=== PATIENT | female | born 1945 | race Caucasian/White ===

== ENCOUNTER → 2016-06-05 | Outpatient (CLI) | payer MEDICARE, OTHER ==
[~2016-06-05] MED LIST: ADVA115A PO; ADVA500A INH; ALAV10TA PO; ALBU6.7H INH; AMBI6.25 PO; BENZ100C4 PO; BUTATAB6 PO; CALCTAB94 PO; CALTTAB5 PO; CARA1TAB6 PO; CARV6.25 PO; CLAR10CA3 PO; CORE12.5 PO; D31000TA PO; FURO20TA PO; FURO40TA PO; GLUCTAB6 PO; HYDR-3516 PO; HYDR-3533 PO; LANS15CA PO; LANSO15 PO; LISI-360 PO; LISI10TA3 PO; MACR100C2 PO; MEDR4PAK PO; NITR-29 PO; OMEP10CA PO; PANT40P IV PUSH; PROB1CAP12 PO; PROB1CHW2; PROM25TA5 PO; REST0.05 EACH EYE; ROBIDM5S PO; SPIRCAP INH; SUCR1SUS5 PO; SYMB160A INH; TIOT12.9 INH; TOPI0.255 TOP; VALT500T PO; Z.0.WALKERFOLD; ZOVI5CRE3 TOPICAL; [UNRECOGNIZED DRUG - CODE] MT
[2016-06-05 11:59] LABS: BICARBONATE 30.6 MEQ/L (21.0-32.0); POTASSIUM 4.2 MEQ/L (3.5-5.1)
== END ==
LOC: CLAB 11:21
PROVIDERS: ATTEND Internal Medicine Interventional Cardiology
DX: I50.9 Heart failure, unspecified (principal)
CPT/HCPCS: 36415; 80048

== ENCOUNTER 2016-06-21 11:22 | Inpatient (IN) | payer MEDICARE, OTHER ==
[2016-06-21] VITALS (7 sets, daily range): BP systolic 119–167; BP diastolic 56–79; PULSE 71–101; RESP 18–24; TEMP 97.2–105; O2SAT 94–99
[~2016-06-21] VITALS: Ht 167.6 cm; Wt 87.0 kg
[~2016-06-21 11:22] MED LIST changes: -ADVA500A INH; -BUTATAB6 PO; -CALCTAB94 PO; -CARA1TAB6 PO; -CARV6.25 PO; -CLAR10CA3 PO; -FURO40TA PO; -HYDR-3516 PO; -LANS15CA PO; -LISI10TA3 PO; -MACR100C2 PO; -MEDR4PAK PO; -OMEP10CA PO; -PANT40P IV PUSH; -PROB1CHW2; -ROBIDM5S PO; -SPIRCAP INH; -SYMB160A INH; -ZOVI5CRE3 TOPICAL
[2016-06-21] MEDS ORDERED: AZTREONAM INJ 2,000 MG in SODIUM CHLORIDE 0.9% INJ 100 ML IV STA (11:37)
[2016-06-21] MEDS ORDERED: VANCOMYCIN INJ 1,000 MG in SODIUM CHLOR 0.9% 250 ML INJ 250 ML IV STA (11:37)
[2016-06-21] MEDS ORDERED: metroNIDAZOLE 500 MG INJ 100 ML IV STA (11:37)
[2016-06-21] MEDS ORDERED: SODIUM CHLOR 0.9% 1000 ML INJ 1,000 ML IV ONE ×4 (11:37→11:45)
[2016-06-21] MEDS ORDERED: ACETAMINOPHEN 650 MG SUPP RECTAL ONE (11:45)
[2016-06-21] MEDS ORDERED: ONDANSETRON HCL 4 MG/2 ML VIAL IV ONE (11:45)
--- NOTE | 2016-06-21 11:52 | PD ---
HPI Chief Complaint: Fever/AMS Time Seen by Provider: 11:45 Travel History International Travel<30 days: No Contact w/Intl Traveler<30days: No History of Present Illness HPI Patient comes in by EMS after found altered while talking on phone to her daughter, who then called EMS. EMS reports last patient was noted to be normal was Sunday and has been septic in the past. EMS reports patient was found to be covered in urine and has not been answering many questions. Axillary temperature by EMS was 104. Patient is able to answer simple yes or no questions. Does not know where she is. Reports she does not know her history. Due to patient's altered mental status patient's H&P is limited. PFSH Past Medical History Arthritis: Yes Asthma: Yes Heart Rhythm Problems: Yes (IRREGULAR W/ PACER) Cancer: No Cardiac Catheterization: Yes (2001) Cardiomyopathy: Yes Cardiovascular Problems: Yes (CHF, CARDIOMYOPATHY ) High Cholesterol: No Congestive Heart Failure: Yes COPD: Yes Cerebrovascular Accident: Yes (TIA) Coronary Artery Disease: Yes Diabetes: No Diminished Hearing: No Gastrointestinal Disorders: Yes GERD: Yes Genitourinary: Yes (chronic uti) Hypertension: Yes Immune Disorder: No Implanted Vascular Access Dvce: Yes Musculoskeletal: Yes (sciatica) Neurologic: Yes (VERTIGO) Psychiatric: No Reproductive: No Respiratory: Yes (bronchitis) Pneumonia: Yes Menopausal: Yes : 8 Para: 8 Miscarriage: 1 Tubal Ligation: Yes Past Surgical History Appendectomy: Yes Cardiac Surgery: Yes (PACEMAKER MEDTRONIC MODEL 4543 S/N [id number] ) Coronary Artery Bypass Graft: No Pacemaker: Yes (defibrillator [employer] med[employer]onic) Tonsillectomy: Yes Other Surgery: Yes Social History Alcohol Use: No Tobacco Use: No (quit 2002) Substance Use: No Allergies-Medications (Allergen,Severity, Reaction): Coded Allergies: Amoxicillin (Verified Allergy, Severe, Diarrhea, 06/21/16) Augmentin (Verified Allergy, Severe, Diarrhea, 06/21/16) Cefuroxime sodium (Verified Allergy, Severe, rash, 06/21/16) Cipro (Verified Allergy, Severe, Nausea/Vomiting, 06/21/16) Codeine (Verified Allergy, Severe, Nausea/Vomiting, 06/21/16) Feldene (Verified Allergy, Severe, Hives, 06/21/16) Tequin (Verified Allergy, Severe, Confusion, 06/21/16) Aspirin (Unverified Allergy, Intermediate, Hives, 06/21/16) Atorvastatin (Verified Allergy, Intermediate, FLANK PAIN, 06/21/16) Morphine (Verified Allergy, Intermediate, sweats, 06/21/16) Contrast Media (Verified Allergy, Unknown, Anaphylaxis, 06/21/16) Gentamicin (Verified Adverse Reaction, Intermediate, DIARRHEA, 06/21/16) Reported Meds & Prescriptions Reported Meds & Active Scripts Active Active Prescriptions or Reported Medications Unobtainable Review of Systems ROS Limitations: Clinical Condition, Altered Mental Status Except as stated in HPI: all other systems reviewed are Neg Physical Exam Exam Limitations: Clinical Condition, Altered Mental Status Narrative GENERAL: Well-developed, overly nourished, in no acute distress, and non-ill appearing. SKIN: Warm and dry. HEAD: Atraumatic. Normocephalic. EYES: Pupils equal and round. No scleral icterus. No injection or drainage. ENT: No nasal bleeding or discharge. Mucous membranes pink and moist. NECK: Trachea midline. Supple. No nuclear rigidity. CARDIOVASCULAR: Regular rate and rhythm. No murmur appreciated. RESPIRATORY: No accessory muscle use. No respiratory distress. Decreased breath sounds throughout. Breath sounds equal bilaterally. GASTROINTESTINAL: Abdomen soft, non-tender, nondistended. Hepatic and splenic margins not palpable. Normal bowel sounds 4. No pulsatile mass. MUSCULOSKELETAL: No obvious deformities. No clubbing. No cyanosis. No edema. NEUROLOGICAL: Awake. No obvious cranial nerve deficits. PSYCHIATRIC: Altered. Data Data Last Documented VS Vital Signs Date Time Temp Pulse Resp B/P Pulse Ox O2 Delivery O2 Flow Rate FiO2 06/21/16 13:23 100 20 167/75 98 Nasal Cannula 2 06/21/16 11:30 105.0 Orders Electrocardiogram (06/21/16 11:37) Complete Blood Count With Diff (06/21/16 11:37) Comprehensive Metabolic Panel (06/21/16 11:37) Prothrombin Time / Inr (Pt) (06/21/16 11:37) Act Partial Throm Time (Ptt) (06/21/16 11:37) Lactic Acid Sepsis Protocol (06/21/16 11:37) Magnesium (Mg) (06/21/16 11:37) Lipase (06/21/16 11:37) Urinalysis - C+S If Indicated (06/21/16 11:37) Influenzae A/B Antigen (06/21/16 11:37) Blood Culture (06/21/16 11:37) Chest, Single Ap (06/21/16 11:37) Blood Glucose (06/21/16 11:37) Ecg Monitoring (06/21/16 11:37) Iv Access Insert/Monitor (06/21/16 11:37) Oximetry (06/21/16 11:37) Oxygen Administration (06/21/16 11:37) Acetaminophen Supp (Tylenol Supp) (06/21/16 11:45) Ondansetron Inj (Zofran Inj) (06/21/16 11:45) Sodium Chlor 0.9% 1000 Ml Inj (Ns 1000 M (06/21/16 11:37) Sodium Chlor 0.9% 1000 Ml Inj (Ns 1000 M (06/21/16 11:37) Sodium Chlor 0.9% 1000 Ml Inj (Ns 1000 M (06/21/16 11:37) Vancomycin Inj (Vancomycin Inj) (06/21/16 11:37) Metronidazole 500 Mg Inj (Flagyl 500 Mg (06/21/16 11:37) Aztreonam Inj (Azactam Inj) (06/21/16 11:37) Sodium Chlor 0.9% 1000 Ml Inj (Ns 1000 M (06/21/16 11:45) Continue Cronin/Suprapubic Cath (06/21/16 11:42) Ct Brain W/O Iv Contrast(Rout) (06/21/16 ) Ckmb (Isoenzyme) Profile (06/21/16 11:42) Troponin I (06/21/16 11:42) Ibuprofen (Motrin) (06/21/16 13:00) Csf Cell Count + Differential (06/21/16 13:26) Csf Culture And Gram Stain (06/21/16 13:26) Csf Hsv I/Ii Dna,Pcr (06/21/16 13:26) Total Protein, Csf (06/21/16 13:26) Glucose, Csf (06/21/16 13:26) Csf Arbovirus Abs (06/21/16 13:26) Midazolam Inj (Versed Inj) (06/21/16 13:30) Lidocaine 2% Inj (Xylocaine 2% Inj) (06/21/16 13:45) Admit To Inpatient (06/21/16 ) Vital Signs (Adult) Q4H (06/21/16 13:49) Activity Bed Rest With Brp (06/21/16 13:49) 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 .CONTINUOUS (06/21/16 13:49) Intake + Output PADMINI.QSHIFT (06/21/16 13:49) Diet Npo (06/21/16 Lunch) Sodium Chlor 0.9% 1000 Ml Inj (Ns 1000 M (06/21/16 13:49) Sodium Chloride 0.9% Flush (Ns Flush) (06/21/16 14:00) Sodium Chloride 0.9% Flush (Ns Flush) (06/21/16 21:00) Acetaminophen (Tylenol) (06/21/16 14:00) Ondansetron Inj (Zofran Inj) (06/21/16 14:00) Magnesium Hydroxide Liq (Milk Of Magnesi (06/21/16 14:00) Basic Metabolic Panel (Bmp) (06/22/16 06:00) Complete Blood Count With Diff (06/22/16 06:00) Pt Request For Service (06/21/16 13:49) Enoxaparin Inj (Lovenox Inj) (06/21/16 14:00) Scd Bilateral/Knee High PADMINI.BID (06/21/16 13:49) Acetaminophen (Tylenol) (06/21/16 14:00) Inpatient Certification (06/21/16 ) Labs Laboratory Tests Test 06/21/16 06/21/16 06/21/16 11:45 11:47 12:05 White Blood Count 3.3 TH/MM3 Red Blood Count 4.44 MIL/MM3 Hemoglobin 13.4 GM/DL Hematocrit 39.5 % Mean Corpuscular Volume 89.1 FL Mean Corpuscular Hemoglobin 30.2 PG Mean Corpuscular Hemoglobin 33.9 % Concent Red Cell Distribution Width 14.4 % Platelet Count 161 TH/MM3 Mean Platelet Volume 9.4 FL Neutrophils (%) (Auto) % Lymphocytes (%) (Auto) % Monocytes (%) (Auto) % Eosinophils (%) (Auto) % Basophils (%) (Auto) % Neutrophils # (Auto) TH/MM3 Lymphocytes # (Auto) TH/MM3 Monocytes # (Auto) TH/MM3 Eosinophils # (Auto) TH/MM3 Basophils # (Auto) TH/MM3 CBC Comment AUTO DIFF Differential Total Cells 100 Counted Neutrophils % (Manual) 36 % Band Neutrophils % 9 % Lymphocytes % 36 % Monocytes % 19 % Neutrophils # (Manual) 1.5 TH/MM3 Differential Comment FINAL DIFF MANUAL Platelet Estimate NORMAL Platelet Morphology Comment NORMAL Red Cell Morphology Comment NORMAL Prothrombin Time 12.7 SEC Prothromb Time International 1.1 RATIO Ratio Activated Partial 29.1 SEC Thromboplast Time Sodium Level 135 MEQ/L Potassium Level 3.8 MEQ/L Chloride Level 102 MEQ/L Carbon Dioxide Level 22.5 MEQ/L Anion Gap 11 MEQ/L Blood Urea Nitrogen 17 MG/DL Creatinine 1.29 MG/DL Estimat Glomerular Filtration 41 ML/MIN Rate Random Glucose 83 MG/DL Calcium Level 8.7 MG/DL Magnesium Level 1.9 MG/DL Total Bilirubin 0.6 MG/DL Aspartate Amino Transf 17 U/L (AST/SGOT) Alanine Aminotransferase 26 U/L (ALT/SGPT) Alkaline Phosphatase 109 U/L Total Creatine Kinase 81 U/L Troponin I LESS THAN 0.02 NG/ML Total Protein 7.6 GM/DL Albumin 3.5 GM/DL Lipase 171 U/L Lactic Acid Level 1.3 mmol/L Urine Color YELLOW Urine Turbidity CLEAR Urine pH 7.0 Urine Specific [place] 1.018 Urine Protein NEG mg/dL Urine Glucose (UA) NEG mg/dL Urine Ketones NEG mg/dL Urine Occult Blood NEG Urine Nitrite NEG Urine Bilirubin NEG Urine Urobilinogen LESS THAN 2.0 MG/DL Urine Leukocyte Esterase NEG Urine RBC 1 /hpf Urine WBC LESS THAN 1 /hpf Microscopic Urinalysis Comment CULT NOT INDICATED MDM Medical Decision Making Medical Screen Exam Complete: Yes Emergency Medical Condition: Yes Medical Record Reviewed: Yes Interpretation(s) EKG reviewed by Dr. Kim, shows paced rhythm with ventricular rate of 98. No STEMI. Differential Diagnosis Sepsis, pneumonia, UTI, meningeal encephalitis, electrolyte abnormality, other Narrative Course Discussed patient with Dr. Kim, who saw and evaluate the patient and is in agreement with plan of care and disposition. 1248 patient is reassessed and is now oriented to person, place, and day of the week. Patient is concerned she is developing viral encephalitis again. Patient reports she started not feeling well today. Denies any pain anywhere. States that she is kind of felt "blah" and asked her son to check on her from time to time. Patient denies doing anything for this. Denies any headache, chest pain, shortness breath, coughing, abdominal pain, or dysuria. Discussed findings and plan of care with patient is agreeable for admission. All questions were answered. Sepsis Criteria SIRS Criteria (2 or more): Temp > 100.9 or < 96.8, Heart rate over 90, WBC > 99522, < 4000 or > 10% bands Sepsis Criteria (SIRS+source): Infect source susp/known Criteria Outcome: Meets sepsis criteria Physician Communication Physician Communication [id number] Jain, who is agreeable to admit the patient. Diagnosis Primary Impression: Sepsis Qualified Code: A41.9 - Sepsis, due to unspecified organism Additional Impression: Altered mental status, unspecified Admitting Information Admitting Physician Requests: Admit Scripts Unable to Obtain Active Prescriptions or Reported Meds Ze Nguyen Jun 21, 2016 11:51
[2016-06-21 12:17] LABS: HEMATOCRIT 39.5 % (35.0-46.0); MEAN CELL VOLUME 89.1 FL (80.0-100.0); MEAN CORPUSCULAR HEMOGLOBIN 30.2 PG (27.0-34.0); MEAN CORPUSCULAR HGB CONC 33.9 % (32.0-36.0); PLATELET COUNT 161 TH/MM3 (150-450); RED BLOOD COUNT 4.44 MIL/MM3 (4.00-5.30); RED CELL DISTRIBUTION WIDTH 14.4 % (11.6-17.2); WHITE BLOOD COUNT 3.3 TH/MM3 (4.0-11.0)
[2016-06-21 12:21] LABS: HEMO FLAGS AUTO DIFF
[2016-06-21 12:24] LABS: APTT (PATIENT) 29.1 SEC (24.3-30.1); INTERNATIONAL NORMALIZED RATIO 1.1 RATIO; PROTHROMBIN TIME - PATIENT 12.7 SEC (9.8-11.6)
[2016-06-21 12:36] LABS: BLOOD, URINE NEG (NEG); GLUCOSE,URINE NEG (NEG); KETONE, URINE NEG (NEG); NITRITE,URINE NEG (NEG); URINE COLOR YELLOW (YELLW/STRAW)
[2016-06-21 12:44] LABS: COMMENT (UR) CULT NOT INDICATED; CULTURE IF INDICATED CULT NOT INDICATED
[2016-06-21 12:55] LABS: ALKALINE PHOSPHATASE 109 U/L (45-117); ALT (GPT) 26 U/L (10-53); AST (GOT) 17 U/L (15-37); BLOOD UREA NITROGEN 17 MG/DL (7-18); GLOMERULAR FILTRATION RATE 41 ML/MIN (>89); MAGNESIUM 1.9 MG/DL (1.5-2.5); TOTAL BILIRUBIN ADULT 0.6 MG/DL (0.2-1.0)
[2016-06-21 12:56] LABS: ANION GAP 11 MEQ/L (5-15); BANDS 9 % (0-6); BICARBONATE 22.5 MEQ/L (21.0-32.0); CHLORIDE 102 MEQ/L (98-107); NEUTROPHIL # MANUAL DIFF 1.5 TH/MM3 (1.8-7.7); POLYS (SEG NEUTROPHILS) 36 % (16-70); POTASSIUM 3.8 MEQ/L (3.5-5.1); SODIUM (NA) 135 MEQ/L (136-145); WBC DIFF SAMPLE 100
--- NOTE | 2016-06-21 12:56 | RADRPT ---
EXAM DATE/TIME: 06/21/2016 12:20 [facility] COMPARISON: CT BRAIN W/O CONTRAST, October 03, 2015, 21:47. INDICATIONS: Altered mental status, high fever. RADIATION DOSE: 56.35 CTDIvol (mGy) MEDICAL HISTORY: Cerebrovascular disease. Cardiovascular disease Hypertension. SURGICAL HISTORY: Appendectomy. ENCOUNTER: Initial ACUITY: 1 day PAIN SCALE: Non-responsive LOCATION: Cranial TECHNIQUE: Multiple contiguous axial images were obtained of the head. Using automated exposure control and adj ustment of the mA and/or kV according to patient size, radiation dose was kept as low as reasonably a chievable to obtain optimal diagnostic quality images. FINDINGS: Mild subcortical white matter small vessel ischemic changes are noted. There is no acute infarct, ac laura hemorrhage, mass effect or extraaxial fluid collections. The ventricles, sulci and cisterns are norm al in size, shape and position for patient's age. CONCLUSION: 1. Mild subcortical white matter small vessel ischemic changes. 2. No acute infarct, acute hemorrhage, mass effect or extraaxial fluid collections. Thee Noble MD on June 21, 2016 at 12:50 Board Certified Radiologist. This report was verified electronically.
[2016-06-21 12:57] LABS: PLATELET ESTIMATE SMEAR NORMAL (NORMAL); PLATELET MORPHOLOGY NORMAL (NORMAL); SCAN/DIFF FINAL DIFF MANUAL
--- NOTE | 2016-06-21 12:58 | RADRPT ---
EXAM DATE/TIME: 06/21/2016 11:58 [facility] COMPARISON: CHEST SINGLE AP, March 03, 2016, 11:33. INDICATIONS: Short of breath. MEDICAL HISTORY: None. SURGICAL HISTORY: Pacemaker ENCOUNTER: Initial ACUITY: 1 day PAIN SCORE: Non-responsive. LOCATION: Bilateral chest FINDINGS: Three lead pacer is implanted in the left chest. Heart is minimally enlarged, pulmonary vascularity is normal. Portion of bony skeleton visualized unremarkable. CONCLUSION: Pacer, negative for pneumothorax or congestive failure. Montez Gil MD FACR on June 21, 2016 at 12:55 Board Certified Radiologist. This report was verified electronically.
[2016-06-21] MEDS ORDERED: IBUPROFEN 800 MG TAB PO ONE (13:00)
[2016-06-21 13:02] LABS: CREATINE KINASE 81 U/L (26-192)
[2016-06-21] MEDS ORDERED: MIDAZOLAM HCL 2 MG/2 ML VIAL IV PUSH ONE (13:30)
[2016-06-21] MEDS ORDERED: LIDOCAINE HCL 2% 50 ML VIAL INFIL ONE (13:45)
[2016-06-21] MEDS ORDERED: MAGNESIUM HYDROXIDE SUSP 30 ML CUP PO PRN (14:00)
[2016-06-21] MEDS ORDERED: SODIUM CHLORIDE 0.9% FLUSH 5 ML FLUSH FLUSH PRN (14:00)
--- NOTE | 2016-06-21 14:30 | PD ---
Physical Exam Narrative I, Dr. Kim, have reviewed the advance practice practitioner's documentation and am in agreement, met with the patient face to face, made the diagnosis, and the medical decision making was done by me. *My assessment and Findings: Patient is a 70 year old female who comes in altered with a fever. Per EMS, she was found bundled in bed covered in urine. Her is currently admitted in the hospital and is supposed to be discharged today. On arrival, she is not able to provide much history, but does answer to her name. Exam shows her skin is hot to touch, she has no lesions seen. Her abdomen is soft, lungs are CTA. Data Data Last Documented VS Vital Signs Date Time Temp Pulse Resp B/P Pulse Ox O2 Delivery O2 Flow Rate FiO2 06/21/16 13:23 100 20 167/75 98 Nasal Cannula 2 06/21/16 11:30 105.0 Orders Electrocardiogram (06/21/16 11:37) Complete Blood Count With Diff (06/21/16 11:37) Comprehensive Metabolic Panel (06/21/16 11:37) Prothrombin Time / Inr (Pt) (06/21/16 11:37) Act Partial Throm Time (Ptt) (06/21/16 11:37) Lactic Acid Sepsis Protocol (06/21/16 11:37) Magnesium (Mg) (06/21/16 11:37) Lipase (06/21/16 11:37) Urinalysis - C+S If Indicated (06/21/16 11:37) Influenzae A/B Antigen (06/21/16 11:37) Blood Culture (06/21/16 11:37) Chest, Single Ap (06/21/16 11:37) Blood Glucose (06/21/16 11:37) Ecg Monitoring (06/21/16 11:37) Iv Access Insert/Monitor (06/21/16 11:37) Oximetry (06/21/16 11:37) Oxygen Administration (06/21/16 11:37) Acetaminophen Supp (Tylenol Supp) (06/21/16 11:45) Ondansetron Inj (Zofran Inj) (06/21/16 11:45) Sodium Chlor 0.9% 1000 Ml Inj (Ns 1000 M (06/21/16 11:37) Sodium Chlor 0.9% 1000 Ml Inj (Ns 1000 M (06/21/16 11:37) Sodium Chlor 0.9% 1000 Ml Inj (Ns 1000 M (06/21/16 11:37) Vancomycin Inj (Vancomycin Inj) (06/21/16 11:37) Metronidazole 500 Mg Inj (Flagyl 500 Mg (06/21/16 11:37) Aztreonam Inj (Azactam Inj) (06/21/16 11:37) Sodium Chlor 0.9% 1000 Ml Inj (Ns 1000 M (06/21/16 11:45) Continue Cronin/Suprapubic Cath (06/21/16 11:42) Ct Brain W/O Iv Contrast(Rout) (06/21/16 ) Ckmb (Isoenzyme) Profile (06/21/16 11:42) Troponin I (06/21/16 11:42) Ibuprofen (Motrin) (06/21/16 13:00) Csf Cell Count + Differential (06/21/16 13:26) Csf Culture And Gram Stain (06/21/16 13:26) Csf Hsv I/Ii Dna,Pcr (06/21/16 13:26) Total Protein, Csf (06/21/16 13:26) Glucose, Csf (06/21/16 13:26) Csf Arbovirus Abs (06/21/16 13:26) Midazolam Inj (Versed Inj) (06/21/16 13:30) Lidocaine 2% Inj (Xylocaine 2% Inj) (06/21/16 13:45) Admit To Inpatient (06/21/16 ) Vital Signs (Adult) Q4H (06/21/16 13:49) Activity Bed Rest With Brp (06/21/16 13:49) 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 .CONTINUOUS (06/21/16 13:49) Intake + Output PADMINI.QSHIFT (06/21/16 13:49) Diet Npo (06/21/16 Lunch) Sodium Chlor 0.9% 1000 Ml Inj (Ns 1000 M (06/21/16 14:00) Sodium Chloride 0.9% Flush (Ns Flush) (06/21/16 14:00) Sodium Chloride 0.9% Flush (Ns Flush) (06/21/16 21:00) Acetaminophen (Tylenol) (06/21/16 14:00) Ondansetron Inj (Zofran Inj) (06/21/16 14:00) Magnesium Hydroxide Liq (Milk Of Magnesi (06/21/16 14:00) Basic Metabolic Panel (Bmp) (06/22/16 06:00) Complete Blood Count With Diff (06/22/16 06:00) Pt Request For Service (06/21/16 13:49) Enoxaparin Inj (Lovenox Inj) (06/21/16 14:00) Scd Bilateral/Knee High PADMINI.BID (06/21/16 13:49) Acetaminophen (Tylenol) (06/21/16 14:00) Inpatient Certification (06/21/16 ) Admit Order (Ed Use Only) (06/21/16 13:51) Labs Laboratory Tests Test 06/21/16 06/21/16 06/21/16 11:45 11:47 12:05 White Blood Count 3.3 TH/MM3 Red Blood Count 4.44 MIL/MM3 Hemoglobin 13.4 GM/DL Hematocrit 39.5 % Mean Corpuscular Volume 89.1 FL Mean Corpuscular Hemoglobin 30.2 PG Mean Corpuscular Hemoglobin 33.9 % Concent Red Cell Distribution Width 14.4 % Platelet Count 161 TH/MM3 Mean Platelet Volume 9.4 FL Neutrophils (%) (Auto) % Lymphocytes (%) (Auto) % Monocytes (%) (Auto) % Eosinophils (%) (Auto) % Basophils (%) (Auto) % Neutrophils # (Auto) TH/MM3 Lymphocytes # (Auto) TH/MM3 Monocytes # (Auto) TH/MM3 Eosinophils # (Auto) TH/MM3 Basophils # (Auto) TH/MM3 CBC Comment AUTO DIFF Differential Total Cells 100 Counted Neutrophils % (Manual) 36 % Band Neutrophils % 9 % Lymphocytes % 36 % Monocytes % 19 % Neutrophils # (Manual) 1.5 TH/MM3 Differential Comment FINAL DIFF MANUAL Platelet Estimate NORMAL Platelet Morphology Comment NORMAL Red Cell Morphology Comment NORMAL Prothrombin Time 12.7 SEC Prothromb Time International 1.1 RATIO Ratio Activated Partial 29.1 SEC Thromboplast Time Sodium Level 135 MEQ/L Potassium Level 3.8 MEQ/L Chloride Level 102 MEQ/L Carbon Dioxide Level 22.5 MEQ/L Anion Gap 11 MEQ/L Blood Urea Nitrogen 17 MG/DL Creatinine 1.29 MG/DL Estimat Glomerular Filtration 41 ML/MIN Rate Random Glucose 83 MG/DL Calcium Level 8.7 MG/DL Magnesium Level 1.9 MG/DL Total Bilirubin 0.6 MG/DL Aspartate Amino Transf 17 U/L (AST/SGOT) Alanine Aminotransferase 26 U/L (ALT/SGPT) Alkaline Phosphatase 109 U/L Total Creatine Kinase 81 U/L Troponin I LESS THAN 0.02 NG/ML Total Protein 7.6 GM/DL Albumin 3.5 GM/DL Lipase 171 U/L Lactic Acid Level 1.3 mmol/L Urine Color YELLOW Urine Turbidity CLEAR Urine pH 7.0 Urine Specific [place] 1.018 Urine Protein NEG mg/dL Urine Glucose (UA) NEG mg/dL Urine Ketones NEG mg/dL Urine Occult Blood NEG Urine Nitrite NEG Urine Bilirubin NEG Urine Urobilinogen LESS THAN 2.0 MG/DL Urine Leukocyte Esterase NEG Urine RBC 1 /hpf Urine WBC LESS THAN 1 /hpf Microscopic Urinalysis Comment CULT NOT INDICATED MDM Supervised Visit with LEONEL: Yes Narrative Course After fluids and Tylenol, patient became more alert. She says she started feeling badly this afternoon. She was here several months ago with similar presenting symptoms, and was diagnosed with viral meningitis. She has no specific symptoms at this time. IV was placed, patient was connected to the cardiac cath lab radiology technologist. She was cooled with ice packs in her groin due to a temp of the 105 rectally. Given IV fluids as well as rectal Tylenol. Covered empirically with broad-spectrum antibiotics. Urinalysis negative for infection, chest x-ray negative for pneumonia. No clear source of her infection. Decision made to perform lumbar puncture to obtain CSF for testing. LP performed without incident. Patient admitted for further management. Procedures Procedure Narrative LUMBAR PUNCTURE: The patient was placed in the left lateral decubitus position. The lumbar area of the back was prepped with Betadine and sterilely draped. The L3 -- L4 interspace was infiltrated with 1% lidocaine plain. Number 20 gauge LP needle was placed in the interspace. Opening pressure deferred. Number 2 milliliters of clear CSF were obtained. Patient tolerated procedure well. Diagnosis Primary Impression: Sepsis Qualified Code: A41.9 - Sepsis, due to unspecified organism Additional Impression: Altered mental status, unspecified Scripts Unable to Obtain Active Prescriptions or Reported Meds Madai Kim MD Jun 21, 2016 14:30
[2016-06-21] MEDS: SODIUM CHLOR 0.9% 1000 ML INJ 1,000 ML IV SCH (14:53)
[2016-06-21] MEDS: ENOXAPARIN SODIUM 40 MG/0.4 ML SYRINGE SQ SCH (14:54)
[2016-06-21] MEDS: ACETAMINOPHEN 325 MG TAB PO PRN ×2 (15:30→21:56)
--- NOTE | 2016-06-21 16:05 | HHI.HP ---
[facility] Service [facility] Primary Care Physician Jose Eduardo Watson MD Admission Diagnosis sepsis, altered mental status Diagnoses: Chief Complaint: Mental status changes Travel History International Travel<30 Days: No Contact w/Intl Traveler <30 Da: No Traveled to Known Affected Are: No Sepsis Criteria SIRS Criteria (2 or more): Temp > 100.9 or < 96.8, Heart rate over 90 Sepsis Criteria (SIRS+source): Infect source susp/known Criteria Outcome: Meets sepsis criteria History of Present Illness 70-year-old white female with a history of previous hypertension, cardiomyopathy requiring pacemaker defibrillator, COPD, chronic kidney disease stage III was brought to the emergency room secondary to changes in mental status and confusion. Back in September, patient was admitted for sepsis with possibly etiology of meningoencephalitis, with likely a virus as a source. Her who is currently at the bedside states that he did see her in the hospital visiting him yesterday and at that time she was alert and oriented to person place time situation. This morning when he spoke to her over the phone, he found she was extremities confused and therefore called his son to check up on her. She states that she had fevers and chills and felt extremely fatigued laying in bed. She did not complain of any focalized weakness or numbness. She at that time did report some headaches with no visual changes. She did state she lost bladder function. She states that she gets recurrent urinary tract infections frequently and just completed course of antibiotic recently. She has not had any symptoms of cough nor any diarrhea nor any abdominal pain. Since coming emergency room after giving medications, her confusion has improved per her she does not have a conversation with us. She has not had any recent travels outside of this area. Review of Systems Constitutional: COMPLAINS OF: Fever, Chills, DENIES: Fatigue, Change in appetite Endocrine: DENIES: Heat/cold intolerance Eyes: DENIES: Blurred vision, Eye pain, Vision loss Ears, nose, mouth, throat: DENIES: Hearing loss, Nasal discharge, Throat pain, Ear Pain, Sinus Pain Respiratory: DENIES: Cough, Shortness of breath Cardiovascular: DENIES: Chest pain, Palpitations, Dyspnea on Exertion, Lower Extremity Edema Gastrointestinal: DENIES: Abdominal pain, Black stools, Bloody stools, Constipation, Diarrhea, Nausea, Vomiting Genitourinary: DENIES: Dysuria Musculoskeletal: DENIES: Joint pain, Muscle aches, Stiffness Integumentary: DENIES: Rash Hematologic/lymphatic: DENIES: Bruising, Lymphadenopathy Immunologic/allergic: DENIES: Eczema Neurologic: COMPLAINS OF: Headache, DENIES: Abnormal gait, Localized weakness , Paresthesias, Seizures, Speech Problems, Tremor, Poor Balance Psychiatric: DENIES: Anxiety, Depression, Suicidal Ideation Past Family Social History Past Medical History Chronic kidney disease stage III COPD cardiomyopathy with pacemaker and defibrillator Hypertension Previous admission for sepsis in September with meningoencephalitis Past Surgical History Pacemaker data for replacement Reported Medications Has been currently getting him with medications. Unable to fully verify due to patient's mild confusion this time. Allergies: Coded Allergies: Amoxicillin (Verified Allergy, Severe, Diarrhea, 06/21/16) Augmentin (Verified Allergy, Severe, Diarrhea, 06/21/16) Cefuroxime sodium (Verified Allergy, Severe, rash, 06/21/16) Cipro (Verified Allergy, Severe, Nausea/Vomiting, 06/21/16) Codeine (Verified Allergy, Severe, Nausea/Vomiting, 06/21/16) Feldene (Verified Allergy, Severe, Hives, 06/21/16) Tequin (Verified Allergy, Severe, Confusion, 06/21/16) Aspirin (Unverified Allergy, Intermediate, Hives, 06/21/16) Atorvastatin (Verified Allergy, Intermediate, FLANK PAIN, 06/21/16) Morphine (Verified Allergy, Intermediate, sweats, 06/21/16) Contrast Media (Verified Allergy, Unknown, Anaphylaxis, 06/21/16) Gentamicin (Verified Adverse Reaction, Intermediate, DIARRHEA, 06/21/16) Family History Unable to obtain Social History Does not smoke cigarettes or drink alcohol. Physical Exam Vital Signs Vital Signs Date Time Temp Pulse Resp B/P Pulse Ox O2 Delivery O2 Flow Rate FiO2 06/21/16 14:26 102.3 78 22 119/56 98 Nasal Cannula 2 06/21/16 13:23 100 20 167/75 98 Nasal Cannula 2 06/21/16 12:05 98 Nasal Cannula 2 06/21/16 11:30 105.0 101 24 162/79 94 Physical Exam GENERAL: This is a well-nourished, well-developed patient, in no apparent distress. SKIN: No rashes, ecchymoses or lesions. Cool and dry. HEAD: Atraumatic. Normocephalic. No temporal or scalp tenderness. EYES: Pupils equal round and reactive. Extraocular motions intact. No scleral icterus. No injection or drainage. ENT: Nose without bleeding, purulent drainage or septal hematoma. Throat without erythema, tonsillar hypertrophy or exudate. Uvula midline. Airway patent. Patient had a whitish plaque over the upper palate NECK: Trachea midline. No JVD or lymphadenopathy. Supple, nontender, no meningeal signs. CARDIOVASCULAR: Regular rate and rhythm without murmurs, gallops, or rubs. RESPIRATORY: Clear to auscultation. Breath sounds equal bilaterally. No wheezes , rales, or rhonchi. GASTROINTESTINAL: Abdomen soft, non-tender, nondistended. Normoactive bowel sounds No hepato-splenomegaly, or palpable masses. No guarding. MUSCULOSKELETAL: Extremities without clubbing, cyanosis, trace edema NEUROLOGICAL: Awake and alert to place, not to time and date, knew the year, oriented to person, not completely oriented to situation. Cranial nerves II through XII intact. Motor and sensory grossly within normal limits. Five out of 5 muscle strength in all muscle groups. Normal speech. Laboratory Laboratory Tests Test 06/21/16 06/21/16 06/21/16 06/21/16 11:45 11:47 12:05 14:12 White Blood Count 3.3 Red Blood Count 4.44 Hemoglobin 13.4 Hematocrit 39.5 Mean Corpuscular Volume 89.1 Mean Corpuscular Hemoglobin 30.2 Mean Corpuscular Hemoglobin 33.9 Concent Red Cell Distribution Width 14.4 Platelet Count 161 Mean Platelet Volume 9.4 Neutrophils (%) (Auto) Lymphocytes (%) (Auto) Monocytes (%) (Auto) Eosinophils (%) (Auto) Basophils (%) (Auto) Neutrophils # (Auto) Lymphocytes # (Auto) Monocytes # (Auto) Eosinophils # (Auto) Basophils # (Auto) CBC Comment AUTO DIFF Differential Total Cells 100 Counted Neutrophils % (Manual) 36 Band Neutrophils % 9 Lymphocytes % 36 Monocytes % 19 Neutrophils # (Manual) 1.5 Differential Comment FINAL DIFF MANUAL Platelet Estimate NORMAL Platelet Morphology Comment NORMAL Red Cell Morphology Comment NORMAL Prothrombin Time 12.7 Prothromb Time International 1.1 Ratio Activated Partial 29.1 Thromboplast Time Sodium Level 135 Potassium Level 3.8 Chloride Level 102 Carbon Dioxide Level 22.5 Anion Gap 11 Blood Urea Nitrogen 17 Creatinine 1.29 Estimat Glomerular Filtration 41 Rate Random Glucose 83 Calcium Level 8.7 Magnesium Level 1.9 Total Bilirubin 0.6 Aspartate Amino Transf 17 (AST/SGOT) Alanine Aminotransferase 26 (ALT/SGPT) Alkaline Phosphatase 109 Total Creatine Kinase 81 Troponin I LESS THAN 0.02 Total Protein 7.6 Albumin 3.5 Lipase 171 Lactic Acid Level 1.3 Urine Color YELLOW Urine Turbidity CLEAR Urine pH 7.0 Urine Specific Holliday 1.018 Urine Protein NEG Urine Glucose (UA) NEG Urine Ketones NEG Urine Occult Blood NEG Urine Nitrite NEG Urine Bilirubin NEG Urine Urobilinogen LESS THAN 2.0 Urine Leukocyte Esterase NEG Urine RBC 1 Urine WBC LESS THAN 1 Microscopic Urinalysis Comment CULT NOT INDICATED CSF Glucose 57 CSF Total Protein 41.6 Date/Time Procedure Status Source Growth 06/21/16 14:12 Gram Stain - Final Resulted Cerebral Spinal Fluid Lumbar Puncture 06/21/16 14:12 CSF Culture Resulted Cerebral Spinal Fluid Lumbar Puncture Pending 06/21/16 11:50 Influenza Types A,B Antigen (TETO) - Final Complete Nasal Washing NEGATIVE FOR FLU A AND B ANTIGEN.... 06/21/16 11:48 Aerobic Blood Culture Received Blood Peripheral Pending 06/21/16 11:48 Anaerobic Blood Culture Received Blood Peripheral Pending Result Diagram: 06/21/16 1145 06/21/16 1145 Imaging Last Impressions Chest X-Ray 06/21/16 1137 Signed Impressions: Service Date/Time: Tuesday, June 21, 2016 11:58 - CONCLUSION: Pacer, negative for pneumothorax or congestive failure. Montez Gil MD FACR Head CT 06/21/16 0000 Signed Impressions: Service Date/Time: Tuesday, June 21, 2016 12:20 - CONCLUSION: 1. Mild subcortical white matter small vessel ischemic changes. 2. No acute infarct, acute hemorrhage, mass effect or extraaxial fluid collections. Thee Noble MD Assessment and Plan Problem List: (1) Sepsis ICD Code: A41.9 Status: Acute (2) Altered mental status, unspecified ICD Code: R41.82 Status: Acute Assessment and Plan 1. Sepsis on presentation with findings of fever, tachycardia, suspected meningocephalitis as possible source with also recent diagnosis urinary tract infectionat this time due to her previous hospitalization in September 2015, will obtain an infectious disease consult. Will follow with blood cultures, CSF cultures done emergency roomcontinue broad-spectrum antibiotics vancomycin, Azactam, Flagyl until final cultures available and pending infectious disease consultation. Continue fluid hydration for supportive care. 2. Metabolic encephalopathy likely due to above sepsis, continue neuro checks every 4, due to her urinary incontinence we'll check EEG to rule out underlying seizure activity. 3. COPD, chronicthis is stable continue with home bronchodilators 4. Hypertension, essentialresume antihypertensives. 5. Chronic kidney disease stage IIIavoid nephrotoxins and continue IV fluid hydration. 6. DVT prophylaxisLovenox. Physician Certification 2 Midnight Certification Type: Admission for Inpatient Services Order for Inpatient Services The services are ordered in accordance with Medicare regulations or non- Medicare payer requirements, as applicable. In the case of services not specified as inpatient-only, they are appropriately provided as inpatient services in accordance with the 2-midnight benchmark. Estimated LOS (days): 4 days is the estimated time the patient will need to remain in the hospital, assuming treatment plan goals are met and no additional complications. Post-Hospital Plan: Not yet determined Problem Qualifiers (1) Sepsis: Qualified Code: A41.9 - Sepsis, due to unspecified organism Vania Jain MD Jun 21, 2016 16:05
[2016-06-21] MEDS ORDERED: Vancomycin Consult Pharmacy 1 EA OTHER SCH (16:30)
[2016-06-21] MEDS ORDERED: SODIUM CHLORIDE 0.9% FLUSH 5 ML FLUSH IV FLUSH PRN (16:30)
[2016-06-21] MEDS ORDERED: VANCOMYCIN 1,000 MG/NS 250 ML IV STA ×2 (17:05)
--- NOTE | 2016-06-21 17:52 | EKG ---
Date Performed: 06/21/2016 Time Performed: 13:01:35 PTAGE: 70 years EKG: ELECTRONIC VENTRICULAR PACEMAKER ABNORMAL RHYTHM ECG COMPARED TO PRIOR ELECTROCARDIOGRAM, R ate has increased. PREVIOUS TRACING : 03/03/2016 10.24 DOCTOR: Jose Birch Interpretating Date/Time 06/21/2016 17:52:13
[2016-06-21 17:53] LABS: GROSS BLOOD TUBE #2 0 (0); SUPERNATE COLOR TUBE #2 CLEAR (CLEAR)
[2016-06-21 17:54] LABS: CSF LYMPHOCYTES 77 %; CSF NEUTROPHILS 9 %; GROSS BLOOD TUBE #3 0 (0); SUPERNATE COLOR TUBE #3 CLEAR (CLEAR); VOLUME TUBE # 3 0.9 ML; VOLUME TUBE # 4 0.9 ML; WBC TUBE #4 1 /MM3 (0-10)
[2016-06-21] MEDS ORDERED: SODIUM CHLORIDE 0.9% FLUSH 5 ML FLUSH FLUSH SCH (21:00)
[2016-06-21] MEDS: metroNIDAZOLE 500 MG TAB PO SCH (21:56)
[2016-06-21] MEDS: SODIUM CHLORIDE 0.9% FLUSH 5 ML FLUSH IV FLUSH SCH (21:56)
[2016-06-21] MEDS: ONDANSETRON HCL 4 MG/2 ML VIAL IVP PRN (23:00)
[2016-06-22] VITALS (7 sets, daily range): BP systolic 118–155; BP diastolic 58–69; PULSE 85–105; RESP 18–20; TEMP 96.4–99.5; O2SAT 94–98
[2016-06-22] MEDS ORDERED: VANCOMYCIN INJ 1,150 MG in SODIUM CHLOR 0.9% 250 ML INJ 250 ML IV SCH (00:30)
[2016-06-22] MEDS: ACETAMINOPHEN/HYDROcodone 325 MG/5 MG TAB PO PRN ×4 (00:55→20:42)
[2016-06-22] MEDS: AZTREONAM INJ 2,000 MG in SODIUM CHLORIDE 0.9% INJ 100 ML IV SCH ×6 (00:55→23:25)
[2016-06-22] MEDS: metroNIDAZOLE 500 MG TAB PO SCH ×3 (05:51→20:41)
[2016-06-22] MEDS: ACETAMINOPHEN 325 MG TAB PO PRN ×3 (05:54→23:24)
[2016-06-22] MEDS: SODIUM CHLORIDE 0.9% FLUSH 5 ML FLUSH IV FLUSH SCH ×2 (07:54→20:42)
[2016-06-22 08:02] LABS: HEMATOCRIT 36.1 % (35.0-46.0); MEAN CELL VOLUME 89.1 FL (80.0-100.0); MEAN CORPUSCULAR HEMOGLOBIN 30.3 PG (27.0-34.0); PLATELET COUNT 128 TH/MM3 (150-450); RED BLOOD COUNT 4.05 MIL/MM3 (4.00-5.30); RED CELL DISTRIBUTION WIDTH 14.4 % (11.6-17.2); WHITE BLOOD COUNT 3.9 TH/MM3 (4.0-11.0)
[2016-06-22 08:12] LABS: HEMO FLAGS AUTO DIFF
[2016-06-22 08:42] LABS: BICARBONATE 22.2 MEQ/L (21.0-32.0); POTASSIUM 3.4 MEQ/L (3.5-5.1)
[2016-06-22 08:46] LABS: BANDS 23 % (0-6); BASOPHILS 1 % (0-2); NEUTROPHIL # MANUAL DIFF 2.7 TH/MM3 (1.8-7.7); POLYS (SEG NEUTROPHILS) 45 % (16-70); WBC DIFF SAMPLE 100
[2016-06-22 08:48] LABS: PLATELET ESTIMATE SMEAR LOW (NORMAL); PLATELET MORPHOLOGY NORMAL (NORMAL); SCAN/DIFF FINAL DIFF MANUAL
[2016-06-22] MEDS: SODIUM CHLOR 0.9% 1000 ML INJ 1,000 ML IV SCH ×3 (09:26→17:36)
--- NOTE | 2016-06-22 10:25 | HHI.PR ---
Subjective Remarks Patient states that she is still having some intermittent headaches. Has mild photosensitivity. She denies having any neck pain. She does have chronic back pain which is exacerbated by laying in bed. She is time her diet without any difficulty. She is also having some nasal drainage and some dry cough. Complained of sore throat and also pain on swallowing and requesting Diflucan versus a Magic mouth wash Objective Vitals Vital Signs Date Time Temp Pulse Resp B/P Pulse Ox O2 Delivery O2 Flow Rate FiO2 06/22/16 08:00 96.4 104 20 128/59 98 06/22/16 07:00 105 06/22/16 04:00 97.1 89 20 120/66 94 06/22/16 00:00 99.2 86 20 130/66 98 06/21/16 23:10 71 06/21/16 19:20 97.2 79 22 145/67 99 06/21/16 18:45 18 06/21/16 18:16 78 18 136/60 96 Room Air 06/21/16 14:26 102.3 78 22 119/56 98 Nasal Cannula 2 06/21/16 13:23 100 20 167/75 98 Nasal Cannula 2 06/21/16 12:05 98 Nasal Cannula 2 06/21/16 11:30 105.0 101 24 162/79 94 I/O 06/21/16 06/21/16 06/21/16 06/22/16 06/22/16 06/22/16 07:00 15:00 23:00 07:00 15:00 23:00 Intake Total 0 ml Output Total 550 ml 1200 ml Balance -550 ml -1200 ml Intake Oral 0 ml Output Urine Total 550 ml 1200 ml # Voids 0 # Bowel Movements 0 0 Result Diagram: 06/22/16 0713 06/22/16 0713 Other Results Microbiology Date/Time Procedure Status Source Growth 06/21/16 14:12 Gram Stain - Final Resulted Cerebral Spinal Fluid Lumbar Puncture 06/21/16 14:12 CSF Culture - Preliminary Resulted Cerebral Spinal Fluid Lumbar Puncture NO GROWTH IN 24 HOURS. 06/21/16 11:50 Influenza Types A,B Antigen (TETO) - Final Complete Nasal Washing NEGATIVE FOR FLU A AND B ANTIGEN.... 06/21/16 11:48 Aerobic Blood Culture - Preliminary Resulted Blood Peripheral NO GROWTH IN 1 DAY 06/21/16 11:48 Anaerobic Blood Culture - Preliminary Resulted Blood Peripheral NO GROWTH IN 1 DAY Objective Remarks GENERAL: This is a well-nourished, well-developed patient, in no apparent distress. NECK: Full range of motion CARDIOVASCULAR: Regular rate and rhythm RESPIRATORY: Clear to auscultation. Breath sounds equal bilaterally. No wheezes , rales, or rhonchi. GASTROINTESTINAL: Abdomen soft, non-tender, nondistended. Normal active bowel sounds MUSCULOSKELETAL: Extremities without clubbing, cyanosis, or edema. NEURO: Alert & Oriented x4 to person, place, time, situation. Moves all ext x4 , cranial nerves II through XII intact, motor strength 5 out of 5 bilateral upper and lower extremity A/P Problem List: (1) Sepsis ICD Code: A41.9 Status: Acute (2) Altered mental status, unspecified ICD Code: R41.82 Status: Acute Assessment and Plan 1. Sepsis on presentation with findings of fever, tachycardia, suspected meningocephalitis as possible source with also recent diagnosis urinary tract infectionat this time due to her previous hospitalization in September 2015, obtained an infectious disease consult and awaiting recommendations. Will follow with blood cultures, CSF cultures done in emergency roomcontinue broad- spectrum antibiotics vancomycin, Azactam, Flagyl until final cultures available and pending infectious disease consultation. Continue fluid hydration for supportive care. HSV negative 2. Metabolic encephalopathy likely due to above sepsis and now resolve his neuro checks has been stable and patient spent alert and oriented 4, , due to her presenting urinary incontinence we'll check EEG to rule out underlying seizure activity. 3. COPD, chronicthis is stable continue with home bronchodilators 4. Hypertension, essentialresume antihypertensives. 5. Chronic kidney disease stage IIIavoid nephrotoxins and continue IV fluid hydration. 6. Hypokalemiareplete 7. DVT prophylaxisLovenox. 8. ThrushDiflucan 1, nystatin swish and swallow 3 times a day with meals. Discontinue Cronin catheter Discharge Planning Discharge home in next 24-48 hours pending negative cultures and clearance from infectious disease. Problem Qualifiers (1) Sepsis: Qualified Code: A41.9 - Sepsis, due to unspecified organism Vania Jain MD Jun 22, 2016 10:25
[2016-06-22] MEDS ORDERED: POTASSIUM CHLORIDE 20 MEQ CONTROLLED RELEASE TAB PO ONE (10:30)
[2016-06-22 10:46] LABS: HSV 1,PCR Negative (Negative)
[2016-06-22] MEDS ORDERED: FLUCONAZOLE 100 MG TAB PO ONE (13:15)
[2016-06-22] MEDS ORDERED: PILL SPLITTER OTHER PRN (13:15)
[2016-06-22] MEDS: VANCOMYCIN INJ 1,500 MG in SODIUM CHLORID 0.9% 500 ML INJ 500 ML IV SCH (14:01)
[2016-06-22] MEDS: ENOXAPARIN SODIUM 40 MG/0.4 ML SYRINGE SQ SCH (14:02)
--- NOTE | 2016-06-22 16:07 | PD.ID.CON ---
History of Present Illness Service ID Consult Requested By Dr Jain Reason for Consult sepsis, fever Primary Care Physician Fabrice Pagan MD Diagnoses: History of Present Illness 70 yo F with mult med prob 5 days of maliase, fever worsening DOMINGUEZ now developped sinus pressur and runny nose no sick contact Fever 105 on admission Had LP for cephalgia cabezas + Mild lymphocytic pleocytosis Feels much better, fever low grade, DOMINGUEZ improved Clx negative so far @ 24 hrs Review of Systems Constitutional: COMPLAINS OF: Fatigue, Fever, Chills Eyes: COMPLAINS OF: Photosensitivity Ears, nose, mouth, throat: COMPLAINS OF: Running Nose, Sinus Pain Neurologic: COMPLAINS OF: Headache Except as stated in HPI: all other systems reviewed are Neg Past Family Social History Allergies: Coded Allergies: Amoxicillin (Verified Allergy, Severe, Diarrhea, 06/21/16) Augmentin (Verified Allergy, Severe, Diarrhea, 06/21/16) Cefuroxime sodium (Verified Allergy, Severe, rash, 06/21/16) Cipro (Verified Allergy, Severe, Nausea/Vomiting, 06/21/16) Codeine (Verified Allergy, Severe, Nausea/Vomiting, 06/21/16) Feldene (Verified Allergy, Severe, Hives, 06/21/16) Tequin (Verified Allergy, Severe, Confusion, 06/21/16) Aspirin (Unverified Allergy, Intermediate, Hives, 06/21/16) Atorvastatin (Verified Allergy, Intermediate, FLANK PAIN, 06/21/16) Morphine (Verified Allergy, Intermediate, sweats, 06/21/16) Contrast Media (Verified Allergy, Unknown, Anaphylaxis, 06/21/16) Gentamicin (Verified Adverse Reaction, Intermediate, DIARRHEA, 06/21/16) Past Medical History Chronic kidney disease stage III COPD cardiomyopathy with pacemaker and defibrillator Hypertension Previous admission for sepsis in September with meningoencephalitis Past Surgical History pacemaker and defibrillator Active Ordered Medications Medications where reviewed in EMR Antibiotics Include: vanco, azactam, flagyl Family History Non-Contributory. Social History No Tobacco. No ETOH. No Illicit Drugs. Physical Exam Vital Signs Vital Signs Date Time Temp Pulse Resp B/P Pulse Ox O2 Delivery O2 Flow Rate FiO2 06/22/16 12:00 96.5 88 18 118/58 94 06/22/16 08:00 96.4 104 20 128/59 98 06/22/16 07:00 105 06/22/16 04:00 97.1 89 20 120/66 94 06/22/16 00:00 99.2 86 20 130/66 98 06/21/16 23:10 71 06/21/16 19:20 97.2 79 22 145/67 99 06/21/16 18:45 18 06/21/16 18:16 78 18 136/60 96 Room Air Physical Exam CONSTITUTIONAL/GENERAL: This is an adequately nourished patient, in no apparent distress. TUBES/LINES/DRAINS: SKIN: No jaundice, rashes, or lesions. Skin temperature appropriate. Not diaphoretic. HEAD: Atraumatic. Normocephalic. EYES: Pupils equal and round and reactive. Extraocular motions intact. No scleral icterus. No injection or drainage. Fundi not examined. ENT: Hearing grossly normal. Nose with clear drainage. Throat without visible erythema, exudates, masses, or lesions. NECK: Trachea midline. Supple, nontender. CARDIOVASCULAR: Regular rate and rhythm without murmurs, gallops, or rubs. No JVD. Peripheral pulses symmetric. Pedal pls 2/2 bl ]AICD in place with no skin changes L chest RESPIRATORY/CHEST: Symmetric, unlabored respirations. Clear to auscultation. Breath sounds equal bilaterally. No wheezes, rales, or rhonchi. GASTROINTESTINAL: Abdomen soft, non-tender, nondistended. No hepato-splenomegaly , or palpable masses. No guarding. Bowel sounds present. GENITOURINARY: Without palpable bladder distension. MUSCULOSKELETAL: Extremities without clubbing, cyanosis, or edema. No joint tenderness or effusion noted. No calf tenderness. No mottling or clubbing. LYMPHATICS: No palpable cervical or supraclavicular adenopathy. NEUROLOGICAL: Awake and alert. Motor and sensory grossly within normal limits. Follows commands. Cognitively sharp. Moves all extremities. PSYCHIATRIC: No obvious anxiety/depression. no apparent hallucinations or other psychotic thought process. Laboratory Laboratory Tests Test 06/22/16 07:13 White Blood Count 3.9 Red Blood Count 4.05 Hemoglobin 12.3 Hematocrit 36.1 Mean Corpuscular Volume 89.1 Mean Corpuscular Hemoglobin 30.3 Mean Corpuscular Hemoglobin 34.0 Concent Red Cell Distribution Width 14.4 Platelet Count 128 Mean Platelet Volume 8.9 Neutrophils (%) (Auto) Lymphocytes (%) (Auto) Monocytes (%) (Auto) Eosinophils (%) (Auto) Basophils (%) (Auto) Neutrophils # (Auto) Lymphocytes # (Auto) Monocytes # (Auto) Eosinophils # (Auto) Basophils # (Auto) CBC Comment AUTO DIFF Differential Total Cells 100 Counted Neutrophils % (Manual) 45 Band Neutrophils % 23 Lymphocytes % 14 Monocytes % 17 Basophils % 1 Neutrophils # (Manual) 2.7 Differential Comment FINAL DIFF MANUAL Platelet Estimate LOW Platelet Morphology Comment NORMAL Red Cell Morphology Comment NORMAL Sodium Level 138 Potassium Level 3.4 Chloride Level 108 Carbon Dioxide Level 22.2 Anion Gap 8 Blood Urea Nitrogen 10 Creatinine 0.93 Estimat Glomerular Filtration 60 Rate Random Glucose 99 Calcium Level 7.7 Date/Time Procedure Status Source Growth 06/21/16 14:12 Gram Stain - Final Resulted Cerebral Spinal Fluid Lumbar Puncture 06/21/16 14:12 CSF Culture - Preliminary Resulted Cerebral Spinal Fluid Lumbar Puncture NO GROWTH IN 24 HOURS. 06/21/16 11:50 Influenza Types A,B Antigen (TETO) - Final Complete Nasal Washing NEGATIVE FOR FLU A AND B ANTIGEN.... 06/21/16 11:48 Aerobic Blood Culture - Preliminary Resulted Blood Peripheral NO GROWTH IN 1 DAY 06/21/16 11:48 Anaerobic Blood Culture - Preliminary Resulted Blood Peripheral NO GROWTH IN 1 DAY Result Diagram: 06/22/16 0713 06/22/16 0713 Imaging Last Impressions Chest X-Ray 06/21/16 1137 Signed Impressions: Service Date/Time: Tuesday, June 21, 2016 11:58 - CONCLUSION: Pacer, negative for pneumothorax or congestive failure. Montez Gil MD FACR Head CT 06/21/16 0000 Signed Impressions: Service Date/Time: Tuesday, June 21, 2016 12:20 - CONCLUSION: 1. Mild subcortical white matter small vessel ischemic changes. 2. No acute infarct, acute hemorrhage, mass effect or extraaxial fluid collections. Thee Noble MD Assessment and Plan Assessment and Plan Febrile ilnes with cephalgia ? viral meningitis; HSV negative - cont current abx for now - fu clx untill final Discussed Condition With pt Hilda Mcdaniel MD Jun 22, 2016 16:07
[2016-06-22] MEDS: NYSTAT/DIPHENHY/LIDO MOUTHWASH (Adult) 120ML SWISH-SWAL SCH (17:29)
[2016-06-22] MEDS: ONDANSETRON HCL 4 MG/2 ML VIAL IVP PRN (17:40)
[2016-06-23] VITALS (10 sets, daily range): BP systolic 118–141; BP diastolic 62–67; PULSE 73–115; RESP 16–20; TEMP 95.4–102.7; O2SAT 93–100
[2016-06-23] MEDS: metroNIDAZOLE 500 MG TAB PO SCH ×3 (05:36→21:21)
[2016-06-23] MEDS: AZTREONAM INJ 2,000 MG in SODIUM CHLORIDE 0.9% INJ 100 ML IV SCH ×3 (05:37→16:28)
[2016-06-23] MEDS: SODIUM CHLOR 0.9% 1000 ML INJ 1,000 ML IV SCH (05:38)
[2016-06-23] MEDS: ACETAMINOPHEN/HYDROcodone 325 MG/5 MG TAB PO PRN ×2 (05:41→22:36)
[2016-06-23] MEDS: ONDANSETRON HCL 4 MG/2 ML VIAL IVP PRN ×2 (07:30→13:48)
[2016-06-23] MEDS: NYSTAT/DIPHENHY/LIDO MOUTHWASH (Adult) 120ML SWISH-SWAL SCH ×3 (08:15→13:42)
[2016-06-23] MEDS: VANCOMYCIN INJ 1,500 MG in SODIUM CHLORID 0.9% 500 ML INJ 500 ML IV SCH (08:16)
[2016-06-23] MEDS: SODIUM CHLORIDE 0.9% FLUSH 5 ML FLUSH IV FLUSH SCH ×2 (08:16→21:21)
[2016-06-23 08:26] LABS: AUTOMATED NEUTROPHIL # 2.9 TH/MM3 (1.8-7.7); BASOPHIL % 0.7 % (0.0-2.0); EOSINOPHIL % 0.1 % (0.0-4.0); HEMATOCRIT 34.5 % (35.0-46.0); HEMO FLAGS DIFF FINAL; LYMPH % 13.1 % (9.0-44.0); LYMPHOCYTE # 0.6 TH/MM3 (1.0-4.8); MEAN CELL VOLUME 89.5 FL (80.0-100.0); MEAN CORPUSCULAR HEMOGLOBIN 29.9 PG (27.0-34.0); MEAN CORPUSCULAR HGB CONC 33.4 % (32.0-36.0); MONO % 19.9 % (0.0-8.0); NEUT % 66.2 % (16.0-70.0); PLATELET COUNT 123 TH/MM3 (150-450); RED BLOOD COUNT 3.86 MIL/MM3 (4.00-5.30); RED CELL DISTRIBUTION WIDTH 14.2 % (11.6-17.2); WHITE BLOOD COUNT 4.4 TH/MM3 (4.0-11.0)
[2016-06-23 08:49] LABS: BICARBONATE 23.1 MEQ/L (21.0-32.0); POTASSIUM 3.5 MEQ/L (3.5-5.1)
--- NOTE | 2016-06-23 11:50 | HHI.PR ---
Subjective Remarks The patient says she felt poorly. She says she was very nauseous and doesn't think she was going to be able to eat anything. Her was at the bedside. The patient complained of a frontal headache. 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 She also complained of a severe throat pain. She thought she had strep throat. Discussed with nursing. Objective Vitals Vital Signs Date Time Temp Pulse Resp B/P Pulse Ox O2 Delivery O2 Flow Rate FiO2 06/23/16 08:00 95.4 84 18 118/65 100 06/23/16 04:00 98.4 88 20 135/65 95 06/23/16 00:00 97.5 87 20 134/63 95 06/22/16 20:00 99.5 93 20 155/67 96 06/22/16 16:00 97.5 85 18 143/69 96 06/22/16 12:00 96.5 88 18 118/58 94 I/O 06/22/16 06/22/16 06/22/16 06/23/16 06/23/16 06/23/16 07:00 15:00 23:00 07:00 15:00 23:00 Intake Total 1695 ml Output Total 1200 ml Balance -1200 ml 1695 ml IV Total 1695 ml Output Urine Total 1200 ml # Voids 1 2 3 # Bowel Movements 0 0 0 0 Result Diagram: 06/23/16 0707 06/23/16 0707 Imaging Last Impressions Chest X-Ray 06/21/16 1137 Signed Impressions: Service Date/Time: Tuesday, June 21, 2016 11:58 - CONCLUSION: Pacer, negative for pneumothorax or congestive failure. Montez Gil MD FACR Head CT 06/21/16 0000 Signed Impressions: Service Date/Time: Tuesday, June 21, 2016 12:20 - CONCLUSION: 1. Mild subcortical white matter small vessel ischemic changes. 2. No acute infarct, acute hemorrhage, mass effect or extraaxial fluid collections. Thee Noble MD Objective Remarks GENERAL: This is a well-nourished, well-developed patient, in no apparent distress. HEENT: NC, AT. NECK: Full range of motion CARDIOVASCULAR: Regular rate and rhythm. No murmur appreciated. RESPIRATORY: Decreased breath sounds. GASTROINTESTINAL: Abdomen soft, non-tender, nondistended. Normal active bowel sounds. MUSCULOSKELETAL: Extremities without clubbing, cyanosis, or edema. NEURO: Alert & Oriented x4 to person, place, time, situation. Moves all ext x4 , cranial nerves II through XII intact, motor strength 5 out of 5 bilateral upper and lower extremity. PSYCH: Slightly flattened affect. Medications and IVs Current Medications Medications (Trade) Dose Ordered Sig/Jorge Route Start Time Stop Time Status Last Admin (NS 1000 ml Inj) 1,000 ml @ 100 mls/hr Q10H IV 06/21/16 14:00 06/23/16 05:38 (Tylenol) 650 mg Q4H PRN PO 06/21/16 14:00 06/21/16 15:30 (Zofran Inj) 4 mg Q6H PRN IVP 06/21/16 14:00 06/23/16 07:30 (Milk Of Magnesia Liq) 30 ml Q12H PRN PO 06/21/16 14:00 (Lovenox Inj) 40 mg Q24H SQ 06/21/16 14:00 06/22/16 14:02 (Tylenol) 650 mg Q6H PRN PO 06/21/16 14:00 06/22/16 23:24 (NS Flush) 2 ml UNSCH PRN IV FLUSH 06/21/16 16:30 IV Flush 2 ml 2 ml BID IV FLUSH 06/21/16 21:00 06/22/16 07:54 Pharmacy Profile Note 0 ml @ 0 mls/hr UNSCH OTHER 06/21/16 16:30 (Azactam Inj/NS Inj) 100 ml @ 200 mls/hr Q6H IV 06/21/16 18:30 06/23/16 11:21 (Flagyl) 500 mg Q8H PO 06/21/16 21:00 06/23/16 11:21 Acetaminophen/ Hydrocodone Bitart 1 tab 1 tab Q6H PRN PO 06/22/16 00:45 06/23/16 05:41 (Vancomycin Inj/ NS 500 ml Inj) 515 ml @ 250 mls/hr Q18H IV 06/22/16 15:00 06/23/16 08:16 Miscellaneous Information SPECIFIC LAB TO BE DRAWN:VANCOMYCIN TROUGH DATE TO... ONCE ONCE XX 06/24/16 02:45 06/24/16 02:46 (Magic Mouthwash Adult Liq) 5 ml TIDAC SWISH-SWAL 06/22/16 17:00 06/23/16 08:15 (Pill Splitter) 1 ea UNSCH PRN OTHER 06/22/16 13:15 A/P Problem List: (1) Sepsis ICD Code: A41.9 Status: Acute (2) Altered mental status, unspecified ICD Code: R41.82 Status: Acute Assessment and Plan Sepsis With findings of fever, tachycardia, suspected meningocephalitis as possible source with also recent diagnosis urinary tract infection. HSV negative on LP. - Will follow culture data. - continue antibiotics per ID. Metabolic encephalopathy Likely due to sepsis and now resolved. - treatment as above. - check an EEG. COPD This is stable. - continue with home bronchodilators. Hypertension Essential. - resume antihypertensives. Chronic kidney disease Stage III. - avoid nephrotoxins and continue IV fluid hydration. Hypokalemia S/p repletion. - monitor and replete as needed. Sore throat The pt said she feels like she has strep throat. No evidence of thrush. - pain meds as needed. - rapid strep test. - Chloraseptic spray and Magic Mouthwash as needed. N/V Possibly s/t pain meds or constipation. - clear liquid diet. - check LFTs, lipase. - antiemetics as needed. PPx: Lovenox. Discharge Planning Awaiting ID clearance and clinical improvement. Problem Qualifiers (1) Sepsis: Qualified Code: A41.9 - Sepsis, due to unspecified organism Rocky Merlos DO Jun 23, 2016 11:50
[2016-06-23] MEDS ORDERED: 1/2 NS + KCL 20 MEQ INJ 1,000 ML IV SCH (12:00)
[2016-06-23] MEDS ORDERED: HYDROmorphone HCL PF 1 MG/ML VIAL IV PUSH PRN (12:15)
[2016-06-23] MEDS ORDERED: POTASSIUM CHLORIDE 25 MEQ EFFERVESCENT TAB PO ONE (12:30)
[2016-06-23 12:35] LABS: INDIRECT BILIRUBIN 0.3 MG/DL (0.0-0.8); TOTAL BILIRUBIN ADULT 0.4 MG/DL (0.2-1.0)
[2016-06-23] MEDS ORDERED: PHENOL 1.4% SOLN 180 ML BTL OROPHARYNG ONE (13:00)
[2016-06-23] MEDS: SENNOSIDES 8.6 MG TAB PO SCH (13:41)
[2016-06-23] MEDS: PANTOPRAZOLE SODIUM 40 MG VIAL IV PUSH SCH (13:41)
[2016-06-23] MEDS: PHENOL 1.4% SOLN 180 ML BTL OROPHARYNG PRN ×2 (13:41→21:21)
[2016-06-23] MEDS: ENOXAPARIN SODIUM 40 MG/0.4 ML SYRINGE SQ SCH (13:41)
[2016-06-23] MEDS: DOCUSATE SODIUM 100 MG CAP PO SCH ×2 (13:42→21:20)
[2016-06-23] MEDS: ACETAMINOPHEN 325 MG TAB PO PRN ×3 (14:14→21:21)
--- NOTE | 2016-06-23 15:08 | PD.CONS ---
HPI Service Cardiology physicians Consult Requested By Dr Rabago Reason for Consult Pt concerned about device and fluid retention Primary Care Physician Fabrice Pagan MD History of Present Illness The patient is a 70 year old female known to Dr. Franco with an extensive cardiac history including non-ischemic cardiomyopathy s/p AICD, chronic CHF, non -occlusive ASHD, LBBB, and HTN. 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 The patient presented with confusion, headache and fever and is being worked up for source of fever. ID following. We were consulted per the patient's request with concerns about AICD that was noted to be at [facility] on most recent office visit at the end of May. She is not pacer dependent. She is also concerned about fluid retention. Since admission, she has received IVF. She takes Lasix, lisinopril and coreg at home which has not been resumed. On evaluation today, her primary concern in nausea. She is retching. (Sary Ty) Review of Systems Consitutional: COMPLAINS OF: Fatigue, Fever, DENIES: Chills, Weight gain, Weight loss Eyes: DENIES: Amaurosis Fugax, Change in vision HEENT: DENIES: Lightheadedness, Change in hearing Respiratory: DENIES: See HPI, Cough, Snoring, Shortness of breath, Wheezing, Sputum production Cardiovascular: DENIES: See HPI, Chest pain, Palpitations, Syncope, Tachycardia Gastrointestinal: COMPLAINS OF: Nausea, DENIES: Vomiting, Change in bowel habits, Reflux, Bloody stools, Melena Genitourinary: DENIES: Urinary incontinence, Difficulty voiding Integumentary: DENIES: Rash Neurologic: DENIES: Tingling or numbness, Memory problems, Poor Balance, Stroke symptoms Musculoskeletal: DENIES: Joint pain, Muscle pain, Limited range of motion, Back pain Psychiatric: DENIES: Anxiety, Depression, Sleep disturbances Hematologic: DENIES: Bruising tendencies, Bleeding tendencies Endocrine: DENIES: Weight gain, Weight loss, Thyroid disease (Sary Ty ) Past Family Social History Allergies: Coded Allergies: Amoxicillin (Verified Allergy, Severe, Diarrhea, 06/21/16) Augmentin (Verified Allergy, Severe, Diarrhea, 06/21/16) Cefuroxime sodium (Verified Allergy, Severe, rash, 06/21/16) Cipro (Verified Allergy, Severe, Nausea/Vomiting, 06/21/16) Codeine (Verified Allergy, Severe, Nausea/Vomiting, 06/21/16) Feldene (Verified Allergy, Severe, Hives, 06/21/16) Tequin (Verified Allergy, Severe, Confusion, 06/21/16) Aspirin (Unverified Allergy, Intermediate, Hives, 06/21/16) Atorvastatin (Verified Allergy, Intermediate, FLANK PAIN, 06/21/16) Morphine (Verified Allergy, Intermediate, sweats, 06/21/16) Contrast Media (Verified Allergy, Unknown, Anaphylaxis, 06/21/16) Gentamicin (Verified Adverse Reaction, Intermediate, DIARRHEA, 06/21/16) Past Medical History See HPI Past Surgical History cardiac cath AICD knee replacement bladder lift appendectomy tonsillectomy Reported Medications reviewed in office Active Ordered Medications Current Medications Medications (Trade) Dose Ordered Sig/Jorge Route Start Time Stop Time Status Last Admin (Tylenol) 650 mg Q4H PRN PO 06/21/16 14:00 06/23/16 14:14 (Zofran Inj) 4 mg Q6H PRN IVP 06/21/16 14:00 06/23/16 13:48 (Milk Of Magnesia Liq) 30 ml Q12H PRN PO 06/21/16 14:00 (Lovenox Inj) 40 mg Q24H SQ 06/21/16 14:00 06/23/16 13:41 (Tylenol) 650 mg Q6H PRN PO 06/21/16 14:00 06/22/16 23:24 (NS Flush) 2 ml UNSCH PRN IV FLUSH 06/21/16 16:30 IV Flush 2 ml 2 ml BID IV FLUSH 06/21/16 21:00 06/22/16 07:54 Pharmacy Profile Note 0 ml @ 0 mls/hr UNSCH OTHER 06/21/16 16:30 (Azactam Inj/NS Inj) 100 ml @ 200 mls/hr Q6H IV 06/21/16 18:30 06/23/16 11:21 (Flagyl) 500 mg Q8H PO 06/21/16 21:00 06/23/16 11:21 Acetaminophen/ Hydrocodone Bitart 1 tab 1 tab Q6H PRN PO 06/22/16 00:45 06/23/16 05:41 (Vancomycin Inj/ NS 500 ml Inj) 515 ml @ 250 mls/hr Q18H IV 06/22/16 15:00 06/23/16 08:16 Miscellaneous Information SPECIFIC LAB TO BE DRAWN:VANCOMYCIN TROUGH DATE TO... ONCE ONCE XX 06/24/16 02:45 06/24/16 02:46 (Magic Mouthwash Adult Liq) 5 ml TIDAC SWISH-SWAL 06/22/16 17:00 06/23/16 08:15 (Pill Splitter) 1 ea UNSCH PRN OTHER 06/22/16 13:15 (Chloraseptic [place]) 2 spray Q2H PRN OROPHARYNG 06/23/16 12:15 06/23/16 13:41 (Protonix Inj) 40 mg Q24H IV PUSH 06/23/16 13:00 06/23/16 13:41 (Colace) 100 mg BID PO 06/23/16 12:30 06/23/16 13:42 (Senokot) 17.2 mg DAILY PO 06/23/16 13:00 06/23/16 13:41 (Dilaudid Pf Inj) 0.5 mg Q4H PRN IV PUSH 06/23/16 12:15 Family History mother and father CAD, son CMP Social History non smoker, no ETOH (Sary Ty) Physical Exam Vital Signs Vital Signs Date Time Temp Pulse Resp B/P Pulse Ox O2 Delivery O2 Flow Rate FiO2 06/23/16 14:29 100.9 115 97 06/23/16 14:14 102.7 06/23/16 12:00 96.8 92 18 118/62 96 06/23/16 08:00 95.4 84 18 118/65 100 06/23/16 04:00 98.4 88 20 135/65 95 06/23/16 00:00 97.5 87 20 134/63 95 06/22/16 20:00 99.5 93 20 155/67 96 06/22/16 16:00 97.5 85 18 143/69 96 Physical Exam GENERAL: Ill appearing female, retching SKIN: Warm and dry. HEAD: Atraumatic. Normocephalic. EYES: Pupils equal and round. No scleral icterus. No injection or drainage. ENT: No nasal bleeding or discharge. Mucous membranes pink and moist. NECK: Trachea midline. CARDIOVASCULAR: Regular rate and rhythm. AICD RESPIRATORY: No accessory muscle use. Breath sounds equal bilaterally. GASTROINTESTINAL: Abdomen soft, non-tender, nondistended. retching MUSCULOSKELETAL: Extremities without clubbing, cyanosis, No obvious deformities. NEUROLOGICAL: Awake and alert. No obvious cranial nerve deficits. Normal speech. PSYCHIATRIC: Appropriate mood and affect; insight and judgment normal. Laboratory Laboratory Tests Test 06/23/16 07:07 White Blood Count 4.4 Red Blood Count 3.86 Hemoglobin 11.5 Hematocrit 34.5 Mean Corpuscular Volume 89.5 Mean Corpuscular Hemoglobin 29.9 Mean Corpuscular Hemoglobin 33.4 Concent Red Cell Distribution Width 14.2 Platelet Count 123 Mean Platelet Volume 9.0 Neutrophils (%) (Auto) 66.2 Lymphocytes (%) (Auto) 13.1 Monocytes (%) (Auto) 19.9 Eosinophils (%) (Auto) 0.1 Basophils (%) (Auto) 0.7 Neutrophils # (Auto) 2.9 Lymphocytes # (Auto) 0.6 Monocytes # (Auto) 0.9 Eosinophils # (Auto) 0.0 Basophils # (Auto) 0.0 CBC Comment DIFF FINAL Differential Comment Sodium Level 141 Potassium Level 3.5 Chloride Level 109 Carbon Dioxide Level 23.1 Anion Gap 9 Blood Urea Nitrogen 10 Creatinine 0.70 Estimat Glomerular Filtration 83 Rate Random Glucose 86 Calcium Level 8.2 Total Bilirubin 0.4 Direct Bilirubin 0.1 Indirect Bilirubin 0.3 Aspartate Amino Transf 27 (AST/SGOT) Alanine Aminotransferase 33 (ALT/SGPT) Alkaline Phosphatase 72 Total Protein 6.0 Albumin 2.6 Lipase 65 Date/Time Procedure Status Source Growth 06/23/16 12:15 Group A Streptococcus Screen (TETO) - Final Complete Throat 06/23/16 12:15 Group A Streptococcus Screen Received Throat Pending 06/21/16 14:12 Gram Stain - Final Resulted Cerebral Spinal Fluid Lumbar Puncture 06/21/16 14:12 CSF Culture - Preliminary Resulted Cerebral Spinal Fluid Lumbar Puncture NO GROWTH IN 48 HOURS. 06/21/16 11:50 Influenza Types A,B Antigen (TETO) - Final Complete Nasal Washing NEGATIVE FOR FLU A AND B ANTIGEN.... 06/21/16 11:48 Aerobic Blood Culture - Preliminary Resulted Blood Peripheral NO GROWTH IN 2 DAYS 06/21/16 11:48 Anaerobic Blood Culture - Preliminary Resulted Blood Peripheral NO GROWTH IN 2 DAYS (Sary Ty) Result Diagram: 06/23/16 0707 06/23/16 0707 Imaging Last 72 hours Impressions Chest X-Ray 06/21/16 1137 Signed Impressions: Service Date/Time: Tuesday, June 21, 2016 11:58 - CONCLUSION: Pacer, negative for pneumothorax or congestive failure. Montez Gil MD FACR Head CT 06/21/16 0000 Signed Impressions: Service Date/Time: Tuesday, June 21, 2016 12:20 - CONCLUSION: 1. Mild subcortical white matter small vessel ischemic changes. 2. No acute infarct, acute hemorrhage, mass effect or extraaxial fluid collections. Thee Noble MD (Sary Ty) Assessment and Plan Assessment and Plan ASSESSMENT Fever of unknown cause, ? viral encephalitis CMP with AICD at [facility]. Not pacer dependent. Not currently on telemetry. Most recent EF 55% Chronic diastolic CHF LBBB HTN CKD COPD recent viral meningoencephalitis September 2015 PLAN: Resume telemetry Lasix 20 mg IVP x 1. Will continue to diurese as needed. PO intake poor. No longer on IVF The patient will follow up within 1 week after hospitalization with device check. Cannot complete generator change with active infection Dr. Franco will follow up on Sunday Patient seen and evaluated by Dr. Sanchez. (Sary Ty) Assessment and Plan The exam, history, and the medical decision-making described in the above note were completed with the assistance of the mid-level provider. I reviewed and agree with the findings presented. I attest that I had a [id number] encounter with the patient on the same day, and personally performed and documented my assessment and findings in the medical record. (Vivian Sanchez MD) Sary Ty Jun 23, 2016 15:07 Vivian Sanchez MD Jun 26, 2016 13:55
[2016-06-23] MEDS ORDERED: FUROSEMIDE 20 MG/2 ML VIAL IV PUSH ONE (15:15)
--- NOTE | 2016-06-23 16:49 | HHI.IDPN ---
Subjective Subjective Remarks Pt having more fever today Up to 102.7 C/o headache, sinus pain Denies contact with cats or any other anymals co bug bite 2 wks ago that was persistently itchiin on L forearm Antibiotics flagyl vanco aztreonam Allergies: Coded Allergies: Amoxicillin (Verified Allergy, Severe, Diarrhea, 06/21/16) Augmentin (Verified Allergy, Severe, Diarrhea, 06/21/16) Cefuroxime sodium (Verified Allergy, Severe, rash, 06/21/16) Cipro (Verified Allergy, Severe, Nausea/Vomiting, 06/21/16) Codeine (Verified Allergy, Severe, Nausea/Vomiting, 06/21/16) Feldene (Verified Allergy, Severe, Hives, 06/21/16) Tequin (Verified Allergy, Severe, Confusion, 06/21/16) Aspirin (Unverified Allergy, Intermediate, Hives, 06/21/16) Atorvastatin (Verified Allergy, Intermediate, FLANK PAIN, 06/21/16) Morphine (Verified Allergy, Intermediate, sweats, 06/21/16) Contrast Media (Verified Allergy, Unknown, Anaphylaxis, 06/21/16) Gentamicin (Verified Adverse Reaction, Intermediate, DIARRHEA, 06/21/16) Objective . Vital Signs Date Time Temp Pulse Resp B/P Pulse Ox O2 Delivery O2 Flow Rate FiO2 06/23/16 16:05 99.5 107 18 141/67 93 06/23/16 14:29 100.9 115 97 06/23/16 14:14 102.7 06/23/16 12:00 96.8 92 18 118/62 96 06/23/16 08:00 95.4 84 18 118/65 100 06/23/16 04:00 98.4 88 20 135/65 95 06/23/16 00:00 97.5 87 20 134/63 95 06/22/16 20:00 99.5 93 20 155/67 96 06/22/16 06/22/16 06/23/16 15:00 23:00 07:00 Intake Total 1695 ml Balance 1695 ml IV Total 1695 ml # Voids 1 2 3 # Bowel Movements 0 0 0 . Laboratory Tests Test 06/22/16 06/23/16 07:13 07:07 White Blood Count 3.9 TH/MM3 4.4 TH/MM3 Red Blood Count 4.05 MIL/MM3 3.86 MIL/MM3 Hemoglobin 12.3 GM/DL 11.5 GM/DL Hematocrit 36.1 % 34.5 % Mean Corpuscular Volume 89.1 FL 89.5 FL Mean Corpuscular Hemoglobin 30.3 PG 29.9 PG Mean Corpuscular Hemoglobin 34.0 % 33.4 % Concent Red Cell Distribution Width 14.4 % 14.2 % Platelet Count 128 TH/MM3 123 TH/MM3 Mean Platelet Volume 8.9 FL 9.0 FL Neutrophils (%) (Auto) % 66.2 % Lymphocytes (%) (Auto) % 13.1 % Monocytes (%) (Auto) % 19.9 % Eosinophils (%) (Auto) % 0.1 % Basophils (%) (Auto) % 0.7 % Neutrophils # (Auto) TH/MM3 2.9 TH/MM3 Lymphocytes # (Auto) TH/MM3 0.6 TH/MM3 Monocytes # (Auto) TH/MM3 0.9 TH/MM3 Eosinophils # (Auto) TH/MM3 0.0 TH/MM3 Basophils # (Auto) TH/MM3 0.0 TH/MM3 CBC Comment AUTO DIFF DIFF FINAL Differential Total Cells 100 Counted Neutrophils % (Manual) 45 % Band Neutrophils % 23 % Lymphocytes % 14 % Monocytes % 17 % Basophils % 1 % Neutrophils # (Manual) 2.7 TH/MM3 Differential Comment FINAL DIFF MANUAL Platelet Estimate LOW Platelet Morphology Comment NORMAL Red Cell Morphology Comment NORMAL Laboratory Tests Test 06/22/16 06/23/16 07:13 07:07 Sodium Level 138 MEQ/L 141 MEQ/L Potassium Level 3.4 MEQ/L 3.5 MEQ/L Chloride Level 108 MEQ/L 109 MEQ/L Carbon Dioxide Level 22.2 MEQ/L 23.1 MEQ/L Anion Gap 8 MEQ/L 9 MEQ/L Blood Urea Nitrogen 10 MG/DL 10 MG/DL Creatinine 0.93 MG/DL 0.70 MG/DL Estimat Glomerular Filtration 60 ML/MIN 83 ML/MIN Rate Random Glucose 99 MG/DL 86 MG/DL Calcium Level 7.7 MG/DL 8.2 MG/DL Total Bilirubin 0.4 MG/DL Direct Bilirubin 0.1 MG/DL Indirect Bilirubin 0.3 MG/DL Aspartate Amino Transf 27 U/L (AST/SGOT) Alanine Aminotransferase 33 U/L (ALT/SGPT) Alkaline Phosphatase 72 U/L Total Protein 6.0 GM/DL Albumin 2.6 GM/DL Lipase 65 U/L Microbiology Date/Time Procedure Status Source Growth 06/21/16 11:40 Aerobic Blood Culture - Preliminary Resulted Blood Peripheral NO GROWTH IN 2 DAYS 06/21/16 11:40 Anaerobic Blood Culture - Preliminary Resulted Blood Peripheral NO GROWTH IN 2 DAYS 06/21/16 11:48 Aerobic Blood Culture - Preliminary Resulted Blood Peripheral NO GROWTH IN 2 DAYS 06/21/16 11:48 Anaerobic Blood Culture - Preliminary Resulted Blood Peripheral NO GROWTH IN 2 DAYS 06/21/16 11:50 Influenza Types A,B Antigen (TETO) - Final Complete Nasal Washing NEGATIVE FOR FLU A AND B ANTIGEN.... 06/21/16 14:12 Gram Stain - Final Resulted Cerebral Spinal Fluid Lumbar Puncture 06/21/16 14:12 CSF Culture - Preliminary Resulted Cerebral Spinal Fluid Lumbar Puncture NO GROWTH IN 48 HOURS. 06/23/16 12:15 Group A Streptococcus Screen (TETO) - Final Complete Throat 06/23/16 12:15 Group A Streptococcus Screen Received Throat Pending Imaging Last Impressions Chest X-Ray 06/21/16 1137 Signed Impressions: Service Date/Time: Tuesday, June 21, 2016 11:58 - CONCLUSION: Pacer, negative for pneumothorax or congestive failure. Montez Gil MD FACR Head CT 06/21/16 0000 Signed Impressions: Service Date/Time: Tuesday, June 21, 2016 12:20 - CONCLUSION: 1. Mild subcortical white matter small vessel ischemic changes. 2. No acute infarct, acute hemorrhage, mass effect or extraaxial fluid collections. Thee Noble MD Physical Exam CONSTITUTIONAL/GENERAL: This is an adequately nourished patient, in no apparent distress. TUBES/LINES/DRAINS: SKIN: No jaundice, rashes, or lesions. Skin temperature appropriate. Not diaphoretic. HEAD: Atraumatic. Normocephalic. EYES: Pupils equal and round and reactive. Extraocular motions intact. No scleral icterus. No injection or drainage. Fundi not examined. ENT: Hearing grossly normal. Nose with clear drainage. Throat without visible erythema, exudates, masses, or lesions. NECK: Trachea midline. Supple, nontender. CARDIOVASCULAR: Regular rate and rhythm without murmurs, gallops, or rubs. No JVD. Peripheral pulses symmetric. Pedal pls 2/2 bl ]AICD in place with no skin changes L chest RESPIRATORY/CHEST: Symmetric, unlabored respirations. Clear to auscultation. Breath sounds equal bilaterally. No wheezes, rales, or rhonchi. GASTROINTESTINAL: Abdomen soft, non-tender, nondistended. No hepato-splenomegaly , or palpable masses. No guarding. Bowel sounds present. GENITOURINARY: Without palpable bladder distension. MUSCULOSKELETAL: Extremities without clubbing, cyanosis, or edema. No joint tenderness or effusion noted. No calf tenderness. No mottling or clubbing. LYMPHATICS: No palpable cervical or supraclavicular adenopathy. NEUROLOGICAL: Awake and alert. Motor and sensory grossly within normal limits. Follows commands. Cognitively sharp. Moves all extremities. PSYCHIATRIC: No obvious anxiety/depression. no apparent hallucinations or other psychotic thought process. Assessment & Plan Remarks Febrile ilnes with cephalgia ? viral meningitis; HSV negative Persistent FUO Adverse reactions to multiple abx, NO h/o true allergies : - amoxicillin, gent - diarrhea - cipro - nausea, vomiting - cephuroxim : rash Nausea Throat pain, severe: GAS negative - cont current abx for now - fu clx untill final - 2 D echo - consider abd/pel CT with persistent GI c/o ? contrasted head CT? - with persistent cephalgia - pt not a candidate for MRI 2/2 PM Hilda Mcdaniel MD Jun 23, 2016 16:49
--- NOTE | 2016-06-23 18:24 | RADRPT ---
EXAM DATE/TIME: 06/23/2016 13:00 [facility] COMPARISON: No previous studies available for comparison. INDICATIONS : Nausea. MEDICAL HISTORY : None. SURGICAL HISTORY : Appendectomy. Mesh in bladder ENCOUNTER: Initial ACUITY: 1 day PAIN SCORE: 0/10 LOCATION: Bilateral abdomen FINDINGS: There is no evidence of bowel obstruction or ileus. No calcified urinary calculus is noted. Degener ative changes and scoliosis of the lumbar spine are noted. CONCLUSION: 1. No evidence of bowel obstruction or ileus. 2. Degenerative changes and scoliosis of the lumbar spine. Thee Noble MD on June 23, 2016 at 18:19 Board Certified Radiologist. This report was verified electronically.
[2016-06-23] MEDS: CARVEDILOL 6.25 MG TAB PO SCH (21:20)
[2016-06-24] VITALS (9 sets, daily range): BP systolic 106–127; BP diastolic 55–74; PULSE 89–107; RESP 18–20; TEMP 97.8–101.7; O2SAT 90–94
[2016-06-24] MEDS: AZTREONAM INJ 2,000 MG in SODIUM CHLORIDE 0.9% INJ 100 ML IV SCH ×4 (00:43→18:15)
[2016-06-24] MEDS ORDERED: PHARMACY ORDERED LAB XX ONE (02:45)
[2016-06-24] MEDS: VANCOMYCIN INJ 1,500 MG in SODIUM CHLORID 0.9% 500 ML INJ 500 ML IV SCH (03:23)
[2016-06-24 04:16] LABS: BICARBONATE 24.8 MEQ/L (21.0-32.0); MAGNESIUM 1.5 MG/DL (1.5-2.5); POTASSIUM 3.4 MEQ/L (3.5-5.1)
[2016-06-24 04:17] LABS: VANCOMYCIN TROUGH 8.7 MCG/ML (5.0-10.0)
[2016-06-24] MEDS: metroNIDAZOLE 500 MG TAB PO SCH ×3 (06:11→20:59)
[2016-06-24] MEDS: NYSTAT/DIPHENHY/LIDO MOUTHWASH (Adult) 120ML SWISH-SWAL SCH ×3 (06:11→16:33)
[2016-06-24] MEDS: ACETAMINOPHEN/HYDROcodone 325 MG/5 MG TAB PO PRN ×3 (06:12→18:25)
[2016-06-24] MEDS: CARVEDILOL 6.25 MG TAB PO SCH ×2 (08:44→20:59)
[2016-06-24] MEDS: DOCUSATE SODIUM 100 MG CAP PO SCH ×2 (08:44→20:59)
[2016-06-24] MEDS: LISINOPRIL 10 MG TAB PO SCH (08:45)
[2016-06-24] MEDS: ACETAMINOPHEN 325 MG TAB PO PRN (08:46)
[2016-06-24] MEDS: SENNOSIDES 8.6 MG TAB PO SCH (08:46)
[2016-06-24] MEDS: SODIUM CHLORIDE 0.9% FLUSH 5 ML FLUSH IV FLUSH SCH ×2 (08:47→20:58)
[2016-06-24] MEDS: PANTOPRAZOLE SODIUM 40 MG VIAL IV PUSH SCH (12:01)
[2016-06-24] MEDS ORDERED: POTASSIUM CHLORIDE 25 MEQ EFFERVESCENT TAB PO ONE (13:45)
[2016-06-24] MEDS ORDERED: BENZONATATE 100 MG CAP PO PRN (13:45)
--- NOTE | 2016-06-24 14:10 | HHI.PR ---
Subjective Remarks The patient was frustrated that she didn't know what was wrong with her. She thinks she was bitten by bugs and has bruises on her left arm. She says her nausea is secondary to her coughing. She says she still has a headache. Discussed with nursing. Objective Vitals Vital Signs Date Time Temp Pulse Resp B/P Pulse Ox O2 Delivery O2 Flow Rate FiO2 06/24/16 11:50 98.2 89 18 106/55 91 06/24/16 11:11 106 06/24/16 08:00 98.4 107 18 122/60 92 06/24/16 07:21 18 06/24/16 04:00 101.7 92 20 127/74 93 06/24/16 00:00 99.2 97 18 113/60 93 06/23/16 22:34 19 06/23/16 22:34 98.2 06/23/16 20:51 97 06/23/16 20:00 100.5 73 16 139/66 93 06/23/16 16:05 99.5 107 18 141/67 93 06/23/16 14:29 100.9 115 97 06/23/16 14:14 102.7 I/O 06/23/16 06/23/16 06/23/16 06/24/16 06/24/16 06/24/16 07:00 15:00 23:00 07:00 15:00 23:00 Intake Total 628 ml Balance 628 ml IV Total 628 ml # Voids 3 2 1 2 # Bowel Movements 0 0 Result Diagram: 06/23/16 0707 06/24/16 0329 Imaging Last Impressions Abdomen X-Ray 06/23/16 0000 Signed Impressions: Service Date/Time: Thursday, June 23, 2016 13:00 - CONCLUSION: 1. No evidence of bowel obstruction or ileus. 2. Degenerative changes and scoliosis of the lumbar spine. Thee Noble MD Chest X-Ray 06/21/16 1137 Signed Impressions: Service Date/Time: Tuesday, June 21, 2016 11:58 - CONCLUSION: Pacer, negative for pneumothorax or congestive failure. Montez Gil MD FACR Head CT 06/21/16 0000 Signed Impressions: Service Date/Time: Tuesday, June 21, 2016 12:20 - CONCLUSION: 1. Mild subcortical white matter small vessel ischemic changes. 2. No acute infarct, acute hemorrhage, mass effect or extraaxial fluid collections. Thee Noble MD Objective Remarks GENERAL: This is a well-nourished, well-developed patient, in no apparent distress. HEENT: NC, AT. NECK: Full range of motion CARDIOVASCULAR: Regular rate and rhythm. No murmur appreciated. RESPIRATORY: Decreased breath sounds. GASTROINTESTINAL: Abdomen soft, non-tender, nondistended. Normal active bowel sounds. MUSCULOSKELETAL: Extremities without clubbing, cyanosis, or edema. NEURO: Alert & Oriented x4 to person, place, time, situation. Moves all ext x4 , cranial nerves II through XII intact, motor strength 5 out of 5 bilateral upper and lower extremity. PSYCH: Slightly flattened affect. Medications and IVs Current Medications Medications (Trade) Dose Ordered Sig/Jorge Route Start Time Stop Time Status Last Admin (Tylenol) 650 mg Q4H PRN PO 06/21/16 14:00 06/23/16 14:14 (Zofran Inj) 4 mg Q6H PRN IVP 06/21/16 14:00 06/23/16 13:48 (Milk Of Magnesia Liq) 30 ml Q12H PRN PO 06/21/16 14:00 (Lovenox Inj) 40 mg Q24H SQ 06/21/16 14:00 06/23/16 13:41 (Tylenol) 650 mg Q6H PRN PO 06/21/16 14:00 06/24/16 08:46 (NS Flush) 2 ml UNSCH PRN IV FLUSH 06/21/16 16:30 IV Flush 2 ml 2 ml BID IV FLUSH 06/21/16 21:00 06/24/16 08:47 Pharmacy Profile Note 0 ml @ 0 mls/hr UNSCH OTHER 06/21/16 16:30 (Azactam Inj/NS Inj) 100 ml @ 200 mls/hr Q6H IV 06/21/16 18:30 06/24/16 12:01 (Flagyl) 500 mg Q8H PO 06/21/16 21:00 06/24/16 12:01 ([place] 5-325 Mg) 1 tab Q6H PRN PO 06/22/16 00:45 06/24/16 12:02 (Magic Mouthwash Adult Liq) 5 ml TIDAC SWISH-SWAL 06/22/16 17:00 06/24/16 06:11 (Pill Splitter) 1 ea UNSCH PRN OTHER 06/22/16 13:15 (Chloraseptic [place]) 2 spray Q2H PRN OROPHARYNG 06/23/16 12:15 06/23/16 21:21 (Protonix Inj) 40 mg Q24H IV PUSH 06/23/16 13:00 06/24/16 12:01 (Colace) 100 mg BID PO 06/23/16 12:30 06/24/16 08:44 (Senokot) 17.2 mg DAILY PO 06/23/16 13:00 06/24/16 08:46 (Dilaudid Pf Inj) 0.5 mg Q4H PRN IV PUSH 06/23/16 12:15 06/23/16 16:39 (Coreg) 6.25 mg Q12HR PO 06/23/16 21:00 06/24/16 08:44 Lisinopril 10 mg 10 mg DAILY PO 06/24/16 09:00 06/24/16 08:45 (Vancomycin Inj/ NS 500 ml Inj) 517.5 ml @ 250 mls/hr Q18H IV 06/24/16 21:00 Miscellaneous Information SPECIFIC LAB TO BE DRAWN:VANCO TROUGH DATE TO... ONCE ONCE XX 06/26/16 02:45 06/26/16 02:46 (Magnesium Sulfate 1 Gm Premix) 100 ml @ 100 mls/hr Q1H IV 06/24/16 14:00 06/24/16 15:59 (Tessalon) 100 mg TID PRN PO 06/24/16 13:45 UNV A/P Problem List: (1) Sepsis ICD Code: A41.9 Status: Acute (2) Altered mental status, unspecified ICD Code: R41.82 Status: Acute Assessment and Plan Sepsis With findings of fever, tachycardia, suspected meningocephalitis as possible source with also recent diagnosis urinary tract infection. HSV negative on LP. CSF culture negative. Still spiking fevers. - continue antibiotics per ID. - repeat CXR. - check CRP, ESR. Metabolic encephalopathy Likely due to sepsis and now resolved. - treatment as above. - check an EEG. COPD The pt has been having coughing fits and mucous production. - continue with home bronchodilators. - oxygen as needed. - sputum culture requested. - Tessalon Perles as needed. Hypertension Essential. - resume antihypertensives. Chronic kidney disease Stage III. - avoid nephrotoxins and continue IV fluid hydration. Hypokalemia S/p repletion. - monitor and replete as needed. Sore throat The pt said she feels like she has strep throat. No evidence of thrush. Rapid strep test negative. - pain meds as needed. N/V Pt says it is s/t coughing fits. - ADAT. - antiemetics as needed. - Tessalon Perles. PPx: Lovenox. Discharge Planning Awaiting ID clearance and clinical improvement. Problem Qualifiers (1) Sepsis: Qualified Code: A41.9 - Sepsis, due to unspecified organism Rocky Merlos DO Jun 24, 2016 14:09
[2016-06-24] MEDS ORDERED: ACETAMIN 325 MG/BUTALBITAL 50 MG/CAFFEINE 40 MG TAB PO ONE (14:15)
[2016-06-24] MEDS ORDERED: POLYETHYLENE GLYCOL 17 GM PKG PO ONE (15:00)
[2016-06-24] MEDS: ENOXAPARIN SODIUM 40 MG/0.4 ML SYRINGE SQ SCH (15:08)
[2016-06-24] MEDS: MAGNESIUM SULFATE 1 GM PREMIX 100 ML IV SCH ×2 (15:11→16:37)
--- NOTE | 2016-06-24 15:26 | RADRPT ---
EXAM DATE/TIME: 06/24/2016 14:57 [facility] COMPARISON: CHEST SINGLE AP, June 21, 2016, 11:58. INDICATIONS : Rule out pneumonia. MEDICAL HISTORY : None. SURGICAL HISTORY : Appendectomy. Mesh in bladder ENCOUNTER: Initial ACUITY: 4 - 6 days PAIN SCORE: 8/10 LOCATION: Chest. FINDINGS: A single view of the chest demonstrates heart size within normal limits. Pacer leads stable. Minimal basilar atelectasis. No effusion. No pneumothorax. CONCLUSION: 1. Stable pacer leads. Minimal basal atelectasis or scarring in the lungs. Harjinder Shipman MD on June 24, 2016 at 15:22 Board Certified Radiologist. This report was verified electronically.
--- NOTE | 2016-06-24 16:31 | EC ---
Study Study Date:06/24/2016 STUDY CONCLUSIONS SUMMARY - Left ventricle: The cavity size was normal. There was mild focal basal hypertrophy of the septum. Systolic function was moderately to severely reduced. The estimated ejection fraction was in the range of 30% to 35%. Diffuse hypokinesis. Doppler parameters are consistent with abnormal left ventricular relaxation (grade 1 diastolic dysfunction). - Tricuspid valve: Mild regurgitation. - Pulmonary arteries: Systolic pressure was mildly to moderately increased. PA peak pressure: 53mm Hg (S). If LV function is below 40, please consider prescribing an ACEI or ARB or document rationale for non-use. PROCEDURE DATA STUDY STATUS: Elective. Procedure: Transthoracic echocardiography. Image quality was good. Scanning was performed from the parasternal, apical, and subcostal acoustic windows. Study completion: The patient tolerated the procedure well. Transthoracic echocardiography. M-mode, complete 2D, complete spectral Doppler, and color Doppler. Patient status: Inpatient. CARDIAC ANATOMY LEFT VENTRICLE: The cavity size was normal. There was mild focal basal hypertrophy of the septum. Systolic function was moderately to severely reduced. The estimated ejection fraction was in the range of 30% to 35%. Diffuse hypokinesis. Doppler parameters are consistent with abnormal left ventricular relaxation (grade 1 diastolic dysfunction). AORTIC VALVE: Trileaflet; normal thickness, mildly calcified leaflets. Doppler: Transvalvular velocity was within the normal range. There was no stenosis. No regurgitation. AORTA: Aortic root: The aortic root was normal in size. MITRAL VALVE: Structurally normal valve. Doppler: Transvalvular velocity was within the normal range. There was no evidence for stenosis. Trace regurgitation. LEFT ATRIUM: The atrium was normal in size. RIGHT VENTRICLE: The cavity size was normal. Wall thickness was normal. Pacer wire or catheter noted in right ventricle. PULMONIC VALVE: Doppler: Transvalvular velocity was within the normal range. There was no evidence for stenosis. No regurgitation. TRICUSPID VALVE: Structurally normal valve. Doppler: Transvalvular velocity was within the normal range. Mild regurgitation. PULMONARY ARTERY: The main pulmonary artery was normal-sized. Systolic pressure was mildly to moderately increased. RIGHT ATRIUM: The atrium was normal in size. Pacer wire or catheter noted in right atrium. PERICARDIUM: There was no pericardial effusion. SYSTEMIC VEINS: Inferior vena cava: The vessel was normal in size. BASIC MEASUREMENTS ADULT Normal Left ventricle LV internal dimension, ED, chordal level, 47.7 mm 43-52 PLAX LV internal dimension, ES, chordal level, *42 mm 23-38 PLAX Fractional shortening, chordal level, PLAX *12 % >29 LV posterior wall thickness, ED 9.93 mm IVS/LVPW ratio, ED *1.33 <1.3 Ventricular septum Septal thickness, ED 13.2 mm Aortic valve Leaflet separation 22 mm 15-26 Right ventricle RV internal dimension, ED, PLAX 31.2 mm 19-38 BASIC MEASUREMENTS ADULT Normal Aortic valve Leaflet separation 22 mm 15-26 Aorta Root diameter, ED 28 mm 20-37 Left atrium Anterior-posterior dimension, ES 35 mm 19-40 LA/aortic root ratio 1.25 DOPPLER MEASUREMENTS ADULT Normal Main pulmonary artery Pressure, S *53 mm Hg =30 Tricuspid valve Regurgitant peak velocity 314 cm/s Peak RV-RA gradient, S 39 mm Hg Maximal regurgitant velocity 314 cm/s Systemic veins Estimated CVP 10 mm Hg Right ventricle RV pressure, S *53 mm Hg <30 LEGEND: Mean values are shown as u=mean value. Asterisk (*) lyon values outside specified normal range. Prepared and signed by Syd Burns [id number]
--- NOTE | 2016-06-24 20:21 | MG ---
cc: CHRIS DELACRUZ Lab No: [id number] Date: Age: Sex: F Race: Temperature of 105, vertigo, headache. Vancomycin. Norco. Ramos. DESCRIPTION: An 8 to 9 Hz 60 microvolt symmetric posterior and diffuse rhythm is seen. The recording overall is synchronous and symmetric. I do not see any hemisphere asymmetries. Two sharp waves are seen over the left mid and posterior temporal head region at epoch 36 and some what appears to be probably psychomotor variant is seen over that same head region later on but then again over the same region at epoch 96; again, some of that focal sharp activity lasting approximately 1 second. Photic stimulation was performed without significant posterior driving. IMPRESSION: There are some sharp rhythms over the left mid temporal and posterior temporal head region. This could be a seizure focus for this patient. Initially I thought it might be a psychomotor variant, but it appears to be a little bit beyond that, so left temporal seizure focus or a lesion should be ruled out. MD BRANDON Mnauel/SONYA /8:07 PM /8:16 PM
[2016-06-24] MEDS: VANCOMYCIN INJ 1,750 MG in SODIUM CHLORID 0.9% 500 ML INJ 500 ML IV SCH (20:58)
[2016-06-24] MEDS: PHENOL 1.4% SOLN 180 ML BTL OROPHARYNG PRN (21:06)
[2016-06-25] VITALS (7 sets, daily range): BP systolic 111–134; BP diastolic 60–74; PULSE 83–109; RESP 18–20; TEMP 97.1–99.9; O2SAT 92–96
[2016-06-25] MEDS: AZTREONAM INJ 2,000 MG in SODIUM CHLORIDE 0.9% INJ 100 ML IV SCH ×4 (00:36→18:11)
[2016-06-25] MEDS: ACETAMINOPHEN/HYDROcodone 325 MG/5 MG TAB PO PRN ×3 (00:56→18:10)
[2016-06-25] MEDS: metroNIDAZOLE 500 MG TAB PO SCH ×3 (05:44→20:54)
[2016-06-25] MEDS: NYSTAT/DIPHENHY/LIDO MOUTHWASH (Adult) 120ML SWISH-SWAL SCH ×2 (08:00→12:00)
[2016-06-25] MEDS: SODIUM CHLORIDE 0.9% FLUSH 5 ML FLUSH IV FLUSH SCH ×2 (09:02→20:54)
[2016-06-25] MEDS: DOCUSATE SODIUM 100 MG CAP PO SCH ×2 (09:03→20:54)
[2016-06-25] MEDS: LISINOPRIL 10 MG TAB PO SCH (09:03)
[2016-06-25] MEDS: SENNOSIDES 8.6 MG TAB PO SCH (09:03)
[2016-06-25] MEDS: CARVEDILOL 6.25 MG TAB PO SCH ×2 (09:03→20:54)
[2016-06-25 11:21] LABS: HEMATOCRIT 31.5 % (35.0-46.0); MEAN CELL VOLUME 87.8 FL (80.0-100.0); MEAN CORPUSCULAR HEMOGLOBIN 29.8 PG (27.0-34.0); MEAN CORPUSCULAR HGB CONC 33.9 % (32.0-36.0); PLATELET COUNT 162 TH/MM3 (150-450); RED BLOOD COUNT 3.59 MIL/MM3 (4.00-5.30); RED CELL DISTRIBUTION WIDTH 14.4 % (11.6-17.2); REVIEW FLAG FINAL; WHITE BLOOD COUNT 8.5 TH/MM3 (4.0-11.0)
[2016-06-25 11:33] LABS: BICARBONATE 25.3 MEQ/L (21.0-32.0); MAGNESIUM 1.9 MG/DL (1.5-2.5); POTASSIUM 3.3 MEQ/L (3.5-5.1)
[2016-06-25] MEDS: ACETAMINOPHEN 325 MG TAB PO PRN (12:20)
[2016-06-25] MEDS: PANTOPRAZOLE SODIUM 40 MG VIAL IV PUSH SCH (12:20)
[2016-06-25] MEDS ORDERED: ACETAMIN 325 MG/BUTALBITAL 50 MG/CAFFEINE 40 MG TAB PO ONE (14:00)
[2016-06-25] MEDS ORDERED: POTASSIUM CHLORIDE 25 MEQ EFFERVESCENT TAB PO ONE (14:00)
--- NOTE | 2016-06-25 14:06 | HHI.PR ---
Subjective Remarks The patient was still complaining of a headache. She said she was having a cough and requested Tessalon Perles. She mentioned she had some chest pain associated with coughing episodes. She is requesting a regular diet. Discussed with nursing. Objective Vitals Vital Signs Date Time Temp Pulse Resp B/P Pulse Ox O2 Delivery O2 Flow Rate FiO2 06/25/16 11:48 98.6 93 18 111/65 94 06/25/16 07:55 99.9 96 18 131/60 94 06/25/16 04:00 97.1 93 18 121/64 92 06/25/16 00:00 98.6 83 20 128/74 92 06/24/16 20:00 98.8 93 20 124/68 90 06/24/16 19:39 102 06/24/16 17:35 99.3 06/24/16 15:55 97.8 105 18 125/63 94 I/O 06/24/16 06/24/16 06/24/16 06/25/16 06/25/16 06/25/16 07:00 15:00 23:00 07:00 15:00 23:00 Intake Total 628 ml 240 ml 710 ml Balance 628 ml 240 ml 710 ml Intake Oral 240 ml IV Total 628 ml 710 ml # Voids 2 4 # Bowel Movements 1 Result Diagram: 06/25/16 1000 06/25/16 1000 Imaging Last Impressions Chest X-Ray 06/24/16 0000 Signed Impressions: Service Date/Time: Friday, June 24, 2016 14:57 - CONCLUSION: 1. Stable pacer leads. Minimal basal atelectasis or scarring in the lungs. Harijnder Shipman MD Abdomen X-Ray 06/23/16 0000 Signed Impressions: Service Date/Time: Thursday, June 23, 2016 13:00 - CONCLUSION: 1. No evidence of bowel obstruction or ileus. 2. Degenerative changes and scoliosis of the lumbar spine. Thee Noble MD Head CT 06/21/16 0000 Signed Impressions: Service Date/Time: Tuesday, June 21, 2016 12:20 - CONCLUSION: 1. Mild subcortical white matter small vessel ischemic changes. 2. No acute infarct, acute hemorrhage, mass effect or extraaxial fluid collections. Thee Noble MD Objective Remarks GENERAL: This is a well-nourished, well-developed patient, in no apparent distress. HEENT: NC, AT. NECK: Full range of motion. No nuchal rigidity. CARDIOVASCULAR: Regular rate and rhythm. No murmur appreciated. RESPIRATORY: Decreased breath sounds. CTAB. GASTROINTESTINAL: Abdomen soft, non-tender, nondistended. Normal active bowel sounds. MUSCULOSKELETAL: Extremities without clubbing, cyanosis, or edema. NEURO: Alert & Oriented x4 to person, place, time, situation. Moves all ext x4 , cranial nerves II through XII intact, motor strength 5 out of 5 bilateral upper and lower extremity. PSYCH: Mood and affect appropriate. Medications and IVs Current Medications Medications (Trade) Dose Ordered Sig/Jorge Route Start Time Stop Time Status Last Admin (Tylenol) 650 mg Q4H PRN PO 06/21/16 14:00 06/23/16 14:14 (Zofran Inj) 4 mg Q6H PRN IVP 06/21/16 14:00 06/23/16 13:48 (Milk Of Magnesia Liq) 30 ml Q12H PRN PO 06/21/16 14:00 (Lovenox Inj) 40 mg Q24H SQ 06/21/16 14:00 06/24/16 15:08 (Tylenol) 650 mg Q6H PRN PO 06/21/16 14:00 06/25/16 12:20 (NS Flush) 2 ml UNSCH PRN IV FLUSH 06/21/16 16:30 IV Flush 2 ml 2 ml BID IV FLUSH 06/21/16 21:00 06/25/16 09:02 Pharmacy Profile Note 0 ml @ 0 mls/hr UNSCH OTHER 06/21/16 16:30 (Azactam Inj/NS Inj) 100 ml @ 200 mls/hr Q6H IV 06/21/16 18:30 06/25/16 12:09 (Flagyl) 500 mg Q8H PO 06/21/16 21:00 06/25/16 12:19 ([place] 5-325 Mg) 1 tab Q6H PRN PO 06/22/16 00:45 06/25/16 09:03 (Magic Mouthwash Adult Liq) 5 ml TIDAC SWISH-SWAL 06/22/16 17:00 06/24/16 06:11 (Pill Splitter) 1 ea UNSCH PRN OTHER 06/22/16 13:15 (Chloraseptic [place]) 2 spray Q2H PRN OROPHARYNG 06/23/16 12:15 06/24/16 21:06 (Protonix Inj) 40 mg Q24H IV PUSH 06/23/16 13:00 06/25/16 12:20 (Colace) 100 mg BID PO 06/23/16 12:30 06/25/16 09:03 (Senokot) 17.2 mg DAILY PO 06/23/16 13:00 06/25/16 09:03 (Dilaudid Pf Inj) 0.5 mg Q4H PRN IV PUSH 06/23/16 12:15 06/23/16 16:39 (Coreg) 6.25 mg Q12HR PO 06/23/16 21:00 06/25/16 09:03 Lisinopril 10 mg 10 mg DAILY PO 06/24/16 09:00 06/25/16 09:03 (Vancomycin Inj/ NS 500 ml Inj) 517.5 ml @ 250 mls/hr Q18H IV 06/24/16 21:00 06/24/16 20:58 Miscellaneous Information SPECIFIC LAB TO BE DRAWN:VANCO TROUGH DATE TO... ONCE ONCE XX 06/26/16 02:45 06/26/16 02:46 (Tessalon) 100 mg TID PRN PO 06/24/16 13:45 06/24/16 15:06 A/P Problem List: (1) Sepsis ICD Code: A41.9 Status: Acute (2) Altered mental status, unspecified ICD Code: R41.82 Status: Acute Assessment and Plan Sepsis With findings of fever, tachycardia, suspected meningocephalitis as possible source with also recent diagnosis urinary tract infection. HSV negative on LP. CSF culture negative. Still spiking fevers. CXR unremarkable. CRP/ ESR elevated. - continue antibiotics per ID. - CT chest pending. Metabolic encephalopathy Likely due to sepsis and now resolved. EEG with possible seizure spikes. - treatment as above. - neurology consult requested. COPD The pt has been having coughing fits and mucous production. - continue with home bronchodilators. - oxygen as needed. - sputum culture requested. - Tessalon Perles as needed. - CT of the chest. Hypertension Well controlled 06/25. - resume antihypertensives. - clonidine as needed. Chronic kidney disease Stage III. S/p IVFs. - avoid nephrotoxins. - diuresis as needed. Hypokalemia S/p repletion. - monitor and replete as needed. Sore throat The pt said she feels like she has strep throat. No evidence of thrush. Rapid strep test negative. - pain meds as needed. Cardiomyopathy S/p AICD. Pt appears euvolemic. - diuresis as needed. - outpt follow-up with cardiology for pacemaker battery change. N/V Improved. - ADAT. PPx: Lovenox. Discharge Planning Awaiting ID clearance and clinical improvement. Problem Qualifiers (1) Sepsis: Qualified Code: A41.9 - Sepsis, due to unspecified organism Rocky Merlos DO Jun 25, 2016 14:05
[2016-06-25] MEDS: ENOXAPARIN SODIUM 40 MG/0.4 ML SYRINGE SQ SCH (14:32)
[2016-06-25] MEDS: VANCOMYCIN INJ 1,750 MG in SODIUM CHLORID 0.9% 500 ML INJ 500 ML IV SCH (15:00)
--- NOTE | 2016-06-25 18:04 | MB ---
cc: CHRIS DELACRUZ M.D. DATE OF CONSULTATION: 06/25/2016. HISTORY OF PRESENT ILLNESS: A 70-year-old right-handed woman with a history of hypertension, pacemaker, chronic renal insufficiency, COPD, viral meningoencephalitis she tells me about a year ago which she is following with Dr. Lopez for, migraine headaches bifrontal vertex region about one a month with watery visual aura who came in with change in mental status. An EEG was done, which showed some small sharply contoured waves over the left posterior temporal head region. I am asked to see her for same. I actually do not see a consult from Dr. Lopez in the chart. In September, she had possible meningoencephalitis. Her is evidently an alcoholic. They found her confused, fevers, chills, some headache. Recurrent urinary tract infection by history. She improved in the emergency room. PAST MEDICAL HISTORY: As above. ALLERGIES: 1. AMOXICILLIN. 2. AUGMENTIN. 3. CEFUROXIME. 4. CIPRO. 5. CODEINE. 6. FELDENE. 7. TEQUIN. 8. ASPIRIN FOR HIVES. 9. ATORVASTATIN. 10. MORPHINE. 11. CONTRAST MEDIA. 12. GENTAMICIN. FAMILY HISTORY: Negative for cancer, seizure or stroke. SOCIAL HISTORY: She is not a smoker any more. She smoked for many years but no longer. She is not a drinker. She lives with her . REVIEW OF SYSTEMS: She denied any diabetes, hypercholesterolemia, CABG, atrial fibrillation, hepatic disease, thyroid disease, lupus, ulcer, cancer, seizure or stroke. She has not woken up, wet the bed or bit her tongue. No odd smells, tastes or felicitas vu. MEDICATIONS: Here she is on: 1. Fioricet PRN. 2. Vancomycin. 3. Lisinopril. 4. Coreg. 5. Protonix. 6. Senokot. 7. Dilaudid PRN, she did get some two days ago. 8. Lovenox. PHYSICAL EXAMINATION: VITAL SIGNS: Initially her temperature was 105, now her T-max is 99.9 to generally afebrile. 93, 18, 111/65. NECK: There were no carotid bruits. HEART: Regular rhythm. I do not detect a murmur. NEUROLOGICAL EXAMINATION: Pupils are equal. Visual monreal are full. Extraocular movements intact without nystagmus. The neck is supple. Face is symmetric with normal sensation. Tongue was midline. There is no drift. She had normal strength in upper and lower extremities bilaterally. Toes are downgoing bilaterally. Pin prick is intact throughout. She is not ataxic to [id number]. She is alert and oriented times three. Speech is fluent. She is not aphasic. LABS: Sedimentation rate was 56. CBC actually shows a low white count of 3.3. HSV/PCR was negative. She had a lumbar puncture that was normal. Urinalysis was negative. Basic metabolic profile, liver function tests normal. C-reactive protein is 21. CPK was normal. Troponin was negative. Back in September of 2015, she had 2 white cells, 27 red cells, normal protein and glucose, trace blood on her lumbar puncture. Culture was negative and was essentially unremarkable. IMAGING STUDIES: She had a CT scan of the brain which was read as negative on review of the films. The CT scan shows some diffuse atrophy, I would say mild to moderate, but no definite left temporal lobe abnormality that I can see. ASSESSMENT AND PLAN: I would say mild to moderate abnormality on the EEG. Will repeat that and will repeat a CT scan of her brain without contrast to make sure nothing shows up in the left posterior temporal head region. Give her plenty of IV hydration around that. I would also recommend CT without contrast as she has some history of renal problems and some allergy to contrast media. I do not see any evidence that she ever actually had a [employer] SERVICES ASSIST[employer] infection. We will just check an TERE on her with the elevated C-reactive protein. I note she has an ejection fraction of 30% to 35%. I would defer management of that to the medical team. She is very tender on both of her temples today. She was not feeling well for about a month with low energy, although not particularly having headaches. She says she has had photophobia for several months. We could consider a temporal artery biopsy. I would defer to the medical team on this, whether they think she could have temporal arteritis. MD BRANDON Manuel/SONYA /4:47 PM /5:47 PM
[2016-06-25] MEDS: predniSONE 20 MG TAB PO SCH (18:11)
--- NOTE | 2016-06-25 20:03 | RADRPT ---
EXAM DATE/TIME: 06/25/2016 19:04 [facility] COMPARISON: No previous studies available for comparison. INDICATIONS : Evaluate for pneumonia. RADIATION DOSE: 5.26 CTDIvol (mGy) MEDICAL HISTORY : Cardiovascular disease. Hypertension. Stroke. SURGICAL HISTORY : Appendectomy. Tubal ligation. ENCOUNTER: Initial ACUITY: 1 day PAIN SCALE: 5/10 LOCATION: Bilateral chest TECHNIQUE: Volumetric scanning of the chest was performed. Using automated exposure control and adjustment of t he mA and/or kV according to patient size, radiation dose was kept as low as reasonably achievable to obtain optimal diagnostic quality images. FINDINGS: Comparison is October 03, 2015.. There is patchy airspace disease in both lungs most characteristic of a bronchopneumonia. Previously identified 8 mm nodule peripheral right lower lobe is similar to prior s tudy. There is also underlying distal airway disease and moderate emphysema. There is apical lung sca rring. No significant right effusion. There is trace left pleural fluid. There is a 2 cm subcarinal lymph node. No acute findings present in the upper abdomen. CONCLUSION: 1. Patchy airspace disease in both lungs characteristic of a mild bronchopneumonia. 2. Moderate emphysema and some distal airway disease characteristic of chronic postinflammatory diana es. 3. 3 cm subcarinal lymph node. Pacer leads in right atrium, right ventricle and coronary sinus. 4. Trace left pleural fluid. 5. Stable 8mm subpleural nodule right lower lobe compared with September 2015. Harjinder Shipman MD on June 25, 2016 at 19:56 Board Certified Radiologist. This report was verified electronically.
--- NOTE | 2016-06-25 20:05 | RADRPT ---
EXAM DATE/TIME: 06/25/2016 19:07 [facility] COMPARISON: No previous studies available for comparison. INDICATIONS : Cephalgia. RADIATION DOSE: 57.38 CTDIvol (mGy) MEDICAL HISTORY : Hypertension. Stroke Cardiovascular disease SURGICAL HISTORY : Tubal ligation. Appendectomy. ENCOUNTER: Initial ACUITY: 1 day PAIN SCALE: 5/10 LOCATION: cranial TECHNIQUE: Multiple contiguous axial images were obtained of the head. Using automated exposure control and adj ustment of the mA and/or kV according to patient size, radiation dose was kept as low as reasonably a chievable to obtain optimal diagnostic quality images. FINDINGS: No acute intracranial abnormalities identified. No mass, hemorrhage or midline shift. No recent infar ct. No hydrocephalus. There is partial opacification of ethmoid air cells and sphenoid sinus. CONCLUSION: 1. No acute intracranial abnormalities. Paranasal sinus disease. Harjinder Shipman MD on June 25, 2016 at 20:02 Board Certified Radiologist. This report was verified electronically.
[2016-06-26] VITALS (8 sets, daily range): BP systolic 130–141; BP diastolic 58–96; PULSE 81–92; RESP 16–20; TEMP 96.5–98.7; O2SAT 91–97
[2016-06-26] MEDS: AZTREONAM INJ 2,000 MG in SODIUM CHLORIDE 0.9% INJ 100 ML IV SCH ×4 (00:12→17:51)
[2016-06-26] MEDS: ACETAMINOPHEN/HYDROcodone 325 MG/5 MG TAB PO PRN ×3 (00:13→21:37)
[2016-06-26] MEDS ORDERED: PHARMACY ORDERED LAB XX ONE (02:45)
[2016-06-26] MEDS: metroNIDAZOLE 500 MG TAB PO SCH ×3 (04:10→21:36)
[2016-06-26] MEDS: BENZONATATE 100 MG CAP PO PRN ×4 (04:10→21:36)
[2016-06-26] MEDS: PHENOL 1.4% SOLN 180 ML BTL OROPHARYNG PRN (04:12)
[2016-06-26 07:40] LABS: MEAN CELL VOLUME 89.4 FL (80.0-100.0); MEAN CORPUSCULAR HEMOGLOBIN 29.4 PG (27.0-34.0); MEAN CORPUSCULAR HGB CONC 32.9 % (32.0-36.0); PLATELET COUNT 186 TH/MM3 (150-450); RED BLOOD COUNT 3.58 MIL/MM3 (4.00-5.30); RED CELL DISTRIBUTION WIDTH 14.7 % (11.6-17.2); REVIEW FLAG FINAL; WHITE BLOOD COUNT 6.2 TH/MM3 (4.0-11.0)
[2016-06-26 07:54] LABS: BICARBONATE 22.8 MEQ/L (21.0-32.0)
--- NOTE | 2016-06-26 08:43 | EKG ---
Date Performed: 06/24/2016 Time Performed: 14:59:56 PTAGE: 70 years EKG: ELECTRONIC VENTRICULAR PACEMAKER Compared to prior tracing no significant change ABNORMAL R HYTHM ECG PREVIOUS TRACING : 06/21/2016 13.01 DOCTOR: Edmundo Conti Interpretating Date/Time 06/26/2016 08:42:39
--- NOTE | 2016-06-26 08:51 | HHI.PR ---
Subjective Remarks another bunn Objective Vital Signs Date Time Temp Pulse Resp B/P Pulse Ox O2 Delivery O2 Flow Rate FiO2 06/26/16 08:30 97.1 81 18 134/65 94 06/26/16 07:30 82 06/26/16 04:00 96.5 83 20 140/70 94 06/26/16 00:00 98.2 90 18 130/58 94 06/25/16 20:00 98.1 102 18 134/61 93 06/25/16 19:55 109 06/25/16 15:50 97.9 100 19 132/66 96 06/25/16 11:48 98.6 93 18 111/65 94 I/O 06/25/16 06/25/16 06/25/16 06/26/16 06/26/16 06/26/16 07:00 15:00 23:00 07:00 15:00 23:00 Intake Total 950 ml 800 ml 710 ml Output Total 3 ml Balance 950 ml 797 ml 710 ml Intake Oral 240 ml 800 ml IV Total 710 ml 710 ml Output Urine Total 3 ml # Voids 10 # Bowel Movements 2 2 Result Diagram: 06/26/1671606/26/167[address] Other Results repeat ct neg eeg pend Objective Remarks still very tender bilat temples even to light touch Assessment and Plan Assessment and Plan imp i wonder if she may have temporal arteritis i am recommending ta bx to med team on 60 pred now Judah Burciaga MD Jun 26, 2016 08:51
[2016-06-26] MEDS: SENNOSIDES 8.6 MG TAB PO SCH (09:00)
[2016-06-26] MEDS: DOCUSATE SODIUM 100 MG CAP PO SCH ×2 (09:00→21:36)
[2016-06-26] MEDS: CARVEDILOL 6.25 MG TAB PO SCH ×2 (09:27→21:36)
[2016-06-26] MEDS: VANCOMYCIN INJ 1,750 MG in SODIUM CHLORID 0.9% 500 ML INJ 500 ML IV SCH (09:27)
[2016-06-26] MEDS: predniSONE 20 MG TAB PO SCH (09:28)
[2016-06-26] MEDS: LISINOPRIL 10 MG TAB PO SCH (09:28)
[2016-06-26] MEDS: SODIUM CHLORIDE 0.9% FLUSH 5 ML FLUSH IV FLUSH SCH ×2 (09:28→21:38)
[2016-06-26] MEDS: PANTOPRAZOLE SODIUM 40 MG VIAL IV PUSH SCH (12:09)
--- NOTE | 2016-06-26 13:16 | PD.CONS ---
HPI Service General Surgery Consult Requested By Dr. Paul Reason for Consult Temporal artery biopsy Primary Care Physician Fabrice Pagan MD History of Present Illness Mrs. Haney is a 70-year-old female with multiple medical conditions including cardiomyopathy with pacemaker defibrillator who presented to the hospital a few days ago with evaluation consistent with sepsis. She has a history of recent hospitalization for meningoencephalitis. She has been on broad-spectrum antibiotics and has had persistent fevers. Echo during this hospitalization showed an EF of 30-35%. EEG was performed with mild to moderate abnormalities per Dr. Burciaga. She is also complained of sharp stabbing bilateral temporal headaches. These have actually been going on for quite some time. Surgery has been consulted to performed temporal artery biopsy. The patient has been placed already on prednisone therapy. Review of Systems Constitutional: COMPLAINS OF: Fever, Chills Respiratory: COMPLAINS OF: Cough, Sputum production Cardiovascular: DENIES: Chest pain, Palpitations Gastrointestinal: DENIES: Abdominal pain, Nausea Integumentary: DENIES: Pruritus, Rash Neurologic: COMPLAINS OF: Headache Psychiatric: COMPLAINS OF: Confusion Past Family Social History Past Medical History Hypertension Cardiomyopathy COPD CKD Past Surgical History Pacemaker Reported Medications Reported Meds & Active Scripts Active Active Prescriptions or Reported Medications Unobtainable Allergies: Coded Allergies: Amoxicillin (Verified Allergy, Severe, Diarrhea, 06/21/16) Augmentin (Verified Allergy, Severe, Diarrhea, 06/21/16) Cefuroxime sodium (Verified Allergy, Severe, rash, 06/21/16) Cipro (Verified Allergy, Severe, Nausea/Vomiting, 06/21/16) Codeine (Verified Allergy, Severe, Nausea/Vomiting, 06/21/16) Feldene (Verified Allergy, Severe, Hives, 06/21/16) Tequin (Verified Allergy, Severe, Confusion, 06/21/16) Aspirin (Unverified Allergy, Intermediate, Hives, 06/21/16) Atorvastatin (Verified Allergy, Intermediate, FLANK PAIN, 06/21/16) Morphine (Verified Allergy, Intermediate, sweats, 06/21/16) Contrast Media (Verified Allergy, Unknown, Anaphylaxis, 06/21/16) Gentamicin (Verified Adverse Reaction, Intermediate, DIARRHEA, 06/21/16) Active Ordered Medications Current Medications Medications (Trade) Dose Ordered Sig/Jorge Route Start Time Stop Time Status Last Admin (Tylenol) 650 mg Q4H PRN PO 06/21/16 14:00 06/23/16 14:14 (Zofran Inj) 4 mg Q6H PRN IVP 06/21/16 14:00 06/23/16 13:48 (Milk Of Magnesia Liq) 30 ml Q12H PRN PO 06/21/16 14:00 (Lovenox Inj) 40 mg Q24H SQ 06/21/16 14:00 06/25/16 14:32 (Tylenol) 650 mg Q6H PRN PO 06/21/16 14:00 06/25/16 12:20 (NS Flush) 2 ml UNSCH PRN IV FLUSH 06/21/16 16:30 IV Flush 2 ml 2 ml BID IV FLUSH 06/21/16 21:00 06/26/16 09:28 Pharmacy Profile Note 0 ml @ 0 mls/hr UNSCH OTHER 06/21/16 16:30 (Azactam Inj/NS Inj) 100 ml @ 200 mls/hr Q6H IV 06/21/16 18:30 06/26/16 12:09 (Flagyl) 500 mg Q8H PO 06/21/16 21:00 06/26/16 12:09 ([place] 5-325 Mg) 1 tab Q6H PRN PO 06/22/16 00:45 06/26/16 05:49 (Pill Splitter) 1 ea UNSCH PRN OTHER 06/22/16 13:15 (Chloraseptic [place]) 2 spray Q2H PRN OROPHARYNG 06/23/16 12:15 06/26/16 04:12 (Protonix Inj) 40 mg Q24H IV PUSH 06/23/16 13:00 06/26/16 12:09 (Colace) 100 mg BID PO 06/23/16 12:30 06/25/16 20:54 (Senokot) 17.2 mg DAILY PO 06/23/16 13:00 06/25/16 09:03 (Dilaudid Pf Inj) 0.5 mg Q4H PRN IV PUSH 06/23/16 12:15 2/10/17 16:39 (Coreg) 6.25 mg Q12HR PO 06/23/16 21:00 06/26/16 09:27 Lisinopril 10 mg 10 mg DAILY PO 06/24/16 09:00 06/26/16 09:28 (Vancomycin Inj/ NS 500 ml Inj) 517.5 ml @ 250 mls/hr Q18H IV 06/24/16 21:00 06/26/16 09:27 (Fioricet 325-50-40) 1 tab Q6H PRN PO 06/25/16 14:00 (Tessalon) 200 mg TID PRN PO 06/25/16 14:00 06/26/16 09:27 (Deltasone) 60 mg DAILY PO 06/25/16 18:00 06/26/16 09:28 Family History Noncontributory Social History She lives with her . She is stressed because she has had multiple recent issues. She was to make a will. No alcohol tobacco or drug use. Physical Exam Vital Signs Vital Signs Date Time Temp Pulse Resp B/P Pulse Ox O2 Delivery O2 Flow Rate FiO2 06/26/16 12:39 97.4 86 18 141/63 96 06/26/16 08:30 97.1 81 18 134/65 94 06/26/16 07:30 82 06/26/16 04:00 96.5 83 20 140/70 94 06/26/16 00:00 98.2 90 18 130/58 94 06/25/16 20:00 98.1 102 18 134/61 93 06/25/16 19:55 109 06/25/16 15:50 97.9 100 19 132/66 96 Physical Exam GENERAL: Awake and alert. Anxious. Overweight.. Cooperative. HEAD: Normocephalic. Atraumatic. EYES: Pupils equal round and reactive to light bilaterally. No scleral icterus. CHEST: Lungs clear to auscultation bilaterally with no wheezing or rhonchi. No respiratory distress. CARDIOVASCULAR: Regular rate and rhythm. EXTREMITIES: No cyanosis or edema. SKIN: Warm, dry, nonjaundiced. Laboratory Laboratory Tests Test 06/26/16 06/26/16 03:00 07:17 Vancomycin Level Trough 15.2 White Blood Count 6.2 Red Blood Count 3.58 Hemoglobin 10.5 Hematocrit 32.0 Mean Corpuscular Volume 89.4 Mean Corpuscular Hemoglobin 29.4 Mean Corpuscular Hemoglobin 32.9 Concent Red Cell Distribution Width 14.7 Platelet Count 186 Mean Platelet Volume 9.6 Sodium Level 142 Potassium Level 4.0 Chloride Level 110 Carbon Dioxide Level 22.8 Anion Gap 9 Blood Urea Nitrogen 13 Creatinine 0.62 Estimat Glomerular Filtration 95 Rate Random Glucose 131 Calcium Level 8.5 Magnesium Level 2.0 Date/Time Procedure Status Source Growth 06/25/16 09:10 Gram Stain - Final Resulted Sputum Expectorated Sputum 06/25/16 09:10 Sputum Culture Resulted Sputum Expectorated Sputum Pending 06/23/16 12:15 Group A Streptococcus Screen - Final Complete Throat NO GP A BETA STREP ISOLATED. 06/23/16 12:15 Group A Streptococcus Screen (TETO) - Final Complete Throat Result Diagram: 06/26/1671606/26/1617 Imaging Last Impressions Head CT 06/25/16 0000 Signed Impressions: Service Date/Time: Saturday, June 25, 2016 19:07 - CONCLUSION: 1. No acute intracranial abnormalities. Paranasal sinus disease. Harjinder Shipman MD Chest CT 06/25/16 0000 Signed Impressions: Service Date/Time: Saturday, June 25, 2016 19:04 - CONCLUSION: 1. Patchy airspace disease in both lungs characteristic of a mild bronchopneumonia. 2. Moderate emphysema and some distal airway disease characteristic of chronic postinflammatory changes. 3. 3 cm subcarinal lymph node. Pacer leads in right atrium, right ventricle and coronary sinus. 4. Trace left pleural fluid. 5. Stable 8mm subpleural nodule right lower lobe compared with September 2015. Harjinder Shipman MD Chest X-Ray 06/24/16 0000 Signed Impressions: Service Date/Time: Friday, June 24, 2016 14:57 - CONCLUSION: 1. Stable pacer leads. Minimal basal atelectasis or scarring in the lungs. Harjinder Shipman MD Abdomen X-Ray 06/23/16 0000 Signed Impressions: Service Date/Time: Thursday, June 23, 2016 13:00 - CONCLUSION: 1. No evidence of bowel obstruction or ileus. 2. Degenerative changes and scoliosis of the lumbar spine. Thee Noble MD Assessment and Plan Assessment and Plan 70-year-old female with fevers and headache, possible temporal arteritis. She is currently undergoing evaluation and workup by medical, infectious disease, and neurology. She does have a decreased EF on echo from this hospitalization. I'll be happy to perform temporal artery biopsy if this is felt to be of greatest benefit, but she may be at increased anesthetic risk. I spoke with Dr. Merlos. He will speak with me after further evaluation today about final recommendations. Jose LuisMiguel MD Jun 26, 2016 13:16
--- NOTE | 2016-06-26 14:11 | HHI.PR ---
Subjective Remarks The patient says that her headache is slightly improved. She said she has had sensitivity to light for quite some time. She said she was in get her cataracts fixed for that. She says she has diffuse aches and pains throughout her body and that's chronic. She talked with the surgeon earlier today about possible temporal artery biopsy. She has been coughing a lot and requested increased frequency of her Tessalon Perles. Objective Vitals Vital Signs Date Time Temp Pulse Resp B/P Pulse Ox O2 Delivery O2 Flow Rate FiO2 06/26/16 12:39 97.4 86 18 141/63 96 06/26/16 08:30 97.1 81 18 134/65 94 06/26/16 07:30 82 06/26/16 04:00 96.5 83 20 140/70 94 06/26/16 00:00 98.2 90 18 130/58 94 06/25/16 20:00 98.1 102 18 134/61 93 06/25/16 19:55 109 06/25/16 15:50 97.9 100 19 132/66 96 I/O 06/25/16 06/25/16 06/25/16 06/26/16 06/26/16 06/26/16 06:59 14:59 22:59 06:59 14:59 22:59 Intake Total 950 ml 800 ml 710 ml Output Total 3 ml Balance 950 ml 797 ml 710 ml Intake Oral 240 ml 800 ml IV Total 710 ml 710 ml Output Urine Total 3 ml # Voids 10 # Bowel Movements 2 2 Result Diagram: 06/26/1617 06/26/16 0717 Imaging Last Impressions Head CT 06/25/16 0000 Signed Impressions: Service Date/Time: Saturday, June 25, 2016 19:07 - CONCLUSION: 1. No acute intracranial abnormalities. Paranasal sinus disease. Harjinder Shipman MD Chest CT 06/25/16 0000 Signed Impressions: Service Date/Time: Saturday, June 25, 2016 19:04 - CONCLUSION: 1. Patchy airspace disease in both lungs characteristic of a mild bronchopneumonia. 2. Moderate emphysema and some distal airway disease characteristic of chronic postinflammatory changes. 3. 3 cm subcarinal lymph node. Pacer leads in right atrium, right ventricle and coronary sinus. 4. Trace left pleural fluid. 5. Stable 8mm subpleural nodule right lower lobe compared with September 2015. Harjinder Shipman MD Chest X-Ray 06/24/16 0000 Signed Impressions: Service Date/Time: Friday, June 24, 2016 14:57 - CONCLUSION: 1. Stable pacer leads. Minimal basal atelectasis or scarring in the lungs. Harjinder Shipman MD Abdomen X-Ray 06/23/16 0000 Signed Impressions: Service Date/Time: Thursday, June 23, 2016 13:00 - CONCLUSION: 1. No evidence of bowel obstruction or ileus. 2. Degenerative changes and scoliosis of the lumbar spine. Thee Noble MD Objective Remarks GENERAL: This is a well-nourished, well-developed patient, in no apparent distress. HEENT: NC, AT. Tenderness to palpation of frontal area. NECK: Full range of motion. No nuchal rigidity. CARDIOVASCULAR: Regular rate and rhythm. No murmur appreciated. RESPIRATORY: Decreased breath sounds. CTAB. GASTROINTESTINAL: Abdomen soft, non-tender, nondistended. Normal active bowel sounds. MUSCULOSKELETAL: Extremities without clubbing, cyanosis, or edema. NEURO: Alert & Oriented x4 to person, place, time, situation. Moves all ext x4 , cranial nerves II through XII intact, motor strength 5 out of 5 bilateral upper and lower extremity. PSYCH: Mood and affect appropriate. Medications and IVs Current Medications Medications (Trade) Dose Ordered Sig/Jorge Route Start Time Stop Time Status Last Admin (Tylenol) 650 mg Q4H PRN PO 06/21/16 14:00 06/23/16 14:14 (Zofran Inj) 4 mg Q6H PRN IVP 06/21/16 14:00 06/23/16 13:48 (Milk Of Magnesia Liq) 30 ml Q12H PRN PO 06/21/16 14:00 (Lovenox Inj) 40 mg Q24H SQ 06/21/16 14:00 06/25/16 14:32 (Tylenol) 650 mg Q6H PRN PO 06/21/16 14:00 06/25/16 12:20 (NS Flush) 2 ml UNSCH PRN IV FLUSH 06/21/16 16:30 IV Flush 2 ml 2 ml BID IV FLUSH 06/21/16 21:00 06/26/16 09:28 Pharmacy Profile Note 0 ml @ 0 mls/hr UNSCH OTHER 06/21/16 16:30 (Azactam Inj/NS Inj) 100 ml @ 200 mls/hr Q6H IV 06/21/16 18:30 06/26/16 12:09 (Flagyl) 500 mg Q8H PO 06/21/16 21:00 06/26/16 12:09 ([place] 5-325 Mg) 1 tab Q6H PRN PO 06/22/16 00:45 06/26/16 05:49 (Pill Splitter) 1 ea UNSCH PRN OTHER 06/22/16 13:15 (Chloraseptic [place]) 2 spray Q2H PRN OROPHARYNG 06/23/16 12:15 06/26/16 04:12 (Protonix Inj) 40 mg Q24H IV PUSH 06/23/16 13:00 06/26/16 12:09 (Colace) 100 mg BID PO 06/23/16 12:30 06/25/16 20:54 (Senokot) 17.2 mg DAILY PO 06/23/16 13:00 06/25/16 09:03 (Dilaudid Pf Inj) 0.5 mg Q4H PRN IV PUSH 06/23/16 12:15 06/23/16 16:39 (Coreg) 6.25 mg Q12HR PO 06/23/16 21:00 06/26/16 09:27 Lisinopril 10 mg 10 mg DAILY PO 06/24/16 09:00 06/26/16 09:28 (Vancomycin Inj/ NS 500 ml Inj) 517.5 ml @ 250 mls/hr Q18H IV 06/24/16 21:00 06/26/16 09:27 (Fioricet 325-50-40) 1 tab Q6H PRN PO 06/25/16 14:00 (Tessalon) 200 mg TID PRN PO 06/25/16 14:00 06/26/16 09:27 (Deltasone) 60 mg DAILY PO 06/25/16 18:00 06/26/16 09:28 A/P Problem List: (1) Sepsis ICD Code: A41.9 Status: Acute (2) Altered mental status, unspecified ICD Code: R41.82 Status: Acute Assessment and Plan Sepsis/ PNA With findings of fever, tachycardia, suspected meningocephalitis as possible source with also recent diagnosis urinary tract infection. HSV negative on LP. CSF culture negative. Still spiking fevers. CXR unremarkable. CRP/ ESR elevated. CT chest suggestive of bronchopneumonia. - continue antibiotics per ID. - IS. - oxygen and nebs as needed. - sputum culture pending. Metabolic encephalopathy Likely due to sepsis and now resolved. EEG with possible seizure spikes. Repeat head CT unremarkable. - treatment as above. - neurology consult requested. Headache Concern for temporal arteritis per neurology. Pt does have elevated ESR/ CRP, headache, sensitivity to light, and diffuse myalgias. Surgical consult appreciated. The pt will be unwilling to have temporal artery biopsy performed without anesthesia. The pt is high risk for anesthesia with her low EF and pneumonia. - continue prednisone. - would recommend TA biopsy without anesthesia. - pain control as needed. COPD The pt has been having coughing fits and mucous production. - continue with home bronchodilators. Nebs and oxygen as needed. - sputum culture pending. - Tessalon Perles as needed. Add guaifenesin. Hypertension Well controlled 06/26. - resume antihypertensives. - clonidine as needed. Chronic kidney disease Stage III. S/p IVFs. - avoid nephrotoxins. - diuresis as needed. Hypokalemia S/p repletion. - monitor and replete as needed. Cardiomyopathy S/p AICD. Pt appears euvolemic. - diuresis as needed. - outpt follow-up with cardiology for pacemaker battery change. PPx: Lovenox. Discharge Planning Awaiting ID clearance and clinical improvement. Problem Qualifiers (1) Sepsis: Qualified Code: A41.9 - Sepsis, due to unspecified organism Rocky Merlos DO Jun 26, 2016 14:11
[2016-06-26] MEDS: ENOXAPARIN SODIUM 40 MG/0.4 ML SYRINGE SQ SCH (14:31)
[2016-06-26 14:41] LABS: RAPID PLASMA REAGIN SCREEN NON-REACTIVE (NON-REACTVE)
[2016-06-26 14:43] LABS: ANA SCREEN NEG (NEG)
[2016-06-26 17:56] LABS: CALIFORNIA ENCEPH AB IGG <1:4 (()); CALIFORNIA ENCEPH AB IGM <1:4 (()); EAST EQUINE ENCEPH AB IGG <1:4 (()); EAST EQUINE ENCEPH AB IGM <1:4 (()); ST LOUIS ENCEPH AB IGG <1:4 (()); ST LOUIS ENCEPH AB IGM <1:4 (())
[2016-06-26] MEDS: RESP: ALBUTEROL 2.5 MG/IPRATROPIUM 0.5 MG NEB (PRN) NEB ×2 (18:27→20:30)
[2016-06-27] VITALS (10 sets, daily range): BP systolic 127–148; BP diastolic 59–81; PULSE 75–90; RESP 18–20; TEMP 96.3–99.2; O2SAT 94–97
[2016-06-27] MEDS: RESP: ALBUTEROL 2.5 MG/IPRATROPIUM 0.5 MG NEB (PRN) NEB (01:31)
[2016-06-27] MEDS: AZTREONAM INJ 2,000 MG in SODIUM CHLORIDE 0.9% INJ 100 ML IV SCH ×4 (01:50→18:27)
[2016-06-27] MEDS: VANCOMYCIN INJ 1,750 MG in SODIUM CHLORID 0.9% 500 ML INJ 500 ML IV SCH ×2 (01:54→21:00)
[2016-06-27] MEDS: ACETAMINOPHEN/HYDROcodone 325 MG/5 MG TAB PO PRN ×4 (03:20→23:13)
[2016-06-27] MEDS: metroNIDAZOLE 500 MG TAB PO SCH ×2 (05:41→12:04)
[2016-06-27] MEDS: SENNOSIDES 8.6 MG TAB PO SCH (09:00)
[2016-06-27] MEDS: DOCUSATE SODIUM 100 MG CAP PO SCH ×2 (09:00→20:53)
[2016-06-27] MEDS: BENZONATATE 100 MG CAP PO PRN ×3 (09:54→20:53)
[2016-06-27] MEDS: predniSONE 20 MG TAB PO SCH (09:55)
[2016-06-27] MEDS: SODIUM CHLORIDE 0.9% FLUSH 5 ML FLUSH IV FLUSH SCH ×2 (09:55→20:53)
[2016-06-27] MEDS: CARVEDILOL 6.25 MG TAB PO SCH ×2 (09:55→20:53)
[2016-06-27] MEDS: LISINOPRIL 10 MG TAB PO SCH (09:55)
[2016-06-27] MEDS ORDERED: RESP: ALBUTEROL 2.5 MG/3 ML NEB (PRN) NEB (11:00)
[2016-06-27] MEDS ORDERED: ACYCLOVIR 5% CREAM 5 GM TUBE TOPICAL PRN (11:00)
[2016-06-27] MEDS: TIOTROPIUM BROMIDE 18 MCG INH INH SCH ×2 (11:00→20:54)
--- NOTE | 2016-06-27 11:12 | HHI.PR ---
Subjective Remarks The patient was complaining of significant coughing fits. She said she had a headache earlier but none at this time. She said she has been exposed to mold in the past. Discussed with nursing. Objective Vitals Vital Signs Date Time Temp Pulse Resp B/P Pulse Ox O2 Delivery O2 Flow Rate FiO2 06/27/16 10:37 96 21 06/27/16 08:40 97.1 90 18 130/59 94 06/27/16 07:42 76 06/27/16 05:27 96.8 75 18 140/73 97 06/27/16 00:39 96.3 80 20 127/81 97 06/26/16 20:51 98.3 92 19 141/74 91 06/26/16 16:57 98.7 89 16 133/96 96 06/26/16 16:38 97 21 06/26/16 12:39 97.4 86 18 141/63 96 I/O 06/26/16 06/26/16 06/26/16 06/27/16 06/27/16 06/27/16 07:00 15:00 23:00 07:00 15:00 23:00 Intake Total 800 ml 1190 ml 1099 ml Output Total 3 ml 50 ml Balance 797 ml 1190 ml 1099 ml -50 ml Intake Oral 800 ml 480 ml 480 ml IV Total 710 ml 619 ml Output Urine Total 3 ml 50 ml # Voids 4 1 # Bowel Movements 2 1 Result Diagram: 06/26/1617 06/27/16 0702 Imaging Last Impressions Head CT 06/25/16 0000 Signed Impressions: Service Date/Time: Saturday, June 25, 2016 19:07 - CONCLUSION: 1. No acute intracranial abnormalities. Paranasal sinus disease. Harjinder Shipman MD Chest CT 06/25/16 0000 Signed Impressions: Service Date/Time: Saturday, June 25, 2016 19:04 - CONCLUSION: 1. Patchy airspace disease in both lungs characteristic of a mild bronchopneumonia. 2. Moderate emphysema and some distal airway disease characteristic of chronic postinflammatory changes. 3. 3 cm subcarinal lymph node. Pacer leads in right atrium, right ventricle and coronary sinus. 4. Trace left pleural fluid. 5. Stable 8mm subpleural nodule right lower lobe compared with September 2015. Harjinder Shipman MD Chest X-Ray 06/24/16 0000 Signed Impressions: Service Date/Time: Friday, June 24, 2016 14:57 - CONCLUSION: 1. Stable pacer leads. Minimal basal atelectasis or scarring in the lungs. Harjinder Shipman MD Abdomen X-Ray 06/23/16 0000 Signed Impressions: Service Date/Time: Thursday, June 23, 2016 13:00 - CONCLUSION: 1. No evidence of bowel obstruction or ileus. 2. Degenerative changes and scoliosis of the lumbar spine. Thee Noble MD Objective Remarks GENERAL: This is a well-nourished, well-developed patient, in no apparent distress. HEENT: NC, AT. Tenderness to palpation of frontal area. NECK: Full range of motion. No nuchal rigidity. CARDIOVASCULAR: Regular rate and rhythm. No murmur appreciated. RESPIRATORY: Decreased breath sounds. CTAB. GASTROINTESTINAL: Abdomen soft, non-tender, nondistended. Normal active bowel sounds. MUSCULOSKELETAL: Extremities without clubbing, cyanosis, or edema. NEURO: Alert & Oriented x4 to person, place, time, situation. Moves all ext x4 , cranial nerves II through XII intact, motor strength 5 out of 5 bilateral upper and lower extremity. PSYCH: Mood and affect appropriate. Medications and IVs Current Medications Medications (Trade) Dose Ordered Sig/Jorge Route Start Time Stop Time Status Last Admin (Tylenol) 650 mg Q4H PRN PO 06/21/16 14:00 06/23/16 14:14 (Zofran Inj) 4 mg Q6H PRN IVP 06/21/16 14:00 06/23/16 13:48 (Milk Of Magnesia Liq) 30 ml Q12H PRN PO 06/21/16 14:00 (Lovenox Inj) 40 mg Q24H SQ 06/21/16 14:00 06/26/16 14:31 (Tylenol) 650 mg Q6H PRN PO 06/21/16 14:00 06/25/16 12:20 (NS Flush) 2 ml UNSCH PRN IV FLUSH 06/21/16 16:30 IV Flush 2 ml 2 ml BID IV FLUSH 06/21/16 21:00 06/27/16 09:55 Pharmacy Profile Note 0 ml @ 0 mls/hr UNSCH OTHER 06/21/16 16:30 (Azactam Inj/NS Inj) 100 ml @ 200 mls/hr Q6H IV 06/21/16 18:30 06/27/16 05:42 (Flagyl) 500 mg Q8H PO 06/21/16 21:00 06/27/16 05:41 ([place] 5-325 Mg) 1 tab Q6H PRN PO 06/22/16 00:45 06/27/16 09:55 (Pill Splitter) 1 ea UNSCH PRN OTHER 06/22/16 13:15 (Chloraseptic [place]) 2 spray Q2H PRN OROPHARYNG 06/23/16 12:15 06/26/16 04:12 (Protonix Inj) 40 mg Q24H IV PUSH 06/23/16 13:00 06/26/16 12:09 (Colace) 100 mg BID PO 06/23/16 12:30 06/26/16 21:36 (Senokot) 17.2 mg DAILY PO 06/23/16 13:00 06/25/16 09:03 (Dilaudid Pf Inj) 0.5 mg Q4H PRN IV PUSH 06/23/16 12:15 06/23/16 16:39 (Coreg) 6.25 mg Q12HR PO 06/23/16 21:00 06/27/16 09:55 Lisinopril 10 mg 10 mg DAILY PO 06/24/16 09:00 06/27/16 09:55 (Vancomycin Inj/ NS 500 ml Inj) 517.5 ml @ 250 mls/hr Q18H IV 06/24/16 21:00 06/27/16 01:54 (Fioricet 325-50-40) 1 tab Q6H PRN PO 06/25/16 14:00 (Deltasone) 60 mg DAILY PO 06/27/16 09:00 06/27/16 09:55 (Tessalon) 100 mg Q4HR PRN PO 06/26/16 16:00 06/27/16 09:54 Tiotropium [place] 18 mcg 18 mcg BID INH 06/27/16 11:00 (Diflucan 200 Mg Premix Bag) 100 ml @ 100 mls/hr ONCE ONCE IV 06/27/16 11:00 06/27/16 11:59 UNV (Robitussin Dm 200-20 Mg/10 ml Liq) 10 ml Q4H PRN PO 06/27/16 11:00 UNV A/P Problem List: (1) Sepsis ICD Code: A41.9 Status: Acute (2) Altered mental status, unspecified ICD Code: R41.82 Status: Acute Assessment and Plan Sepsis/ PNA/ COPD With findings of fever, tachycardia, suspected meningocephalitis as possible source with also recent diagnosis urinary tract infection. HSV negative on LP. CSF culture negative. Still spiking fevers. CXR unremarkable. CRP/ ESR elevated. CT chest suggestive of bronchopneumonia. Sputum culture growing mold species. - continue antibiotics per ID. Add fluconazole. - IS. - oxygen and nebs as needed. - sputum culture speciation pending. - Pulmonology consult requested. - Robitussin and Tessalon Perles as needed. Metabolic encephalopathy Likely due to sepsis and now resolved. EEG with possible seizure spikes. Repeat head CT unremarkable. - treatment as above. - neurology following. Repeat EEG results pending. Headache Concern for temporal arteritis per neurology. Pt does have elevated ESR/ CRP, headache, sensitivity to light, and diffuse myalgias. Surgical consult appreciated. The pt will be unwilling to have temporal artery biopsy performed without anesthesia. The pt is high risk for anesthesia with her low EF and pneumonia. The patient also has chronic headaches. - continue prednisone for now. - would recommend TA biopsy without anesthesia. - pain control as needed. Hypertension Well controlled 06/27. - resumed antihypertensives. - clonidine as needed. Cardiomyopathy S/p AICD. Pt appears euvolemic. - diuresis as needed. - outpt follow-up with cardiology for pacemaker battery change. PPx: Lovenox. Discharge Planning Awaiting ID clearance and clinical improvement. Problem Qualifiers (1) Sepsis: Qualified Code: A41.9 - Sepsis, due to unspecified organism Rocky Merlos DO Jun 27, 2016 11:12
[2016-06-27] MEDS ORDERED: FLUCONAZOLE 200 MG PREMIX BAG 100 ML IV ONE (12:00)
--- NOTE | 2016-06-27 12:02 | HHI.PR ---
Subjective Subjective Notes She has a persistent cough. Mold grew from sputum culture. Objective Vitals/I&O Vital Signs Date Time Temp Pulse Resp B/P Pulse Ox O2 Delivery O2 Flow Rate FiO2 06/27/16 10:37 96 21 06/27/16 08:40 97.1 90 18 130/59 Labs Laboratory Tests Test 06/27/16 07:02 Creatinine 0.65 Estimat Glomerular Filtration 90 Rate Date/Time Procedure Status Source Growth 06/25/16 09:10 Gram Stain - Final Resulted Sputum Expectorated Sputum 06/25/16 09:10 Sputum Culture - Preliminary Resulted Mold Species 06/23/16 12:15 Group A Streptococcus Screen - Final Complete Throat NO GP A BETA STREP ISOLATED. 06/23/16 12:15 Group A Streptococcus Screen (TETO) - Final Complete Throat Radiology Last Impressions Head CT 06/25/16 0000 Signed Impressions: Service Date/Time: Saturday, June 25, 2016 19:07 - CONCLUSION: 1. No acute intracranial abnormalities. Paranasal sinus disease. Harjinder Shipman MD Chest CT 06/25/16 0000 Signed Impressions: Service Date/Time: Saturday, June 25, 2016 19:04 - CONCLUSION: 1. Patchy airspace disease in both lungs characteristic of a mild bronchopneumonia. 2. Moderate emphysema and some distal airway disease characteristic of chronic postinflammatory changes. 3. 3 cm subcarinal lymph node. Pacer leads in right atrium, right ventricle and coronary sinus. 4. Trace left pleural fluid. 5. Stable 8mm subpleural nodule right lower lobe compared with September 2015. Harjinder Shipman MD Chest X-Ray 06/24/16 0000 Signed Impressions: Service Date/Time: Friday, June 24, 2016 14:57 - CONCLUSION: 1. Stable pacer leads. Minimal basal atelectasis or scarring in the lungs. Harjinder Shipman MD Abdomen X-Ray 06/23/16 0000 Signed Impressions: Service Date/Time: Thursday, June 23, 2016 13:00 - CONCLUSION: 1. No evidence of bowel obstruction or ileus. 2. Degenerative changes and scoliosis of the lumbar spine. Thee Noble MD Narrative Exam Sitting up in chair, coughing nonlabored breathing PERRL A/P Assessment and Plan 70 F with multiple chronic and acute issues. Sputum grew mold. She has had persistent headaches and intermittent fevers. I discussed with Dr. Franco and he feels the patient is not high risk from a cardiac standpoint for surgery. However, I discussed with Dr. Merlos and due to multiple current medical problems we will hold off on surgery at this time while she is being treated for pneumonia. I will be available as needed and can perform the biopsy when recommended. Miguel Amaya MD Jun 27, 2016 12:02
[2016-06-27] MEDS: PANTOPRAZOLE SODIUM 40 MG VIAL IV PUSH SCH (12:03)
[2016-06-27] MEDS: guaiFENesin/DEXTROMETHORPHAN 200 MG/20 MG/10 ML CUP PO PRN ×2 (13:57→20:52)
[2016-06-27] MEDS: ENOXAPARIN SODIUM 40 MG/0.4 ML SYRINGE SQ SCH (14:30)
--- NOTE | 2016-06-27 15:06 | MG ---
cc: CAROL MYERS M.D. Lab No: [id number] Date: 06/27/2016 Age: Sex: F TECHNIQUE 17-channel EEG. DESCRIPTION The background rhythm reveals symmetrical alpha rhythm. Frequency is roughly 10 Hz. Amplitude is about 20 microvolts. During drowsiness there is mild slowing in the theta range. Occasional muscle artifact is identified. There are no lateralizing features. There are no epileptiform features present. Sleep activity is present in terms of occasional sleep spindles. Hyperventilation was omitted and photic was omitted. INTERPRETATION Overall normal EEG. MD KATHRINE Kim/XIOMARA /2:41 PM /3:03 PM
--- NOTE | 2016-06-27 15:48 | PD.CARD.PN ---
Subjective Subjective Remarks C/o SOB and CP Objective Medications Current Medications Medications (Trade) Dose Ordered Sig/Jorge Route Start Time Stop Time Status Last Admin (Tylenol) 650 mg Q4H PRN PO 06/21/16 14:00 06/23/16 14:14 (Zofran Inj) 4 mg Q6H PRN IVP 06/21/16 14:00 06/23/16 13:48 (Milk Of Magnesia Liq) 30 ml Q12H PRN PO 06/21/16 14:00 (Lovenox Inj) 40 mg Q24H SQ 06/21/16 14:00 06/27/16 14:30 (Tylenol) 650 mg Q6H PRN PO 06/21/16 14:00 06/25/16 12:20 (NS Flush) 2 ml UNSCH PRN IV FLUSH 06/21/16 16:30 IV Flush 2 ml 2 ml BID IV FLUSH 06/21/16 21:00 06/27/16 09:55 Pharmacy Profile Note 0 ml @ 0 mls/hr UNSCH OTHER 06/21/16 16:30 (Azactam Inj/NS Inj) 100 ml @ 200 mls/hr Q6H IV 06/21/16 18:30 06/27/16 12:03 (Flagyl) 500 mg Q8H PO 06/21/16 21:00 06/27/16 12:04 ([place] 5-325 Mg) 1 tab Q6H PRN PO 06/22/16 00:45 06/27/16 09:55 (Pill Splitter) 1 ea UNSCH PRN OTHER 06/22/16 13:15 (Chloraseptic [place]) 2 spray Q2H PRN OROPHARYNG 06/23/16 12:15 06/26/16 04:12 (Protonix Inj) 40 mg Q24H IV PUSH 06/23/16 13:00 06/27/16 12:03 (Colace) 100 mg BID PO 06/23/16 12:30 06/26/16 21:36 (Senokot) 17.2 mg DAILY PO 06/23/16 13:00 06/25/16 09:03 (Dilaudid Pf Inj) 0.5 mg Q4H PRN IV PUSH 06/23/16 12:15 06/23/16 16:39 (Coreg) 6.25 mg Q12HR PO 06/23/16 21:00 06/27/16 09:55 (Prinivil) 10 mg DAILY PO 06/24/16 09:00 06/27/16 09:55 (Fioricet 325-50-40) 1 tab Q6H PRN PO 06/25/16 14:00 (Deltasone) 60 mg DAILY PO 06/27/16 09:00 06/27/16 09:55 (Tessalon) 100 mg Q4HR PRN PO 06/26/16 16:00 06/27/16 09:54 (Spiriva Inh) 18 mcg BID INH 06/27/16 11:00 Guaifenesin/ Dextromethorphan 10 ml 10 ml Q4H PRN PO 06/27/16 11:00 06/27/16 13:57 (Vancomycin Inj/ NS 500 ml Inj) 517.5 ml @ 250 mls/hr Q18H IV 06/27/16 21:00 Miscellaneous Information SPECIFIC LAB TO BE DRAWN:VANCOMYCIN TROUGH DATE TO... ONCE ONCE XX 06/28/16 14:45 06/28/16 14:46 Vital Signs / I&O Vital Signs Date Time Temp Pulse Resp B/P Pulse Ox O2 Delivery O2 Flow Rate FiO2 06/27/16 13:04 99.2 90 18 140/76 94 06/27/16 11:00 17 06/27/16 10:37 96 21 06/27/16 08:40 97.1 90 18 130/59 94 06/27/16 07:42 76 06/27/16 05:27 96.8 75 18 140/73 97 06/27/16 00:39 96.3 80 20 127/81 97 06/26/16 20:51 98.3 92 19 141/74 91 06/26/16 16:57 98.7 89 16 133/96 96 06/26/16 16:38 97 21 I/O 06/26/16 06/26/16 06/26/16 06/27/16 06/27/16 06/27/16 07:00 15:00 23:00 07:00 15:00 23:00 Intake Total 800 ml 1190 ml 1099 ml Output Total 3 ml 50 ml Balance 797 ml 1190 ml 1099 ml -50 ml Intake Oral 800 ml 480 ml 480 ml IV Total 710 ml 619 ml Output Urine Total 3 ml 50 ml # Voids 4 1 # Bowel Movements 2 1 Physical Exam GENERAL: SKIN: Warm and dry. HEAD: Normocephalic. EYES: No scleral icterus. No injection or drainage. NECK: Supple, trachea midline. No JVD or lymphadenopathy. CARDIOVASCULAR: Regular rate and rhythm without murmurs, gallops, or rubs. RESPIRATORY: Breath sounds equal bilaterally. No accessory muscle use. Bilat rhonchi. GASTROINTESTINAL: Abdomen soft, non-tender, nondistended. MUSCULOSKELETAL: No cyanosis, or edema. BACK: Nontender without obvious deformity. No CVA tenderness. Laboratory Laboratory Tests Test 06/27/16 07:02 Creatinine 0.65 MG/DL Estimat Glomerular Filtration 90 ML/MIN Rate Imaging Last Impressions Head CT 06/25/16 0000 Signed Impressions: Service Date/Time: Saturday, June 25, 2016 19:07 - CONCLUSION: 1. No acute intracranial abnormalities. Paranasal sinus disease. Harjinder Shipman MD Chest CT 06/25/16 0000 Signed Impressions: Service Date/Time: Saturday, June 25, 2016 19:04 - CONCLUSION: 1. Patchy airspace disease in both lungs characteristic of a mild bronchopneumonia. 2. Moderate emphysema and some distal airway disease characteristic of chronic postinflammatory changes. 3. 3 cm subcarinal lymph node. Pacer leads in right atrium, right ventricle and coronary sinus. 4. Trace left pleural fluid. 5. Stable 8mm subpleural nodule right lower lobe compared with September 2015. Harjinder Shipman MD Chest X-Ray 06/24/16 0000 Signed Impressions: Service Date/Time: Friday, June 24, 2016 14:57 - CONCLUSION: 1. Stable pacer leads. Minimal basal atelectasis or scarring in the lungs. Harjinder Shipman MD Abdomen X-Ray 06/23/16 0000 Signed Impressions: Service Date/Time: Thursday, June 23, 2016 13:00 - CONCLUSION: 1. No evidence of bowel obstruction or ileus. 2. Degenerative changes and scoliosis of the lumbar spine. Thee Noble MD Assessment and Plan Problem List: (1) Sepsis (2) Altered mental status, unspecified (3) COPD exacerbation (4) Cardiomyopathy (5) Atypical chest pain (6) ICD (implantable cardioverter-defibrillator) battery depletion Assessment and Plan Continue current program with abxs for pneumonia. Cleared for temporal bx from cardiac standpoint, risk of cardiac complications is increased, but not prohibitive. ICD at EOL, changeout not urgent, will postpone until patient improved and stable. D/w pt and son. Problem Qualifiers (1) Sepsis: Qualified Code: A41.9 - Sepsis, due to unspecified organism (2) Cardiomyopathy: Qualified Code: I42.0 - Dilated cardiomyopathy Aysha Franco MD Jun 27, 2016 15:48
[2016-06-27] MEDS ORDERED: VANCOMYCIN INJ 1,500 MG in SODIUM CHLORID 0.9% 500 ML INJ 500 ML IV SCH (17:00)
--- NOTE | 2016-06-27 19:04 | HHI.PR ---
Addendum to Inpatient Note Additional Information grew out a mold will order more sputum will fu on the mold CT chest reviewed pt is afebrile x 3 days, on high dose sterroids dc flagyl, fluconazole ( not active for molds) start azithromycin voriconazole if aspirgilla confirmed/suspected Hilda Mcdaniel MD Jun 27, 2016 19:03
--- NOTE | 2016-06-27 20:08 | MB ---
cc: GiselKARTHIK GARCIA DATE OF CONSULTATION 06/27/2016 REASON FOR CONSULTATION Pneumonia and COPD. HISTORY OF THE PRESENT ILLNESS This is a 70-year-old white female with a prior history of hypertension, COPD with asthma and chronic bronchitis as well as cardiomyopathy who was brought to the emergency room with confusional state. The patient has previously been treated for meningoencephalitis last year and apparently due to her disorientation she was suspected to have encephalopathy and thus was brought to the hospital. She also had some fevers and chills and fatigue and generalized weakness but denied any hemoptysis or nausea, vomiting or aspiration. The patient has had UTIs in the past and has been treated with antibiotics, but she denied any urinary frequency or abdominal pains. The patient did have a CT scan of the chest following admission and the CT chest on 06/25 demonstrated patchy airspace disease consistent with bronchopneumonia and emphysematous changes as well as an 8 mm nodule in the right lower lobe and a 3 cm subcarinal lymph node. The patient's sputum showed mold species but not identified as yet. Presently she is on antibiotic coverage and this includes vancomycin IV and Diflucan and aztreonam. She has also complained of headaches which are persistent and further workup for temporal arteritis is being conducted. PAST MEDICAL HISTORY Other past history includes: 1. A history for chronic bronchitis and asthmatic attacks. 2. History for cardiomyopathy with defibrillator pacemaker placement. 3. History of hypertension. 4. 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 5. History for chronic kidney disease stage III. 6. She has had pneumonia in the past. ALLERGIES AMOXICILLIN, CEFTIN, CIPRO, CODEINE, FELDENE, TEQUIN AND LIPITOR, ASPIRIN AND CONTRAST MEDIA, GENTAMICIN WELL MORPHINE. SOCIAL HISTORY Habits, the patient does not smoke. No history of alcohol use. FAMILY HISTORY Noncontributory. REVIEW OF SYSTEMS Patient has had some weight gain. She has leg swelling. She has dizziness. She has persistent headaches. She has postnasal drip and sinus drainage and wheezing and cough. She has epigastric distress and reflux. No urinary symptoms. No skin lesions. There is some depression and anxiety. FAMILY HISTORY Noncontributory. PHYSICAL EXAMINATION GENERAL: This moderately obese, elderly white female is alert and anxious. No distress. VITAL SIGNS: Blood pressure is 120/70, pulse is 80, respiratory rate 18, temperature 98.5. HEENT: Head is normocephalic. Pupils are reactive. Tongue is moist. Throat is clear. NECK: Supple. No lymphadenopathy. No thyroid enlargement. CHEST: Equal movements with expiratory wheezes throughout both lung monreal and no crackles on either side. HEART: Sounds are regular S1-S2. No murmur. No S3. ABDOMEN: Soft. Benign. No masses or organomegaly. EXTREMITIES: No edema. No clubbing. Reflexes are 1+ with no gross motor deficits. NEUROLOGICAL: Cranial nerves are grossly intact. RECTAL: Examination is deferred. SKIN: No lesions. IMPRESSION 1. Bilateral pneumonia with hypoxemia. 2. Possible sepsis. 3. Encephalopathy, resolved. 4. COPD with chronic bronchitis and bronchospasm. 5. Hypertension. 6. Chronic kidney disease. PLAN The patient is already on antibiotic coverage which we will continue including vancomycin and Zithromax. Nebulized DuoNeb solution added q.i.d. and Symbicort 160/4.5 two puffs twice a day. Also continue with prednisone 60 mg daily and a bedside pulmonary function study to be done. Infectious disease consultation has been requested and they are monitoring this mold that is growing. The patient will be placed on O2 at 2 liters nasal cannula. Thank you Dr. Merlos for this consultation. Karthik Garces MD JFERN/KK /7:11 PM /7:42 PM
[2016-06-27] MEDS: AZITHROMYCIN 250 MG TAB PO SCH (20:53)
[2016-06-27] MEDS: BUDESONIDE-FORMOTEROL 160/4.5 MCG INHALER INH SCH (20:57)
[2016-06-28] VITALS (9 sets, daily range): BP systolic 131–158; BP diastolic 58–81; PULSE 83–99; RESP 18–20; TEMP 97.2–98.8; O2SAT 93–97
[2016-06-28] MEDS: AZTREONAM INJ 2,000 MG in SODIUM CHLORIDE 0.9% INJ 100 ML IV SCH ×4 (00:25→16:29)
[2016-06-28] MEDS: guaiFENesin/DEXTROMETHORPHAN 200 MG/20 MG/10 ML CUP PO PRN ×3 (04:18→17:42)
[2016-06-28] MEDS: BENZONATATE 100 MG CAP PO PRN ×4 (04:18→21:27)
[2016-06-28] MEDS: ACETAMIN 325 MG/BUTALBITAL 50 MG/CAFFEINE 40 MG TAB PO PRN (04:24)
[2016-06-28] MEDS: ACETAMINOPHEN/HYDROcodone 325 MG/5 MG TAB PO PRN ×3 (06:54→21:28)
--- NOTE | 2016-06-28 07:07 | RADRPT ---
EXAM DATE/TIME: 06/28/2016 06:20 [facility] COMPARISON: CHEST SINGLE AP, June 24, 2016, 14:57. INDICATIONS : Pneumonia. MEDICAL HISTORY : Hypertension. Stroke. Cardiovascular disease. SURGICAL HISTORY : Tubal ligation. Appendectomy. ENCOUNTER: Initial ACUITY: 4 - 6 days PAIN SCORE: 0/10 LOCATION: Bilateral chest FINDINGS: A single view of the chest demonstrates the lungs to be symmetrically aerated without evidence of mas s, infiltrate or effusion. There is pleural thickening in both apices. There is some chronic intersti tial changes bilaterally. This appears to be stable. The cardiomediastinal contours are unremarkable and stable. There is a pacemaker overlying the left chest.. Osseous structures are intact. CONCLUSION: No acute intrathoracic disease. Prosper Glass MD on June 28, 2016 at 7:04 Board Certified Radiologist. This report was verified electronically.
--- NOTE | 2016-06-28 08:10 | HHI.PR ---
Subjective Remarks another bunn Objective Vital Signs Date Time Temp Pulse Resp B/P Pulse Ox O2 Delivery O2 Flow Rate FiO2 06/28/16 05:36 97.2 88 20 137/78 95 06/28/16 00:26 98.3 89 19 158/73 96 06/27/16 22:19 94 21 06/27/16 20:55 98.9 85 20 148/72 96 06/27/16 19:50 81 06/27/16 16:47 18 06/27/16 16:06 97.9 86 20 142/68 95 06/27/16 13:04 99.2 90 18 140/76 94 06/27/16 10:37 96 21 06/27/16 08:40 97.1 90 18 130/59 94 I/O 06/27/16 06/27/16 06/27/16 06/28/16 06/28/16 06/28/16 07:00 15:00 23:00 07:00 15:00 23:00 Intake Total 600 ml 1428 ml Output Total 50 ml 500 ml 550 ml Balance -50 ml 600 ml -500 ml 878 ml Intake Oral 600 ml IV Total 1428 ml Output Urine Total 50 ml 500 ml 550 ml # Voids 3 # Bowel Movements 2 0 0 Result Diagram: 06/26/16 0717 06/27/16 0702 Objective Remarks pres[facility]eterian nontender this am Assessment and Plan Assessment and Plan imp i wonder if she may have temporal arteritis i am recommending ta bx to med team on 60 pred now can they do bx under local? seems better on steroids fu eeg neg will review Judah Burciaga MD Jun 28, 2016 08:10
[2016-06-28] MEDS: TIOTROPIUM BROMIDE 18 MCG INH INH SCH ×2 (09:22→21:00)
[2016-06-28] MEDS: predniSONE 20 MG TAB PO SCH (09:22)
[2016-06-28] MEDS: SENNOSIDES 8.6 MG TAB PO SCH (09:22)
[2016-06-28] MEDS: BUDESONIDE-FORMOTEROL 160/4.5 MCG INHALER INH SCH ×2 (09:22→21:31)
[2016-06-28] MEDS: SODIUM CHLORIDE 0.9% FLUSH 5 ML FLUSH IV FLUSH SCH ×2 (09:23→21:27)
[2016-06-28] MEDS: DOCUSATE SODIUM 100 MG CAP PO SCH ×2 (09:23→21:00)
[2016-06-28] MEDS: LISINOPRIL 10 MG TAB PO SCH (09:23)
[2016-06-28] MEDS: CARVEDILOL 6.25 MG TAB PO SCH ×2 (09:23→21:28)
[2016-06-28] MEDS: PANTOPRAZOLE SODIUM 40 MG VIAL IV PUSH SCH (11:53)
[2016-06-28] MEDS: ENOXAPARIN SODIUM 40 MG/0.4 ML SYRINGE SQ SCH (12:35)
--- NOTE | 2016-06-28 13:49 | HHI.PR ---
Subjective Remarks The patient was being seen by her paperhanger. She said she was ambulating earlier today. She was curious about the mold in her sputum. She wanted to know if she needed that temporal artery biopsy. Discussed with nursing. Objective Vitals Vital Signs Date Time Temp Pulse Resp B/P Pulse Ox O2 Delivery O2 Flow Rate FiO2 06/28/16 12:00 97.8 91 18 131/58 96 06/28/16 08:00 97.6 83 18 139/78 97 06/28/16 08:00 83 06/28/16 05:36 97.2 88 20 137/78 95 06/28/16 00:26 98.3 89 19 158/73 96 06/27/16 22:19 94 21 06/27/16 20:55 98.9 85 20 148/72 96 06/27/16 19:50 81 06/27/16 16:47 18 06/27/16 16:06 97.9 86 20 142/68 95 I/O 06/27/16 06/27/16 06/27/16 06/28/16 06/28/16 06/28/16 07:00 15:00 23:00 07:00 15:00 23:00 Intake Total 600 ml 1428 ml Output Total 50 ml 500 ml 550 ml Balance -50 ml 600 ml -500 ml 878 ml Intake Oral 600 ml IV Total 1428 ml Output Urine Total 50 ml 500 ml 550 ml # Voids 3 # Bowel Movements 2 0 0 Result Diagram: 06/26/16 0717 06/27/16 0702 Imaging Last Impressions Chest X-Ray 06/28/16 0600 Signed Impressions: Service Date/Time: Tuesday, June 28, 2016 06:20 - CONCLUSION: No acute intrathoracic disease. Prosper Glass MD Head CT 06/25/16 0000 Signed Impressions: Service Date/Time: Saturday, June 25, 2016 19:07 - CONCLUSION: 1. No acute intracranial abnormalities. Paranasal sinus disease. Harjinder Shipman MD Chest CT 06/25/16 0000 Signed Impressions: Service Date/Time: Saturday, June 25, 2016 19:04 - CONCLUSION: 1. Patchy airspace disease in both lungs characteristic of a mild bronchopneumonia. 2. Moderate emphysema and some distal airway disease characteristic of chronic postinflammatory changes. 3. 3 cm subcarinal lymph node. Pacer leads in right atrium, right ventricle and coronary sinus. 4. Trace left pleural fluid. 5. Stable 8mm subpleural nodule right lower lobe compared with September 2015. Harjinder Shipman MD Abdomen X-Ray 06/23/16 0000 Signed Impressions: Service Date/Time: Thursday, June 23, 2016 13:00 - CONCLUSION: 1. No evidence of bowel obstruction or ileus. 2. Degenerative changes and scoliosis of the lumbar spine. Thee Noble MD Objective Remarks GENERAL: This is a well-nourished, well-developed patient, in no apparent distress. HEENT: NC, AT. Tenderness to palpation of frontal area. NECK: Full range of motion. No nuchal rigidity. CARDIOVASCULAR: Regular rate and rhythm. No murmur appreciated. RESPIRATORY: Decreased breath sounds. CTAB. GASTROINTESTINAL: Abdomen soft, non-tender, nondistended. Normal active bowel sounds. MUSCULOSKELETAL: Extremities without clubbing, cyanosis, or edema. NEURO: Alert & Oriented x4 to person, place, time, situation. Moves all ext x4 , cranial nerves II through XII intact, motor strength 5 out of 5 bilateral upper and lower extremity. PSYCH: Mood and affect appropriate. Medications and IVs Current Medications Medications (Trade) Dose Ordered Sig/Jorge Route Start Time Stop Time Status Last Admin (Tylenol) 650 mg Q4H PRN PO 06/21/16 14:00 06/23/16 14:14 (Zofran Inj) 4 mg Q6H PRN IVP 06/21/16 14:00 06/23/16 13:48 (Milk Of Magnesia Liq) 30 ml Q12H PRN PO 06/21/16 14:00 (Lovenox Inj) 40 mg Q24H SQ 06/21/16 14:00 06/28/16 12:35 (Tylenol) 650 mg Q6H PRN PO 06/21/16 14:00 06/25/16 12:20 (NS Flush) 2 ml UNSCH PRN IV FLUSH 06/21/16 16:30 IV Flush 2 ml 2 ml BID IV FLUSH 06/21/16 21:00 06/28/16 09:23 Pharmacy Profile Note 0 ml @ 0 mls/hr UNSCH OTHER 06/21/16 16:30 (Azactam Inj/NS Inj) 100 ml @ 200 mls/hr Q6H IV 06/21/16 18:30 06/28/16 11:53 ([place] 5-325 Mg) 1 tab Q6H PRN PO 06/22/16 00:45 06/28/16 06:54 (Pill Splitter) 1 ea UNSCH PRN OTHER 06/22/16 13:15 (Chloraseptic [place]) 2 spray Q2H PRN OROPHARYNG 06/23/16 12:15 06/26/16 04:12 (Protonix Inj) 40 mg Q24H IV PUSH 06/23/16 13:00 06/28/16 11:53 (Colace) 100 mg BID PO 06/23/16 12:30 06/28/16 09:23 (Senokot) 17.2 mg DAILY PO 06/23/16 13:00 06/28/16 09:22 (Dilaudid Pf Inj) 0.5 mg Q4H PRN IV PUSH 06/23/16 12:15 06/23/16 16:39 (Coreg) 6.25 mg Q12HR PO 06/23/16 21:00 06/28/16 09:23 (Prinivil) 10 mg DAILY PO 06/24/16 09:00 06/28/16 09:23 (Fioricet 325-50-40) 1 tab Q6H PRN PO 06/25/16 14:00 06/28/16 04:24 (Deltasone) 60 mg DAILY PO 06/27/16 09:00 06/28/16 09:22 (Tessalon) 100 mg Q4HR PRN PO 06/26/16 16:00 06/28/16 12:40 (Spiriva Inh) 18 mcg BID INH 06/27/16 11:00 06/28/16 09:22 Guaifenesin/ Dextromethorphan 10 ml 10 ml Q4H PRN PO 06/27/16 11:00 06/28/16 12:40 (Vancomycin Inj/ NS 500 ml Inj) 517.5 ml @ 250 mls/hr Q18H IV 06/27/16 21:00 06/27/16 21:00 Miscellaneous Information SPECIFIC LAB TO BE DRAWN:VANCOMYCIN TROUGH DATE TO... ONCE ONCE XX 06/28/16 14:45 06/28/16 14:46 (Zithromax) 500 mg DAILY@20 PO 06/27/16 20:00 06/27/16 20:53 (Symbicort 160-4.5 Inh) 1 puff Q12HR INH 06/27/16 21:00 06/28/16 09:22 A/P Problem List: (1) Sepsis ICD Code: A41.9 Status: Acute (2) Altered mental status, unspecified ICD Code: R41.82 Status: Acute Assessment and Plan Sepsis/ PNA/ COPD With findings of fever, tachycardia, suspected meningocephalitis as possible source with also recent diagnosis urinary tract infection. HSV negative on LP. CSF culture negative. Still spiking fevers. CXR unremarkable. CRP/ ESR elevated. CT chest suggestive of bronchopneumonia. Sputum culture growing Aspergillus. - continue antibiotics. Will likely need voriconazole per ID. - IS. - oxygen and nebs as needed. - sputum culture speciation pending. - Pulmonology consult appreciated. Follow-up recs. - Robitussin and Tessalon [place] as needed. Metabolic encephalopathy Likely due to sepsis and now resolved. EEG with possible seizure spikes. Repeat head CT unremarkable. Repeat EEG unremarkable. - treatment as above. - neurology following. Headache Concern for temporal arteritis per neurology. Pt does have elevated ESR/ CRP, headache, sensitivity to light, and diffuse myalgias. Surgical consult appreciated. The pt will be unwilling to have temporal artery biopsy performed without anesthesia. The pt is high risk for anesthesia with her low EF and pneumonia. The patient also has chronic headaches. - continue prednisone for now. - would recommend TA biopsy without anesthesia. - pain control as needed. Hypertension Well controlled 06/28. - resumed antihypertensives. - clonidine as needed. Cardiomyopathy S/p AICD. Pt appears euvolemic and has been gaining weight. - Add Lasix. - outpt follow-up with cardiology for pacemaker battery change. PPx: Lovenox. Discharge Planning Awaiting ID clearance and clinical improvement. Problem Qualifiers (1) Sepsis: Qualified Code: A41.9 - Sepsis, due to unspecified organism Rocky Merlos DO Jun 28, 2016 13:49
[2016-06-28] MEDS ORDERED: FUROSEMIDE 40 MG/4 ML VIAL IV PUSH ONE (14:00)
[2016-06-28] MEDS ORDERED: PHARMACY ORDERED LAB XX ONE (14:45)
[2016-06-28] MEDS: VANCOMYCIN INJ 1,750 MG in SODIUM CHLORID 0.9% 500 ML INJ 500 ML IV SCH (14:56)
--- NOTE | 2016-06-28 15:24 | PD.CARD.PN ---
Subjective Subjective Remarks C/o SOB and cough, CP with cough Objective Medications Current Medications Medications (Trade) Dose Ordered Sig/Jorge Route Start Time Stop Time Status Last Admin (Tylenol) 650 mg Q4H PRN PO 06/21/16 14:00 06/23/16 14:14 (Zofran Inj) 4 mg Q6H PRN IVP 06/21/16 14:00 06/23/16 13:48 (Milk Of Magnesia Liq) 30 ml Q12H PRN PO 06/21/16 14:00 (Lovenox Inj) 40 mg Q24H SQ 06/21/16 14:00 06/28/16 12:35 (Tylenol) 650 mg Q6H PRN PO 06/21/16 14:00 06/25/16 12:20 (NS Flush) 2 ml UNSCH PRN IV FLUSH 06/21/16 16:30 IV Flush 2 ml 2 ml BID IV FLUSH 06/21/16 21:00 06/28/16 09:23 Pharmacy Profile Note 0 ml @ 0 mls/hr UNSCH OTHER 06/21/16 16:30 (Azactam Inj/NS Inj) 100 ml @ 200 mls/hr Q6H IV 06/21/16 18:30 06/28/16 11:53 ([place] 5-325 Mg) 1 tab Q6H PRN PO 06/22/16 00:45 06/28/16 14:09 (Pill Splitter) 1 ea UNSCH PRN OTHER 06/22/16 13:15 (Chloraseptic [place]) 2 spray Q2H PRN OROPHARYNG 06/23/16 12:15 06/26/16 04:12 (Protonix Inj) 40 mg Q24H IV PUSH 06/23/16 13:00 06/28/16 11:53 (Colace) 100 mg BID PO 06/23/16 12:30 06/28/16 09:23 (Senokot) 17.2 mg DAILY PO 06/23/16 13:00 06/28/16 09:22 (Dilaudid Pf Inj) 0.5 mg Q4H PRN IV PUSH 06/23/16 12:15 06/23/16 16:39 (Coreg) 6.25 mg Q12HR PO 06/23/16 21:00 06/28/16 09:23 (Prinivil) 10 mg DAILY PO 06/24/16 09:00 06/28/16 09:23 (Fioricet 325-50-40) 1 tab Q6H PRN PO 06/25/16 14:00 06/28/16 04:24 (Deltasone) 60 mg DAILY PO 06/27/16 09:00 06/28/16 09:22 (Tessalon) 100 mg Q4HR PRN PO 06/26/16 16:00 06/28/16 12:40 (Spiriva Inh) 18 mcg BID INH 06/27/16 11:00 06/28/16 09:22 Guaifenesin/ Dextromethorphan 10 ml 10 ml Q4H PRN PO 06/27/16 11:00 06/28/16 12:40 (Vancomycin Inj/ NS 500 ml Inj) 517.5 ml @ 250 mls/hr Q18H IV 06/27/16 21:00 06/28/16 14:56 (Zithromax) 500 mg DAILY@20 PO 06/27/16 20:00 06/27/16 20:53 (Symbicort 160-4.5 Inh) 1 puff Q12HR INH 06/27/16 21:00 06/28/16 09:22 (Lasix) 40 mg DAILY PO 06/29/16 09:00 Vital Signs / I&O Vital Signs Date Time Temp Pulse Resp B/P Pulse Ox O2 Delivery O2 Flow Rate FiO2 06/28/16 12:00 97.8 91 18 131/58 96 06/28/16 08:00 97.6 83 18 139/78 97 06/28/16 08:00 83 06/28/16 05:36 97.2 88 20 137/78 95 06/28/16 00:26 98.3 89 19 158/73 96 06/27/16 22:19 94 21 06/27/16 20:55 98.9 85 20 148/72 96 06/27/16 19:50 81 06/27/16 16:47 18 06/27/16 16:06 97.9 86 20 142/68 95 I/O 06/27/16 06/27/16 06/27/16 06/28/16 06/28/16 06/28/16 07:00 15:00 23:00 07:00 15:00 23:00 Intake Total 600 ml 1428 ml Output Total 50 ml 500 ml 550 ml Balance -50 ml 600 ml -500 ml 878 ml Intake Oral 600 ml IV Total 1428 ml Output Urine Total 50 ml 500 ml 550 ml # Voids 3 # Bowel Movements 2 0 0 Physical Exam GENERAL: SKIN: Warm and dry. HEAD: Normocephalic. EYES: No scleral icterus. No injection or drainage. NECK: Supple, trachea midline. No JVD or lymphadenopathy. CARDIOVASCULAR: Regular rate and rhythm without murmurs, gallops, or rubs. RESPIRATORY: Breath sounds equal bilaterally. No accessory muscle use. Bilat rhonchi. GASTROINTESTINAL: Abdomen soft, non-tender, nondistended. MUSCULOSKELETAL: No cyanosis, or edema. Laboratory Laboratory Tests Test 06/26/16 06/26/16 03:00 07:17 Vancomycin Level Trough 15.2 MCG/ML (5.0-10.0) Red Blood Count 3.58 MIL/MM3 (4.00-5.30) Hemoglobin 10.5 GM/DL (11.6-15.3) Hematocrit 32.0 % (35.0-46.0) Chloride Level 110 MEQ/L (98-107) Random Glucose 131 MG/DL (74-106) Imaging Last Impressions Chest X-Ray 06/28/16 0600 Signed Impressions: Service Date/Time: Tuesday, June 28, 2016 06:20 - CONCLUSION: No acute intrathoracic disease. Prosper Glass MD Head CT 06/25/16 0000 Signed Impressions: Service Date/Time: Saturday, June 25, 2016 19:07 - CONCLUSION: 1. No acute intracranial abnormalities. Paranasal sinus disease. Harjinder Shipman MD Chest CT 06/25/16 0000 Signed Impressions: Service Date/Time: Saturday, June 25, 2016 19:04 - CONCLUSION: 1. Patchy airspace disease in both lungs characteristic of a mild bronchopneumonia. 2. Moderate emphysema and some distal airway disease characteristic of chronic postinflammatory changes. 3. 3 cm subcarinal lymph node. Pacer leads in right atrium, right ventricle and coronary sinus. 4. Trace left pleural fluid. 5. Stable 8mm subpleural nodule right lower lobe compared with September 2015. Harjinder Shipman MD Abdomen X-Ray 06/23/16 0000 Signed Impressions: Service Date/Time: Thursday, June 23, 2016 13:00 - CONCLUSION: 1. No evidence of bowel obstruction or ileus. 2. Degenerative changes and scoliosis of the lumbar spine. Thee Noble MD Assessment and Plan Problem List: (1) Sepsis (2) Altered mental status, unspecified (3) COPD exacerbation (4) Cardiomyopathy (5) Atypical chest pain (6) ICD (implantable cardioverter-defibrillator) battery depletion Assessment and Plan Continue current program with abxs for pneumonia. Continue diuresis, responding well. Cleared for temporal bx from cardiac standpoint, risk of cardiac complications is increased, but not prohibitive. ICD at EOL, changeout not urgent, will postpone until patient improved and stable. D/w pt and son. Problem Qualifiers (1) Sepsis: Qualified Code: A41.9 - Sepsis, due to unspecified organism (2) Cardiomyopathy: Qualified Code: I42.0 - Dilated cardiomyopathy Aysha Franco MD Jun 28, 2016 15:24
--- NOTE | 2016-06-28 19:29 | HHI.PR ---
Subjective Remarks She feels better. Alert and oriented. Cough as before. No fever.On antibiotics Objective Vital Signs Date Time Temp Pulse Resp B/P Pulse Ox O2 Delivery O2 Flow Rate FiO2 06/28/16 18:25 96 21 06/28/16 16:00 97.2 93 18 131/81 96 06/28/16 14:12 93 06/28/16 12:00 97.8 91 18 131/58 96 06/28/16 08:00 97.6 83 18 139/78 97 06/28/16 08:00 83 06/28/16 05:36 97.2 88 20 137/78 95 06/28/16 00:26 98.3 89 19 158/73 96 06/27/16 22:19 94 21 06/27/16 20:55 98.9 85 20 148/72 96 06/27/16 19:50 81 I/O 06/27/16 06/27/16 06/27/16 06/28/16 06/28/16 06/28/16 07:00 15:00 23:00 07:00 15:00 23:00 Intake Total 600 ml 1428 ml 480 ml Output Total 50 ml 500 ml 550 ml Balance -50 ml 600 ml -500 ml 878 ml 480 ml Intake Oral 600 ml 480 ml IV Total 1428 ml Output Urine Total 50 ml 500 ml 550 ml # Voids 3 5 # Bowel Movements 2 0 0 1 Result Diagram: 06/26/1671606/27/16701 Objective Remarks GENERAL: This moderately obese, elderly white female is alert and anxious. No distress. HEENT: Head is normocephalic. Pupils are reactive. Tongue is moist. Throat is clear. NECK: Supple. No lymphadenopathy. No thyroid enlargement. CHEST: Equal movements with expiratory wheezes throughout both lung mon[place] and no crackles on either side. HEART: Sounds are regular S1-S2. No murmur. No S3. ABDOMEN: Soft. Benign. No masses or organomegaly. EXTREMITIES: No edema. No clubbing. Reflexes are 1+ with no gross motor deficits. NEUROLOGICAL: Cranial nerves are grossly intact. RECTAL: Examination is deferred. SKIN: No lesions. Assessment and Plan Assessment and Plan IMPRESSION 1. Bilateral pneumonia with hypoxemia. 2. Possible sepsis. 3. Encephalopathy, resolved. 4. COPD with chronic bronchitis and bronchospasm. 5. Hypertension. 6. Chronic kidney disease. Plan : 1. Continue antibiotics. 2. O2 at HS at 2 L. 3. Nebs qid Duoneb. 4. Bedside ventolin Inhaler 2 puffs prn. 5. Cont Prednisone 60 mg daily. Vanessa Garces MD Jun 28, 2016 19:29
[2016-06-28] MEDS: AZITHROMYCIN 250 MG TAB PO SCH (21:28)
--- NOTE | 2016-06-28 23:09 | HHI.IDPN ---
Subjective Subjective Remarks Delayed entry - pt was seen earlier today Growing mold in sputum feels better afebrile On RA able to talkwo SOB no cough Antibiotics azithro vanco aztreonam Allergies: Coded Allergies: Amoxicillin (Verified Allergy, Severe, Diarrhea, 06/21/16) Augmentin (Verified Allergy, Severe, Diarrhea, 06/21/16) Cefuroxime sodium (Verified Allergy, Severe, rash, 06/21/16) Cipro (Verified Allergy, Severe, Nausea/Vomiting, 06/21/16) Codeine (Verified Allergy, Severe, Nausea/Vomiting, 06/21/16) Feldene (Verified Allergy, Severe, Hives, 06/21/16) Tequin (Verified Allergy, Severe, Confusion, 06/21/16) Aspirin (Unverified Allergy, Intermediate, Hives, 06/21/16) Atorvastatin (Verified Allergy, Intermediate, FLANK PAIN, 06/21/16) Morphine (Verified Allergy, Intermediate, sweats, 06/21/16) Contrast Media (Verified Allergy, Unknown, Anaphylaxis, 06/21/16) Gentamicin (Verified Adverse Reaction, Intermediate, DIARRHEA, 06/21/16) Objective . Vital Signs Date Time Temp Pulse Resp B/P Pulse Ox O2 Delivery O2 Flow Rate FiO2 06/28/16 20:00 98.8 90 18 137/71 95 06/28/16 18:25 96 21 06/28/16 16:00 97.2 93 18 131/81 96 06/28/16 14:12 93 06/28/16 12:00 97.8 91 18 131/58 96 06/28/16 08:00 97.6 83 18 139/78 97 06/28/16 08:00 83 06/28/16 05:36 97.2 88 20 137/78 95 06/28/16 00:26 98.3 89 19 158/73 96 06/27/16 06/27/16 06/28/16 15:00 23:00 07:00 Intake Total 600 ml 1428 ml Output Total 500 ml 550 ml Balance 600 ml -500 ml 878 ml Intake Oral 600 ml IV Total 1428 ml Output Urine Total 500 ml 550 ml # Voids 3 # Bowel Movements 2 0 0 . Laboratory Tests Test 06/27/16 07:02 Creatinine 0.65 MG/DL Estimat Glomerular Filtration 90 ML/MIN Rate Imaging Last Impressions Chest X-Ray 06/28/16 0600 Signed Impressions: Service Date/Time: Tuesday, June 28, 2016 06:20 - CONCLUSION: No acute intrathoracic disease. Prosper Glass MD Head CT 06/25/16 0000 Signed Impressions: Service Date/Time: Saturday, June 25, 2016 19:07 - CONCLUSION: 1. No acute intracranial abnormalities. Paranasal sinus disease. Harjinder Shipman MD Chest CT 06/25/16 0000 Signed Impressions: Service Date/Time: Saturday, June 25, 2016 19:04 - CONCLUSION: 1. Patchy airspace disease in both lungs characteristic of a mild bronchopneumonia. 2. Moderate emphysema and some distal airway disease characteristic of chronic postinflammatory changes. 3. 3 cm subcarinal lymph node. Pacer leads in right atrium, right ventricle and coronary sinus. 4. Trace left pleural fluid. 5. Stable 8mm subpleural nodule right lower lobe compared with September 2015. Harjinder Shipman MD Abdomen X-Ray 06/23/16 0000 Signed Impressions: Service Date/Time: Thursday, June 23, 2016 13:00 - CONCLUSION: 1. No evidence of bowel obstruction or ileus. 2. Degenerative changes and scoliosis of the lumbar spine. Thee Noble MD Physical Exam CONSTITUTIONAL/GENERAL: This is an adequately nourished patient, in no apparent distress. TUBES/LINES/DRAINS: SKIN: No jaundice, rashes, or lesions. Skin temperature appropriate. Not diaphoretic. HEAD: Atraumatic. Normocephalic. EYES: Pupils equal and round and reactive. Extraocular motions intact. No scleral icterus. No injection or drainage. Fundi not examined. ENT: Hearing grossly normal. Nose with clear drainage. Throat without visible erythema, exudates, masses, or lesions. NECK: Trachea midline. Supple, nontender. CARDIOVASCULAR: Regular rate and rhythm without murmurs, gallops, or rubs. No JVD. Peripheral pulses symmetric. Pedal pls 2/2 bl ]AICD in place with no skin changes L chest RESPIRATORY/CHEST: Symmetric, unlabored respirations. Clear to auscultation. Breath sounds equal bilaterally. No wheezes, rales, or rhonchi. GASTROINTESTINAL: Abdomen soft, non-tender, nondistended. No hepato-splenomegaly , or palpable masses. No guarding. Bowel sounds present. GENITOURINARY: Without palpable bladder distension. MUSCULOSKELETAL: Extremities without clubbing, cyanosis, or edema. No joint tenderness or effusion noted. No calf tenderness. No mottling or clubbing. NEUROLOGICAL: Awake and alert. Motor and sensory grossly within normal limits. Follows commands. Cognitively sharp. Moves all extremities. Assessment & Plan Remarks Febrile ilnes with cephalgia ? viral meningitis; HSV negative Persistent FUO - resolved Adverse reactions to multiple abx, NO h/o true allergies : - amoxicillin, gent - diarrhea - cipro - nausea, vomiting - cephuroxim : rash Nausea Throat pain, severe: GAS negative PNA - clinically resolving on empiric antibacterials Mold in the sputum - doubt clinical signoificance -aspergilla - cont current abx for now - repeat CXR - no antifungal tgx at this point - will repeat sputum aclx including fungal Hilda Mcdaniel MD Jun 28, 2016 23:09
[2016-06-29] VITALS (7 sets, daily range): BP systolic 129–142; BP diastolic 68–90; PULSE 80–90; RESP 18–20; TEMP 97.6–98.6; O2SAT 94–98
[2016-06-29] MEDS: AZTREONAM INJ 2,000 MG in SODIUM CHLORIDE 0.9% INJ 100 ML IV SCH ×4 (01:03→17:34)
[2016-06-29] MEDS: guaiFENesin/DEXTROMETHORPHAN 200 MG/20 MG/10 ML CUP PO PRN ×3 (02:27→21:10)
[2016-06-29] MEDS: BENZONATATE 100 MG CAP PO PRN ×3 (02:27→21:11)
[2016-06-29] MEDS: ACETAMINOPHEN/HYDROcodone 325 MG/5 MG TAB PO PRN ×3 (03:28→17:34)
[2016-06-29 07:17] LABS: HEMATOCRIT 30.3 % (35.0-46.0); MEAN CELL VOLUME 88.4 FL (80.0-100.0); MEAN CORPUSCULAR HEMOGLOBIN 29.7 PG (27.0-34.0); MEAN CORPUSCULAR HGB CONC 33.7 % (32.0-36.0); PLATELET COUNT 298 TH/MM3 (150-450); RED BLOOD COUNT 3.42 MIL/MM3 (4.00-5.30); REVIEW FLAG FINAL; WHITE BLOOD COUNT 10.3 TH/MM3 (4.0-11.0)
[2016-06-29 07:47] LABS: BICARBONATE 28.5 MEQ/L (21.0-32.0); MAGNESIUM 1.8 MG/DL (1.5-2.5)
[2016-06-29 07:52] LABS: POTASSIUM 2.9 MEQ/L (3.5-5.1)
[2016-06-29] MEDS: BUDESONIDE-FORMOTEROL 160/4.5 MCG INHALER INH SCH ×2 (08:36→21:12)
[2016-06-29] MEDS: TIOTROPIUM BROMIDE 18 MCG INH INH SCH ×2 (08:36→21:13)
[2016-06-29] MEDS: VANCOMYCIN INJ 1,750 MG in SODIUM CHLORID 0.9% 500 ML INJ 500 ML IV SCH (08:36)
[2016-06-29] MEDS: SODIUM CHLORIDE 0.9% FLUSH 5 ML FLUSH IV FLUSH SCH ×2 (08:36→21:11)
[2016-06-29] MEDS: predniSONE 20 MG TAB PO SCH (08:37)
[2016-06-29] MEDS: CARVEDILOL 6.25 MG TAB PO SCH ×2 (08:37→21:11)
[2016-06-29] MEDS: DOCUSATE SODIUM 100 MG CAP PO SCH ×2 (08:37→08:55)
[2016-06-29] MEDS: LISINOPRIL 10 MG TAB PO SCH (08:37)
[2016-06-29] MEDS: FUROSEMIDE 40 MG TAB PO SCH (08:37)
[2016-06-29] MEDS: SENNOSIDES 8.6 MG TAB PO SCH ×2 (08:37→08:55)
[2016-06-29] MEDS: ACETAMIN 325 MG/BUTALBITAL 50 MG/CAFFEINE 40 MG TAB PO PRN (08:43)
--- NOTE | 2016-06-29 09:43 | PD.CARD.PN ---
Subjective Subjective Remarks Less SOB, still c/o CP w cough, also has DOMINGUEZ Objective Medications Current Medications Medications (Trade) Dose Ordered Sig/Jorge Route Start Time Stop Time Status Last Admin (Tylenol) 650 mg Q4H PRN PO 06/21/16 14:00 06/23/16 14:14 (Zofran Inj) 4 mg Q6H PRN IVP 06/21/16 14:00 06/23/16 13:48 (Milk Of Magnesia Liq) 30 ml Q12H PRN PO 06/21/16 14:00 (Lovenox Inj) 40 mg Q24H SQ 06/21/16 14:00 06/28/16 12:35 (Tylenol) 650 mg Q6H PRN PO 06/21/16 14:00 06/25/16 12:20 (NS Flush) 2 ml UNSCH PRN IV FLUSH 06/21/16 16:30 IV Flush 2 ml 2 ml BID IV FLUSH 06/21/16 21:00 06/28/16 21:27 Pharmacy Profile Note 0 ml @ 0 mls/hr UNSCH OTHER 06/21/16 16:30 (Azactam Inj/NS Inj) 100 ml @ 200 mls/hr Q6H IV 06/21/16 18:30 06/29/16 06:05 ([place] 5-325 Mg) 1 tab Q6H PRN PO 06/22/16 00:45 06/29/16 03:28 (Pill Splitter) 1 ea UNSCH PRN OTHER 06/22/16 13:15 (Chloraseptic [place]) 2 spray Q2H PRN OROPHARYNG 06/23/16 12:15 06/26/16 04:12 (Protonix Inj) 40 mg Q24H IV PUSH 06/23/16 13:00 06/28/16 11:53 (Colace) 100 mg BID PO 06/23/16 12:30 06/28/16 09:23 (Senokot) 17.2 mg DAILY PO 06/23/16 13:00 06/28/16 09:22 (Dilaudid Pf Inj) 0.5 mg Q4H PRN IV PUSH 06/23/16 12:15 06/23/16 16:39 (Coreg) 6.25 mg Q12HR PO 06/23/16 21:00 06/29/16 08:37 (Prinivil) 10 mg DAILY PO 06/24/16 09:00 06/29/16 08:37 (Fioricet 325-50-40) 1 tab Q6H PRN PO 06/25/16 14:00 06/29/16 08:43 (Deltasone) 60 mg DAILY PO 06/27/16 09:00 06/29/16 08:37 (Tessalon) 100 mg Q4HR PRN PO 06/26/16 16:00 06/29/16 06:05 (Spiriva Inh) 18 mcg BID INH 06/27/16 11:00 06/29/16 08:36 Guaifenesin/ Dextromethorphan 10 ml 10 ml Q4H PRN PO 06/27/16 11:00 06/29/16 06:05 (Vancomycin Inj/ NS 500 ml Inj) 517.5 ml @ 250 mls/hr Q18H IV 06/27/16 21:00 06/29/16 08:36 (Zithromax) 500 mg DAILY@20 PO 06/27/16 20:00 06/28/16 21:28 (Symbicort 160-4.5 Inh) 1 puff Q12HR INH 06/27/16 21:00 06/29/16 08:36 (Lasix) 40 mg DAILY PO 06/29/16 09:00 06/29/16 08:37 (KCl) 40 meq ONCE ONCE PO 06/29/16 12:00 06/29/16 12:01 Vital Signs / I&O Vital Signs Date Time Temp Pulse Resp B/P Pulse Ox O2 Delivery O2 Flow Rate FiO2 06/29/16 08:00 98.0 85 19 136/86 94 06/29/16 04:58 97.8 86 18 140/68 96 06/29/16 00:59 98.6 86 18 134/70 96 06/28/16 23:30 99 06/28/16 20:00 98.8 90 18 137/71 95 06/28/16 18:25 96 21 06/28/16 16:00 97.2 93 18 131/81 96 06/28/16 14:12 93 06/28/16 12:00 97.8 91 18 131/58 96 I/O 06/28/16 06/28/16 06/28/16 06/29/16/16/17 2/16/17 07:00 15:00 23:00 07:00 15:00 23:00 Intake Total 1428 ml 480 ml 400 ml 0 ml Output Total 550 ml Balance 878 ml 480 ml 400 ml 0 ml Intake Oral 480 ml 400 ml IV Total 1428 ml 0 ml Output Urine Total 550 ml # Voids 5 1 # Bowel Movements 0 1 Physical Exam GENERAL: SKIN: Warm and dry. HEAD: Normocephalic. EYES: No scleral icterus. No injection or drainage. NECK: Supple, trachea midline. No JVD or lymphadenopathy. CARDIOVASCULAR: Regular rate and rhythm without murmurs, gallops, or rubs. RESPIRATORY: Breath sounds equal bilaterally. No accessory muscle use. Few rhonchi. GASTROINTESTINAL: Abdomen soft, non-tender, nondistended. MUSCULOSKELETAL: No cyanosis, or edema. Laboratory Laboratory Tests Test 06/28/16 06/29/16 14:45 06:11 Vancomycin Level Trough 13.7 MCG/ML White Blood Count 10.3 TH/MM3 Red Blood Count 3.42 MIL/MM3 Hemoglobin 10.2 GM/DL Hematocrit 30.3 % Mean Corpuscular Volume 88.4 FL Mean Corpuscular Hemoglobin 29.7 PG Mean Corpuscular Hemoglobin 33.7 % Concent Red Cell Distribution Width 15.0 % Platelet Count 298 TH/MM3 Mean Platelet Volume 8.8 FL Sodium Level 142 MEQ/L Potassium Level 2.9 MEQ/L Chloride Level 106 MEQ/L Carbon Dioxide Level 28.5 MEQ/L Anion Gap 8 MEQ/L Blood Urea Nitrogen 11 MG/DL Creatinine 0.76 MG/DL Estimat Glomerular Filtration 75 ML/MIN Rate Random Glucose 76 MG/DL Calcium Level 8.2 MG/DL Magnesium Level 1.8 MG/DL Imaging Last Impressions Chest X-Ray 06/28/16 0600 Signed Impressions: Service Date/Time: Tuesday, June 28, 2016 06:20 - CONCLUSION: No acute intrathoracic disease. Prosper Glass MD Head CT 06/25/16 0000 Signed Impressions: Service Date/Time: Saturday, June 25, 2016 19:07 - CONCLUSION: 1. No acute intracranial abnormalities. Paranasal sinus disease. Harjinder Shipman MD Chest CT 06/25/16 0000 Signed Impressions: Service Date/Time: Saturday, June 25, 2016 19:04 - CONCLUSION: 1. Patchy airspace disease in both lungs characteristic of a mild bronchopneumonia. 2. Moderate emphysema and some distal airway disease characteristic of chronic postinflammatory changes. 3. 3 cm subcarinal lymph node. Pacer leads in right atrium, right ventricle and coronary sinus. 4. Trace left pleural fluid. 5. Stable 8mm subpleural nodule right lower lobe compared with September 2015. Harjinder Shipman MD Abdomen X-Ray 06/23/16 0000 Signed Impressions: Service Date/Time: Thursday, June 23, 2016 13:00 - CONCLUSION: 1. No evidence of bowel obstruction or ileus. 2. Degenerative changes and scoliosis of the lumbar spine. Thee Noble MD Assessment and Plan Problem List: (1) Sepsis (2) Altered mental status, unspecified (3) COPD exacerbation (4) Cardiomyopathy (5) Atypical chest pain (6) ICD (implantable cardioverter-defibrillator) battery depletion Assessment and Plan No new cardiac issues. Continue current program with abxs for pneumonia. Continue diuresis, responding well. Cleared for temporal bx from cardiac standpoint, risk of cardiac complications is increased, but not prohibitive. ICD at EOL, changeout not urgent, will postpone until patient improved and stable. Increase activity. Problem Qualifiers (1) Sepsis: Qualified Code: A41.9 - Sepsis, due to unspecified organism (2) Cardiomyopathy: Qualified Code: I42.0 - Dilated cardiomyopathy Aysha Franco MD Jun 29, 2016 09:43
[2016-06-29] MEDS ORDERED: POTASSIUM CHLORIDE 20 MEQ CONTROLLED RELEASE TAB PO ONE ×2 (11:00→12:00)
[2016-06-29] MEDS: PANTOPRAZOLE SODIUM 40 MG VIAL IV PUSH SCH (13:08)
[2016-06-29] MEDS: ENOXAPARIN SODIUM 40 MG/0.4 ML SYRINGE SQ SCH (14:00)
--- NOTE | 2016-06-29 15:11 | HHI.PR ---
Subjective Remarks The patient was sitting up in a chair. She said that she had oral thrush. She requested Diflucan. She says she still had a headache. She says her vision is stable. Denies diarrhea. Discussed with nursing. Objective Vitals Vital Signs Date Time Temp Pulse Resp B/P Pulse Ox O2 Delivery O2 Flow Rate FiO2 06/29/16 12:26 98.3 90 20 136/75 98 06/29/16 08:00 98.0 85 19 136/86 94 06/29/16 04:58 97.8 86 18 140/68 96 06/29/16 00:59 98.6 86 18 134/70 96 06/28/16 23:30 99 06/28/16 20:00 98.8 90 18 137/71 95 06/28/16 18:25 96 21 06/28/16 16:00 97.2 93 18 131/81 96 I/O 06/28/16 06/28/16 06/28/16 06/29/16 06/29/16 06/29/16 07:00 15:00 23:00 07:00 15:00 23:00 Intake Total 1428 ml 480 ml 400 ml 0 ml Output Total 550 ml Balance 878 ml 480 ml 400 ml 0 ml Intake Oral 480 ml 400 ml IV Total 1428 ml 0 ml Output Urine Total 550 ml # Voids 5 1 # Bowel Movements 0 1 Result Diagram: 06/29/16 0611 06/29/16 0611 Imaging Last Impressions Chest X-Ray 06/28/16 0600 Signed Impressions: Service Date/Time: Tuesday, June 28, 2016 06:20 - CONCLUSION: No acute intrathoracic disease. Prosper Glass MD Head CT 06/25/16 0000 Signed Impressions: Service Date/Time: Saturday, June 25, 2016 19:07 - CONCLUSION: 1. No acute intracranial abnormalities. Paranasal sinus disease. Harjinder Shipman MD Chest CT 06/25/16 0000 Signed Impressions: Service Date/Time: Saturday, June 25, 2016 19:04 - CONCLUSION: 1. Patchy airspace disease in both lungs characteristic of a mild bronchopneumonia. 2. Moderate emphysema and some distal airway disease characteristic of chronic postinflammatory changes. 3. 3 cm subcarinal lymph node. Pacer leads in right atrium, right ventricle and coronary sinus. 4. Trace left pleural fluid. 5. Stable 8mm subpleural nodule right lower lobe compared with September 2015. Harjinder Shipman MD Abdomen X-Ray 06/23/16 0000 Signed Impressions: Service Date/Time: Thursday, June 23, 2016 13:00 - CONCLUSION: 1. No evidence of bowel obstruction or ileus. 2. Degenerative changes and scoliosis of the lumbar spine. Thee Noble MD Objective Remarks GENERAL: This is a well-nourished, well-developed patient, in no apparent distress. HEENT: NC, AT. Tenderness to palpation of frontal area. Thrush noted on tongue. NECK: Full range of motion. No nuchal rigidity. CARDIOVASCULAR: Regular rate and rhythm. No murmur appreciated. RESPIRATORY: Decreased breath sounds. CTAB. GASTROINTESTINAL: Abdomen soft, non-tender, nondistended. Normal active bowel sounds. MUSCULOSKELETAL: Extremities without clubbing, cyanosis, or edema. NEURO: Alert & Oriented x4 to person, place, time, situation. Moves all ext x4 , cranial nerves II through XII intact, motor strength 5 out of 5 bilateral upper and lower extremity. PSYCH: Mood and affect appropriate. Medications and IVs Current Medications Medications (Trade) Dose Ordered Sig/Jorge Route Start Time Stop Time Status Last Admin (Tylenol) 650 mg Q4H PRN PO 06/21/16 14:00 06/23/16 14:14 (Zofran Inj) 4 mg Q6H PRN IVP 06/21/16 14:00 06/23/16 13:48 (Milk Of Magnesia Liq) 30 ml Q12H PRN PO 06/21/16 14:00 (Lovenox Inj) 40 mg Q24H SQ 06/21/16 14:00 06/29/16 14:00 (Tylenol) 650 mg Q6H PRN PO 06/21/16 14:00 06/25/16 12:20 (NS Flush) 2 ml UNSCH PRN IV FLUSH 06/21/16 16:30 IV Flush 2 ml 2 ml BID IV FLUSH 06/21/16 21:00 06/28/16 21:27 Pharmacy Profile Note 0 ml @ 0 mls/hr UNSCH OTHER 06/21/16 16:30 (Azactam Inj/NS Inj) 100 ml @ 200 mls/hr Q6H IV 06/21/16 18:30 06/29/16 13:08 ([place] 5-325 Mg) 1 tab Q6H PRN PO 06/22/16 00:45 06/29/16 11:25 (Pill Splitter) 1 ea UNSCH PRN OTHER 06/22/16 13:15 (Chloraseptic [place]) 2 spray Q2H PRN OROPHARYNG 06/23/16 12:15 06/26/16 04:12 (Protonix Inj) 40 mg Q24H IV PUSH 06/23/16 13:00 06/29/16 13:08 (Colace) 100 mg BID PO 06/23/16 12:30 06/28/16 09:23 (Senokot) 17.2 mg DAILY PO 06/23/16 13:00 06/28/16 09:22 (Dilaudid Pf Inj) 0.5 mg Q4H PRN IV PUSH 06/23/16 12:15 06/23/16 16:39 (Coreg) 6.25 mg Q12HR PO 06/23/16 21:00 06/29/16 08:37 (Prinivil) 10 mg DAILY PO 06/24/16 09:00 06/29/16 08:37 (Fioricet 325-50-40) 1 tab Q6H PRN PO 06/25/16 14:00 06/29/16 08:43 (Deltasone) 60 mg DAILY PO 06/27/16 09:00 06/29/16 08:37 (Tessalon) 100 mg Q4HR PRN PO 06/26/16 16:00 06/29/16 06:05 (Spiriva Inh) 18 mcg BID INH 06/27/16 11:00 06/29/16 08:36 Guaifenesin/ Dextromethorphan 10 ml 10 ml Q4H PRN PO 06/27/16 11:00 06/29/16 06:05 (Vancomycin Inj/ NS 500 ml Inj) 517.5 ml @ 250 mls/hr Q18H IV 06/27/16 21:00 06/29/16 08:36 (Zithromax) 500 mg DAILY@20 PO 06/27/16 20:00 06/28/16 21:28 (Symbicort 160-4.5 Inh) 1 puff Q12HR INH 06/27/16 21:00 06/29/16 08:36 (Lasix) 40 mg DAILY PO 06/29/16 09:00 06/29/16 08:37 A/P Problem List: (1) Sepsis ICD Code: A41.9 Status: Acute (2) Altered mental status, unspecified ICD Code: R41.82 Status: Acute Assessment and Plan Sepsis/ PNA/ COPD With findings of fever, tachycardia, suspected meningocephalitis as possible source with also recent diagnosis urinary tract infection. HSV negative on LP. CSF culture negative. Still spiking fevers. CXR unremarkable. CRP/ ESR elevated. CT chest suggestive of bronchopneumonia. Sputum culture growing Aspergillus. - continue antibiotics per ID. - IS. - oxygen and nebs as needed. - Pulmonology consult appreciated. Follow-up recs. - Robitussin and Tessalon Perles as needed. - clotrimazole trochs added. Metabolic encephalopathy Likely due to sepsis and now resolved. EEG with possible seizure spikes. Repeat head CT unremarkable. Repeat EEG unremarkable. - treatment as above. - neurology following. Headache Concern for temporal arteritis per neurology. Pt does have elevated ESR/ CRP, headache, sensitivity to light, and diffuse myalgias. Surgical consult appreciated. The pt will be unwilling to have temporal artery biopsy performed without anesthesia. The pt is high risk for anesthesia with her low EF and pneumonia. The patient also has chronic headaches. - continue prednisone for now. - will try to schedule temporal artery biopsy with surgery. - pain control as needed. Hypertension Well controlled 06/29. - resumed antihypertensives. - clonidine as needed. Cardiomyopathy S/p AICD. Pt appears euvolemic and has been gaining weight. - Add Lasix. - outpt follow-up with cardiology for pacemaker battery change. Hypokalemia S/t Lasix. - replete and monitor. PPx: Lovenox. Discharge Planning Awaiting ID clearance and clinical improvement. Problem Qualifiers (1) Sepsis: Qualified Code: A41.9 - Sepsis, due to unspecified organism Rocky Merlos DO Jun 29, 2016 15:11
[2016-06-29 17:02] LABS: BICARBONATE 27.6 MEQ/L (21.0-32.0); POTASSIUM 3.9 MEQ/L (3.5-5.1)
--- NOTE | 2016-06-29 17:28 | HHI.PR ---
Subjective Subjective Notes I am asked to proceed with temporal artery biopsy. The patient has no complaints. She still is coughing. Afebrile. Objective Vitals/I&O Vital Signs Date Time Temp Pulse Resp B/P Pulse Ox O2 Delivery O2 Flow Rate FiO2 06/29/16 15:06 97 Nasal Cannula 21 06/29/16 12:26 98.3 90 20 136/75 Labs Laboratory Tests Test 06/29/16 06/29/16 06:11 16:10 White Blood Count 10.3 Red Blood Count 3.42 Hemoglobin 10.2 Hematocrit 30.3 Mean Corpuscular Volume 88.4 Mean Corpuscular Hemoglobin 29.7 Mean Corpuscular Hemoglobin 33.7 Concent Red Cell Distribution Width 15.0 Platelet Count 298 Mean Platelet Volume 8.8 Sodium Level 142 142 Potassium Level 2.9 3.9 Chloride Level 106 108 Carbon Dioxide Level 28.5 27.6 Anion Gap 8 6 Blood Urea Nitrogen 11 15 Creatinine 0.76 0.89 Estimat Glomerular Filtration 75 63 Rate Random Glucose 76 191 Calcium Level 8.2 8.5 Magnesium Level 1.8 Date/Time Procedure Status Source Growth 06/25/16 09:10 Gram Stain - Final Complete Sputum Expectorated Sputum 06/25/16 09:10 Sputum Culture - Final Complete Aspergillus Fumigatus Radiology Last Impressions Head CT 06/25/16 0000 Signed Impressions: Service Date/Time: Saturday, June 25, 2016 19:07 - CONCLUSION: 1. No acute intracranial abnormalities. Paranasal sinus disease. Harjinder Shipman MD Chest CT 06/25/16 0000 Signed Impressions: Service Date/Time: Saturday, June 25, 2016 19:04 - CONCLUSION: 1. Patchy airspace disease in both lungs characteristic of a mild bronchopneumonia. 2. Moderate emphysema and some distal airway disease characteristic of chronic postinflammatory changes. 3. 3 cm subcarinal lymph node. Pacer leads in right atrium, right ventricle and coronary sinus. 4. Trace left pleural fluid. 5. Stable 8mm subpleural nodule right lower lobe compared with September 2015. Harjinder Shipman MD Chest X-Ray 06/24/16 0000 Signed Impressions: Service Date/Time: Friday, June 24, 2016 14:57 - CONCLUSION: 1. Stable pacer leads. Minimal basal atelectasis or scarring in the lungs. Harjinder Shipman MD Abdomen X-Ray 06/23/16 0000 Signed Impressions: Service Date/Time: Thursday, June 23, 2016 13:00 - CONCLUSION: 1. No evidence of bowel obstruction or ileus. 2. Degenerative changes and scoliosis of the lumbar spine. Thee Noble MD Narrative Exam Sitting up in chair, coughing nonlabored breathing PERRL A/P Assessment and Plan 70 F with multiple chronic and acute issues. Sputum grew mold. She has had persistent headaches and intermittent fevers. I am asked by Dr. Merlos to proceed with temporal artery biopsy and will plan for tomorrow around 1 pm. I discussed risks, benefits, and details with the patient and she desires to proceed. Jose LuisMiguel MD Jun 29, 2016 17:28
[2016-06-29] MEDS: CLOTRIMAZOLE 10 MG TROCHE BUCCAL SCH ×2 (17:33→21:11)
--- NOTE | 2016-06-29 20:11 | HHI.PR ---
Subjective Remarks Improved further.. Alert and oriented. Cough better.. No fever.On antibiotics per ID. Will go for Temporal Artery biopsy Objective Vital Signs Date Time Temp Pulse Resp B/P Pulse Ox O2 Delivery O2 Flow Rate FiO2 06/29/16 18:27 06/29/16 16:00 97.7 84 20 142/69 98 06/29/16 15:06 97 Nasal Cannula 21 06/29/16 12:26 98.3 90 20 136/75 98 06/29/16 08:00 98.0 85 19 136/86 94 06/29/16 04:58 97.8 86 18 140/68 96 06/29/16 00:59 98.6 86 18 134/70 96 06/28/16 23:30 99 I/O 06/28/16 06/28/16 06/28/16 06/29/16 06/29/16 06/29/16 07:00 15:00 23:00 07:00 15:00 23:00 Intake Total 1428 ml 480 ml 400 ml 0 ml 625 ml Output Total 550 ml Balance 878 ml 480 ml 400 ml 0 ml 625 ml Intake Oral 480 ml 400 ml 625 ml IV Total 1428 ml 0 ml Output Urine Total 550 ml # Voids 5 1 4 # Bowel Movements 0 1 1 Result Diagram: 06/29/16 0611 06/29/16 1610 Objective Remarks GENERAL: This moderately obese, elderly white female is alert and anxious. No distress. HEENT: Head is normocephalic. Pupils are reactive. Tongue is moist. Throat is clear. NECK: Supple. No lymphadenopathy. No thyroid enlargement. CHEST: Equal movements with expiratory wheezes over both lung mon[place] and no crackles on either side. HEART: Sounds are regular S1-S2. No murmur. No S3. ABDOMEN: Soft. Benign. No masses or organomegaly. EXTREMITIES: No edema. No clubbing. Reflexes are 1+ with no gross motor deficits. NEUROLOGICAL: Cranial nerves are grossly intact. RECTAL: Examination is deferred. SKIN: No lesions. Assessment and Plan Assessment and Plan IMPRESSION 1. Bilateral pneumonia with hypoxemia. 2. Possible sepsis. 3. Encephalopathy, resolved. 4. COPD with chronic bronchitis and bronchospasm. 5. Hypertension. 6. Chronic kidney disease. Plan : 1. Continue antibiotics per ID. 2. O2 at HS at 2 L. 3. Nebs qid Duoneb. 4. Bedside ventolin Inhaler 2 puffs prn. 5. Cont Prednisone 60 mg daily. 6. Temporal Artery Biopsy in am Vanessa Garces MD Jun 29, 2016 20:11
[2016-06-29] MEDS: AZITHROMYCIN 250 MG TAB PO SCH (21:11)
[2016-06-30] VITALS (7 sets, daily range): BP systolic 118–146; BP diastolic 56–90; PULSE 71–83; RESP 18–20; TEMP 96.5–97.7; O2SAT 93–98
[2016-06-30] MEDS: guaiFENesin/DEXTROMETHORPHAN 200 MG/20 MG/10 ML CUP PO PRN ×3 (00:52→08:16)
[2016-06-30] MEDS: AZTREONAM INJ 2,000 MG in SODIUM CHLORIDE 0.9% INJ 100 ML IV SCH ×5 (00:52→23:59)
[2016-06-30] MEDS: BENZONATATE 100 MG CAP PO PRN ×3 (00:53→08:18)
[2016-06-30] MEDS: VANCOMYCIN INJ 1,750 MG in SODIUM CHLORID 0.9% 500 ML INJ 500 ML IV SCH ×2 (03:11→21:01)
[2016-06-30] MEDS: ACETAMINOPHEN/HYDROcodone 325 MG/5 MG TAB PO PRN ×3 (03:59→17:57)
[2016-06-30] MEDS: CLOTRIMAZOLE 10 MG TROCHE BUCCAL SCH ×4 (05:42→21:01)
[2016-06-30] MEDS: BUDESONIDE-FORMOTEROL 160/4.5 MCG INHALER INH SCH ×2 (08:16→21:10)
[2016-06-30] MEDS: FUROSEMIDE 40 MG TAB PO SCH (08:17)
[2016-06-30] MEDS: LISINOPRIL 10 MG TAB PO SCH (08:17)
[2016-06-30] MEDS: CARVEDILOL 6.25 MG TAB PO SCH ×2 (08:18→21:00)
[2016-06-30] MEDS: predniSONE 20 MG TAB PO SCH (08:24)
--- NOTE | 2016-06-30 08:34 | HHI.PR ---
Subjective Remarks another bunn Objective Vital Signs Date Time Temp Pulse Resp B/P Pulse Ox O2 Delivery O2 Flow Rate FiO2 06/30/16 08:00 96.5 78 18 142/71 97 06/30/16 04:59 20 06/30/16 04:10 97.7 76 18 136/90 98 06/30/16 00:00 97.7 83 18 128/82 98 06/29/16 20:00 97.6 86 18 129/90 97 06/29/16 20:00 80 06/29/16 18:27 06/29/16 16:00 97.7 84 20 142/69 98 06/29/16 15:06 97 Nasal Cannula 21 06/29/16 12:26 98.3 90 20 136/75 98 I/O 06/29/16 06/29/16 06/29/16 06/30/16 06/30/16 06/30/16 07:00 15:00 23:00 07:00 15:00 23:00 Intake Total 0 ml 625 ml 663 ml Balance 0 ml 625 ml 663 ml Intake Oral 625 ml IV Total 0 ml 663 ml # Voids 4 # Bowel Movements 1 Result Diagram: 06/29/16 0611 06/29/16 1610 Objective Remarks buddhism are tender this am awake alert Assessment and Plan Assessment and Plan imp i wonder if she may have temporal arteritis i am recommending ta bx to med team on 60 pred now for bx today fu eeg neg will review i will be out of town until sunday ok by me to dc after bx Judah Burciaga MD Jun 30, 2016 08:34
[2016-06-30 08:57] LABS: MAGNESIUM 1.8 MG/DL (1.5-2.5); POTASSIUM 3.6 MEQ/L (3.5-5.1)
[2016-06-30] MEDS ORDERED: SODIUM CHLORID 0.9% 500 ML IV SCH (09:00)
[2016-06-30] MEDS ORDERED: INSULIN HUMAN REGULAR 1,000 UNITS/10 ML VIAL SQ PRN (09:00)
[2016-06-30] MEDS ORDERED: METOPROLOL TARTRATE 25 MG TAB PO PRN (09:00)
[2016-06-30] MEDS: LACTATED RINGER'S 1000 ML IV SCH (11:49)
[2016-06-30] MEDS ORDERED: PROPOFOL 200 MG/20 ML AMP IV ONE (12:00)
[2016-06-30] MEDS ORDERED: ePHEDrine/NS 25 MG/5 ML SYR IV ONE (12:00)
[2016-06-30] MEDS ORDERED: ONDANSETRON HCL 4 MG/2 ML VIAL IV PUSH ONE (12:00)
[2016-06-30] MEDS ORDERED: fentaNYL CITRATE 250 MCG/5 ML AMP ONE (12:36)
[2016-06-30] MEDS ORDERED: ONDANSETRON HCL 4 MG/2 ML VIAL ONE (12:36)
[2016-06-30] MEDS ORDERED: MIDAZOLAM HCL 2 MG/2 ML VIAL ONE (12:47)
[2016-06-30] MEDS ORDERED: BUPIVACAINE HCL PF 0.5% 30 ML VIAL ONE (13:20)
[2016-06-30] MEDS ORDERED: HYDROmorphone HCL PF 2 MG/ML VIAL ONE (14:58)
[2016-06-30] MEDS ORDERED: BUPIVACAINE/EPINEPHRINE 0.5% PF 30 ML VIAL ONE (15:06)
--- NOTE | 2016-06-30 16:12 | PD.OP ---
cc: Miguel Amaya MD Operative Report Date of Surgery: Jun 30, 2016 Preoperative Diagnosis: (1) Headache (2) Fever Postoperative Diagnosis: (1) Headache (2) Fever Procedure: Left temporal artery biopsy Anesthesia: GETA Surgeon: Miguel Amaya Bee Tender(s): Nurys POWERS Operation and Findings: EBL: <5cc Operative findings: Normal appearing temporal artery; uneventful biopsy. Procedure in detail: The patient was taken to the operating room and placed in supine position. Gen. anesthesia was induced. The left oriental orthodox was prepped and draped in usual sterile fashion. Surgical timeout was performed to verify correct patient procedure and site. The head was tilted to the right a 3 cm incision was made and a skin wrinkle longitudinally about 1 fingerbreadth medial to the tragus of the left ear. Dissection was carried out through separate dermis and subcutaneous tissue with electrocautery. Careful and meticulous blunt dissection was used as well as the Doppler to identify the superficial temporal artery and vein. A 1.5 cm length of temporal artery was excised and each end tied with 3-0 Vicryl suture. There was hemostasis in the operative field. The deep dermal layer was closed with 4-0 Vicryl suture and skin with 5-0 Monocryl. The patient tolerated the procedure well was extubated and taken PACU in stable condition. Miguel Amaya MD Jun 30, 2016 16:12
[2016-06-30] MEDS ORDERED: ACETAMINOPHEN 1000 MG/100 ML VIAL IV ONE (16:25)
[2016-06-30] MEDS ORDERED: *RESP: ALBUTEROL 2.5 MG/3 ML NEB (PRN) PERIprocedural Use ONLY NEB ONE (16:45)
--- NOTE | 2016-06-30 17:12 | HHI.PR ---
Subjective Remarks The pt was seen in the PACU following biopsy. She tolerated the procedure well. She was wondering when it would be safe to receive an epidural for her back arthritis. She had no acute complaints. Discussed with PACU nurse. Objective Vitals Vital Signs Date Time Temp Pulse Resp B/P Pulse Ox O2 Delivery O2 Flow Rate FiO2 06/30/16 16:20 97.8 86 10 107/67 98 Nasal Cannula 2 06/30/16 14:10 95 Nasal Cannula 21 06/30/16 12:00 97.4 81 20 146/70 93 06/30/16 08:00 96.5 78 18 142/71 97 06/30/16 07:00 71 06/30/16 04:59 20 06/30/16 04:10 97.7 76 18 136/90 98 06/30/16 00:00 97.7 83 18 128/82 98 06/29/16 20:00 97.6 86 18 129/90 97 06/29/16 20:00 80 06/29/16 18:27 I/O 06/29/16 06/29/16 06/29/16 06/30/16 06/30/16 06/30/16 07:00 15:00 23:00 07:00 15:00 23:00 Intake Total 0 ml 625 ml 663 ml 700 ml Output Total 10 ml Balance 0 ml 625 ml 663 ml 690 ml Intake Oral 625 ml IV Total 0 ml 663 ml Other 700 ml Estimated Blood Loss 10 ml # Voids 4 # Bowel Movements 1 Result Diagram: 06/29/16 0611 06/30/16 0654 Imaging Last Impressions Chest X-Ray 06/28/16 0600 Signed Impressions: Service Date/Time: Tuesday, June 28, 2016 06:20 - CONCLUSION: No acute intrathoracic disease. Prosper Glass MD Head CT 06/25/16 0000 Signed Impressions: Service Date/Time: Saturday, June 25, 2016 19:07 - CONCLUSION: 1. No acute intracranial abnormalities. Paranasal sinus disease. Harjinder Shipman MD Chest CT 06/25/16 0000 Signed Impressions: Service Date/Time: Saturday, June 25, 2016 19:04 - CONCLUSION: 1. Patchy airspace disease in both lungs characteristic of a mild bronchopneumonia. 2. Moderate emphysema and some distal airway disease characteristic of chronic postinflammatory changes. 3. 3 cm subcarinal lymph node. Pacer leads in right atrium, right ventricle and coronary sinus. 4. Trace left pleural fluid. 5. Stable 8mm subpleural nodule right lower lobe compared with September 2015. Harjinder Shipman MD Abdomen X-Ray 06/23/16 0000 Signed Impressions: Service Date/Time: Thursday, June 23, 2016 13:00 - CONCLUSION: 1. No evidence of bowel obstruction or ileus. 2. Degenerative changes and scoliosis of the lumbar spine. Thee Noble MD Objective Remarks GENERAL: This is a well-nourished, well-developed patient, in no apparent distress. HEENT: NC, AT. Tenderness to palpation of frontal area. Thrush noted on tongue. NECK: Full range of motion. No nuchal rigidity. CARDIOVASCULAR: Regular rate and rhythm. No murmur appreciated. RESPIRATORY: Decreased breath sounds. CTAB. GASTROINTESTINAL: Abdomen soft, non-tender, nondistended. Normal active bowel sounds. MUSCULOSKELETAL: Extremities without clubbing, cyanosis, or edema. NEURO: Alert & Oriented x4 to person, place, time, situation. Moves all ext x4 , cranial nerves II through XII intact, motor strength 5 out of 5 bilateral upper and lower extremity. PSYCH: Mood and affect appropriate. Procedures Superficial temporal artery biopsy 06/30. Medications and IVs Current Medications Medications (Trade) Dose Ordered Sig/Jorge Route Start Time Stop Time Status Last Admin (Tylenol) 650 mg Q4H PRN PO 06/21/16 14:00 06/23/16 14:14 (Zofran Inj) 4 mg Q6H PRN IVP 06/21/16 14:00 06/23/16 13:48 (Milk Of Magnesia Liq) 30 ml Q12H PRN PO 06/21/16 14:00 (Tylenol) 650 mg Q6H PRN PO 06/21/16 14:00 06/25/16 12:20 (NS Flush) 2 ml UNSCH PRN IV FLUSH 06/21/16 16:30 IV Flush 2 ml 2 ml BID IV FLUSH 06/21/16 21:00 06/29/16 21:11 Pharmacy Profile Note 0 ml @ 0 mls/hr UNSCH OTHER 06/21/16 16:30 (Azactam Inj/NS Inj) 100 ml @ 200 mls/hr Q6H IV 06/21/16 18:30 06/30/16 12:42 ([place] 5-325 Mg) 1 tab Q6H PRN PO 06/22/16 00:45 06/30/16 10:34 (Pill Splitter) 1 ea UNSCH PRN OTHER 06/22/16 13:15 (Chloraseptic [place]) 2 spray Q2H PRN OROPHARYNG 06/23/16 12:15 06/26/16 04:12 (Protonix Inj) 40 mg Q24H IV PUSH 06/23/16 13:00 06/29/16 13:08 (Dilaudid Pf Inj) 0.5 mg Q4H PRN IV PUSH 06/23/16 12:15 06/23/16 16:39 (Coreg) 6.25 mg Q12HR PO 06/23/16 21:00 06/30/16 08:18 (Prinivil) 10 mg DAILY PO 06/24/16 09:00 06/30/16 08:17 (Fioricet 325-50-40) 1 tab Q6H PRN PO 06/25/16 14:00 06/29/16 08:43 (Deltasone) 60 mg DAILY PO 06/27/16 09:00 06/30/16 08:24 (Tessalon) 100 mg Q4HR PRN PO 06/26/16 16:00 06/30/16 08:18 (Spiriva Inh) 18 mcg BID INH 06/27/16 11:00 06/29/16 21:13 Guaifenesin/ Dextromethorphan 10 ml 10 ml Q4H PRN PO 06/27/16 11:00 06/30/16 08:16 (Vancomycin Inj/ NS 500 ml Inj) 517.5 ml @ 250 mls/hr Q18H IV 06/27/16 21:00 06/30/16 03:11 (Zithromax) 500 mg DAILY@20 PO 06/27/16 20:00 06/29/16 21:11 (Symbicort 160-4.5 Inh) 1 puff Q12HR INH 06/27/16 21:00 06/30/16 08:16 (Lasix) 40 mg DAILY PO 06/29/16 09:00 06/30/16 08:17 Potassium Chloride 40 meq 40 meq DAILY PO 06/30/16 09:00 Lactated Ringer's 1,000 ml @ 30 mls/hr Q24H IV 06/30/16 09:00 06/30/16 11:49 (NS 500 ml Inj) 500 ml @ 30 mls/hr [id number] IV 06/30/16 09:00 07/01/16 08:59 A/P Problem List: (1) Sepsis ICD Code: A41.9 Status: Acute (2) Altered mental status, unspecified ICD Code: R41.82 Status: Acute Assessment and Plan Sepsis/ PNA/ COPD With findings of fever, tachycardia, suspected meningocephalitis as possible source with also recent diagnosis urinary tract infection. HSV negative on LP. CSF culture negative. Still spiking fevers. CXR unremarkable. CRP/ ESR elevated. CT chest suggestive of bronchopneumonia. Sputum culture growing Aspergillus. - continue antibiotics per ID. - IS. - oxygen and nebs as needed. Home oxygen walk test requested 06/30. - Pulmonology consult appreciated. Follow-up recs. - Robitussin and Tessalon Perles as needed. - clotrimazole trochs added. Metabolic encephalopathy Likely due to sepsis and now resolved. EEG with possible seizure spikes. Repeat head CT unremarkable. Repeat EEG unremarkable. - treatment as above. - neurology following. Headache Concern for temporal arteritis per neurology. Pt does have elevated ESR/ CRP, headache, sensitivity to light, and diffuse myalgias. Surgical consult appreciated. The pt will be unwilling to have temporal artery biopsy performed without anesthesia. The pt is high risk for anesthesia with her low EF and pneumonia. The patient also has chronic headaches. S/p temporal arter biopsy . - continue prednisone for now. - pathology pending. Follow-up with neurology. - pain control as needed. Hypertension Relatively well controlled 06/30. - resumed antihypertensives. - clonidine as needed. Cardiomyopathy S/p AICD. Pt appears euvolemic and has been gaining weight. - Added Lasix. - outpt follow-up with cardiology for pacemaker battery change. Hypokalemia S/t Lasix. - replete and monitor. PPx: Lovenox. Discharge Planning Awaiting ID clearance. Anticipate d/c in 1-2 days. Problem Qualifiers (1) Sepsis: Qualified Code: A41.9 - Sepsis, due to unspecified organism Rocky Merlos DO Jun 30, 2016 17:12
--- NOTE | 2016-06-30 19:15 | PD.CARD.PN ---
Subjective Subjective Remarks No CP or SOB, feels better, tolerated bx well Objective Medications Current Medications Medications (Trade) Dose Ordered Sig/Jorge Route Start Time Stop Time Status Last Admin (Tylenol) 650 mg Q4H PRN PO 06/21/16 14:00 06/23/16 14:14 (Zofran Inj) 4 mg Q6H PRN IVP 06/21/16 14:00 06/23/16 13:48 (Milk Of Magnesia Liq) 30 ml Q12H PRN PO 06/21/16 14:00 (Tylenol) 650 mg Q6H PRN PO 06/21/16 14:00 06/25/16 12:20 (NS Flush) 2 ml UNSCH PRN IV FLUSH 06/21/16 16:30 IV Flush 2 ml 2 ml BID IV FLUSH 06/21/16 21:00 06/29/16 21:11 Pharmacy Profile Note 0 ml @ 0 mls/hr UNSCH OTHER 06/21/16 16:30 (Azactam Inj/NS Inj) 100 ml @ 200 mls/hr Q6H IV 06/21/16 18:30 06/30/16 18:25 ([place] 5-325 Mg) 1 tab Q6H PRN PO 06/22/16 00:45 06/30/16 17:57 (Pill Splitter) 1 ea UNSCH PRN OTHER 06/22/16 13:15 (Chloraseptic [place]) 2 spray Q2H PRN OROPHARYNG 06/23/16 12:15 06/26/16 04:12 (Protonix Inj) 40 mg Q24H IV PUSH 06/23/16 13:00 06/29/16 13:08 (Dilaudid Pf Inj) 0.5 mg Q4H PRN IV PUSH 06/23/16 12:15 06/23/16 16:39 (Coreg) 6.25 mg Q12HR PO 06/23/16 21:00 06/30/16 08:18 (Prinivil) 10 mg DAILY PO 06/24/16 09:00 06/30/16 08:17 (Fioricet 325-50-40) 1 tab Q6H PRN PO 06/25/16 14:00 06/29/16 08:43 (Deltasone) 60 mg DAILY PO 06/27/16 09:00 06/30/16 08:24 (Tessalon) 100 mg Q4HR PRN PO 06/26/16 16:00 06/30/16 08:18 (Spiriva Inh) 18 mcg BID INH 06/27/16 11:00 06/29/16 21:13 Guaifenesin/ Dextromethorphan 10 ml 10 ml Q4H PRN PO 06/27/16 11:00 06/30/16 08:16 (Vancomycin Inj/ NS 500 ml Inj) 517.5 ml @ 250 mls/hr Q18H IV 06/27/16 21:00 06/30/16 03:11 (Zithromax) 500 mg DAILY@20 PO 06/27/16 20:00 06/29/16 21:11 (Symbicort 160-4.5 Inh) 1 puff Q12HR INH 06/27/16 21:00 06/30/16 08:16 (Lasix) 40 mg DAILY PO 06/29/16 09:00 06/30/16 08:17 Potassium Chloride 40 meq 40 meq DAILY PO 06/30/16 09:00 Lactated Ringer's 1,000 ml @ 30 mls/hr Q24H IV 06/30/16 09:00 06/30/16 11:49 (NS 500 ml Inj) 500 ml @ 30 mls/hr [id number] IV 06/30/16 09:00 07/01/16 08:59 Vital Signs / I&O Vital Signs Date Time Temp Pulse Resp B/P Pulse Ox O2 Delivery O2 Flow Rate FiO2 06/30/16 17:36 2.00 06/30/16 16:20 97.8 86 10 107/67 98 Nasal Cannula 2 06/30/16 14:10 95 Nasal Cannula 21 06/30/16 12:00 97.4 81 20 146/70 93 06/30/16 08:00 96.5 78 18 142/71 97 06/30/16 07:00 71 06/30/16 04:59 20 06/30/16 04:10 97.7 76 18 136/90 98 06/30/16 00:00 97.7 83 18 128/82 98 06/29/16 20:00 97.6 86 18 129/90 97 06/29/16 20:00 80 I/O 2/16/06/29/16 06/29/16 06/30/16 06/30/16 06/30/16 07:00 15:00 23:00 07:00 15:00 23:00 Intake Total 0 ml 625 ml 663 ml 750 ml Output Total 10 ml Balance 0 ml 625 ml 663 ml 740 ml Intake Oral 625 ml IV Total 0 ml 663 ml 50 ml Other 700 ml Estimated Blood Loss 10 ml # Voids 4 # Bowel Movements 1 Physical Exam GENERAL: SKIN: Warm and dry. HEAD: Normocephalic. EYES: No scleral icterus. No injection or drainage. NECK: Supple, trachea midline. No JVD or lymphadenopathy. CARDIOVASCULAR: Regular rate and rhythm without murmurs, gallops, or rubs. RESPIRATORY: Breath sounds equal bilaterally. No accessory muscle use. Few rhonchi. GASTROINTESTINAL: Abdomen soft, non-tender, nondistended. MUSCULOSKELETAL: No cyanosis, or edema. Laboratory Laboratory Tests Test 06/30/16 06:54 Sodium Level 142 MEQ/L Potassium Level 3.6 MEQ/L Chloride Level 106 MEQ/L Carbon Dioxide Level 27.0 MEQ/L Anion Gap 9 MEQ/L Blood Urea Nitrogen 13 MG/DL Creatinine 0.74 MG/DL Estimat Glomerular Filtration 78 ML/MIN Rate Random Glucose 77 MG/DL Calcium Level 8.1 MG/DL Magnesium Level 1.8 MG/DL Assessment and Plan Problem List: (1) Sepsis (2) Altered mental status, unspecified (3) COPD exacerbation (4) Cardiomyopathy (5) Atypical chest pain (6) ICD (implantable cardioverter-defibrillator) battery depletion Assessment and Plan No new cardiac issues, stable from cardiac standpoint. Tolerated temporal artery bx well. Continue current program with abxs for pneumonia. Continue diuresis, responding well. ICD at EOL, changeout not urgent, will postpone until patient improved and stable from ID standpoint. Increase activity. Problem Qualifiers (1) Sepsis: Qualified Code: A41.9 - Sepsis, due to unspecified organism (2) Cardiomyopathy: Qualified Code: I42.0 - Dilated cardiomyopathy Aysha Franco MD Jun 30, 2016 19:15
[2016-06-30] MEDS: AZITHROMYCIN 250 MG TAB PO SCH (20:58)
[2016-06-30] MEDS: TIOTROPIUM BROMIDE 18 MCG INH INH SCH (21:00)
[2016-06-30] MEDS: SODIUM CHLORIDE 0.9% FLUSH 5 ML FLUSH IV FLUSH SCH (21:11)
[2016-06-30] MEDS: ACETAMIN 325 MG/BUTALBITAL 50 MG/CAFFEINE 40 MG TAB PO PRN (22:42)
[2016-07-01] VITALS (9 sets, daily range): BP systolic 108–137; BP diastolic 57–72; PULSE 73–80; RESP 18–20; TEMP 97.4–98; O2SAT 93–96
[2016-07-01] MEDS: ACETAMINOPHEN/HYDROcodone 325 MG/5 MG TAB PO PRN ×4 (00:03→18:47)
[2016-07-01 06:43] LABS: HEMATOCRIT 31.2 % (35.0-46.0); MEAN CELL VOLUME 89.4 FL (80.0-100.0); MEAN CORPUSCULAR HEMOGLOBIN 29.5 PG (27.0-34.0); PLATELET COUNT 311 TH/MM3 (150-450); RED BLOOD COUNT 3.49 MIL/MM3 (4.00-5.30); RED CELL DISTRIBUTION WIDTH 15.1 % (11.6-17.2); REVIEW FLAG FINAL; WHITE BLOOD COUNT 12.4 TH/MM3 (4.0-11.0)
[2016-07-01] MEDS: CLOTRIMAZOLE 10 MG TROCHE BUCCAL SCH ×5 (06:48→21:48)
[2016-07-01] MEDS: AZTREONAM INJ 2,000 MG in SODIUM CHLORIDE 0.9% INJ 100 ML IV SCH ×3 (06:53→18:48)
[2016-07-01 07:05] LABS: BICARBONATE 28.1 MEQ/L (21.0-32.0); MAGNESIUM 2.1 MG/DL (1.5-2.5); POTASSIUM 3.9 MEQ/L (3.5-5.1)
[2016-07-01] MEDS: LACTATED RINGER'S 1000 ML IV SCH (09:00)
[2016-07-01] MEDS: BUDESONIDE-FORMOTEROL 160/4.5 MCG INHALER INH SCH ×2 (09:00→21:49)
[2016-07-01] MEDS: TIOTROPIUM BROMIDE 18 MCG INH INH SCH ×2 (09:00→21:49)
[2016-07-01] MEDS: POTASSIUM CHLORIDE 20 MEQ CONTROLLED RELEASE TAB PO SCH (09:25)
[2016-07-01] MEDS: ACETAMIN 325 MG/BUTALBITAL 50 MG/CAFFEINE 40 MG TAB PO PRN ×3 (09:26→21:47)
[2016-07-01] MEDS: CARVEDILOL 6.25 MG TAB PO SCH ×2 (09:26→21:00)
[2016-07-01] MEDS: FUROSEMIDE 40 MG TAB PO SCH (09:26)
[2016-07-01] MEDS: predniSONE 20 MG TAB PO SCH (09:26)
[2016-07-01] MEDS: LISINOPRIL 10 MG TAB PO SCH (09:26)
[2016-07-01] MEDS: SODIUM CHLORIDE 0.9% FLUSH 5 ML FLUSH IV FLUSH SCH ×2 (09:30→21:00)
[2016-07-01] MEDS: PANTOPRAZOLE SODIUM 40 MG VIAL IV PUSH SCH (12:02)
--- NOTE | 2016-07-01 13:53 | HHI.PR ---
Subjective Remarks Reported headache is about 6-7 out of 10, however no blurry vision or nausea or vomiting She had left temporal artery biopsy yesterday She stated her cough is breaking loose Objective Vitals Vital Signs Date Time Temp Pulse Resp B/P Pulse Ox O2 Delivery O2 Flow Rate FiO2 07/01/16 13:18 18 07/01/16 12:29 97.5 80 18 117/64 94 07/01/16 10:24 73 07/01/16 10:24 16 07/01/16 10:05 93 21 07/01/16 08:57 97.4 73 18 137/65 94 07/01/16 04:00 98.0 78 18 118/58 96 07/01/16 01:01 95 07/01/16 00:00 97.6 80 20 116/58 96 06/30/16 20:00 97.4 82 20 118/56 95 06/30/16 17:36 2.00 06/30/16 16:20 97.8 86 10 107/67 98 Nasal Cannula 2 06/30/16 14:10 95 Nasal Cannula 21 I/O 06/30/16 06/30/16 06/30/16 07/01/16 07/01/16 07/01/16 07:00 15:00 23:00 07:00 15:00 23:00 Intake Total 663 ml 750 ml 600 ml Output Total 10 ml Balance 663 ml 740 ml 600 ml Intake Oral 600 ml IV Total 663 ml 50 ml Other 700 ml Estimated Blood Loss 10 ml # Voids 3 Result Diagram: 07/01/1614 07/01/1614 Objective Remarks GENERAL: This is a well-nourished, well-developed patient, in no apparent distress. SKIN: No rashes, warm and dry HEAD: Atraumatic. Normocephalic. EYES: Pupils equal round and reactive. Extraocular motions intact. No scleral icterus. ENT: Nose without bleeding, or drainage, Airway patent. NECK: Trachea midline. Supple CARDIOVASCULAR: Regular rate and rhythm without murmurs, gallops, or rubs. RESPIRATORY: Fair air entry bilaterally. No wheezes, rales, or rhonchi. GASTROINTESTINAL: Abdomen soft, non-tender, nondistended. Positive bowel sounds MUSCULOSKELETAL: Extremities without clubbing, cyanosis, or edema. Pedal pulses appreciated NEUROLOGICAL: Awake and alert. Moves all extremity. Normal speech.no focal neurological deficit Procedures Superficial temporal artery biopsy 06/30. A/P Problem List: (1) Sepsis ICD Code: A41.9 Status: Acute (2) Altered mental status, unspecified ICD Code: R41.82 Status: Acute Assessment and Plan 07/01: ff bx, ID rec , cont current care with iv abx , inc WBC mostly steroid- induced A/P Sepsis/ PNA/ COPD With findings of fever, tachycardia, suspected meningocephalitis as possible source with also recent diagnosis urinary tract infection. HSV negative on LP. CSF culture negative. Still spiking fevers. CXR unremarkable. CRP/ ESR elevated. CT chest suggestive of bronchopneumonia. Sputum culture growing Aspergillus. - continue antibiotics per ID. - IS. - oxygen and nebs as needed. Home oxygen walk test requested 06/30. - Pulmonology consult appreciated. Follow-up recs. - Robitussin and Tessalon Perles as needed. - clotrimazole trochs added. Metabolic encephalopathy Likely due to sepsis and now resolved. EEG with possible seizure spikes. Repeat head CT unremarkable. Repeat EEG unremarkable. - treatment as above. - neurology following. Headache Concern for temporal arteritis per neurology. Pt does have elevated ESR/ CRP, headache, sensitivity to light, and diffuse myalgias. Surgical consult appreciated. S/P temporal artery biopsy 06/30. - continue prednisone for now. - pathology pending. Follow-up with neurology. - pain control as needed. Hypertension Relatively well controlled 06/30. - resumed antihypertensives. - clonidine as needed. Cardiomyopathy S/p AICD. Pt appears euvolemic and has been gaining weight. - Lasix. - outpt follow-up with cardiology for pacemaker battery change. Hypokalemia S/t Lasix. - replete and monitor. PPx: Lovenox. Discharge Planning When cleared by ID Problem Qualifiers (1) Sepsis: Qualified Code: A41.9 - Sepsis, due to unspecified organism Chen Da Silva MD Jul 01, 2016 13:53
[2016-07-01] MEDS: VANCOMYCIN INJ 1,750 MG in SODIUM CHLORID 0.9% 500 ML INJ 500 ML IV SCH (14:32)
--- NOTE | 2016-07-01 18:34 | HHI.PR ---
Subjective Remarks Improved further.. Alert and oriented. Cough Improved. No fever.On antibiotics per ID. Had Temporal Artery biopsy. Has some pain in left cheek area. Objective Vital Signs Date Time Temp Pulse Resp B/P Pulse Ox O2 Delivery O2 Flow Rate FiO2 07/01/16 17:03 97.8 80 18 121/72 94 07/01/16 13:18 18 07/01/16 12:29 97.5 80 18 117/64 94 07/01/16 10:24 73 07/01/16 10:24 16 07/01/16 10:05 93 21 07/01/16 08:57 97.4 73 18 137/65 94 07/01/16 04:00 98.0 78 18 118/58 96 07/01/16 01:01 95 07/01/16 00:00 97.6 80 20 116/58 96 06/30/16 20:00 97.4 82 20 118/56 95 I/O 06/30/16 06/30/16 06/30/16 07/01/16 07/01/16 07/01/16 06:59 14:59 22:59 06:59 14:59 22:59 Intake Total 663 ml 750 ml 600 ml 480 ml Output Total 10 ml Balance 663 ml 740 ml 600 ml 480 ml Intake Oral 600 ml 480 ml IV Total 663 ml 50 ml Other 700 ml Estimated Blood Loss 10 ml # Voids 3 5 Result Diagram: 07/01/1661307/01/16613 Objective Remarks GENERAL: This moderately obese, elderly white female is alert and anxious. No distress. HEENT: Head is normocephalic. Pupils are reactive. Tongue is moist. Throat is clear. NECK: Supple. No lymphadenopathy. No thyroid enlargement. CHEST: Equal movements with occ wheezes over both lung monreal and no crackles on either side. HEART: Sounds are regular S1-S2. No murmur. No S3. ABDOMEN: Soft. Benign. No masses or organomegaly. EXTREMITIES: No edema. No clubbing. Reflexes are 1+ with no gross motor deficits. NEUROLOGICAL: Cranial nerves are grossly intact. RECTAL: Examination is deferred. SKIN: No lesions. Assessment and Plan Assessment and Plan IMPRESSION 1. Bilateral pneumonia with hypoxemia. 2. Possible sepsis. 3. Encephalopathy, resolved. 4. COPD with chronic bronchitis and bronchospasm. 5. Hypertension. 6. Chronic kidney disease. Plan : 1. Continue antibiotics per ID. 2. O2 at HS at 2 L. 3. Nebs qid Duoneb. 4. Bedside ventolin Inhaler 2 puffs prn. 5. Cont Prednisone 40 mg daily. 6. Home soon. Vanessa Garces MD Jul 01, 2016 18:34
[2016-07-01] MEDS: AZITHROMYCIN 250 MG TAB PO SCH (21:47)
[2016-07-02] VITALS (9 sets, daily range): BP systolic 121–135; BP diastolic 67–89; PULSE 67–91; RESP 18–20; TEMP 95.7–98.9; O2SAT 95–98
[2016-07-02] MEDS: AZTREONAM INJ 2,000 MG in SODIUM CHLORIDE 0.9% INJ 100 ML IV SCH ×3 (00:58→12:54)
[2016-07-02] MEDS: ACETAMINOPHEN/HYDROcodone 325 MG/5 MG TAB PO PRN ×4 (01:04→21:53)
[2016-07-02] MEDS: CLOTRIMAZOLE 10 MG TROCHE BUCCAL SCH ×5 (06:22→21:54)
[2016-07-02] MEDS: TIOTROPIUM BROMIDE 18 MCG INH INH SCH ×2 (09:00→19:39)
[2016-07-02] MEDS: LACTATED RINGER'S 1000 ML IV SCH (09:00)
[2016-07-02] MEDS: BUDESONIDE-FORMOTEROL 160/4.5 MCG INHALER INH SCH ×2 (09:00→19:39)
[2016-07-02] MEDS: ACETAMIN 325 MG/BUTALBITAL 50 MG/CAFFEINE 40 MG TAB PO PRN ×2 (09:32→18:10)
[2016-07-02] MEDS: FUROSEMIDE 40 MG TAB PO SCH (09:33)
[2016-07-02] MEDS: CARVEDILOL 6.25 MG TAB PO SCH ×2 (09:33→19:38)
[2016-07-02] MEDS: POTASSIUM CHLORIDE 20 MEQ CONTROLLED RELEASE TAB PO SCH (09:33)
[2016-07-02] MEDS: predniSONE 20 MG TAB PO SCH (09:34)
[2016-07-02] MEDS: LISINOPRIL 10 MG TAB PO SCH (09:34)
[2016-07-02] MEDS: VANCOMYCIN INJ 1,750 MG in SODIUM CHLORID 0.9% 500 ML INJ 500 ML IV SCH (09:35)
[2016-07-02] MEDS: SODIUM CHLORIDE 0.9% FLUSH 5 ML FLUSH IV FLUSH SCH (09:35)
[2016-07-02] MEDS: PANTOPRAZOLE SODIUM 40 MG VIAL IV PUSH SCH (12:55)
--- NOTE | 2016-07-02 13:07 | HHI.PR ---
Subjective Remarks Patient is concerned about temporal artery biopsy site healing, reassured her that it looks healing well no issue at this point Headache comes and goes but tolerable No change in vision, no chest pain or short of breath no fever or chills Objective Vitals Vital Signs Date Time Temp Pulse Resp B/P Pulse Ox O2 Delivery O2 Flow Rate FiO2 07/02/16 12:40 97.6 67 18 121/73 96 07/02/16 10:19 72 07/02/16 10:17 95 07/02/16 08:43 98.0 91 18 135/89 95 07/02/16 04:00 95.7 75 20 135/67 97 07/02/16 03:27 16 07/02/16 00:00 96.2 68 20 125/71 98 07/01/16 20:00 97.8 80 20 108/57 95 07/01/16 18:29 21 07/01/16 17:03 97.8 80 18 121/72 94 I/O 07/01/16 07/01/16 07/01/16 07/02/16 07/02/16 07/02/16 07:00 15:00 23:00 07:00 15:00 23:00 Intake Total 600 ml 480 ml 480 ml 120 ml Balance 600 ml 480 ml 480 ml 120 ml Intake Oral 600 ml 480 ml 480 ml 120 ml # Voids 3 5 0 2 # Bowel Movements 0 0 Result Diagram: 07/01/1661307/01/1614 Objective Remarks GENERAL: This is a well-nourished, well-developed patient, in no apparent distress. SKIN: No rashes, warm and dry , biopsy site on the left temporal area looks dry and clean HEAD: Atraumatic. Normocephalic. EYES: Pupils equal round and reactive. Extraocular motions intact. No scleral icterus. ENT: Nose without bleeding, or drainage, Airway patent. NECK: Trachea midline. Supple CARDIOVASCULAR: Regular rate and rhythm without murmurs, gallops, or rubs. RESPIRATORY: Fair air entry bilaterally. No wheezes, rales, or rhonchi. GASTROINTESTINAL: Abdomen soft, non-tender, nondistended. Positive bowel sounds MUSCULOSKELETAL: Extremities without clubbing, cyanosis, or edema. Pedal pulses appreciated NEUROLOGICAL: Awake and alert. Moves all extremity. Normal speech.no focal neurological deficit Procedures Superficial temporal artery biopsy 06/30. A/P Problem List: (1) Sepsis ICD Code: A41.9 Status: Acute (2) Altered mental status, unspecified ICD Code: R41.82 Status: Acute Assessment and Plan 07/01: ff bx, ID rec , cont current care with iv abx , inc WBC mostly steroid- induced 07/02 continue current care and follow up with ID recs A/P Sepsis/ PNA/ COPD With findings of fever, tachycardia, suspected meningocephalitis as possible source with also recent diagnosis urinary tract infection. HSV negative on LP. CSF culture negative. Still spiking fevers. CXR unremarkable. CRP/ ESR elevated. CT chest suggestive of bronchopneumonia. Sputum culture growing Aspergillus. - continue antibiotics per ID. - IS. - oxygen and nebs as needed. Home oxygen walk test requested 06/30. - Pulmonology consult appreciated. Follow-up recs. - Robitussin and Tessalon Perles as needed. - clotrimazole trochs added. Metabolic encephalopathy Likely due to sepsis and now resolved. EEG with possible seizure spikes. Repeat head CT unremarkable. Repeat EEG unremarkable. - treatment as above. - neurology following. Headache Concern for temporal arteritis per neurology. Pt does have elevated ESR/ CRP, headache, sensitivity to light, and diffuse myalgias. Surgical consult appreciated. S/P temporal artery biopsy 06/30. - continue prednisone for now. - pathology pending. Follow-up with neurology. - pain control as needed. Hypertension Relatively well controlled 06/30. - resumed antihypertensives. - clonidine as needed. Cardiomyopathy S/p AICD. Pt appears euvolemic and has been gaining weight. - Lasix. - outpt follow-up with cardiology for pacemaker battery change. Hypokalemia S/t Lasix. - replete and monitor. PPx: Lovenox. Discharge Planning When cleared by ID Problem Qualifiers (1) Sepsis: Qualified Code: A41.9 - Sepsis, due to unspecified organism Chen Da Silva MD Jul 02, 2016 13:06
--- NOTE | 2016-07-02 16:03 | HHI.PR ---
Subjective Remarks Improved further..No fever. CXR shows no active infiltrate . Alert and oriented. Cough Improved. No fever.On antibiotics per ID. Had Temporal Artery biopsy. Result pending. Objective Vital Signs Date Time Temp Pulse Resp B/P Pulse Ox O2 Delivery O2 Flow Rate FiO2 07/02/16 12:40 97.6 67 18 121/73 96 07/02/16 10:19 72 07/02/16 10:17 95 07/02/16 08:43 98.0 91 18 135/89 95 07/02/16 04:00 95.7 75 20 135/67 97 07/02/16 03:27 16 07/02/16 00:00 96.2 68 20 125/71 98 07/01/16 20:00 97.8 80 20 108/57 95 07/01/16 18:29 21 07/01/16 17:03 97.8 80 18 121/72 94 I/O 07/01/16 07/01/16 07/01/16 07/02/16 07/02/16 07/02/16 07:00 15:00 23:00 07:00 15:00 23:00 Intake Total 600 ml 480 ml 480 ml 120 ml Balance 600 ml 480 ml 480 ml 120 ml Intake Oral 600 ml 480 ml 480 ml 120 ml # Voids 3 5 0 2 # Bowel Movements 0 0 Result Diagram: 07/01/1661307/01/16 0614 Objective Remarks GENERAL: This moderately obese, elderly white female is alert and anxious. No distress. HEENT: Head is normocephalic. Pupils are reactive. Tongue is moist. Throat is clear. NECK: Supple. No lymphadenopathy. No thyroid enlargement. CHEST: Equal movements with occ wheezes over both lung mon[place] and no crackles on either side. HEART: Sounds are regular S1-S2. No murmur. No S3. ABDOMEN: Soft. Benign. No masses or organomegaly. EXTREMITIES: No edema. No clubbing. Reflexes are 1+ with no gross motor deficits. NEUROLOGICAL: Cranial nerves are grossly intact. RECTAL: Examination is deferred. SKIN: No lesions. Assessment and Plan Assessment and Plan IMPRESSION 1. Bilateral pneumonia with hypoxemia.Resolved. 2. Possible sepsis. 3. Encephalopathy, resolved. 4. COPD with chronic bronchitis and bronchospasm. 5. Hypertension. 6. Chronic kidney disease. Plan : 1. D/C antibiotics and Observe. 2. D/C O2 3. Nebs qid Duoneb. 4. Bedside ventolin Inhaler 2 puffs prn. 5. Cont Prednisone 60 mg daily. 6. Home soon. 7. Will F/U as OP in 2 weeks Vanessa Garces MD Jul 02, 2016 16:03
[2016-07-03] VITALS: BP 127/68; PULSE 74; RESP 20; TEMP 96.6; O2SAT 96
[2016-07-03] MEDS ORDERED: PHARMACY ORDERED LAB XX ONE (02:45)
[2016-07-03 04:00] VITALS: BP 134/65; PULSE 73; RESP 20; TEMP 95.6; O2SAT 96
[2016-07-03] MEDS: CLOTRIMAZOLE 10 MG TROCHE BUCCAL SCH ×3 (06:07→12:59)
[2016-07-03] MEDS: ACETAMINOPHEN/HYDROcodone 325 MG/5 MG TAB PO PRN ×2 (06:07→12:04)
[2016-07-03] MEDS: ACETAMIN 325 MG/BUTALBITAL 50 MG/CAFFEINE 40 MG TAB PO PRN ×2 (07:06→12:56)
[2016-07-03 08:04] LABS: AUTOMATED NEUTROPHIL # 8.8 TH/MM3 (1.8-7.7); BASOPHIL % 0.2 % (0.0-2.0); EOSINOPHIL % 0.2 % (0.0-4.0); HEMATOCRIT 34.8 % (35.0-46.0); HEMO FLAGS DIFF FINAL; LYMPH % 18.6 % (9.0-44.0); LYMPHOCYTE # 2.2 TH/MM3 (1.0-4.8); MEAN CELL VOLUME 90.9 FL (80.0-100.0); MEAN CORPUSCULAR HEMOGLOBIN 29.7 PG (27.0-34.0); MEAN CORPUSCULAR HGB CONC 32.6 % (32.0-36.0); MONO % 8.4 % (0.0-8.0); NEUT % 72.6 % (16.0-70.0); PLATELET COUNT 313 TH/MM3 (150-450); RED BLOOD COUNT 3.83 MIL/MM3 (4.00-5.30); RED CELL DISTRIBUTION WIDTH 15.6 % (11.6-17.2); WHITE BLOOD COUNT 12.1 TH/MM3 (4.0-11.0)
[2016-07-03 08:35] VITALS: BP 135/64; PULSE 71; RESP 18; TEMP 97.7; O2SAT 96
[2016-07-03 09:00] VITALS: PULSE 69
[2016-07-03] MEDS: CARVEDILOL 6.25 MG TAB PO SCH (09:36)
[2016-07-03] MEDS: POTASSIUM CHLORIDE 20 MEQ CONTROLLED RELEASE TAB PO SCH (09:37)
[2016-07-03] MEDS: FUROSEMIDE 40 MG TAB PO SCH (09:37)
[2016-07-03] MEDS: predniSONE 20 MG TAB PO SCH (09:37)
[2016-07-03] MEDS: LISINOPRIL 10 MG TAB PO SCH (09:37)
[2016-07-03] MEDS: BUDESONIDE-FORMOTEROL 160/4.5 MCG INHALER INH SCH (09:39)
[2016-07-03] MEDS ORDERED: CARV6.25 PO (11:05)
[2016-07-03] MEDS ORDERED: ROBIDM5S PO (11:05)
[2016-07-03] MEDS ORDERED: MEDR4PAK PO (11:05)
[2016-07-03] MEDS ORDERED: SPIRCAP INH (11:05)
[2016-07-03] MEDS ORDERED: LISI10TA3 PO (11:05)
[2016-07-03] MEDS ORDERED: PANT40P IV PUSH (11:05)
[2016-07-03] MEDS ORDERED: ZOVI5CRE3 TOPICAL (11:05)
[2016-07-03] MEDS ORDERED: SYMB160A INH (11:05)
[2016-07-03] MEDS ORDERED: FURO40TA PO (11:05)
--- NOTE | 2016-07-03 11:08 | HHI.PR ---
Subjective Remarks Doing well, antibiotics stopped by practice advisor, no chest pain or short of breath or fever or chills, will discharge home today Objective Vitals Vital Signs Date Time Temp Pulse Resp B/P Pulse Ox O2 Delivery O2 Flow Rate FiO2 07/03/16 08:35 97.7 71 18 135/64 96 07/03/16 04:00 95.6 73 20 134/65 96 07/03/16 00:00 96.6 74 20 127/68 96 07/02/16 22:56 18 07/02/16 20:00 98.9 77 20 135/72 96 07/02/16 18:20 96 21 07/02/16 16:38 98.3 75 18 121/69 96 07/02/16 12:40 97.6 67 18 121/73 96 I/O 07/02/16 07/02/16 07/02/16 07/03/16 07/03/16 07/03/16 07:00 15:00 23:00 07:00 15:00 23:00 Intake Total 120 ml 800 ml 360 ml 240 ml Balance 120 ml 800 ml 360 ml 240 ml Intake Oral 120 ml 800 ml 360 ml 240 ml # Voids 2 5 1 1 # Bowel Movements 0 1 0 0 Result Diagram: 07/03/16 0712 07/01/16 0614 Objective Remarks GENERAL: This is a well-nourished, well-developed patient, in no apparent distress. SKIN: No rashes, warm and dry , biopsy site on the left temporal area looks dry and clean HEAD: Atraumatic. Normocephalic. EYES: Pupils equal round and reactive. Extraocular motions intact. No scleral icterus. ENT: Nose without bleeding, or drainage, Airway patent. NECK: Trachea midline. Supple CARDIOVASCULAR: Regular rate and rhythm without murmurs, gallops, or rubs. RESPIRATORY: Fair air entry bilaterally. No wheezes, rales, or rhonchi. GASTROINTESTINAL: Abdomen soft, non-tender, nondistended. Positive bowel sounds MUSCULOSKELETAL: Extremities without clubbing, cyanosis, or edema. Pedal pulses appreciated NEUROLOGICAL: Awake and alert. Moves all extremity. Normal speech.no focal neurological deficit Procedures Superficial temporal artery biopsy 06/30. A/P Problem List: (1) Sepsis ICD Code: A41.9 Status: Acute (2) Altered mental status, unspecified ICD Code: R41.82 Status: Acute Assessment and Plan 07/01: ff bx, ID rec , cont current care with iv abx , inc WBC mostly steroid- induced 07/02 continue current care and follow up with ID recs 07/03: Iv antibiotic discontinued by practice advisor, clinically doing well, will discharge home today on medication as shown in discharge med list A/P Sepsis/ PNA/ COPD With findings of fever, tachycardia, suspected meningocephalitis as possible source with also recent diagnosis urinary tract infection. HSV negative on LP. CSF culture negative. Still spiking fevers. CXR unremarkable. CRP/ ESR elevated. CT chest suggestive of bronchopneumonia. Sputum culture growing Aspergillus. - continue antibiotics per ID. - IS. - oxygen and nebs as needed. Home oxygen walk test requested 06/30. - Pulmonology consult appreciated. Follow-up recs. - Robitussin and Tessalon Perles as needed. - clotrimazole trochs added. Metabolic encephalopathy Likely due to sepsis and now resolved. EEG with possible seizure spikes. Repeat head CT unremarkable. Repeat EEG unremarkable. - treatment as above. - neurology following. Headache Concern for temporal arteritis per neurology. Pt does have elevated ESR/ CRP, headache, sensitivity to light, and diffuse myalgias. Surgical consult appreciated. S/P temporal artery biopsy 06/30. - continue prednisone for now. - pathology pending. Follow-up with neurology. - pain control as needed. Hypertension Relatively well controlled 06/30. - resumed antihypertensives. - clonidine as needed. Cardiomyopathy S/p AICD. Pt appears euvolemic and has been gaining weight. - Lasix. - outpt follow-up with cardiology for pacemaker battery change. Hypokalemia S/t Lasix. - replete and monitor. PPx: Lovenox. Discharge Planning When cleared by ID Problem Qualifiers (1) Sepsis: Qualified Code: A41.9 - Sepsis, due to unspecified organism Chen Da Silva MD Jul 03, 2016 11:08
--- NOTE | 2016-07-03 11:10 | HHI.DS ---
Discharge Summary Admission Date Jun 21, 2016 at 13:53 Discharge Date: Jul 03, 2016 Admitting Diagnosis sepsis, altered mental status (1) Sepsis ICD Code: A41.9 (2) Altered mental status, unspecified ICD Code: R41.82 Procedures Superficial temporal artery biopsy 06/30. Brief History - From Admission 70-year-old white female with a history of previous hypertension, cardiomyopathy requiring pacemaker defibrillator, COPD, chronic kidney disease stage III was brought to the emergency room secondary to changes in mental status and confusion. Back in September, patient was admitted for sepsis with possibly etiology of meningoencephalitis, with likely a virus as a source. Her who is currently at the bedside states that he did see her in the hospital visiting him yesterday and at that time she was alert and oriented to person place time situation. This morning when he spoke to her over the phone, he found she was extremities confused and therefore called his son to check up on her. She states that she had fevers and chills and felt extremely fatigued laying in bed. She did not complain of any focalized weakness or numbness. She at that time did report some headaches with no visual changes. She did state she lost bladder function. She states that she gets recurrent urinary tract infections frequently and just completed course of antibiotic recently. She has not had any symptoms of cough nor any diarrhea nor any abdominal pain. Since coming emergency room after giving medications, her confusion has improved per her she does not have a conversation with us. She has not had any recent travels outside of this area. CBC/BMP: 07/03/16 0712 07/01/16 0614 Significant Findings Laboratory Tests Test 07/01/16 07/03/16 06:14 07:12 White Blood Count 12.4 TH/MM3 12.1 TH/MM3 (4.0-11.0) (4.0-11.0) Red Blood Count 3.49 MIL/MM3 3.83 MIL/MM3 (4.00-5.30) (4.00-5.30) Hemoglobin 10.3 GM/DL 11.3 GM/DL (11.6-15.3) (11.6-15.3) Hematocrit 31.2 % 34.8 % (35.0-46.0) (35.0-46.0) Estimat Glomerular Filtration 78 ML/MIN (>89) Rate Calcium Level 8.1 MG/DL (8.5-10.1) Neutrophils (%) (Auto) 72.6 % (16.0-70.0) Monocytes (%) (Auto) 8.4 % (0.0-8.0) Neutrophils # (Auto) 8.8 TH/MM3 (1.8-7.7) Monocytes # (Auto) 1.0 TH/MM3 (0-0.9) PE at Discharge GENERAL: This is a well-nourished, well-developed patient, in no apparent distress. SKIN: No rashes, warm and dry , biopsy site on the left temporal area looks dry and clean HEAD: Atraumatic. Normocephalic. EYES: Pupils equal round and reactive. Extraocular motions intact. No scleral icterus. ENT: Nose without bleeding, or drainage, Airway patent. NECK: Trachea midline. Supple CARDIOVASCULAR: Regular rate and rhythm without murmurs, gallops, or rubs. RESPIRATORY: Fair air entry bilaterally. No wheezes, rales, or rhonchi. GASTROINTESTINAL: Abdomen soft, non-tender, nondistended. Positive bowel sounds MUSCULOSKELETAL: Extremities without clubbing, cyanosis, or edema. Pedal pulses appreciated NEUROLOGICAL: Awake and alert. Moves all extremity. Normal speech.no focal neurological deficit Hospital Course 70 years old female admitted for change in mental status and Sepsis/ PNA/ COPD With findings of fever, tachycardia, suspected meningocephalitis as possible source with also recent diagnosis urinary tract infection. HSV negative on LP. CSF culture negative. Still spiking fevers. CXR unremarkable. CRP/ ESR elevated. CT chest suggestive of bronchopneumonia. Sputum culture growing Aspergillus. - continue antibiotics per ID. - IS. - oxygen and nebs as needed. Home oxygen walk test requested 06/30. - Pulmonology consult appreciated. Follow-up recs. - Robitussin and Tessalon Perles as needed. - clotrimazole trochs added. Metabolic encephalopathy Likely due to sepsis and now resolved. EEG with possible seizure spikes. Repeat head CT unremarkable. Repeat EEG unremarkable. - treatment as above. - neurology following. Headache Concern for temporal arteritis per neurology. Pt does have elevated ESR/ CRP, headache, sensitivity to light, and diffuse myalgias. Surgical consult appreciated. S/P temporal artery biopsy 06/30. - continue prednisone for now. - pathology pending. Follow-up with neurology. - pain control as needed. Hypertension Acceptable control - resumed antihypertensives. - clonidine as needed. Cardiomyopathy S/p AICD. Pt appears euvolemic and has been gaining weight. - Lasix. - outpt follow-up with cardiology for pacemaker battery change. Hypokalemia S/t Lasix. - replete and monitor. PPx: Lovenox. On day 07/03: Iv antibiotic discontinued by core setter, clinically doing well , will discharge home today on medication as shown in discharge med list. [id number] encounter performed with the patient on discharge day, as well as physical exam, summary of hospitalization course and postdischarge plan has been D/W the patient. D/W nurse Discharge medications reviewed and printed and signed, post discharge follow up visit with PCP and other specialist as well as Brief hospital course and discharge summary has been placed. Pt Condition on Discharge: Fair Discharge Disposition: Discharge Home Discharge Time: > 30 minutes Discharge Instructions DIET: Follow Instructions for: Heart Healthy Diet Activities you can perform: Weight Bearing as [place] New Medications: Methylprednisolone Dosepak (Medrol Dosepak) 4 Mg Dspk 4 MG PO DIRECTED Per Pharmacist direction #1 Ref 0 DSPK Acyclovir Topical (Zovirax Topical) 5% Cream 1 APPLIC TOPICAL 5 TIMES A DAY PRN discomfort #1 TUBE Budesonide-Formoterol Inh (Symbicort Inh) 160-4.5 Mcg/Act Aero 1 PUFF INH Q12HR copd #1 INHALER Carvedilol (Coreg) 6.25 Mg Tab 6.25 MG PO Q12HR card #60 TAB Furosemide (Furosemide) 40 Mg Tab 40 MG PO DAILY card #30 TAB Guaifenesin/Dextromethorphan Liq (Guaifenesin-Dm Liq) 100-10 Mg/5 Ml Syrp 10 ML PO Q4H PRN cough #30 UNITS Lisinopril (Lisinopril) 10 Mg Tab 10 MG PO DAILY htn #30 TAB Pantoprazole Inj (Protonix Inj) 40 Mg Inj 40 MG IV PUSH Q24H gi #30 INJECTION Tiotropium Inh (Spiriva Handihaler) 18 Mcg Cap 18 MCG INH BID copd #1 CAP Chen Da Silva MD Jul 03, 2016 11:10
[2016-07-03] MEDS ORDERED: BUTATAB6 PO (11:52)
[2016-07-03 12:22] VITALS: O2SAT 95
== END 2016-07-03 13:08 | disposition home or self-care (01) | DRG 853 ==
LOC: NEPC 11:22 → NEDA 13:53 → NEDH 17:12 → N05A 19:25
PROVIDERS: ADMIT Hospitalist; ATTEND Hospitalist
PROC: 009U3ZX Drainage of Spinal Canal, Percutaneous Approach, Diagnostic (ICD-10-PCS; 2016-06-21)
PROC: 03BT0ZX Excision of Left Temporal Artery, Open Approach, Diagnostic (ICD-10-PCS; principal; 2016-06-30 14:42)
DX: A41.9 Sepsis, unspecified organism (principal); G93.41 Metabolic encephalopathy; J18.9 Pneumonia, unspecified organism; J44.0 Chronic obstructive pulmonary disease with (acute) lower respiratory infection; B37.0 Candidal stomatitis; I50.32 Chronic diastolic (congestive) heart failure; I42.0 Dilated cardiomyopathy; M31.6 Other giant cell arteritis; I42.9 Cardiomyopathy, unspecified; J44.1 Chronic obstructive pulmonary disease with (acute) exacerbation; N18.3 Chronic kidney disease, stage 3 (moderate); E87.6 Hypokalemia; R09.02 Hypoxemia; M19.90 Unspecified osteoarthritis, unspecified site; Z86.73 Personal history of transient ischemic attack (TIA), and cerebral infarction without residual deficits; I25.10 Atherosclerotic heart disease of native coronary artery without angina pectoris; K21.9 Gastro-esophageal reflux disease without esophagitis; I12.9 Hypertensive chronic kidney disease with stage 1 through stage 4 chronic kidney disease, or unspecified chronic kidney disease; J45.909 Unspecified asthma, uncomplicated; G89.29 Other chronic pain; R11.2 Nausea with vomiting, unspecified; M46.90 Unspecified inflammatory spondylopathy, site unspecified; W57.XXXA Bitten or stung by nonvenomous insect and other nonvenomous arthropods, initial encounter; Z88.1 Allergy status to other antibiotic agents; Z88.5 Allergy status to narcotic agent; Z88.6 Allergy status to analgesic agent; Z91.041 Radiographic dye allergy status; Z95.810 Presence of automatic (implantable) cardiac defibrillator; Z96.659 Presence of unspecified artificial knee joint
CPT/HCPCS: 62270; 70450; 71010; 71250; 74000; 76937; 80048; 80053; 80076; 80202; 81001; 82550; 82565; 82607; 82785; 82945; 83605; 83690; 83735; 84157; 84484; 85007; 85025; 85027; 85610; 85652; 85730; 86038; 86140; 86592; 86651; 86652; 86653; 86654; 87040; 87070; 87081; 87107; 87205; 87529; 87804; 87880; 88305; 89051; 93005; 93306; 94150; 94620; 94640; 94664; 95819; 96365; 96367; 96375; C9113; J0131; J1170; J1450; J1650; J1940; J2250; J2405; J3010; J3370; J3475; J7030; J7040; J7050; J7120; J7512; J7613

== ENCOUNTER → 2016-07-10 | Outpatient (CLI) | payer MEDICARE, OTHER ==
[~2016-07-10] MED LIST changes: -ADVA115A PO; +ADVA500A INH; -ALAV10TA PO; -ALBU6.7H INH; -AMBI6.25 PO; -BENZ100C4 PO; +BUTATAB6 PO; +CALCTAB94 PO; -CALTTAB5 PO; +CARA1TAB6 PO; +CARV6.25 PO; +CLAR10CA3 PO; -CORE12.5 PO; -D31000TA PO; -FURO20TA PO; +FURO40TA PO; -GLUCTAB6 PO; +HYDR-3516 PO; -HYDR-3533 PO; +LANS15CA PO; -LANSO15 PO; -LISI-360 PO; +LISI10TA3 PO; +MACR100C2 PO; +MEDR4PAK PO; -NITR-29 PO; +OMEP10CA PO; +PANT40P IV PUSH; -PROB1CAP12 PO; +PROB1CHW2; -PROM25TA5 PO; +ROBIDM5S PO; +SPIRCAP INH; -SUCR1SUS5 PO; +SYMB160A INH; -TIOT12.9 INH; -TOPI0.255 TOP; -VALT500T PO; -Z.0.WALKERFOLD; +ZOVI5CRE3 TOPICAL; -[UNRECOGNIZED DRUG - CODE] MT
== END ==
LOC: CLAB 11:26
PROVIDERS: ATTEND Specialist
DX: R79.9 Abnormal finding of blood chemistry, unspecified (principal); R70.0 Elevated erythrocyte sedimentation rate
CPT/HCPCS: 36415; 85652; 86140

== ENCOUNTER → 2016-07-17 | Outpatient (CLI) | payer MEDICARE, OTHER | LOC: CLAB 11:17 | PROVIDERS: ATTEND Specialist | DX: M31.6 Other giant cell arteritis (principal); Z51.81 Encounter for therapeutic drug level monitoring | CPT/HCPCS: 36415; 85652; 86140 ==

== ENCOUNTER → 2016-07-25 | Outpatient (CLI) | payer MEDICARE, OTHER | LOC: CLAB 11:35 | PROVIDERS: ATTEND Specialist | DX: M31.6 Other giant cell arteritis (principal) | CPT/HCPCS: 36415; 85652 ==

== ENCOUNTER → 2016-08-09 | Outpatient (CLI) | payer MEDICARE, OTHER | LOC: CLAB 10:29 | PROVIDERS: ATTEND Specialist | DX: R70.0 Elevated erythrocyte sedimentation rate (principal); R79.0 Abnormal level of blood mineral | CPT/HCPCS: 36415; 85652; 86140 ==

== ENCOUNTER 2016-08-26 19:41 | Emergency (ER) | payer MEDICARE, OTHER ==
[~2016-08-26] VITALS: Ht 172.7 cm; Wt 75.0 kg
[~2016-08-26 19:41] MED LIST changes: -ADVA500A INH; -CALCTAB94 PO; -CARA1TAB6 PO; -CLAR10CA3 PO; -HYDR-3516 PO; -LANS15CA PO; -MACR100C2 PO; -OMEP10CA PO; -PROB1CHW2; -REST0.05 EACH EYE
[2016-08-26 19:44] VITALS: BP 143/64; PULSE 104; RESP 16; TEMP 99.3; O2SAT 96
[2016-08-26 20:35] VITALS: O2SAT 99
[2016-08-26] MEDS ORDERED: HYDR-3516 PO (20:43)
[2016-08-26] MEDS ORDERED: CARA1TAB6 PO (20:43)
[2016-08-26] MEDS ORDERED: MACR100C2 PO (20:43)
[2016-08-26] MEDS ORDERED: CALCTAB94 PO (20:43)
[2016-08-26] MEDS ORDERED: PROB1CHW2 (20:43)
[2016-08-26] MEDS ORDERED: CLAR10CA3 PO (20:43)
[2016-08-26] MEDS ORDERED: ADVA500A INH (20:43)
[2016-08-26] MEDS ORDERED: REST0.05 EACH EYE (20:43)
[2016-08-26] MEDS ORDERED: LANS15CA PO (20:43)
--- NOTE | 2016-08-26 20:43 | PD ---
HPI Chief Complaint: Complaint Time Seen by Provider: 20:25 Travel History International Travel<30 days: No Contact w/Intl Traveler<30days: No Traveled to known affect area: No History of Present Illness HPI 71-year-old female with history of hypertension, cardiomyopathy, AICD, COPD, CKD , here for evaluation of possible UTI. Patient reports her symptoms started 2 days ago with dysuria and bilateral flank pain. States that she developed a fever yesterday. The patient reports history of chronic UTIs and takes Macrobid daily for prophylaxis. The patient also reports concern about her sedimentation rate, and is requesting that we check it today. She underwent left temporal artery biopsy for frequent headaches and elevated ESR, and this was reviewed in chart shows no pathological change. She states she is followed by neurologist Dr. Lopez for her recurrent headaches. Currently she does not have a headache. She is complaining of overall generalized malaise. Chart review shows that the patient was admitted in June of this year and had a sputum culture that grew out Aspergillus. PFSH Past Medical History Arthritis: Yes Asthma: Yes Heart Rhythm Problems: Yes (IRREGULAR W/ PACER) Cancer: No Cardiac Catheterization: Yes (2001) Cardiomyopathy: Yes Cardiovascular Problems: Yes (CHF, CARDIOMYOPATHY ) High Cholesterol: No Congestive Heart Failure: Yes COPD: Yes Cerebrovascular Accident: Yes (TIA) Coronary Artery Disease: Yes Diabetes: No Diminished Hearing: No Gastrointestinal Disorders: Yes GERD: Yes Genitourinary: Yes (chronic uti) Hypertension: Yes Immune Disorder: No Implanted Vascular Access Dvce: Yes Musculoskeletal: Yes (sciatica) Neurologic: Yes (VERTIGO) Psychiatric: No Reproductive: No Respiratory: Yes (bronchitis) Pneumonia: Yes Menopausal: Yes : 9 Para: 8 Miscarriage: 1 Tubal Ligation: Yes Past Surgical History Appendectomy: Yes Cardiac Surgery: Yes (PACEMAKER MEDTRONIC MODEL 4543 S/N [id number] ) Coronary Artery Bypass Graft: No Pacemaker: Yes (defibrillator [employer]) Tonsillectomy: Yes Other Surgery: Yes Social History Alcohol Use: No Tobacco Use: No (quit 2002) Substance Use: No Allergies-Medications (Allergen,Severity, Reaction): Coded Allergies: Amoxicillin (Verified Allergy, Severe, Diarrhea, 08/26/16) Augmentin (Verified Allergy, Severe, Diarrhea, 08/26/16) Cefuroxime sodium (Verified Allergy, Severe, rash, 08/26/16) Cipro (Verified Allergy, Severe, Nausea/Vomiting, 08/26/16) Codeine (Verified Allergy, Severe, Nausea/Vomiting, 08/26/16) Feldene (Verified Allergy, Severe, Hives, 08/26/16) Tequin (Verified Allergy, Severe, Confusion, 08/26/16) Aspirin (Unverified Allergy, Intermediate, Hives, 08/26/16) Atorvastatin (Verified Allergy, Intermediate, FLANK PAIN, 08/26/16) Morphine (Verified Allergy, Intermediate, sweats, 08/26/16) Contrast Media (Verified Allergy, Unknown, Anaphylaxis, 08/26/16) Gentamicin (Verified Adverse Reaction, Intermediate, DIARRHEA, 08/26/16) Reported Meds & Prescriptions Reported Meds & Active Scripts Active Xxpocvgdcv-Zufzfrtvliuwc-Hqrxjyyw 50-325-40 Mg Tab 1 Tab PO Q6H PRN Spiriva Handihaler (Tiotropium Inh) 18 Mcg Cap 18 Mcg INH BID Lisinopril 10 Mg Tab 10 Mg PO DAILY Furosemide 40 Mg Tab 40 Mg PO DAILY Coreg (Carvedilol) 6.25 Mg Tab 6.25 Mg PO Q12HR Symbicort Inh (Budesonide/Formoterol Fumarate) 160-4.5 Mcg/Act Aero 1 Puff INH Q12HR Zovirax Topical (Acyclovir) 5% Cream 1 Applic TOPICAL 5 TIMES A DAY PRN Reported Acidophilus (Probiotic Product) 1 Chew Calcium 600 (Calcium Carbonate) 1,500 Mg Tab 1,500 Mg PO Claritin (Loratadine) 10 Mg Cap 10 Mg PO DAILY Restasis Opth Drops (Cyclosporine Opth Drops) 0.05% Emul 1 Drop EACH EYE BID Hydrocodone-Acetaminophen 5-325 mg Tab 1 Tab PO Q4H PRN Macrobid (Nitrofurantoin Monoh/Nitrofur Macro) 100 Mg Cap 100 Mg PO HS Advair Diskus Inh (Fluticasone-Salmeterol Inh) 500-50 Mcg/Blist Aer 1 Puff INH BID Rinse mouth after use. Carafate (Sucralfate) 1 Gm Tab 500 Mg PO TID On empty stomach Lansoprazole 15 Mg Capdr 15 Mg PO BID Review of Systems Except as stated in HPI: all other systems reviewed are Neg Physical Exam Narrative GENERAL: Well-developed, well-nourished, comfortable, no acute distress. SKIN: Focused skin assessment warm/dry. No rash. HEAD: Atraumatic. Normocephalic. EYES: Pupils equal and round. No scleral icterus. No injection or drainage. ENT: No nasal bleeding or discharge. Mucous membranes pink and moist. NECK: Trachea midline. No JVD. No nuchal rigidity. CARDIOVASCULAR: Regular rate and rhythm. No murmur appreciated. RESPIRATORY: No accessory muscle use. Clear to auscultation. Breath sounds equal bilaterally. GASTROINTESTINAL: Abdomen soft, non-tender, nondistended. MUSCULOSKELETAL: No obvious deformities. No clubbing. No cyanosis. No edema. No CVA tenderness. No midline vertebral step-off or tenderness. NEUROLOGICAL: Awake and alert. No obvious cranial nerve deficits. Motor grossly within normal limits. Normal speech. PSYCHIATRIC: Appropriate mood and affect; insight and judgment normal. Data Data Last Documented VS Vital Signs Date Time Temp Pulse Resp B/P Pulse Ox O2 Delivery O2 Flow Rate FiO2 08/26/16 20:35 99 Room Air 08/26/16 19:44 99.3 104 16 143/64 Orders Complete Blood Count With Diff (08/26/16 20:32) Comprehensive Metabolic Panel (08/26/16 20:32) Lactic Acid Sepsis Protocol (08/26/16 20:32) Urinalysis - C+S If Indicated (08/26/16 20:32) Blood Culture (08/26/16 20:32) Chest, Single Ap (08/26/16 20:32) Ecg Monitoring (08/26/16 20:32) Iv Access Insert/Monitor (08/26/16 20:32) Oximetry (08/26/16 20:32) Oxygen Administration (08/26/16 20:32) Westergren Sedimentation Rate (08/26/16 20:32) Sodium Chlor 0.9% 1000 Ml Inj (Ns 1000 M (08/26/16 20:45) Labs Laboratory Tests Test 08/26/16 08/26/16 20:15 20:35 Urine Color YELLOW Urine Turbidity CLEAR Urine pH 5.5 Urine Specific [place] 1.025 Urine Protein NEG mg/dL Urine Glucose (UA) NEG mg/dL Urine Ketones NEG mg/dL Urine Occult Blood NEG Urine Nitrite NEG Urine Bilirubin NEG Urine Urobilinogen LESS THAN 2.0 MG/DL Urine Leukocyte Esterase SMALL Urine RBC LESS THAN 1 /hpf Urine WBC 6 /hpf Urine Squamous Epithelial 2 /hpf Cells Urine Hyaline Casts 1 /lpf Urine Mucus FEW /lpf Microscopic Urinalysis Comment CATH-CULT NOT IND White Blood Count 9.3 TH/MM3 Red Blood Count 4.37 MIL/MM3 Hemoglobin 13.1 GM/DL Hematocrit 39.4 % Mean Corpuscular Volume 90.3 FL Mean Corpuscular Hemoglobin 30.1 PG Mean Corpuscular Hemoglobin 33.3 % Concent Red Cell Distribution Width 14.2 % Platelet Count 166 TH/MM3 Mean Platelet Volume 10.3 FL Neutrophils (%) (Auto) 57.5 % Lymphocytes (%) (Auto) 25.0 % Monocytes (%) (Auto) 16.0 % Eosinophils (%) (Auto) 0.4 % Basophils (%) (Auto) 1.1 % Neutrophils # (Auto) 5.4 TH/MM3 Lymphocytes # (Auto) 2.3 TH/MM3 Monocytes # (Auto) 1.5 TH/MM3 Eosinophils # (Auto) 0.0 TH/MM3 Basophils # (Auto) 0.1 TH/MM3 CBC Comment DIFF FINAL Differential Comment Erythrocyte Sedimentation Rate 26 mm/hr Sodium Level 139 MEQ/L Potassium Level 4.2 MEQ/L Chloride Level 108 MEQ/L Carbon Dioxide Level 23.8 MEQ/L Anion Gap 7 MEQ/L Blood Urea Nitrogen 24 MG/DL Creatinine 1.29 MG/DL Estimat Glomerular Filtration 41 ML/MIN Rate Random Glucose 89 MG/DL Lactic Acid Level 1.1 mmol/L Calcium Level 9.0 MG/DL Total Bilirubin 0.3 MG/DL Aspartate Amino Transf 32 U/L (AST/SGOT) Alanine Aminotransferase 41 U/L (ALT/SGPT) Alkaline Phosphatase 111 U/L Total Protein 7.5 GM/DL Albumin 3.5 GM/DL [facility] Medical Decision Making Medical Screen Exam Complete: Yes Emergency Medical Condition: Yes Differential Diagnosis UTI, sepsis, pneumonia, cystitis, pyelonephritis Narrative Course Initial vital signs show heart rate 104, blood pressure 143/64, pulse ox 96% on room air, oral temp of 99.3F. Heart rate improved to 89 after a liter of normal saline IV. CBC is unremarkable. CMP is remarkable for BUN 24, creatinine 1.29, GFR 41, otherwise unremarkable. Lactic acid is 1.1. ESR is 26. UA shows small leukocyte esterase, 6 WBCs, 2 squamous epithelial cells, negative nitrites, not suggestive of UTI. Chest x-ray: No acute findings. No significant change from June 2016. The patient was made aware of all findings. She is resting comfortably. She is stable for discharge home with outpatient follow-up with her primary care physician this week. She was informed on when to return to the emergency department. She verbalizes understanding and agreement with plan. Diagnosis Primary Impression: Fever Qualified Code: R50.9 - Fever, unspecified fever cause Additional Impression: Malaise Referrals: Primary Care Physician 3 days Additional Instructions: Follow-up with your primary care physician this week. Stay hydrated with plenty of fluids. Return to the emergency department for worsening symptoms or any other concerns. Disposition: 01 DISCHARGE HOME Condition: Stable Manolo Angel MD Aug 26, 2016 20:43
[2016-08-26] MEDS ORDERED: SODIUM CHLOR 0.9% 1000 ML INJ 1,000 ML IV ONE (20:45)
[2016-08-26 20:49] LABS: AUTOMATED NEUTROPHIL # 5.4 TH/MM3 (1.8-7.7); BASOPHIL # 0.1 TH/MM3 (0-0.2); BASOPHIL % 1.1 % (0.0-2.0); EOSINOPHIL % 0.4 % (0.0-4.0); HEMATOCRIT 39.4 % (35.0-46.0); HEMO FLAGS DIFF FINAL; LYMPHOCYTE # 2.3 TH/MM3 (1.0-4.8); MEAN CELL VOLUME 90.3 FL (80.0-100.0); MEAN CORPUSCULAR HEMOGLOBIN 30.1 PG (27.0-34.0); MEAN CORPUSCULAR HGB CONC 33.3 % (32.0-36.0); NEUT % 57.5 % (16.0-70.0); PLATELET COUNT 166 TH/MM3 (150-450); RED BLOOD COUNT 4.37 MIL/MM3 (4.00-5.30); RED CELL DISTRIBUTION WIDTH 14.2 % (11.6-17.2); WHITE BLOOD COUNT 9.3 TH/MM3 (4.0-11.0)
[2016-08-26 20:54] LABS: BLOOD, URINE NEG (NEG); COMMENT (UR) CATH-CULT NOT IND; CULTURE IF INDICATED CATH CULTURE NOT IND; GLUCOSE,URINE NEG (NEG); HYALINE CAST, URINE 1 /lpf (RARE); KETONE, URINE NEG (NEG); MUCUS URINE FEW /lpf (OCC); NITRITE,URINE NEG (NEG); PH, URINE 5.5 (5.0-8.5); SQUAMOUS EPITHELIAL CELL URINE 2 /hpf (0-5); URINE COLOR YELLOW (YELLW/STRAW)
[2016-08-26 21:09] LABS: ALKALINE PHOSPHATASE 111 U/L (45-117); ALT (GPT) 41 U/L (10-53); ANION GAP 7 MEQ/L (5-15); AST (GOT) 32 U/L (15-37); BICARBONATE 23.8 MEQ/L (21.0-32.0); BLOOD UREA NITROGEN 24 MG/DL (7-18); CHLORIDE 108 MEQ/L (98-107); GLOMERULAR FILTRATION RATE 41 ML/MIN (>89); POTASSIUM 4.2 MEQ/L (3.5-5.1); SODIUM (NA) 139 MEQ/L (136-145); TOTAL BILIRUBIN ADULT 0.3 MG/DL (0.2-1.0)
--- NOTE | 2016-08-26 22:04 | RADRPT ---
EXAM DATE/TIME: 08/26/2016 21:12 [facility] COMPARISON: CHEST SINGLE AP, June 28, 2016, 6:20. INDICATIONS : Shortness of breath. MEDICAL HISTORY : Hypertension. Stroke. Cardiovascular disease. SURGICAL HISTORY : Tubal ligation. Appendectomy. ENCOUNTER: Initial ACUITY: 2 days PAIN SCORE: 0/10 LOCATION: chest FINDINGS: A single view of the chest demonstrates a pacer lead overlying right atrium and right ventricle. Also pacer lead in coronary sinus. Heart size normal. Minimal basilar atelectasis or scarring. No effusio n or pneumothorax. CONCLUSION: No acute findings. No significant change from June 2016. Harjinder Shipman MD on August 26, 2016 at 22:01 Board Certified Radiologist. This report was verified electronically.
== END 2016-08-26 23:01 | disposition home or self-care (01) ==
LOC: NEPE 19:41
DX: R50.9 Fever, unspecified (principal); R53.81 Other malaise; J44.9 Chronic obstructive pulmonary disease, unspecified; I42.9 Cardiomyopathy, unspecified; N18.9 Chronic kidney disease, unspecified; I12.9 Hypertensive chronic kidney disease with stage 1 through stage 4 chronic kidney disease, or unspecified chronic kidney disease; J45.909 Unspecified asthma, uncomplicated; I50.9 Heart failure, unspecified; I25.10 Atherosclerotic heart disease of native coronary artery without angina pectoris; K21.9 Gastro-esophageal reflux disease without esophagitis; Z95.0 Presence of cardiac pacemaker; R30.0 Dysuria; R10.9 Unspecified abdominal pain; Z86.73 Personal history of transient ischemic attack (TIA), and cerebral infarction without residual deficits
CPT/HCPCS: 71010; 80053; 81001; 83605; 85025; 85652; 87040; 96360; 99285; J7030

== ENCOUNTER → 2016-08-31 | Outpatient (CLI) | payer MEDICARE, OTHER ==
[~2016-08-31] MED LIST changes: +ADVA500A INH; +CALCTAB94 PO; +CARA1TAB6 PO; +CLAR10CA3 PO; +HYDR-3516 PO; +LANS15CA PO; +MACR100C2 PO; -MEDR4PAK PO; +OMEP10CA PO; -PANT40P IV PUSH; +PROB1CHW2; +REST0.05 EACH EYE; -ROBIDM5S PO
== END ==
LOC: CLAB 12:32
PROVIDERS: ATTEND Family Medicine
DX: I50.9 Heart failure, unspecified (principal)
CPT/HCPCS: 36415; 83880

== ENCOUNTER 2016-09-22 09:01 | Day surgery (SDC) | payer MEDICARE, OTHER ==
[~2016-09-22 09:01] MED LIST changes: -OMEP10CA PO
[2016-09-22 10:47] VITALS: BP 136/59; PULSE 68; RESP 18; TEMP 98; O2SAT 98
[2016-09-22 10:59] LABS: AUTOMATED NEUTROPHIL # 3.5 TH/MM3 (1.8-7.7); BASOPHIL % 0.6 % (0.0-2.0); EOSINOPHIL % 0.5 % (0.0-4.0); HEMATOCRIT 38.7 % (35.0-46.0); HEMO FLAGS DIFF FINAL; LYMPH % 27.8 % (9.0-44.0); LYMPHOCYTE # 1.6 TH/MM3 (1.0-4.8); MEAN CELL VOLUME 89.6 FL (80.0-100.0); MEAN CORPUSCULAR HEMOGLOBIN 29.3 PG (27.0-34.0); MEAN CORPUSCULAR HGB CONC 32.7 % (32.0-36.0); MONO % 11.3 % (0.0-8.0); NEUT % 59.8 % (16.0-70.0); PLATELET COUNT 184 TH/MM3 (150-450); RED BLOOD COUNT 4.31 MIL/MM3 (4.00-5.30); RED CELL DISTRIBUTION WIDTH 13.9 % (11.6-17.2); WHITE BLOOD COUNT 5.9 TH/MM3 (4.0-11.0)
[2016-09-22] MEDS ORDERED: CHLORHEXIDINE GLUCONATE 2 % 1 PACK (2 CLOTHS) TOPICAL SCH (11:00)
[2016-09-22] MEDS ORDERED: SODIUM CHLORID 0.9% 500 ML IV PRN (11:00)
[2016-09-22] MEDS ORDERED: CHLORHEXIDINE GLUCONATE 2 % 1 PACK (2 CLOTHS) TOPICAL PRN (11:00)
[2016-09-22] MEDS ORDERED: LACTATED RINGER'S 1000 ML IV PRN (11:00)
[2016-09-22] MEDS ORDERED: VANCOMYCIN 1000 MG/NS 250 ML IV SCH ×2 (11:00)
[2016-09-22] MEDS ORDERED: METOPROLOL TARTRATE 25 MG TAB PO PRN (11:00)
[2016-09-22] MEDS ORDERED: MUPIROCIN 2% OINT 1 APPLIC/GM SYR NASAL SCH (11:00)
[2016-09-22] MEDS ORDERED: INSULIN HUMAN REGULAR 1,000 UNITS/10 ML VIAL SQ PRN (11:00)
[2016-09-22] MEDS ORDERED: OMEP10CA PO (11:07)
[2016-09-22 11:18] LABS: APTT (PATIENT) 28.6 SEC (24.3-30.1); INTERNATIONAL NORMALIZED RATIO 1.1 RATIO; PROTHROMBIN TIME - PATIENT 11.7 SEC (9.8-11.6)
[2016-09-22 11:19] LABS: BICARBONATE 29.2 MEQ/L (21.0-32.0); POTASSIUM 4.3 MEQ/L (3.5-5.1)
[2016-09-22] MEDS ORDERED: LIDOCAINE HCL 2% 50 ML VIAL ONE (12:52)
[2016-09-22] MEDS ORDERED: VANCOMYCIN 500 MG VIAL ONE (12:52)
--- NOTE | 2016-09-22 14:40 | CATHPROC ---
[employer] HIS Report Study Information Study Number Admission Scheduled Start Study Start [id number] 09/22/2016 09/22/2016 Sep 22 2016 12:46PM Referring Institution Admit Source Facility Department 1 Other [facility] Lab Physician and Clinical Staff Initial Aysha Barajas Classification Inspector Stewart Orta,NOLAN Other [place], Denise,SHEAR HELPER Other Anesthesia, STATION INSTALLATION SUPERVISOR Recorder Gely Porter BSRJuan Jose Recorder Louise Foreman,RT(R) TECH2 Scrub Louise Foreman RT(R) TECH2 Equipment Time Slot Operations Manager Description Size Mfg Part Number Used/Scraped 12:49 Nearlyweds DRAPE, RAYSHIELD X-RAY 12X17 12X17 D-100 Used MPIS-502-10.0- INTRODUCER SET, 12:49 Wiki[employer] INC. FR 5 SC-NT-U-SST Used MICROPUNCTURE, STIFFENED *[id number] MPIS-502-10.0- INTRODUCER SET, 12:49 [employer]. FR 5 SC-NT-U-SST Used MICROPUNCTURE, STIFFENED *[id number] 13:45 DAVOL INC HENRY, HEMOSTAT 1 GRAM [id number] Used 12:49 Tangible Play DRAPE, IOBAN 2 [id number] 26cm x 20cm [id number] Used [id number] 12:49 Tangible Play SUTURE, STRIP PLUS 1/2" * Used *[id number] 12:49 MEDLINE PACER ADHESIVE, MASTISOL 2/3CC 2/3CC 0523-48 Used 12:49 MEDLINE PACER AGUILERA, LIMB * 2530 Used [id number] 12:49 MEDLINE PACER PACK, PACER CUSTOM * Used *[id number] 12:49 MEDLINE PACER PEN, SKIN DUAL W/ RULER * [id number] Used PROBE COVER, STERILE 12:49 Liquid Spins MEDICAL * [id number] Used ULTRASOUND W/ GEL 13:37 Needle Sponge Count 1 111 Used 13:33 Needle Sponge Count 2 22 Used 13:33 Needle Sponge Count 2 2 Used 13:33 Needle Sponge Count 20 200 Used SUTURE, 0 ETHIBOND [CT1] ([id number]), 8pk SUTURE, 2-0 VICRYL [CT1] ([id number]) SUTURE, 2-0 VICRYL [CT1] ([id number]) SUTURE, 4-0 VICRYL [PS2] (PCU993A) [id number] 12:49 SILVA MEDICAL BLANKET,WARM AIR CCL * Used *[id number] [facility] PAD, ELECTROSURGICAL 12:49 * [id number] Used SURGICAL GROUNDING ORANGE 13:44 VITATRON MEDTRON[employer] DEFIBRILLATOR, VIVA XT ARMATURE WINDER REPAIR HELPER-D DDE-DDDR [id number] Used 13:39 VITATRON [employer] PLASMABLADE, PEAD 3.0S * [id number] Used 13:39 VITATRON [employer] PLASMABLADE, PEAD 3.0S * [id number] Used 12:49 [employer] JAYNA. ELECTRODE, PRO-PADZ BIPHASIC * [id number] Used Equipment Model, Serial, Lot Number and Expiration Data Description Model Number Serial Number Lot Number Expiration Date DEFIBRILLATOR, VIVA XT ARMATURE WINDER REPAIR HELPER-D [id number] 11-24-2017 History: Current Medications Medication Dosage/Unit Route Frequency Last Date/Time Taken LISINOPRIL LASIX History: Allergies Allergy Reaction Amoxicillin Diarrhea Aspirin Hives Atorvastatin FLANK PAIN Augmentin Diarrhea Cefuroxime sodium rash Codeine Nausea/Vomiting Contrast Media Anaphylaxis Feldene Hives Gentamicin DIARRHEA Morphine sweats Tequin Confusion Cipro Nausea/Vomiting History: Risk Factors Family History of Hypertension Dyslipidemia Previous NE Previous Heart Failure Premature CAD Yes No No No Yes Prior Valve Prior PCI Prior CABG Surgery No No No Cerebrovascular Peripheral Artery Chronic Lung On Dialysis Diabetes Disease Disease Disease No No No Yes No History: Symptoms/Diagnosis Selection Items Chest pain SOB History: CV Disease Selection Items Cardiomyopathy nonischemic History: Other Disease Selection Items CAD CHF COPD HTN Renal Failure/Insufficiency Labs Hgb (g/dl) Hct (%) RBC (MIL/MM3) WBC (l/cumm) Platelets (thousands) 12.00-18.00 37.00-55.00 4.80-6.20 4.80-10.80 140.00-450.00 12.6 38.7 4.3 5.9 184 Glucose (mg/dl) BUN (mg/dl) Creatinine (mg/dl) BUN:Creatinine (1:x) 60.00-110.00 8.00-20.00 0.10-9.00 10.00-20.00 79 23 1.1 20.9 Na (meq/l) K (meq/l) Cl (meq/l) CO2 (mmol/L) Ca (mg/dl) 138.00-146.00 3.80-5.10 101.00-111.00 23.00-30.00 9.00-10.50 142 4.3 107 29.2 9.6 PT (sec) PTT (sec) INR (PTT:PT) 9.40-11.40 25.10-32.70 0.50-2.00 11.7 28.6 1.1 Medication Medication Total Dose (Bolus/Oral) Medication Total Dosage/Unit 2% XYLOCAINE 50 mL Medications (Bolus/Oral) Medication Time Given Dosage/Unit Administered By Reason 2% XYLOCAINE 09/22/2016 1:28:51 PM 50 mL Anesthesia, STATION INSTALLATION SUPERVISOR 50 mL 2% XYLOCAINE given in lab by Anesthesia, STATION INSTALLATION SUPERVISOR via Subcutaneous. Ordered by Aysha Franco. Medication (Drip) Medication Time Given Dosage/Unit Concentration/Unit Diluent (ml) Solution IV Solutions 09/22/2016 12:50:40 PM 0 mL (IV) NaCl .9 IV Solutions given in lab by Anesthesia, STATION INSTALLATION SUPERVISOR in Right Antecubital via Peripheral IV. Pump/Drip Flow = 50 ml/hr using NaCl .9. Ordered by Aysha Franco. Reason: As per physicians verbal order. IV Solutions 09/22/2016 12:51:14 PM 0 mL (IV) NaCl .9 IV Solutions given in lab by Anesthesia, STATION INSTALLATION SUPERVISOR in Left Antecubital via Peripheral IV. Pump/Drip Flow = 50 ml/hr using NaCl .9. Ordered by Aysha Franco. Reason: As per physicians verbal order. VANCOMYCIN DRIP 09/22/2016 1:01:41 PM 1 g 1 g VANCOMYCIN DRIP given in lab by Anesthesia, STATION INSTALLATION SUPERVISOR via Peripheral IV. Ordered by Aysha Franco. Chronological Log Time Study Chronological Log 12:45:00 Patient arrived via Bed. 12:46:30 Patient Name, D.O.B, / Armband Verified By R.N. 12:46:32 Consent signed by the physician and the patient and verified by the Professor Sculpt[employer] staff. 12:46:35 Pre-op and post- op instructions given; patient acknowledges understanding of instruction s. 12:49:05 Anesthesia at bedside. Assumes care of patient. Samson Reynaga CRNA 12:49:40 Presedation assessment performed by Professor Sculpture RN. 12:49:45 Immediate Presedation assesment performed by physician. 12:49:48 Patient has been NPO for More than 6Hrs. 12:49:51 Skin Breakdown- NONE 12:50:03 Patient Warmer Placed on the Table. 12:50:06 Disposable Defibrillator Pads Placed On Patient. 12:50:08 Em Prominences Protected 12:50:13 A # 20 IV was noted in the Antecubital (left). Grade = ~GRADE~ 12:50:30 A # 20 IV was noted in the Antecubital (right). Grade = ~GRADE~ IV Solutions given in lab by Anesthesia, STATION INSTALLATION SUPERVISOR in Right Antecubital via Peripheral IV. Pump/Drip Flow = 50 ml/hr using 12:50:40 NaCl .9. Ordered by Aysha Franco. Reason: As per physicians verbal order. IV Solutions given in lab by Anesthesia, STATION INSTALLATION SUPERVISOR in Left Antecubital via Peripheral IV. Pump/Drip Flow = 50 ml/hr using 12:51:14 NaCl .9. Ordered by Aysha Franco. Reason: As per physicians verbal order. 12:51:40 History and physical on the chart or being dictated. 12:51:42 Table restraints applied according to hospital policy 12:51:53 2% CHLORHEXIDINE GLUCONATE WASH AND NASAL SWIPE DONE PRIOR TO PROCEDURE. 12:52:02 Bovie ground pad applied to: right thigh First Sponge And Instrument Count Done by Stewart Orta, NOLAN. 12:52:30 Hypo's: 2, Sponges: 20, Bovie/scratch: 1 Sutures: 11, Blades: 2, Instruments: 26, Syveck Patches: 0 13:01:41 1 g VANCOMYCIN DRIP given in lab by Anesthesia, STATION INSTALLATION SUPERVISOR via Peripheral IV. Ordered by Aysha Franco. 13:16:23 MD arrived. 13:20:26 Lead placement verified under fluoroscopy 13:26:09 Left Upper Chest Prepped Times Two. Time Out. Correct patient, procedure, procedure equipment, site and side verified with physicia n present. Time 13:26:13 concurred by MD, individual staff and STATION INSTALLATION SUPERVISOR. Time Out #2 - Consents verified, patient in correct position, all results are labled and displa yed, safety precautions 13:26:37 taken, antibiotics administered. Time out concurred by MD, individual staff and STATION INSTALLATION SUPERVISOR in procedu re 13:27:42 Case Start 13:28:51 50 mL 2% XYLOCAINE given in lab by Anesthesia, STATION INSTALLATION SUPERVISOR via Subcutaneous. Ordered by Susan Franco. 13:29:14 Surgical Incision Made. 13:29:16 A pocket was created at the L Upper Chest. 13:29:31 Implant Procedure was performed. 13:29:40 A Bivent Removal . (Dual) 13:29:50 A Bivent ICD Implant . (Dual) 13:34:23 A device was explanted. 13:43:40 A DEFIBRILLATOR, VIVA XT ARMATURE WINDER REPAIR HELPER-D DDE-DDDR was connected and placed in the pocket. 13:53:13 The DFT was Success at 20 Joules, 49 Ohms lead impedance and 4400 ms charge time. Second Sponge And Instrument Count Done by Aysha Franco. 13:53:20 Hypo's: 2, Sponges: 20, Bovie/scratch: 1 Sutures: ~SUTURE~, Blades: 2, Instruments: 26, Syveck Patches: 0 13:53:39 The pocket was closed by Denise WILSON 13:57:27 Reference ECG taken 14:11:24 Steri-strips and a sterile dressing applied to site. The Final Sponge And Instrument Count Done by Stewart Orta RN. 14:11:27 Hypo's: 2, Sponges: 20, Bovie/scratch: 1 Sutures: 11, Blades: 2, Instruments: 26, Syveck Patches: 0 14:11:40 Case End 14:11:48 Bedside Report will be given. 14:11:54 No case complications noted. 14:11:55 Cine recording checked. 14:12:00 Implantable Device card placed in patient's chart. 14:12:00 docu called. Spoke to Mckenzie 14:12:43 Defibrillator and ground pads removed. Skin intact. 14:15:47 [facility] - Contrast Media Used In Study Contrast Total Opened (mL) Total Used (mL) Total Wasted (mL) Unspecified 0 0 0 End Study - Maximum Contrast Load Max Contrast Load (mL) 405.0 End Study - Radiation Exposure Fluoro Time (minutes) 0.0 End Study - Patient Disposition Complications Transferred To No Outpatient Bed
[2016-09-22] MEDS ORDERED: PROPOFOL 200 MG/20 ML AMP OTHER ONE (15:04)
[2016-09-22] MEDS ORDERED: PHENYLEPH/NS 1000 MCG/10 ML SYR IV ONE (15:04)
[2016-09-22] MEDS ORDERED: ONDANSETRON HCL 4 MG/2 ML VIAL IV PUSH ONE (15:04)
[2016-09-22] MEDS ORDERED: oxyCODONE/ACETAMINOPHEN 5 MG/325 MG TAB PO ONE (16:00)
[2016-09-22] MEDS ORDERED: ACETAMINOPHEN/HYDROcodone 325 MG/5 MG TAB PO ONE (16:00)
--- NOTE | 2016-09-23 13:50 | EKG ---
Date Performed: 09/22/2016 Time Performed: 10:51:32 PTAGE: 71 years EKG: Ventricular pacing. Pacemaker rhythm - no further analysis Since previous tracing, no signi ficant change noted Abnormal ECG PREVIOUS TRACING : 06/24/2016 14.59 DOCTOR: Rachel Storey Interpretating Date/Time 09/23/2016 13:49:19
--- NOTE | 2016-09-23 21:09 | MR ---
cc: AYSHA FRANCO DATE: 09/22/2016. INDICATIONS FOR THE PROCEDURE: End of life of Medtronic dual-chamber biventricular defibrillator, congestive heart failure, nonischemic cardiomyopathy, ejection fraction of 30% by echocardiogram on 06/24/2016, diagnosed over three months ago. The patient is at maximum tolerated guidelines directed medical therapy. PROCEDURE PERFORMED: 1. Explantation of Medtronic dual-chamber biventricular defibrillator. 2. Placement of a new Medtronic dual-chamber biventricular defibrillator. 3. Testing of Medtronic dual-chamber biventricular defibrillator system. ACCESS SITE: Left subclavicular area. EQUIPMENT USED: Generator - Medtronic Viva XT MANAGER PHOTOGRAPHY-D dual-chamber biventricular defibrillator, serial number [id number]. Right atrial lead - model 4076 atrial lead, serial number [id number]. Right ventricular lead - Medtronic model 6947 right ventricular lead. Coronary sinus lead: Guidant model 4543 coronary sinus lead, serial number [id number]. LEAD TESTING: Right atrial lead: P wave 5.0 millivolts. Lead impedance 342 Ohms. Pacing threshold 0.5 volts at 0.5 milliseconds. Right ventricular lead: R wave 8.4 millivolts. Lead impedance 342 Ohms. Pacing threshold 0.75 volts at 0.5 milliseconds. Left ventricular lead: Lead impedance 342 Ohms. Pacing threshold 1.75 volts at 0.5 milliseconds. Ventricular fibrillation was induced on one occasion and terminated with a single 20 joule shock with an impedance of 49 Ohms. DIAGNOSIS: 1. Successful replacement of end of life Medtronic dual-chamber biventricular defibrillator using a new Medtronic dual-chamber biventricular device. 2. Successful testing of Medtronic dual-chamber biventricular defibrillator system. 3. Defibrillation threshold of 20 joules or less. DISPOSITION: Ms. Haney will be monitored on telemetry after her procedure. She will be discharged home later today. I will see her back for followup in our office within two weeks. Aysha Franco MD OKeturah/SONYA /1:56 PM /8:54 PM [facility]
== END 2016-09-22 17:00 | disposition home or self-care (01) ==
LOC: HDOC 09:01 → HDIC 09:02 → HDOC 17:00
PROVIDERS: ATTEND Internal Medicine Interventional Cardiology
DX: Z45.02 Encounter for adjustment and management of automatic implantable cardiac defibrillator (principal); I13.0 Hypertensive heart and chronic kidney disease with heart failure and stage 1 through stage 4 chronic kidney disease, or unspecified chronic kidney disease; I50.9 Heart failure, unspecified; N18.9 Chronic kidney disease, unspecified; I25.118 Atherosclerotic heart disease of native coronary artery with other forms of angina pectoris; I42.9 Cardiomyopathy, unspecified; R06.00 Dyspnea, unspecified; I44.7 Left bundle-branch block, unspecified; I34.0 Nonrheumatic mitral (valve) insufficiency; I35.1 Nonrheumatic aortic (valve) insufficiency; J44.9 Chronic obstructive pulmonary disease, unspecified; R60.9 Edema, unspecified; R53.83 Other fatigue; Z79.82 Long term (current) use of aspirin
CPT/HCPCS: 00530; 33264; 80048; 85025; 85610; 85730; 93005; 93641; C1882; J2370; J2405; J3010; J3370; J7050

== ENCOUNTER 2016-10-02 01:37 | Observation (INO) | payer MEDICARE, OTHER ==
[2016-10-02] VITALS (22 sets, daily range): BP systolic 105–128; BP diastolic 57–82; PULSE 70–92; RESP 16–25; TEMP 97.6–98.7; O2SAT 93–100
[~2016-10-02] VITALS: Ht 170.2 cm; Wt 84.8 kg
[~2016-10-02 01:37] MED LIST changes: -CLAR10CA3 PO; +OMEP10CA PO; -SYMB160A INH
[2016-10-02] MEDS ORDERED: HYDROmorphone HCL PF 1 MG/ML VIAL IV PUSH ONE (01:45)
[2016-10-02] MEDS ORDERED: SODIUM CHLORIDE 0.9% FLUSH 10 ML FLUSH IVF PRN (01:45)
[2016-10-02 02:00] LABS: AUTOMATED NEUTROPHIL # 2.9 TH/MM3 (1.8-7.7); BASOPHIL # 0.1 TH/MM3 (0-0.2); BASOPHIL % 1.1 % (0.0-2.0); EOSINOPHIL # 0.1 TH/MM3 (0-0.4); HEMATOCRIT 37.6 % (35.0-46.0); HEMO FLAGS DIFF FINAL; LYMPH % 34.4 % (9.0-44.0); LYMPHOCYTE # 2.2 TH/MM3 (1.0-4.8); MEAN CELL VOLUME 87.8 FL (80.0-100.0); MEAN CORPUSCULAR HEMOGLOBIN 29.2 PG (27.0-34.0); MEAN CORPUSCULAR HGB CONC 33.3 % (32.0-36.0); MONO % 16.9 % (0.0-8.0); NEUT % 45.6 % (16.0-70.0); PLATELET COUNT 206 TH/MM3 (150-450); RED BLOOD COUNT 4.28 MIL/MM3 (4.00-5.30); RED CELL DISTRIBUTION WIDTH 13.9 % (11.6-17.2); WHITE BLOOD COUNT 6.3 TH/MM3 (4.0-11.0)
[2016-10-02 02:06] LABS: APTT (PATIENT) 27.4 SEC (24.3-30.1); INTERNATIONAL NORMALIZED RATIO 1.1 RATIO; PROTHROMBIN TIME - PATIENT 11.9 SEC (9.8-11.6)
[2016-10-02 02:14] LABS: BICARBONATE 26.6 MEQ/L (21.0-32.0); MAGNESIUM 2.1 MG/DL (1.5-2.5); POTASSIUM 4.4 MEQ/L (3.5-5.1)
--- NOTE | 2016-10-02 02:31 | RADRPT ---
EXAM DATE/TIME: 10/02/2016 02:04 CORRECTION Corrected on: October 02, 2016; [place] COMPARISON: CHEST SINGLE AP, August 26, 2016, 21:12. INDICATIONS : Chest pain. MEDICAL HISTORY : None. SURGICAL HISTORY : Pacemaker. ENCOUNTER: Subsequent ACUITY: 1 day PAIN SCORE: 7/10 LOCATION: Bilateral chest FINDINGS: The lungs are clear without infiltrate, nodule, or mass. There is no appreciable pleural effusion fo r technique. Heart and mediastinum are unremarkable. Left subclavian transvenous pacer wires are pre sent with tips in the right atrium and right ventricle. The battery pack of the patient's cardiac pac er wires however has shifted significantly laterally as compared to the prior study. CONCLUSION: No acute cardiopulmonary disease, however the battery pack for the patient's cardiac pacer wires has significantly shifted laterally in the subcutaneous tissues and could be ins hamzah the patient's breast tissue. Ricky Leblanc MD on October 02, 2016 at 2:37 Board Certified Radiologist. This report was verified electronically.
[2016-10-02] MEDS ORDERED: ACETAMINOPHEN 325 MG TAB PO PRN (03:00)
[2016-10-02] MEDS ORDERED: SODIUM CHLORIDE 0.9% FLUSH 10 ML FLUSH IV FLUSH PRN (03:00)
[2016-10-02] MEDS ORDERED: BISACODYL 10 MG SUPP RECTAL PRN (03:00)
--- NOTE | 2016-10-02 03:12 | PD ---
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 She states [address] Franco adjusted her battery pack. She states that she has no other concurrent complaints. Quality pain is sharp. Severity is severe. Pain is worse with movement. She states she feels like something is moving in that area. PFSH Past Medical History Arthritis: Yes Asthma: Yes Heart Rhythm Problems: Yes (IRREGULAR W/ PACER) Cancer: No Cardiac Catheterization: Yes (2001) Cardiomyopathy: Yes Cardiovascular Problems: Yes (CHF, CARDIOMYOPATHY ) High Cholesterol: No Congestive Heart Failure: Yes COPD: Yes Cerebrovascular Accident: Yes (TIA) Coronary Artery Disease: Yes Diabetes: No Diminished Hearing: No Gastrointestinal Disorders: Yes GERD: Yes Genitourinary: Yes (chronic uti) Hypertension: Yes Immune Disorder: No Implanted Vascular Access Dvce: Yes Musculoskeletal: Yes (sciatica) Neurologic: Yes (VERTIGO) Psychiatric: No Reproductive: No Respiratory: Yes (bronchitis) Pneumonia: Yes Tetanus Vaccination: < 5 Years Menopausal: Yes : 9 Para: 8 Miscarriage: 1 Tubal Ligation: Yes Past Surgical History Appendectomy: Yes Cardiac Surgery: Yes (PACEMAKER MEDTRONIC MODEL 4543 S/N [id number] ) Coronary Artery Bypass Graft: No Pacemaker: Yes (defibrillator [employer] medtronic) Tonsillectomy: Yes Other Surgery: Yes Social History Alcohol Use: No Tobacco Use: No (quit 2002) Substance Use: No Allergies-Medications (Allergen,Severity, Reaction): Coded Allergies: Amoxicillin (Verified Allergy, Severe, Diarrhea, 08/26/16) Augmentin (Verified Allergy, Severe, Diarrhea, 08/26/16) Cefuroxime sodium (Verified Allergy, Severe, rash, 08/26/16) Cipro (Verified Allergy, Severe, Nausea/Vomiting, 08/26/16) Codeine (Verified Allergy, Severe, Nausea/Vomiting, 08/26/16) Feldene (Verified Allergy, Severe, Hives, 08/26/16) Tequin (Verified Allergy, Severe, Confusion, 08/26/16) Aspirin (Unverified Allergy, Intermediate, Hives, 08/26/16) Atorvastatin (Verified Allergy, Intermediate, FLANK PAIN, 08/26/16) Morphine (Verified Allergy, Intermediate, sweats, 08/26/16) Contrast Media (Verified Allergy, Unknown, Anaphylaxis, 08/26/16) Gentamicin (Verified Adverse Reaction, Intermediate, DIARRHEA, 08/26/16) Reported Meds & Prescriptions Reported Meds & Active Scripts Active Xaoxlrshpe-Uetftnzfyvocp-Utupwrjf 50-325-40 Mg Tab 1 Tab PO Q6H PRN Spiriva Handihaler (Tiotropium Inh) 18 Mcg Cap 18 Mcg INH BID Lisinopril 10 Mg Tab 10 Mg PO DAILY Furosemide 40 Mg Tab 40 Mg PO DAILY Coreg (Carvedilol) 6.25 Mg Tab 6.25 Mg PO Q12HR Zovirax Topical (Acyclovir) 5% Cream 1 Applic TOPICAL 5 TIMES A DAY PRN Reported Omeprazole 10 Mg Cap 15 Mg PO DAILY Acidophilus (Probiotic Product) 1 Chew Calcium 600 (Calcium Carbonate) 1,500 Mg Tab 1,500 Mg PO Restasis Opth 0.05% (Cyclosporine Opth 0.05%) 0.05% Emul 1 Drop EACH EYE BID Hydrocodone-Acetaminophen 5-325 mg Tab 1 Tab PO Q4H PRN Macrobid (Nitrofurantoin Monoh/Nitrofur Macro) 100 Mg Cap 100 Mg PO HS Advair Diskus Inh (Fluticasone-Salmeterol Inh) 500-50 Mcg/Blist Aer 1 Puff INH BID Rinse mouth after use. Carafate (Sucralfate) 1 Gm Tab 500 Mg PO TID On empty stomach Lansoprazole 15 Mg Capdr 15 Mg PO BID Review of Systems Except as stated in HPI: all other systems reviewed are Neg Physical Exam Narrative GENERAL: Well-nourished, well-developed patient. SKIN: Warm and dry. HEAD: Normocephalic EYES: No injection or drainage. ENT: No nasal drainage noted. NECK: Supple, trachea midline. CARDIOVASCULAR: Regular rate and rhythm RESPIRATORY: Breath sounds equal bilaterally. No accessory muscle use. Chest wall: Large hematoma noted to left chest wall and breast area, no lacerations noted NEUROLOGICAL: Awake and alert. Moves all extremities. Normal speech. Data Data Last Documented VS Vital Signs Date Time Temp Pulse Resp B/P Pulse Ox O2 Delivery O2 Flow Rate FiO2 10/02/16 01:48 98.1 81 18 115/76 98 Room Air Orders Chest, Single Ap (10/02/16 ) Electrocardiogram (10/02/16 01:43) Basic Metabolic Panel (Bmp) (10/02/16 01:43) Complete Blood Count With Diff (10/02/16 01:43) Magnesium (Mg) (10/02/16 01:43) Prothrombin Time / Inr (Pt) (10/02/16 01:43) Act Partial Throm Time (Ptt) (10/02/16 01:43) Ecg Monitoring (10/02/16 01:43) Bilateral Bp Monitoring (10/02/16 01:43) Iv Access Insert/Monitor (10/02/16 01:43) Oximetry (10/02/16 01:43) Sodium Chloride 0.9% Flush (Ns Flush) (10/02/16 01:45) Hydromorphone Pf Inj (Dilaudid Pf Inj) (10/02/16 01:45) Consult Cardiology (10/02/16 ) NPO (10/02/16 02:46) Place In Observation (10/02/16 ) Vital Signs (Adult) Q4H (10/02/16 02:56) Activity Oob Ad Latanya (10/02/16 02:56) Diet Npo (10/02/16 Breakfast) Sodium Chloride 0.9% Flush (Ns Flush) (10/02/16 03:00) Sodium Chloride 0.9% Flush (Ns Flush) (10/02/16 09:00) Ondansetron Inj (Zofran Inj) (10/02/16 03:00) Bisacodyl Supp (Dulcolax Supp) (10/02/16 03:00) Comprehensive Metabolic Panel (10/03/16 06:00) Complete Blood Count With Diff (10/03/16 06:00) Scd Bilateral/Knee High PADMINI.BID (10/02/16 02:56) Duc Bilateral/Knee High PADMINI.QSHIFT (10/02/16 02:56) Acetaminophen (Tylenol) (10/02/16 03:00) Hydromorphone Pf Inj (Dilaudid Pf Inj) (10/02/16 03:00) Carvedilol (Coreg) (10/02/16 09:00) Furosemide (Lasix) (10/02/16 09:00) Sucralfate (Carafate) (10/02/16 08:00) (Nf) Cyclosporine Opth 0.05% (Restasis O (10/02/16 09:00) (Nf) Fluticasone-Salmeterol Inh (Advair (10/02/16 09:00) Admit Order (Ed Use Only) (10/02/16 03:00) Labs Laboratory Tests Test 10/02/16 01:49 White Blood Count 6.3 TH/MM3 Red Blood Count 4.28 MIL/MM3 Hemoglobin 12.5 GM/DL Hematocrit 37.6 % Mean Corpuscular Volume 87.8 FL Mean Corpuscular Hemoglobin 29.2 PG Mean Corpuscular Hemoglobin 33.3 % Concent Red Cell Distribution Width 13.9 % Platelet Count 206 TH/MM3 Mean Platelet Volume 9.5 FL Neutrophils (%) (Auto) 45.6 % Lymphocytes (%) (Auto) 34.4 % Monocytes (%) (Auto) 16.9 % Eosinophils (%) (Auto) 2.0 % Basophils (%) (Auto) 1.1 % Neutrophils # (Auto) 2.9 TH/MM3 Lymphocytes # (Auto) 2.2 TH/MM3 Monocytes # (Auto) 1.1 TH/MM3 Eosinophils # (Auto) 0.1 TH/MM3 Basophils # (Auto) 0.1 TH/MM3 CBC Comment DIFF FINAL Differential Comment Prothrombin Time 11.9 SEC Prothromb Time International 1.1 RATIO Ratio Activated Partial 27.4 SEC Thromboplast Time Sodium Level 142 MEQ/L Potassium Level 4.4 MEQ/L Chloride Level 108 MEQ/L Carbon Dioxide Level 26.6 MEQ/L Anion Gap 7 MEQ/L Blood Urea Nitrogen 18 MG/DL Creatinine 1.13 MG/DL Estimat Glomerular Filtration 47 ML/MIN Rate Random Glucose 117 MG/DL Calcium Level 9.4 MG/DL Magnesium Level 2.1 MG/DL MDM Medical Decision Making Medical Screen Exam Complete: Yes Emergency Medical Condition: Yes Medical Record Reviewed: Yes (past history confirmed) Interpretation(s) EKG is paced at 75 without STEMI criteria Last 24 hours Impressions Chest X-Ray 10/02/16 0000 Signed Impressions: Service Date/Time: Sunday, October 02, 2016 02:04 - CONCLUSION: No acute cardiopulmonary disease, however the battery pack for the patient's cardiac pacer wires has significantly shifted laterally in the subcutaneous tissues and could be inside the patient's breast tissue. Ricky Leblanc MD I discussed chest x-ray findings with radiologist and he adjusted reading CBC & BMP Diagram 10/02/16 01:49 Differential Diagnosis Pacemaker lead disruption, movement of pacemaker battery pack, hematoma Narrative Course Will check blood work, EKG, chest x-ray and reevaluate Will discuss with her underwear welter Patient agrees to admission Physician Communication Physician Communication dr vogt states to admit with consult to Dr. Franco and keep nothing by mouth Diagnosis Primary Impression: Pacemaker displacement Qualified Code: T82.128A - Pacemaker displacement, initial encounter Stephany Sahni MD October 02, 2016 03:12
--- NOTE | 2016-10-02 05:01 | HHI.HP ---
HPI Service [facility] Primary Care Physician No Primary Care Physician Admission Diagnosis pacemaker battery pack shifted Diagnoses: (1) Pacemaker displacement Diagnosis: Principal (2) Renal insufficiency Diagnosis: Principal (3) COPD (chronic obstructive pulmonary disease) Diagnosis: Principal (4) HTN (hypertension) Diagnosis: Principal Travel History International Travel<30 Days: No Contact w/Intl Traveler <30 Da: No Traveled to Known Affected Are: No History of Present Illness This is a 71-year-old female with a PMH of HTN, COPD, CHF (Echo 06/24/16 w/ EF 30 %) and AICD s/p Explantation and Replacement of Medtronic AICD by Dr. Franco on 09/22/16 who presented to the ER w/ complaints of left breast pain and hematoma. States she rolled over onto side during sleep and had significant pain w/ hematoma. No other complaints. Denies AICD firing. On arrival, BP 128 /82, HR 81, O2 sat 96% on RA, Afebrile. CBC unremarkable. Creatinine 1.13, previously 1.14 on 09/22/16. INR 1.1. CXR with no acute cardiopulmonary disease , however battery pack for the patient's cardiac pacer wires has significantly shifted laterally into the subcutaneous tissues piers to be the patient's breast. Dr. Clayton consulted by ER physician, recommended consultation for Dr. Franco in am for evaluation. Review of Systems Except as stated in HPI: all other systems reviewed are Neg ROS: 14 point review of systems otherwise negative. Past Family Social History Past Medical History PMH: HTN, COPD, CHF (Echo 06/24/16 w/ EF 30%) and AICD s/p Explantation and Replacement of Medtronic AICD by Dr. Franco on 09/22/16 Past Surgical History PAST SURGICAL HISTORY: Appendectomy, Pacemaker/AICD Allergies: Coded Allergies: Amoxicillin (Verified Allergy, Severe, Diarrhea, 08/26/16) Augmentin (Verified Allergy, Severe, Diarrhea, 08/26/16) Cefuroxime sodium (Verified Allergy, Severe, rash, 08/26/16) Cipro (Verified Allergy, Severe, Nausea/Vomiting, 08/26/16) Codeine (Verified Allergy, Severe, Nausea/Vomiting, 08/26/16) Feldene (Verified Allergy, Severe, Hives, 08/26/16) Tequin (Verified Allergy, Severe, Confusion, 08/26/16) Aspirin (Unverified Allergy, Intermediate, Hives, 08/26/16) Atorvastatin (Verified Allergy, Intermediate, FLANK PAIN, 08/26/16) Morphine (Verified Allergy, Intermediate, sweats, 08/26/16) Contrast Media (Verified Allergy, Unknown, Anaphylaxis, 08/26/16) Gentamicin (Verified Adverse Reaction, Intermediate, DIARRHEA, 08/26/16) Family History PAST FAMILY HISTORY: Reviewed. No h/o DM or CAD Social History PAST SOCIAL HISTORY: Negative for alcohol, tobacco or drugs. Physical Exam Vital Signs Vital Signs Date Time Temp Pulse Resp B/P Pulse Ox O2 Delivery O2 Flow Rate FiO2 10/02/16 03:53 70 18 121/69 95 Nasal Cannula 2 10/02/16 01:48 98.1 81 18 115/76 98 Room Air 10/02/16 01:48 100 Room Air 10/02/16 01:44 85 18 100 Room Air 10/02/16 01:44 83 18 126/82 100 Room Air 10/02/16 01:41 98.1 81 25 128/82 96 Physical Exam PE: GENERAL: Elderly white female in no acute distress. HEENT: PERRLA, EOMI. No scleral icterus or conjunctival pallor. No lid lag or facial droop. CARDIOVASCULAR: Regular rate and rhythm. No obvious murmurs to auscultation. No chest tenderness to palpation. Left breast hematoma, tenderness to palpation RESPIRATORY: No obvious rhonchi or wheezing. Clear to auscultation. Breath sounds equal bilaterally. GASTROINTESTINAL: Abdomen soft, non-tender, nondistended. BS normal. MUSCULOSKELETAL: Extremities without clubbing, cyanosis, or edema. No obvious deformities. NEUROLOGICAL: Awake, alert and oriented x4. No focal neurologic deficits. Moving both upper and lower extremities spontaneously. Laboratory Laboratory Tests Test 10/02/16 01:49 White Blood Count 6.3 Red Blood Count 4.28 Hemoglobin 12.5 Hematocrit 37.6 Mean Corpuscular Volume 87.8 Mean Corpuscular Hemoglobin 29.2 Mean Corpuscular Hemoglobin 33.3 Concent Red Cell Distribution Width 13.9 Platelet Count 206 Mean Platelet Volume 9.5 Neutrophils (%) (Auto) 45.6 Lymphocytes (%) (Auto) 34.4 Monocytes (%) (Auto) 16.9 Eosinophils (%) (Auto) 2.0 Basophils (%) (Auto) 1.1 Neutrophils # (Auto) 2.9 Lymphocytes # (Auto) 2.2 Monocytes # (Auto) 1.1 Eosinophils # (Auto) 0.1 Basophils # (Auto) 0.1 CBC Comment DIFF FINAL Differential Comment Prothrombin Time 11.9 Prothromb Time International 1.1 Ratio Activated Partial 27.4 Thromboplast Time Sodium Level 142 Potassium Level 4.4 Chloride Level 108 Carbon Dioxide Level 26.6 Anion Gap 7 Blood Urea Nitrogen 18 Creatinine 1.13 Estimat Glomerular Filtration 47 Rate Random Glucose 117 Calcium Level 9.4 Magnesium Level 2.1 Result Diagram: 10/02/1614810/02/16148 Assessment and Plan Problem List: (1) Pacemaker displacement ICD Code: T82.128A Status: Acute (2) Renal insufficiency ICD Code: N28.9 Status: Acute (3) COPD (chronic obstructive pulmonary disease) ICD Code: J44.9 Status: Acute (4) HTN (hypertension) ICD Code: I10 Status: Acute Assessment and Plan A/P: 1. Pacemaker Displacement: s/p AICD Extraction and Replacement by Dr. Franco on 09/22/16, today w/ acute onset of left breast pain w/ hematoma. CXR w/ batter pack for cardiac pacer wires significantly shifted laterally in the subcutaneous tissues, likely inside patient's breast tissue, images reviewed by me. Dr. Clayton consulted by ER physician, recommended eval by Dr. Franco in am. Analgesics/antiemetics as needed. 2. Renal Insufficiency: Creatinine 1.13, previously 1.14 on 09/22/16. Will monitor. 3. COPD: Chronic Respiratory Failure. Stable. Resume home medications. 4. HTN: Controlled. Resume home medications. 5. DVT Prophylaxis: SCD/Teds. 6. Social work for d/c planning as needed. 7. Case discussed w/ ER physician at length. Problem Qualifiers (1) Pacemaker displacement: Qualified Code: T82.128A - Pacemaker displacement, initial encounter Nedra Delaney MD October 02, 2016 05:01
[2016-10-02] MEDS: HYDROmorphone HCL PF 1 MG/ML VIAL IV PUSH PRN ×5 (05:27→21:36)
[2016-10-02] MEDS: ONDANSETRON HCL 4 MG/2 ML VIAL IVP PRN ×2 (05:28→13:33)
[2016-10-02] MEDS: SUCRALFATE 1 GM TAB PO SCH ×3 (08:00→13:10)
[2016-10-02] MEDS: FUROSEMIDE 40 MG TAB PO SCH (08:33)
[2016-10-02] MEDS: BUDESONIDE-FORMOTEROL 160/4.5 MCG INHALER INH SCH ×2 (08:33→21:00)
[2016-10-02] MEDS: CARVEDILOL 6.25 MG TAB PO SCH ×2 (08:33→21:35)
[2016-10-02] MEDS: SODIUM CHLORIDE 0.9% FLUSH 10 ML FLUSH IV FLUSH SCH ×2 (08:34→21:36)
[2016-10-02] MEDS ORDERED: RESTASIS 0.05% EACH EYE SCH (09:00)
--- NOTE | 2016-10-02 11:28 | HHI.PR ---
Subjective Remarks in no acute distress. has some pain to the left chest- at the site of pacer. no fever. Objective Vitals Vital Signs Date Time Temp Pulse Resp B/P Pulse Ox O2 Delivery O2 Flow Rate FiO2 10/02/16 09:55 16 10/02/16 08:00 74 10/02/16 08:00 97.6 84 16 107/59 96 10/02/16 05:57 98.7 76 16 127/68 97 10/02/16 03:53 70 18 121/69 95 Nasal Cannula 2 10/02/16 01:48 98.1 81 18 115/76 98 Room Air 10/02/16 01:48 100 Room Air 10/02/16 01:44 85 18 100 Room Air 10/02/16 01:44 83 18 126/82 100 Room Air 10/02/16 01:41 98.1 81 25 128/82 96 I/O 10/01/16 10/01/16 10/01/16 10/02/16 10/02/16 10/02/16 07:00 15:00 23:00 07:00 15:00 23:00 Intake Total 0 ml Output Total 100 ml Balance -100 ml Intake Oral 0 ml Output Urine Total 100 ml # Bowel Movements 0 Result Diagram: 10/02/16 0149 10/02/16 0149 Imaging Last Impressions Chest X-Ray 10/02/16 0000 Signed Impressions: Service Date/Time: Sunday, October 02, 2016 02:04 - CONCLUSION: No acute cardiopulmonary disease, however the battery pack for the patient's cardiac pacer wires has significantly shifted laterally in the subcutaneous tissues and could be inside the patient's breast tissue. Ricky Leblanc MD Objective Remarks GENERAL: This is a well-nourished, well-developed patient, in no apparent distress. CARDIOVASCULAR: Regular rate and regular rhythm without murmurs, gallops, or rubs. RESPIRATORY: Clear to auscultation. Breath sounds equal bilaterally. No wheezes , rales, or rhonchi. GASTROINTESTINAL: Abdomen soft, non-tender, nondistended. Normal, active bowel sounds MUSCULOSKELETAL: Extremities without clubbing, cyanosis, or edema. NEURO: Alert & Oriented x4 to person, place, time, situation. Moves all ext x4 skin; bruise, swelling and tenderness noted around the site of pacer. Procedures none Medications and IVs Current Medications Sodium Chloride (NS Flush) 2 ml UNSCH PRN IVF FLUSH AFTER USING IV ACCESS; Start 10/02/16 at 01:45 Hydromorphone HCl (Dilaudid Pf Inj) 0.5 mg ONCE ONCE IV PUSH Last administered on 10/02/16 02:08; Start 10/02/16 at 01:45; Stop 10/02/16 at 01:46 ; Status DC Sodium Chloride (NS Flush) 2 ml UNSCH PRN IV FLUSH FLUSH AFTER USING IV ACCESS ; Start 10/02/16 at 03:00 Sodium Chloride (NS Flush) 2 ml BID IV FLUSH Last administered on 10/02/16 08: 34; Start 10/02/16 at 09:00 Ondansetron HCl (Zofran Inj) 4 mg Q6H PRN IVP NAUSEA OR VOMITING Last administered on 10/02/16 05:28; Start 10/02/16 at 03:00 Bisacodyl (Dulcolax Supp) 10 mg DAILY PRN RECTAL CONSTIPATION; Start 10/02/16 at 03:00 Acetaminophen (Tylenol) 650 mg Q6H PRN PO FEVER/PAIN SCALE 1 TO 2; Start at 03:00 Hydromorphone HCl (Dilaudid Pf Inj) 0.5 mg Q4H PRN IV PUSH PAIN 6-10 Last administered on 10/02/16 09:33; Start 10/02/16 at 03:00 Carvedilol (Coreg) 6.25 mg Q12HR PO Last administered on 10/02/16 08:33; Start 10/02/16 at 09:00 Furosemide (Lasix) 40 mg DAILY PO Last administered on 10/02/16 08:33; Start 10/02/16 at 09:00 Sucralfate (Carafate) 0.5 gm TIDAC PO ; Start 10/02/16 at 08:00 Patient Own Medication PT OWN MED: Emulsion, Ophthal... BID EACH EYE ; Start at 09:00; Status Hold Budesonide/ Formoterol Fumarate (Symbicort 160-4.5 Inh) 2 puff BID INH Last administered on 10/02/16 08:33; Start 10/02/16 at 09:00 A/P Assessment and Plan A/P 1. Pacemaker Displacement: s/p AICD Extraction and Replacement by Dr. Franco on 09/22/16, w/ acute onset of left breast pain w/ hematoma. CXR w/ batter pack for cardiac pacer wires significantly shifted laterally in the subcutaneous tissues, likely inside patient's breast tissue. cardiology consulted- continue with pain control. 2. Renal Insufficiency: Creatinine 1.13, previously 1.14 on 09/22/16. Will monitor. 3. COPD: Chronic Respiratory Failure. Stable. Resumed home medications. 4. HTN: Controlled. Resumed home medications. 5. DVT Prophylaxis: SCD/Teds. Martín Moore MD October 02, 2016 11:28
--- NOTE | 2016-10-02 13:20 | EKG ---
Date Performed: 10/02/2016 Time Performed: 01:51:01 PTAGE: 71 years EKG: Sinus rhythm with P-wave synchronous ventricular pacing with ventricular fusion Complex demonstrates more fusion compared to prior tracing ABNORMAL RHYTHM ECG PREVIOUS TRACING : 09/22/2016 10.51 DOCTOR: Orlando Norman Interpretating Date/Time 10/02/2016 13:17:14
--- NOTE | 2016-10-02 15:32 | MB ---
cc: MELVA BERG DATE OF CONSULTATION: 10/02/2016 HISTORY OF PRESENT ILLNESS A 71-year-old white female with recent replacement of end-of-life Medtronic dual-chamber biventricular defibrillator. The patient rolled over on her side during sleep and developed pain and hematoma at the site on the recent implant. She was seen in our office last week with stable pacemaker pocket. She denies any angina or heart failure symptoms. PAST MEDICAL HISTORY Positive for: 1. Non-ischemic cardiomyopathy with significant improvement of left ventricular systolic function. 2. Congestive heart failure, class II. 3. Systolic right bundle branch block. 4. Hypertension. 5. COPD. 6. Chronic kidney disease. 7. Mitral regurgitation. 8. History of meningoencephalitis. 9. History of mild coronary artery disease by cath in 04/2011. 10. Knee replacement. 12. Appendectomy. 13. Tonsillectomy. MEDICATION 1. Lisinopril. 2. Coreg. 3. Furosemide. 4. Advair. 5. Restasis. 6. Pro-Air. 7. Ipratropium. 8. Albuterol. 9. Spiriva. 10. Calcium. 11. Acidophilus. 12. Glucosamine. 13. Nitrofurantoin. 15. Hydrocodone/Acetaminophen. 16. Omeprazole. ALLERGIES GENTAMYCIN, CONTRAST, MORPHINE, ATORVASTATIN, ASPIRIN, TEQUIN, FELDENE, CODEINE, CIPRO, CEFUROXIME, AUGMENTIN, AMOXICILLIN. SOCIAL HISTORY The patient does not smoke, she does not drink alcohol. FAMILY HISTORY Positive for heart disease. REVIEW OF SYSTEMS Otherwise negative. PHYSICAL EXAMINATION VITAL SIGNS: Blood pressure 117/65, pulse 70 and regular. HEENT: Negative 2+ carotid upstrokes. No bruits. LUNGS: Clear. HEART: Regular with no murmur, gallop or rub. Left upper chest wound is stable with no evidence of infection. There is moderate-sized hematoma of the pacemaker pocket which is tender on palpation. There is no evidence of infection. ABDOMEN: Soft. No bruits. EXTREMITIES: Without edema. 2+ distal pulses. NEUROLOGIC: Grossly nonfocal. EKG EKG was reviewed and showed normal sinus rhythm and biventricular pacing. LABORATORY DATA Hemoglobin 12.5, potassium 4.4, creatinine 1.1. IMAGING STUDIES Chest x-ray shows shift of the device to the left to the lateral side of the pocket. Leads are in place and there is no evidence of lead malfunction. DIAGNOSIS 1. ICD pocket hematoma. 2. Status post recent end-of-life Medtronic ICD replacement. 3. Non-ischemic cardiomyopathy. 4. Congestive heart failure, class II, chronic. 5. Hypertension. 6. COPD. DISPOSITION Ms. Haney developed ICD pocket hematoma. She is not on any anticoagulants. I recommend to continue pain control with narcotics. I recommend to continue current medical program for congestive heart failure. She should be able to be discharged home tomorrow on p.o. pain control. I will see her back for followup in our office after discharge. MD STAN Peña/TEODORO /2:18 PM /2:35 PM VINI
[2016-10-03] VITALS (14 sets, daily range): BP systolic 106–123; BP diastolic 62–70; PULSE 78–112; RESP 16–18; TEMP 98–98.7; O2SAT 94–96
[2016-10-03] MEDS: HYDROmorphone HCL PF 1 MG/ML VIAL IV PUSH PRN ×3 (01:31→09:45)
[2016-10-03 06:32] LABS: AUTOMATED NEUTROPHIL # 1.9 TH/MM3 (1.8-7.7); BASOPHIL % 0.7 % (0.0-2.0); EOSINOPHIL # 0.1 TH/MM3 (0-0.4); EOSINOPHIL % 1.7 % (0.0-4.0); HEMATOCRIT 34.7 % (35.0-46.0); HEMO FLAGS DIFF FINAL; LYMPH % 36.8 % (9.0-44.0); LYMPHOCYTE # 1.7 TH/MM3 (1.0-4.8); MEAN CELL VOLUME 87.7 FL (80.0-100.0); MEAN CORPUSCULAR HEMOGLOBIN 29.7 PG (27.0-34.0); MEAN CORPUSCULAR HGB CONC 33.9 % (32.0-36.0); MONO % 19.6 % (0.0-8.0); NEUT % 41.2 % (16.0-70.0); PLATELET COUNT 188 TH/MM3 (150-450); RED BLOOD COUNT 3.96 MIL/MM3 (4.00-5.30); RED CELL DISTRIBUTION WIDTH 13.5 % (11.6-17.2); WHITE BLOOD COUNT 4.5 TH/MM3 (4.0-11.0)
[2016-10-03 06:50] LABS: ANION GAP 8 MEQ/L (5-15); AST (GOT) 13 U/L (15-37); BLOOD UREA NITROGEN 20 MG/DL (7-18); CHLORIDE 100 MEQ/L (98-107); GLOMERULAR FILTRATION RATE 47 ML/MIN (>89); POTASSIUM 3.7 MEQ/L (3.5-5.1); SODIUM (NA) 139 MEQ/L (136-145)
[2016-10-03 06:57] LABS: ALKALINE PHOSPHATASE 107 U/L (45-117); ALT (GPT) 16 U/L (10-53); TOTAL BILIRUBIN ADULT 0.3 MG/DL (0.2-1.0)
[2016-10-03] MEDS ORDERED: PANTOPRAZOLE SODIUM 40 MG VIAL IV PUSH ONE (08:45)
[2016-10-03] MEDS: CARVEDILOL 6.25 MG TAB PO SCH (08:53)
[2016-10-03] MEDS: FUROSEMIDE 40 MG TAB PO SCH (08:53)
[2016-10-03] MEDS: SUCRALFATE 1 GM TAB PO SCH ×2 (08:53→12:00)
[2016-10-03] MEDS: SODIUM CHLORIDE 0.9% FLUSH 10 ML FLUSH IV FLUSH SCH (08:53)
[2016-10-03] MEDS: BUDESONIDE-FORMOTEROL 160/4.5 MCG INHALER INH SCH (08:54)
--- NOTE | 2016-10-03 08:54 | HHI.PR ---
Subjective Remarks complaining of heartburn and nausea/ vomiting. pain is fairly controlled. d/w the RN. Objective Vitals Vital Signs Date Time Temp Pulse Resp B/P Pulse Ox O2 Delivery O2 Flow Rate FiO2 10/03/16 06:00 80 10/03/16 05:00 83 10/03/16 04:00 82 10/03/16 04:00 98.1 87 16 123/63 96 10/03/16 03:00 80 10/03/16 02:00 83 10/03/16 01:00 82 10/03/16 00:00 98.0 95 16 120/70 96 10/03/16 00:00 83 10/02/16 23:00 80 10/02/16 22:00 88 10/02/16 21:00 84 10/02/16 20:00 98.4 92 16 117/63 96 10/02/16 20:00 92 10/02/16 19:00 80 10/02/16 18:00 80 10/02/16 17:55 16 10/02/16 17:00 82 10/02/16 16:00 97.9 83 16 105/57 93 10/02/16 16:00 80 10/02/16 15:00 78 10/02/16 14:00 92 10/02/16 13:00 76 10/02/16 12:00 70 10/02/16 12:00 97.8 73 16 117/65 96 10/02/16 11:00 70 10/02/16 10:00 76 10/02/16 09:00 76 I/O 10/02/16 10/02/16 10/02/16 10/03/16 10/03/16 10/03/16 07:00 15:00 23:00 07:00 15:00 23:00 Intake Total 0 ml 840 ml 480 ml Output Total 100 ml Balance -100 ml 840 ml 480 ml Intake Oral 0 ml 840 ml 480 ml Output Urine Total 100 ml # Voids 3 2 # Bowel Movements 0 1 0 Result Diagram: 10/03/16 0519 10/03/16 0519 Imaging Last Impressions Chest X-Ray 10/02/16 0000 Signed Impressions: Service Date/Time: Sunday, October 02, 2016 02:04 - CONCLUSION: No acute cardiopulmonary disease, however the battery pack for the patient's cardiac pacer wires has significantly shifted laterally in the subcutaneous tissues and could be inside the patient's breast tissue. Ricky Leblanc MD Objective Remarks GENERAL: This is a well-nourished, well-developed patient, in no apparent distress. CARDIOVASCULAR: Regular rate and regular rhythm without murmurs, gallops, or rubs. RESPIRATORY: Clear to auscultation. Breath sounds equal bilaterally. No wheezes , rales, or rhonchi. GASTROINTESTINAL: Abdomen soft, non-tender, nondistended. Normal, active bowel sounds MUSCULOSKELETAL: Extremities without clubbing, cyanosis, or edema. NEURO: Alert & Oriented x4 to person, place, time, situation. Moves all ext x4 skin; bruise, swelling and tenderness noted around the site of pacer. Procedures none Medications and IVs Current Medications Sodium Chloride (NS Flush) 2 ml UNSCH PRN IVF FLUSH AFTER USING IV ACCESS; Start 10/02/16 at 01:45 Hydromorphone HCl (Dilaudid Pf Inj) 0.5 mg ONCE ONCE IV PUSH Last administered on 10/02/16 02:08; Start 10/02/16 at 01:45; Stop 10/02/16 at 01:46 ; Status DC Sodium Chloride (NS Flush) 2 ml UNSCH PRN IV FLUSH FLUSH AFTER USING IV ACCESS ; Start 10/02/16 at 03:00 Sodium Chloride (NS Flush) 2 ml BID IV FLUSH Last administered on 10/02/16 21: 36; Start 10/02/16 at 09:00 Ondansetron HCl (Zofran Inj) 4 mg Q6H PRN IVP NAUSEA OR VOMITING Last administered on 10/02/16 13:33; Start 10/02/16 at 03:00 Bisacodyl (Dulcolax Supp) 10 mg DAILY PRN RECTAL CONSTIPATION; Start 10/02/16 at 03:00 Acetaminophen (Tylenol) 650 mg Q6H PRN PO FEVER/PAIN SCALE 1 TO 2; Start at 03:00 Hydromorphone HCl (Dilaudid Pf Inj) 0.5 mg Q4H PRN IV PUSH PAIN 6-10 Last administered on 10/03/16 05:11; Start 10/02/16 at 03:00 Carvedilol (Coreg) 6.25 mg Q12HR PO Last administered on 10/02/16 21:35; Start 10/02/16 at 09:00 Furosemide (Lasix) 40 mg DAILY PO Last administered on 10/02/16 08:33; Start 10/02/16 at 09:00 Sucralfate (Carafate) 0.5 gm TIDAC PO ; Start 10/02/16 at 08:00 Patient Own Medication PT OWN MED: Emulsion, Ophthal... BID EACH EYE ; Start at 09:00; Status Hold Budesonide/ Formoterol Fumarate (Symbicort 160-4.5 Inh) 2 puff BID INH Last administered on 10/02/16 08:33; Start 10/02/16 at 09:00 A/P Assessment and Plan A/P 1. Pacemaker Displacement: s/p AICD Extraction and Replacement by Dr. Franco on 09/22/16, w/ acute onset of left breast pain w/ hematoma. CXR w/ batter pack for cardiac pacer wires significantly shifted laterally in the subcutaneous tissues, likely inside patient's breast tissue. cardiology consult appreciated; recommended pain control with outpatient follow-up. 2. Renal Insufficiency: Creatinine 1.13, previously 1.14 on 09/22/16. Will monitor. 3. COPD: Chronic Respiratory Failure. Stable. Resumed home medications. 4. HTN: Controlled. Resumed home medications. 5.heartburn/ nausea; start protonix 6. DVT Prophylaxis: SCD/Teds. Discharge Planning dc home this afternoon if stable with resolved nausea/vomiting. see med list. f/u; pcp and cardiology. d/w the patient and Martín Galan MD October 03, 2016 08:54
--- NOTE | 2016-10-03 08:57 | HHI.DS ---
Discharge Summary Admission Date October 02, 2016 at 03:02 Discharge Date: October 03, 2016 Admitting Diagnosis pacemaker battery pack shifted (1) Pacemaker displacement ICD Code: T82.128A Diagnosis: Principal (2) Renal insufficiency ICD Code: N28.9 Diagnosis: Secondary (3) COPD (chronic obstructive pulmonary disease) ICD Code: J44.9 Diagnosis: Secondary (4) HTN (hypertension) ICD Code: I10 Diagnosis: Secondary Procedures none Brief History - From Admission This is a 71-year-old female with a PMH of HTN, COPD, CHF (Echo 06/24/16 w/ EF 30 %) and AICD s/p Explantation and Replacement of Medtronic AICD by Dr. Franco on 09/22/16 who presented to the ER w/ complaints of left breast pain and hematoma. States she rolled over onto side during sleep and had significant pain w/ hematoma. No other complaints. Denies AICD firing. On arrival, BP 128 /82, HR 81, O2 sat 96% on RA, Afebrile. CBC unremarkable. Creatinine 1.13, previously 1.14 on 09/22/16. INR 1.1. CXR with no acute cardiopulmonary disease , however battery pack for the patient's cardiac pacer wires has significantly shifted laterally into the subcutaneous tissues piers to be the patient's breast. Dr. Clayton consulted by ER physician, recommended consultation for Dr. Franco in am for evaluation. CBC/BMP: 10/03/16 0519 10/03/16 0519 Significant Findings Laboratory Tests Test 10/02/16 10/03/16 01:49 05:19 Monocytes (%) (Auto) 16.9 % 19.6 % (0.0-8.0) (0.0-8.0) Monocytes # (Auto) 1.1 TH/MM3 (0-0.9) Prothrombin Time 11.9 SEC (9.8-11.6) Chloride Level 108 MEQ/L (98-107) Creatinine 1.13 MG/DL 1.14 MG/DL (0.50-1.00) (0.50-1.00) Estimat Glomerular Filtration 47 ML/MIN (>89) 47 ML/MIN (>89) Rate Random Glucose 117 MG/DL (74-106) Red Blood Count 3.96 MIL/MM3 (4.00-5.30) Hematocrit 34.7 % (35.0-46.0) Blood Urea Nitrogen 20 MG/DL (7-18) Aspartate Amino Transf 13 U/L (15-37) (AST/SGOT) Albumin 3.2 GM/DL (3.4-5.0) Imaging Last Impressions Chest X-Ray 10/02/16 0000 Signed Impressions: Service Date/Time: Sunday, October 02, 2016 02:04 - CONCLUSION: No acute cardiopulmonary disease, however the battery pack for the patient's cardiac pacer wires has significantly shifted laterally in the subcutaneous tissues and could be inside the patient's breast tissue. Ricky Leblanc MD PE at Discharge GENERAL: This is a well-nourished, well-developed patient, in no apparent distress. CARDIOVASCULAR: Regular rate and regular rhythm without murmurs, gallops, or rubs. RESPIRATORY: Clear to auscultation. Breath sounds equal bilaterally. No wheezes , rales, or rhonchi. GASTROINTESTINAL: Abdomen soft, non-tender, nondistended. Normal, active bowel sounds MUSCULOSKELETAL: Extremities without clubbing, cyanosis, or edema. NEURO: Alert & Oriented x4 to person, place, time, situation. Moves all ext x4 skin; bruise, swelling and tenderness noted around the site of pacer. Hospital Course 1. Pacemaker Displacement: s/p AICD Extraction and Replacement by Dr. Franco on 09/22/16, w/ acute onset of left breast pain w/ hematoma. CXR w/ batter pack for cardiac pacer wires significantly shifted laterally in the subcutaneous tissues, likely inside patient's breast tissue. cardiology consult appreciated; recommended pain control with outpatient follow-up. 2. Renal Insufficiency: Creatinine 1.13, previously 1.14 on 09/22/16. Will monitor. 3. COPD: Chronic Respiratory Failure. Stable. Resumed home medications. 4. HTN: Controlled. Resumed home medications. 5.heartburn/ nausea; start protonix 6. DVT Prophylaxis: SCD/Teds. Pt Condition on Discharge: Fair Discharge Disposition: Discharge Home Discharge Time: <= 30 minutes Discharge Instructions DIET: Follow Instructions for: Heart Healthy Diet Activities you can perform: Regular-No Restrictions Follow up Referrals: Cardiology PCP Follow-up Continued Medications: Acyclovir Topical (Zovirax Topical) 5% Cream 1 APPLIC TOPICAL 5 TIMES A DAY PRN discomfort #1 TUBE Bbgqjxbnth-Rnuhxhnjaqtjd-Qtgwbdjj (Xhodrtawvq-Crorhpawcyykt-Msgxwdjf) 50-325-40 Mg Tab 1 TAB PO Q6H PRN Headache #20 TAB Calcium Carbonate (Calcium 600) 1,500 Mg Tab 1500 MG PO TAB Carvedilol (Coreg) 6.25 Mg Tab 6.25 MG PO Q12HR card #60 TAB Cyclosporine Opth 0.05% (Restasis Opth 0.05%) 0.05% Emul 1 DROP EACH EYE BID Dry Eye #1 Ref 0 BOX Fluticasone-Salmeterol Inh (Advair Diskus Inh) 500-50 Mcg/Blist Aer 1 PUFF INH BID Rinse mouth after use. #1 Ref 0 INHALER Furosemide (Furosemide) 40 Mg Tab 40 MG PO DAILY card #30 TAB Hydrocodone-Acetaminophen (Hydrocodone-Acetaminophen) 5-325 mg Tab 1 TAB PO Q4H PRN PAIN Ref 0 TAB Lisinopril (Lisinopril) 10 Mg Tab 10 MG PO DAILY htn #30 TAB Nitrofurantoin Monohydrate Macrocrystals (Macrobid) 100 Mg Cap 100 MG PO HS Infection Ref 0 CAP Omeprazole (Omeprazole) 10 Mg Cap 15 MG PO DAILY #30 Ref 0 CAP Probiotic Product (Acidophilus) 1 Chew Sucralfate (Carafate) 1 Gm Tab 500 MG PO TID On empty stomach Ulcer Prevention #120 Ref 0 TAB Tiotropium Inh (Spiriva Handihaler) 18 Mcg Cap 18 MCG INH BID copd #1 CAP Discontinued Medications: Lansoprazole (Lansoprazole) 15 Mg Capdr 15 MG PO BID Ref 0 CAP Martín Moore MD October 03, 2016 08:57
--- NOTE | 2016-10-03 08:57 | HHI.DCPOC ---
Discharge Care Plan Diagnosis: (1) Pacemaker displacement Your Health Problems Are: Chest Pain Goals to Promote Your Health * To prevent worsening of your condition and complications * To maintain your health at the optimal level Directions to Meet Your Goals Take your medications as prescribed Follow your dietary instruction Follow activity as directed Keep your appointments as scheduled Take your immunizations and boosters as scheduled If your symptoms worsen call your PCP, if no PCP go to Urgent Care Center or Emergency Room Smoking is Dangerous to Your Health. Avoid second hand smoke Call the 24-hour hour crisis hotline for domestic abuse at Martín Moore MD October 03, 2016 08:57
== END 2016-10-03 13:40 | disposition home or self-care (01) ==
LOC: NEPC 01:37 → NEDA 03:02 → HCIS 05:25
PROVIDERS: ADMIT Internal Medicine; ATTEND Internal Medicine
DX: T82.121A Displacement of cardiac pulse generator (battery), initial encounter (principal); J44.9 Chronic obstructive pulmonary disease, unspecified; J96.10 Chronic respiratory failure, unspecified whether with hypoxia or hypercapnia; I13.0 Hypertensive heart and chronic kidney disease with heart failure and stage 1 through stage 4 chronic kidney disease, or unspecified chronic kidney disease; N18.9 Chronic kidney disease, unspecified; I50.9 Heart failure, unspecified; R12 Heartburn; R11.0 Nausea; Y83.1 Surgical operation with implant of artificial internal device as the cause of abnormal reaction of the patient, or of later complication, without mention of misadventure at the time of the procedure; I42.9 Cardiomyopathy, unspecified; I25.10 Atherosclerotic heart disease of native coronary artery without angina pectoris; Z86.73 Personal history of transient ischemic attack (TIA), and cerebral infarction without residual deficits; Z88.5 Allergy status to narcotic agent; Z88.8 Allergy status to other drugs, medicaments and biological substances; Z88.6 Allergy status to analgesic agent; Z91.041 Radiographic dye allergy status; Z96.659 Presence of unspecified artificial knee joint
CPT/HCPCS: 71010; 80048; 80053; 83735; 85025; 85610; 85730; 93005; 96374; 96375; 96376; 99285; C9113; G0378; J1170; J2405

== ENCOUNTER → 2017-01-01 | Outpatient (CLI) | payer MEDICARE, OTHER ==
[~2017-01-01] MED LIST changes: -LANS15CA PO
[2017-01-01 13:21] LABS: BICARBONATE 26.7 MEQ/L (21.0-32.0); POTASSIUM 4.8 MEQ/L (3.5-5.1)
== END ==
LOC: CLAB 12:43
PROVIDERS: ATTEND Internal Medicine Interventional Cardiology
DX: R60.9 Edema, unspecified (principal); I50.9 Heart failure, unspecified; I10 Essential (primary) hypertension; Z79.899 Other long term (current) drug therapy
CPT/HCPCS: 36415; 80048

== ENCOUNTER → 2017-01-09 | Outpatient (CLI) | payer MEDICARE, OTHER ==
[2017-01-09 12:05] LABS: BICARBONATE 28.6 MEQ/L (21.0-32.0); POTASSIUM 4.7 MEQ/L (3.5-5.1)
== END ==
LOC: CLAB 11:06
PROVIDERS: ATTEND Internal Medicine Interventional Cardiology
DX: R60.9 Edema, unspecified (principal)
CPT/HCPCS: 36415; 80048

== ENCOUNTER → 2017-01-16 | Outpatient (CLI) | payer MEDICARE, OTHER ==
[2017-01-16 11:51] LABS: BICARBONATE 27.7 MEQ/L (21.0-32.0); POTASSIUM 4.6 MEQ/L (3.5-5.1)
== END ==
LOC: CLAB 10:44
PROVIDERS: ATTEND Internal Medicine Interventional Cardiology
DX: I50.9 Heart failure, unspecified (principal)
CPT/HCPCS: 36415; 80048

== ENCOUNTER → 2017-02-01 | Outpatient (CLI) | payer MEDICARE, OTHER ==
[2017-02-01 13:20] LABS: BASOPHIL # 0.1 TH/MM3 (0-0.2); BASOPHIL % 0.7 % (0.0-2.0); EOSINOPHIL % 0.5 % (0.0-4.0); HEMATOCRIT 36.9 % (35.0-46.0); HEMO FLAGS DIFF FINAL; LYMPH % 23.9 % (9.0-44.0); LYMPHOCYTE # 1.8 TH/MM3 (1.0-4.8); MEAN CORPUSCULAR HEMOGLOBIN 30.4 PG (27.0-34.0); MEAN CORPUSCULAR HGB CONC 33.4 % (32.0-36.0); MONO % 9.6 % (0.0-8.0); NEUT % 65.3 % (16.0-70.0); PLATELET COUNT 205 TH/MM3 (150-450); RED BLOOD COUNT 4.05 MIL/MM3 (4.00-5.30); RED CELL DISTRIBUTION WIDTH 15.2 % (11.6-17.2); WHITE BLOOD COUNT 7.6 TH/MM3 (4.0-11.0)
[2017-02-01 13:23] LABS: BICARBONATE 27.9 MEQ/L (21.0-32.0); POTASSIUM 4.6 MEQ/L (3.5-5.1)
== END ==
LOC: CLAB 12:22
PROVIDERS: ATTEND Internal Medicine Interventional Cardiology
DX: I50.9 Heart failure, unspecified (principal); I12.9 Hypertensive chronic kidney disease with stage 1 through stage 4 chronic kidney disease, or unspecified chronic kidney disease; N18.9 Chronic kidney disease, unspecified; Z79.899 Other long term (current) drug therapy
CPT/HCPCS: 36415; 80069; 85025

== ENCOUNTER → 2017-02-05 | Outpatient (CLI) | payer MEDICARE, OTHER ==
[2017-02-05 08:59] LABS: ANION GAP 5 MEQ/L (5-15); AST (GOT) 19 U/L (15-37); BICARBONATE 27.4 MEQ/L (21.0-32.0); BLOOD UREA NITROGEN 23 MG/DL (7-18); CHLORIDE 109 MEQ/L (98-107); GLOMERULAR FILTRATION RATE 42 ML/MIN (>89); GLUCOSE,FASTING 93 MG/DL (74-99); POTASSIUM 4.5 MEQ/L (3.5-5.1); SODIUM (NA) 141 MEQ/L (136-145)
[2017-02-05 09:00] LABS: ALT (GPT) 21 U/L (10-53)
[2017-02-05 09:03] LABS: ALKALINE PHOSPHATASE 109 U/L (45-117); HDL CHOLESTEROL 48.3 MG/DL (40.0-60.0); LDL CHOLESTEROL 118 MG/DL (0-99); TOTAL BILIRUBIN ADULT 0.4 MG/DL (0.2-1.0)
== END ==
LOC: CLAB 08:07
PROVIDERS: ATTEND Family Medicine
DX: I50.9 Heart failure, unspecified (principal); N18.3 Chronic kidney disease, stage 3 (moderate); E78.5 Hyperlipidemia, unspecified; I30.0 Acute nonspecific idiopathic pericarditis; Z11.59 Encounter for screening for other viral diseases
CPT/HCPCS: 36415; 80053; 80061; 86803

== ENCOUNTER 2017-06-11 10:52 | Inpatient (IN) | payer MEDICARE, OTHER ==
[~2017-06-11] VITALS: Ht 168.9 cm; Wt 90.9 kg
[2017-06-11 10:59] VITALS: BP 96/54; PULSE 91; RESP 24; TEMP 98.4; O2SAT 94
[2017-06-11] MEDS ORDERED: PROMETHAZINE INJ 25 MG/ML VIAL IM ONE (11:30)
[2017-06-11] MEDS ORDERED: guaiFENesin SOLUTION 200 MG/10 ML CUP PO ONE (11:30)
[2017-06-11] MEDS ORDERED: SODIUM CHLOR 0.9% 1000 ML INJ 1,000 ML IV ONE (11:30)
--- NOTE | 2017-06-11 11:58 | RADRPT ---
EXAM DATE/TIME: 06/11/2017 11:40 [facility] COMPARISON: CHEST SINGLE AP, October 02, 2016, 2:04. CHEST PA & LAT, October 08, 2015, 11:09. INDICATIONS : Cough, nausea, vomiting x9 days. MEDICAL HISTORY : Myocardial infarction. SURGICAL HISTORY : Pacemaker. ENCOUNTER: Initial ACUITY: 2 weeks PAIN SCORE: 0/10 LOCATION: Bilateral chest FINDINGS: Stable dual-lead pacemaker. Mild diffuse interstitial prominence, most prominently in the left lower lung zone. No new focal pleural or parenchymal opacities. Cardiomediastinal contours are stable. Crystal mary jo of the exam is unchanged. CONCLUSION: 1. No acute abnormality or significant interval change. Bernardino Dias MD on June 11, 2017 at 11:54 Board Certified Radiologist. This report was verified electronically.
[2017-06-11 12:42] VITALS: BP 93/50; PULSE 78; RESP 20; TEMP 97.9; O2SAT 95
[2017-06-11 12:42] LABS: AUTOMATED NEUTROPHIL # 10.7 TH/MM3 (1.8-7.7); BASOPHIL # 0.1 TH/MM3 (0-0.2); BASOPHIL % 0.6 % (0.0-2.0); EOSINOPHIL % 0.2 % (0.0-4.0); HEMATOCRIT 33.1 % (35.0-46.0); HEMOGLOBIN 10.9 GM/DL (11.6-15.3); LYMPH % 12.2 % (9.0-44.0); LYMPHOCYTE # 1.7 TH/MM3 (1.0-4.8); MEAN CELL VOLUME 89.2 FL (80.0-100.0); MEAN CORPUSCULAR HEMOGLOBIN 29.5 PG (27.0-34.0); MEAN PLATELET VOLUME 10.6 FL (7.0-11.0); MONO % 9.9 % (0.0-8.0); MONOCYTE # 1.4 TH/MM3 (0-0.9); NEUT % 77.1 % (16.0-70.0); PLATELET COUNT 257 TH/MM3 (150-450); RED BLOOD COUNT 3.71 MIL/MM3 (4.00-5.30); RED CELL DISTRIBUTION WIDTH 13.9 % (11.6-17.2); WHITE BLOOD COUNT 13.8 TH/MM3 (4.0-11.0)
[2017-06-11 13:05] LABS: AST (GOT) 24 U/L (15-37); BICARBONATE 26.1 MEQ/L (21.0-32.0); BLOOD UREA NITROGEN 14 MG/DL (7-18); CALCIUM 9.1 MG/DL (8.5-10.1); CHLORIDE 102 MEQ/L (98-107); CREATININE 1.52 MG/DL (0.50-1.00); GLOMERULAR FILTRATION RATE 34 ML/MIN (>89); GLUCOSE,RANDOM 94 MG/DL (74-106); SODIUM (NA) 136 MEQ/L (136-145)
[2017-06-11 13:19] LABS: ALKALINE PHOSPHATASE 122 U/L (45-117); ALT (GPT) 18 U/L (10-53); TOTAL BILIRUBIN ADULT 0.7 MG/DL (0.2-1.0); TOTAL PROTEIN 8.3 GM/DL (6.4-8.2)
--- NOTE | 2017-06-11 13:28 | PD ---
HPI Chief Complaint: Cold / Flu Symptoms Time Seen by Provider: 11:19 Travel History International Travel<30 days: No Contact w/Intl Traveler<30days: No Traveled to known affect area: No History of Present Illness HPI Patient is a 71-year-old female who comes in complaining of cough, fever, shortness of breath. She says this has been going on for over a week, it started about 8 days ago. She says she has had some nausea and vomiting. The vomiting mostly is of mucus after she is coughing. Her last fever was this morning around 8 AM, her temperature was 101.4. She did take 2 Tylenol prior to coming in. She went to see her primary care physician on and tested positive for the flu. She was told that if she did not start to get better, she should come to the emergency department. She says that she seems to be feeling worse, and is worried that she continues to run a fever. She has COPD and is often prone to pneumonia. PFSH Past Medical History Arthritis: Yes Asthma: Yes Heart Rhythm Problems: Yes (IRREGULAR W/ PACER) Cancer: No Cardiac Catheterization: Yes (2001) Cardiomyopathy: Yes Cardiovascular Problems: Yes (CHF, CARDIOMYOPATHY ) High Cholesterol: No Congestive Heart Failure: Yes COPD: Yes Cerebrovascular Accident: Yes (TIA) Coronary Artery Disease: Yes Diabetes: No Diminished Hearing: No Gastrointestinal Disorders: Yes GERD: Yes Genitourinary: Yes (chronic uti) Hypertension: Yes Immune Disorder: No Implanted Vascular Access Dvce: Yes Musculoskeletal: Yes (sciatica) Neurologic: Yes (VERTIGO) Psychiatric: No Reproductive: No Respiratory: Yes (bronchitis) Pneumonia: Yes Tetanus Vaccination: Unknown Influenza Vaccination: No Menopausal: Yes : 9 Para: 8 Miscarriage: 1 : 0 Tubal Ligation: Yes Past Surgical History Appendectomy: Yes Cardiac Surgery: Yes (AICD [employer] MODEL 4543 S/N [id number] ) Coronary Artery Bypass Graft: No Pacemaker: Yes (defibrillator [employer] scientific [employer]) Tonsillectomy: Yes Other Surgery: Yes Social History Alcohol Use: No Tobacco Use: No (quit 2002) Substance Use: No Allergies-Medications (Allergen,Severity, Reaction): Coded Allergies: amoxicillin (Unverified Allergy, Severe, Diarrhea, 06/11/17) cefuroxime (Unverified Allergy, Severe, rash, 06/11/17) ciprofloxacin (Unverified Allergy, Severe, Nausea/Vomiting, 06/11/17) clavulanic acid (Unverified Allergy, Severe, Diarrhea, 06/11/17) codeine (Unverified Allergy, Severe, Nausea/Vomiting, 06/11/17) gatifloxacin (Unverified Allergy, Severe, Confusion, 06/11/17) piroxicam (Unverified Allergy, Severe, Hives, 06/11/17) aspirin (Unverified Allergy, Intermediate, Hives, 06/11/17) atorvastatin (Unverified Allergy, Intermediate, FLANK PAIN, 06/11/17) morphine (Unverified Allergy, Intermediate, sweats, 06/11/17) diatrizoate meglumine (Unverified Allergy, Unknown, Anaphylaxis, 06/11/17) gadobenic acid (Unverified Allergy, Unknown, Anaphylaxis, 06/11/17) gadodiamide (Unverified Allergy, Unknown, Anaphylaxis, 06/11/17) gadoteridol (Unverified Allergy, Unknown, Anaphylaxis, 06/11/17) iodixanol (Unverified Allergy, Unknown, Anaphylaxis, 06/11/17) iohexol (Unverified Allergy, Unknown, Anaphylaxis, 06/11/17) gentamicin (Unverified Adverse Reaction, Intermediate, DIARRHEA, 06/11/17) Reported Meds & Prescriptions Reported Meds & Active Scripts Active Spiriva Handihaler (Tiotropium Inh) 18 Mcg Cap 18 Mcg INH BID Lisinopril 10 Mg Tab 10 Mg PO DAILY Furosemide 40 Mg Tab 40 Mg PO DAILY Coreg (Carvedilol) 6.25 Mg Tab 6.25 Mg PO Q12HR Zovirax Topical (Acyclovir) 5% Cream 1 Applic TOPICAL 5 TIMES A DAY PRN Reported Omeprazole 10 Mg Cap 15 Mg PO DAILY Acidophilus (Probiotic Product) 1 Chew Calcium 600 (Calcium Carbonate) 1,500 Mg Tab 1,500 Mg PO Restasis Opth (Cyclosporine Opth) 0.05% Emul 1 Drop EACH EYE BID Hydrocodone-Acetaminophen 5-325 mg Tab 1 Tab PO Q4H PRN Macrobid (Nitrofurantoin Monoh/Nitrofur Macro) 100 Mg Cap 100 Mg PO HS Advair Diskus Inh (Fluticasone-Salmeterol Inh) 500-50 Mcg/Blist Aer 1 Puff INH BID Rinse mouth after use. Review of Systems Except as stated in HPI: all other systems reviewed are Neg General / Constitutional: Positive: Fever, Chills HENT: No: Headaches, Lightheadedness Cardiovascular: No: Chest Pain or Discomfort Respiratory: Positive: Cough, Shortness of Breath Gastrointestinal: Positive: Nausea, Vomiting Genitourinary: No: Dysuria Musculoskeletal: Positive: Myalgias Skin: No Rash, No Change in Pigmentation Neurologic: No: Weakness, Dizziness Physical Exam Narrative GENERAL: Awake and alert, no acute distress. SKIN: Focused skin assessment warm/dry. No wounds or signs of infection. HEAD: Atraumatic. Normocephalic. EYES: Pupils equal and round. No scleral icterus. ENT: Mucous membranes pink and moist. NECK: Trachea midline. No JVD. CARDIOVASCULAR: Regular rate and rhythm. No murmur appreciated. RESPIRATORY: No accessory muscle use. Clear to auscultation. Breath sounds equal bilaterally. GASTROINTESTINAL: Abdomen soft, non-tender, nondistended. MUSCULOSKELETAL: No obvious deformities. No clubbing. No cyanosis. No edema. NEUROLOGICAL: Awake and alert. No obvious cranial nerve deficits. Motor grossly within normal limits. Normal speech. PSYCHIATRIC: Appropriate mood and affect; insight and judgment normal. Data Data Last Documented VS Vital Signs Date Time Temp Pulse Resp B/P (MAP) Pulse Ox O2 Delivery O2 Flow Rate FiO2 06/11/17 12:42 97.9 78 20 93/50 (64) 95 Room Air Orders Orders Iv Access Insert/Monitor (06/11/17 11:30) Complete Blood Count With Diff (06/11/17 11:30) Comprehensive Metabolic Panel (06/11/17 11:30) Chest, Pa & Lat (06/11/17 ) Lactic Acid (06/11/17 11:30) Sodium Chlor 0.9% 1000 Ml Inj (Ns 1000 M (06/11/17 11:30) Guaifenesin Liq (Robitussin Liq) (06/11/17 11:30) Promethazine Inj (Phenergan Inj) (06/11/17 11:30) Azithromycin Inj (Zithromax Inj) (06/11/17 13:30) Aztreonam Inj (Azactam Inj) (06/11/17 13:30) Admit Order (Ed Use Only) (06/11/17 ) Labs Laboratory Tests Test 06/11/17 12:10 White Blood Count 13.8 TH/MM3 Red Blood Count 3.71 MIL/MM3 Hemoglobin 10.9 GM/DL Hematocrit 33.1 % Mean Corpuscular Volume 89.2 FL Mean Corpuscular Hemoglobin 29.5 PG Mean Corpuscular Hemoglobin Concent 33.0 % Red Cell Distribution Width 13.9 % Platelet Count 257 TH/MM3 Mean Platelet Volume 10.6 FL Neutrophils (%) (Auto) 77.1 % Lymphocytes (%) (Auto) 12.2 % Monocytes (%) (Auto) 9.9 % Eosinophils (%) (Auto) 0.2 % Basophils (%) (Auto) 0.6 % Neutrophils # (Auto) 10.7 TH/MM3 Lymphocytes # (Auto) 1.7 TH/MM3 Monocytes # (Auto) 1.4 TH/MM3 Eosinophils # (Auto) 0.0 TH/MM3 Basophils # (Auto) 0.1 TH/MM3 CBC Comment DIFF FINAL Differential Comment Blood Urea Nitrogen 14 MG/DL Creatinine 1.52 MG/DL Random Glucose 94 MG/DL Total Protein 8.3 GM/DL Albumin 3.0 GM/DL Calcium Level 9.1 MG/DL Alkaline Phosphatase 122 U/L Aspartate Amino Transf (AST/SGOT) 24 U/L Alanine Aminotransferase (ALT/SGPT) 18 U/L Total Bilirubin 0.7 MG/DL Sodium Level 136 MEQ/L Potassium Level 4.7 MEQ/L Chloride Level 102 MEQ/L Carbon Dioxide Level 26.1 MEQ/L Anion Gap 8 MEQ/L Estimat Glomerular Filtration Rate 34 ML/MIN Lactic Acid Level 1.3 mmol/L [facility] Medical Decision Making Medical Screen Exam Complete: Yes Emergency Medical Condition: Yes Medical Record Reviewed: Yes Differential Diagnosis Influenza versus pneumonia versus Narrative Course Patient is a 71-year-old female comes in complaining of cough and flulike symptoms for the past 8 days. Established, labs sent. Patient given a DuoNeb. X-rays concerning for viral pneumonia. She will be covered with antibiotics due to history of 8 days of illness. Based on her Diagnosis Primary Impression: Influenza Additional Impressions: Pneumonia Qualified Codes: J18.9 - Pneumonia, unspecified organism COPD (chronic obstructive pulmonary disease) Qualified Codes: J44.1 - Chronic obstructive pulmonary disease with (acute) exacerbation Admitting Information Admitting Physician Requests: Admit Madai Kim MD Jun 11, 2017 13:28
[2017-06-11] MEDS ORDERED: AZITHROMYCIN INJ 500 MG in SODIUM CHLOR 0.9% 250 ML INJ 250 ML IV ONE (13:30)
[2017-06-11] MEDS ORDERED: AZTREONAM INJ 1,000 MG in SODIUM CHLORIDE 0.9% INJ 100 ML IV ONE (13:30)
[2017-06-11 14:43] VITALS: BP 119/58; PULSE 86; RESP 20; O2SAT 95
[2017-06-11 17:08] VITALS: BP 129/60; PULSE 93; RESP 16; TEMP 99.6; O2SAT 96
[2017-06-11] MEDS ORDERED: ACETAMINOPHEN 325 MG TAB PO PRN ×2 (17:15)
[2017-06-11] MEDS ORDERED: SENNOSIDES 8.6 MG TAB PO PRN (17:15)
[2017-06-11] MEDS ORDERED: NALOXONE HCL 0.4 MG/ML AMP IV PUSH PRN (17:15)
[2017-06-11] MEDS ORDERED: oxyCODONE/ACETAMINOPHEN 5 MG/325 MG TAB PO PRN (17:15)
[2017-06-11] MEDS ORDERED: BISACODYL 10 MG SUPP RECTAL PRN (17:15)
[2017-06-11] MEDS ORDERED: METOCLOPRAMIDE HCL 10 MG/2 ML VIAL IV PUSH PRN (17:15)
[2017-06-11] MEDS ORDERED: SODIUM CHLORIDE 0.9% FLUSH 10 ML FLUSH IV FLUSH PRN ×2 (17:15)
[2017-06-11] MEDS ORDERED: RESP: ALBUTEROL 2.5 MG/IPRATROPIUM 0.5 MG NEB (PRN) INH (17:15)
[2017-06-11] MEDS ORDERED: MAGNESIUM HYDROXIDE SUSP 30 ML CUP PO PRN (17:15)
[2017-06-11] MEDS ORDERED: LACTULOSE SYRUP 20 GM/30 ML CUP PO PRN (17:15)
[2017-06-11] MEDS ORDERED: ONDANSETRON HCL 4 MG/2 ML VIAL IVP PRN (17:15)
[2017-06-11] MEDS ORDERED: ACYCLOVIR 5% CREAM 5 GM TUBE TOPICAL PRN (17:30)
--- NOTE | 2017-06-11 17:36 | HHI.HP ---
[facility] Fabrice Pagan MD Admission Diagnosis pneumonia, influenza Diagnoses: Chief Complaint: Cold and flu symptoms Travel History International Travel<30 Days: No Contact w/Intl Traveler <30 Da: No Traveled to Known Affected Are: No History of Present Illness Patient is a 71-year-old female. He came into the hospital complaining of worsening cough, fever, and shortness of breath. She has been having this going on for at least a week probably been going on for at least 8 days. Has had some nausea and vomiting, on and off. She's been vomiting up some mucus after coughing. Questionable sputum instead of actual vomitus. Had fevers this morning temperature was 101.4 had some Tylenol prior to coming here. Saw her primary care physician last week tested positive for flu. Patient was told that she did not improve she should come to the emergency department which she did today. Patient states she is feeling worse has history of COPD. History of congestive heart failure Patient has failed outpatient therapy Will be started on Tamiflu and antibiotics Review of Systems Constitutional: COMPLAINS OF: Fatigue, Fever, Chills, DENIES: Diaphoretic episodes, Weight gain, Weight loss, Dizziness, Change in appetite Endocrine: DENIES: Abnorml menstrual pattern, Heat/cold intolerance, Polydipsia , Polyuria, Polyphagia Eyes: DENIES: Blurred vision, Diplopia, Eye inflammation, Eye pain, Vision loss , Photosensitivity Ears, nose, mouth, throat: DENIES: Tinnitus, Hearing loss, Vertigo, Nasal discharge, Oral lesions, Throat pain, Hoarseness Respiratory: COMPLAINS OF: Cough, Sputum production, Shortness of breath, DENIES: Apneas, Snoring, Wheezing, Hemoptysis Cardiovascular: COMPLAINS OF: Chest pain, DENIES: Palpitations, Syncope, Dyspnea on Exertion, PND, Lower Extremity Edema, Orthopnea Gastrointestinal: DENIES: Abdominal pain, Black stools, Bloody stools, Constipation, Diarrhea, Nausea, Vomiting, Difficulty Swallowing Genitourinary: DENIES: Abnormal vaginal bleeding, Dysmenorrhea, Dyspareunia, Sexual dysfunction, Urinary frequency, Urinary incontinence Musculoskeletal: DENIES: Joint pain, Muscle aches, Stiffness, Joint Swelling, Back pain, Neck pain Integumentary: DENIES: Abnormal pigmentation, Pruritus, Rash, Nail changes, Breast masses, Breast skin changes Hematologic/lymphatic: DENIES: Bruising, Lymphadenopathy Immunologic/allergic: DENIES: Eczema, Urticaria Neurologic: DENIES: Abnormal gait, Headache, Localized weakness, Paresthesias, Seizures, Speech Problems, Tremor, Poor Balance Psychiatric: DENIES: Anxiety, Confusion, Mood changes, Depression, Hallucinations, Agitation, Suicidal Ideation, Homicidal Ideation, Delusions Except as stated in HPI: all other systems reviewed are Neg Past Family Social History Past Medical History Congestive heart failure Cardiomyopathy Chronic irregular rate and pacemaker Osteoarthritis Asthma COPD History of TIA Coronary artery disease GERD Chronic UTI Hypertension History of sciatica Vertigo Chronic bronchitis History of pneumonia Past Surgical History Appendectomy AICD [employer] model 4543 serial #[id number] Tonsillectomy Reported Medications Reported Meds & Active Scripts Active Spiriva Handihaler (Tiotropium Inh) 18 Mcg Cap 18 Mcg INH BID Lisinopril 10 Mg Tab 10 Mg PO DAILY Furosemide 40 Mg Tab 40 Mg PO DAILY Coreg (Carvedilol) 6.25 Mg Tab 6.25 Mg PO Q12HR Zovirax Topical (Acyclovir) 5% Cream 1 Applic TOPICAL 5 TIMES A DAY PRN Reported Omeprazole 10 Mg Cap 15 Mg PO DAILY Acidophilus (Probiotic Product) 1 Chew Calcium 600 (Calcium Carbonate) 1,500 Mg Tab 1,500 Mg PO Restasis Opth (Cyclosporine Opth) 0.05% Emul 1 Drop EACH EYE BID Hydrocodone-Acetaminophen 5-325 mg Tab 1 Tab PO Q4H PRN Macrobid (Nitrofurantoin Monoh/Nitrofur Macro) 100 Mg Cap 100 Mg PO HS Advair Diskus Inh (Fluticasone-Salmeterol Inh) 500-50 Mcg/Blist Aer 1 Puff INH BID Rinse mouth after use. Allergies: Coded Allergies: amoxicillin (Unverified Allergy, Severe, Diarrhea, 06/11/17) cefuroxime (Unverified Allergy, Severe, rash, 06/11/17) ciprofloxacin (Unverified Allergy, Severe, Nausea/Vomiting, 06/11/17) clavulanic acid (Unverified Allergy, Severe, Diarrhea, 06/11/17) codeine (Unverified Allergy, Severe, Nausea/Vomiting, 06/11/17) gatifloxacin (Unverified Allergy, Severe, Confusion, 06/11/17) piroxicam (Unverified Allergy, Severe, Hives, 06/11/17) aspirin (Unverified Allergy, Intermediate, Hives, 06/11/17) atorvastatin (Unverified Allergy, Intermediate, FLANK PAIN, 06/11/17) morphine (Unverified Allergy, Intermediate, sweats, 06/11/17) diatrizoate meglumine (Unverified Allergy, Unknown, Anaphylaxis, 06/11/17) gadobenic acid (Unverified Allergy, Unknown, Anaphylaxis, 06/11/17) gadodiamide (Unverified Allergy, Unknown, Anaphylaxis, 06/11/17) gadoteridol (Unverified Allergy, Unknown, Anaphylaxis, 06/11/17) iodixanol (Unverified Allergy, Unknown, Anaphylaxis, 06/11/17) iohexol (Unverified Allergy, Unknown, Anaphylaxis, 06/11/17) gentamicin (Unverified Adverse Reaction, Intermediate, DIARRHEA, 06/11/17) Active Ordered Medications Laboratory Tests Test 06/11/17 12:10 White Blood Count 13.8 TH/MM3 Red Blood Count 3.71 MIL/MM3 Hemoglobin 10.9 GM/DL Hematocrit 33.1 % Mean Corpuscular Volume 89.2 FL Mean Corpuscular Hemoglobin 29.5 PG Mean Corpuscular Hemoglobin Concent 33.0 % Red Cell Distribution Width 13.9 % Platelet Count 257 TH/MM3 Mean Platelet Volume 10.6 FL Neutrophils (%) (Auto) 77.1 % Lymphocytes (%) (Auto) 12.2 % Monocytes (%) (Auto) 9.9 % Eosinophils (%) (Auto) 0.2 % Basophils (%) (Auto) 0.6 % Neutrophils # (Auto) 10.7 TH/MM3 Lymphocytes # (Auto) 1.7 TH/MM3 Monocytes # (Auto) 1.4 TH/MM3 Eosinophils # (Auto) 0.0 TH/MM3 Basophils # (Auto) 0.1 TH/MM3 CBC Comment DIFF FINAL Differential Comment Blood Urea Nitrogen 14 MG/DL Creatinine 1.52 MG/DL Random Glucose 94 MG/DL Total Protein 8.3 GM/DL Albumin 3.0 GM/DL Calcium Level 9.1 MG/DL Alkaline Phosphatase 122 U/L Aspartate Amino Transf (AST/SGOT) 24 U/L Alanine Aminotransferase (ALT/SGPT) 18 U/L Total Bilirubin 0.7 MG/DL Sodium Level 136 MEQ/L Potassium Level 4.7 MEQ/L Chloride Level 102 MEQ/L Carbon Dioxide Level 26.1 MEQ/L Anion Gap 8 MEQ/L Estimat Glomerular Filtration Rate 34 ML/MIN Lactic Acid Level 1.3 mmol/L Family History Denies any coronary artery disease or diabetes in the family Social History Denies any tobacco alcohol or illicit drug use Physical Exam Vital Signs Vital Signs Date Time Temp Pulse Resp B/P (MAP) Pulse Ox O2 Delivery O2 Flow Rate FiO2 06/11/17 17:08 99.6 93 16 129/60 (83) 96 Room Air 06/11/17 14:43 86 20 119/58 (78) 95 Room Air 06/11/17 12:42 97.9 78 20 93/50 (64) 95 Room Air 06/11/17 10:59 98.4 91 24 96/54 (68) 94 Room Air Physical Exam GENERAL: This is a well-nourished, well-developed patient, in mild distress. SKIN: No rashes, ecchymoses or lesions. Cool and dry. HEAD: Atraumatic. Normocephalic. No temporal or scalp tenderness. EYES: Pupils equal round and reactive. Extraocular motions intact. No scleral icterus. No injection or drainage. ENT: Nose without bleeding, purulent drainage or septal hematoma. Throat without erythema, tonsillar hypertrophy or exudate. Uvula midline. Airway patent. NECK: Trachea midline. No JVD or lymphadenopathy. Supple, nontender, no meningeal signs. CARDIOVASCULAR: Regular rate and rhythm without murmurs, gallops, or rubs. S1 and S2 no S3 or S4 RESPIRATORY: Clear to auscultation. Breath sounds equal bilaterally. Few scattered rhonchi bilaterally GASTROINTESTINAL: Abdomen soft, non-tender, nondistended. No hepato-splenomegaly , or palpable masses. No guarding. MUSCULOSKELETAL: Extremities without clubbing, cyanosis, or edema. No joint tenderness, effusion, or edema noted. No calf tenderness. Negative Homans sign bilaterally. NEUROLOGICAL: Awake and alert. Cranial nerves II through XII intact. Motor and sensory grossly within normal limits. 4 out of 5 muscle strength in all muscle groups. Normal speech. Insight and judgment is good Mood and behaviors appropriate Laboratory Laboratory Tests Test 06/11/17 12:10 White Blood Count 13.8 Red Blood Count 3.71 Hemoglobin 10.9 Hematocrit 33.1 Mean Corpuscular Volume 89.2 Mean Corpuscular Hemoglobin 29.5 Mean Corpuscular Hemoglobin Concent 33.0 Red Cell Distribution Width 13.9 Platelet Count 257 Mean Platelet Volume 10.6 Neutrophils (%) (Auto) 77.1 Lymphocytes (%) (Auto) 12.2 Monocytes (%) (Auto) 9.9 Eosinophils (%) (Auto) 0.2 Basophils (%) (Auto) 0.6 Neutrophils # (Auto) 10.7 Lymphocytes # (Auto) 1.7 Monocytes # (Auto) 1.4 Eosinophils # (Auto) 0.0 Basophils # (Auto) 0.1 CBC Comment DIFF FINAL Differential Comment Blood Urea Nitrogen 14 Creatinine 1.52 Random Glucose 94 Total Protein 8.3 Albumin 3.0 Calcium Level 9.1 Alkaline Phosphatase 122 Aspartate Amino Transf (AST/SGOT) 24 Alanine Aminotransferase (ALT/SGPT) 18 Total Bilirubin 0.7 Sodium Level 136 Potassium Level 4.7 Chloride Level 102 Carbon Dioxide Level 26.1 Anion Gap 8 Estimat Glomerular Filtration Rate 34 Lactic Acid Level 1.3 Result Diagram: 06/11/17 1210 06/11/17 1210 Imaging Last Impressions Chest X-Ray 06/11/17 0000 Signed Impressions: Service Date/Time: Sunday, June 11, 2017 11:40 - CONCLUSION: 1. No acute abnormality or significant interval change. MD Lali Ribeiroi VTE Risk Assessment Caprini VTE Risk Assessment: Mod/High Risk (score >= 2) Caprini Risk Assessment Model Point Value = 1 Point Value = 2 Point Value = 3 Point Value = 5 Age 41-60 Minor surgery BMI > 25 kg/m2 Swollen legs Varicose veins or History of unexplained or recurrent spontaneous Oral contraceptives or hormone replacement Sepsis (< 1 month) Serious lung disease, including pneumonia (< 1 month) Abnormal pulmonary function Acute myocardial infarction Congestive heart failure (< 1 month) History of inflammatory bowel disease Medical patient at bed rest Age 61-74 Arthroscopic surgery Major open surgery (> 45 min) Laparoscopic surgery (> 45 min) Malignancy Confined to bed (> 72 hours) Immobilizing plaster cast Central venous access Age >= 75 History of VTE Family history of VTE Factor V Leiden Prothrombin [id number] Lupus anticoagulant Anticardiolipin antibodies Elevated serum homocysteine Heparin-induced thrombocytopenia Other congenital or acquired thrombophilia Stroke (< 1 month) Elective arthroplasty Hip, pelvis, or leg fracture Acute spinal cord injury (< 1 month) Prophylaxis Regimen Total Risk Factor Score Risk Level Prophylaxis Regimen 0-1 Low Early ambulation 2 Moderate Order ONE of the following: *Sequential Compression Device (SCD) *Heparin 5000 units SQ BID 3-4 Higher Order ONE of the following medications: *Heparin 5000 units SQ TID *Enoxaparin/Lovenox 40 mg SQ daily (WT < 150 kg, CrCl > 30 mL/min) *Enoxaparin/Lovenox 30 mg SQ daily (WT < 150 kg, CrCl > 10-29 mL/min) *Enoxaparin/Lovenox 30 mg SQ BID (WT < 150 kg, CrCl > 30 mL/min) AND/OR *Sequential Compression Device (SCD) 5 or more Highest Order ONE of the following medications: *Heparin 5000 units SQ TID (Preferred with Epidurals) *Enoxaparin/Lovenox 40 mg SQ daily (WT < 150 kg, CrCl > 30 mL/min) *Enoxaparin/Lovenox 30 mg SQ daily (WT < 150 kg, CrCl > 10-29 mL/min) *Enoxaparin/Lovenox 30 mg SQ BID (WT < 150 kg, CrCl > 30 mL/min) AND *Sequential Compression Device (SCD) Assessment and Plan Assessment and Plan Influenza with failed outpatient therapy continue on Tamiflu twice a day Pneumonia continue on azithromycin and aztreonam due to multiple allergies Mucinex duo nebs and incentive spirometry home inhalers Fevers antiemetics Congestive heart failure hold off on aggressive fluid rehydration -resume home medications Hypertension resume home medications Hyperlipidemia home medications Chronic UTI hold her home medications Physical therapy and occupational therapy Case management for consult GI and DVT prophylaxis see orders Code Status Full code Discussed Condition With RN and patient and emergency room physician Physician Certification 2 Midnight Certification Type: Admission for Inpatient Services Order for Inpatient Services The services are ordered in accordance with Medicare regulations or non- Medicare payer requirements, as applicable. In the case of services not specified as inpatient-only, they are appropriately provided as inpatient services in accordance with the 2-midnight benchmark. Estimated LOS (days): 2 days is the estimated time the patient will need to remain in the hospital, assuming treatment plan goals are met and no additional complications. Post-Hospital Plan: Not yet determined Montez Blount DO Jun 11, 2017 17:36
[2017-06-11] MEDS ORDERED: HYDROmorphone HCL PF 2 MG/ML VIAL IV PUSH PRN ×2 (17:45)
[2017-06-11] MEDS: methylPREDNISolone SOD SUCC 40 MG/1 ML VIAL IV PUSH SCH (17:58)
[2017-06-11] MEDS: ENOXAPARIN SODIUM 40 MG/0.4 ML SYRINGE SQ SCH (18:03)
[2017-06-11 18:28] VITALS: BP 119/57; PULSE 93; RESP 20; TEMP 100.5; O2SAT 92
[2017-06-11 20:00] VITALS: BP 96/53; PULSE 95; RESP 16; TEMP 99.7; O2SAT 92
[2017-06-11] MEDS: BUDESONIDE-FORMOTEROL 160/4.5 MCG INHALER INH SCH (21:00)
[2017-06-11] MEDS: DOCUSATE SODIUM 50 MG/SENNA 8.6 MG TAB PO SCH (21:00)
[2017-06-11] MEDS ORDERED: SODIUM CHLORIDE 0.9% FLUSH 10 ML FLUSH IV FLUSH SCH (21:00)
[2017-06-11] MEDS ORDERED: TIOTROPIUM INH SCH (21:00)
[2017-06-11] MEDS ORDERED: RESTASIS OPTH EACH EYE SCH (21:00)
[2017-06-11] MEDS: AZTREONAM INJ 2,000 MG in SODIUM CHLORIDE 0.9% INJ 100 ML IV SCH (22:03)
[2017-06-11] MEDS: OSELTAMIVIR PHOSPHATE 75 MG CAP PO SCH (22:04)
[2017-06-11] MEDS: CARVEDILOL 6.25 MG TAB PO SCH (22:06)
[2017-06-11] MEDS: guaiFENesin E.R. 600 MG TAB PO SCH (22:06)
[2017-06-11] MEDS: SODIUM CHLORIDE 0.9% FLUSH 10 ML FLUSH IV FLUSH SCH (22:16)
[2017-06-12] VITALS (7 sets, daily range): BP systolic 103–126; BP diastolic 53–60; PULSE 70–84; RESP 16–18; TEMP 96–97.8; O2SAT 93–97
[2017-06-12] MEDS ORDERED: FLUCONAZOLE 100 MG TAB PO ONE (06:00)
[2017-06-12 06:35] LABS: AUTOMATED NEUTROPHIL # 9.1 TH/MM3 (1.8-7.7); BASOPHIL % 0.2 % (0.0-2.0); HEMATOCRIT 30.1 % (35.0-46.0); HEMOGLOBIN 10.2 GM/DL (11.6-15.3); LYMPH % 8.4 % (9.0-44.0); LYMPHOCYTE # 0.9 TH/MM3 (1.0-4.8); MEAN CORPUSCULAR HEMOGLOBIN 30.2 PG (27.0-34.0); MEAN CORPUSCULAR HGB CONC 33.9 % (32.0-36.0); MEAN PLATELET VOLUME 8.9 FL (7.0-11.0); MONO % 5.6 % (0.0-8.0); MONOCYTE # 0.6 TH/MM3 (0-0.9); NEUT % 85.8 % (16.0-70.0); PLATELET COUNT 264 TH/MM3 (150-450); RED BLOOD COUNT 3.38 MIL/MM3 (4.00-5.30); RED CELL DISTRIBUTION WIDTH 13.8 % (11.6-17.2); WHITE BLOOD COUNT 10.6 TH/MM3 (4.0-11.0)
[2017-06-12] MEDS: methylPREDNISolone SOD SUCC 40 MG/1 ML VIAL IV PUSH SCH ×2 (06:47→16:39)
[2017-06-12] MEDS: AZTREONAM INJ 2,000 MG in SODIUM CHLORIDE 0.9% INJ 100 ML IV SCH ×3 (06:47→22:36)
[2017-06-12 08:34] LABS: ALBUMIN 2.6 GM/DL (3.4-5.0); BLOOD UREA NITROGEN 14 MG/DL (7-18); CALCIUM 8.9 MG/DL (8.5-10.1); CHLORIDE 106 MEQ/L (98-107); CREATININE 1.06 MG/DL (0.50-1.00); GLOMERULAR FILTRATION RATE 51 ML/MIN (>89); GLUCOSE,RANDOM 112 MG/DL (74-106); MAGNESIUM 2.1 MG/DL (1.5-2.5); SODIUM (NA) 139 MEQ/L (136-145)
[2017-06-12 08:36] LABS: ALT (GPT) 11 U/L (10-53); AST (GOT) 17 U/L (15-37); PHOSPHORUS 3.4 MG/DL (2.5-4.9)
[2017-06-12 08:44] LABS: ALKALINE PHOSPHATASE 116 U/L (45-117); FREE T4 1.38 NG/DL (0.76-1.46); TOTAL BILIRUBIN ADULT 0.3 MG/DL (0.2-1.0); TOTAL PROTEIN 7.2 GM/DL (6.4-8.2)
[2017-06-12] MEDS: SODIUM CHLORIDE 0.9% FLUSH 10 ML FLUSH IV FLUSH SCH ×2 (08:52→20:14)
[2017-06-12] MEDS: PANTOPRAZOLE SOD 20 MG DELAYED RELEASE TAB PO SCH (08:53)
[2017-06-12] MEDS: OSELTAMIVIR PHOSPHATE 75 MG CAP PO SCH ×2 (08:54→20:14)
[2017-06-12] MEDS: guaiFENesin E.R. 600 MG TAB PO SCH ×2 (08:54→20:13)
[2017-06-12] MEDS: DOCUSATE SODIUM 50 MG/SENNA 8.6 MG TAB PO SCH ×2 (08:54→20:13)
[2017-06-12] MEDS: FUROSEMIDE 40 MG TAB PO SCH (08:55)
[2017-06-12] MEDS: CARVEDILOL 6.25 MG TAB PO SCH ×2 (08:55→20:14)
[2017-06-12] MEDS: LISINOPRIL 10 MG TAB PO SCH (08:55)
[2017-06-12] MEDS: BUDESONIDE-FORMOTEROL 160/4.5 MCG INHALER INH SCH ×2 (09:05→20:14)
[2017-06-12 15:45] LABS: HEMOGLOBIN A1C 4.9 % (4.3-6.0)
[2017-06-12] MEDS ORDERED: AZITHROMYCIN INJ 500 MG in SODIUM CHLOR 0.9% 250 ML INJ 250 ML IV SCH (16:00)
[2017-06-12] MEDS: oxyCODONE/ACETAMINOPHEN 10 MG/325 MG TAB PO PRN ×2 (16:38→22:35)
[2017-06-12] MEDS: ENOXAPARIN SODIUM 40 MG/0.4 ML SYRINGE SQ SCH (16:39)
--- NOTE | 2017-06-12 18:34 | HHI.PR ---
Subjective Remarks still c/o cough. afebrile. c/o pleuritic chest pain on inspiration and with cough Objective Vitals Vital Signs Date Time Temp Pulse Resp B/P (MAP) Pulse Ox O2 Delivery O2 Flow Rate FiO2 06/12/17 16:00 97.0 84 17 103/53 (70) 94 06/12/17 12:00 97.7 81 17 104/55 (71) 93 06/12/17 09:44 96 06/12/17 08:00 97.8 82 16 126/59 (81) 93 06/12/17 08:00 70 06/12/17 04:00 96.1 72 16 124/60 (81) 96 06/12/17 03:50 21 06/12/17 00:00 96.0 76 16 109/57 (74) 93 06/11/17 20:00 99.7 95 16 96/53 (67) 92 06/11/17 18:28 100.5 93 20 119/57 (77) 92 I/O 06/11/17 06/11/17 06/11/17 06/12/17 06/12/17 06/12/17 07:00 15:00 23:00 07:00 15:00 23:00 Intake Total 1350 ml 100 ml 200 ml 850 ml Balance 1350 ml 100 ml 200 ml 850 ml Intake Oral 600 ml IV Total 1350 ml 100 ml 200 ml 250 ml # Voids 1 2 7 # Bowel Movements 2 Result Diagram: 06/12/17 0526 06/12/17 0526 Imaging Last Impressions Chest X-Ray 06/11/17 0000 Signed Impressions: Service Date/Time: Sunday, June 11, 2017 11:40 - CONCLUSION: 1. No acute abnormality or significant interval change. Bernardino Dias MD Objective Remarks GENERAL: This is a well-nourished, well-developed patient, nad. SKIN: No rashes, ecchymoses or lesions. Cool and dry. HEAD: Atraumatic. Normocephalic. No temporal or scalp tenderness. EYES: Pupils equal round and reactive. Extraocular motions intact. No scleral icterus. No injection or drainage. ENT: Nose without bleeding, purulent drainage or septal hematoma. Throat without erythema, tonsillar hypertrophy or exudate. Uvula midline. Airway patent. NECK: Trachea midline. No JVD or lymphadenopathy. Supple, nontender, no meningeal signs. CARDIOVASCULAR: Regular rate and rhythm without murmurs, gallops, or rubs. S1 and S2 no S3 or S4 RESPIRATORY: Clear to auscultation. Breath sounds equal bilaterally. Few scattered rhonchi bilaterally GASTROINTESTINAL: Abdomen soft, non-tender, nondistended. No hepato-splenomegaly , or palpable masses. No guarding. MUSCULOSKELETAL: Extremities without clubbing, cyanosis, or edema. No joint tenderness, effusion, or edema noted. No calf tenderness. Negative Homans sign bilaterally. NEUROLOGICAL: Awake and alert. Cranial nerves II through XII intact. Motor and sensory grossly within normal limits. 4 out of 5 muscle strength in all muscle groups. Normal speech. Insight and judgment is good Mood and behaviors appropriate Medications and IVs Current Medications Medications (Trade) Dose Ordered Sig/Jorge Route Start Time Stop Time Status Last Admin (NS Flush) 2 ml UNSCH PRN IV FLUSH 06/11/17 17:15 (NS Flush) 2 ml BID IV FLUSH 06/11/17 21:00 06/12/17 08:52 (Tylenol) 650 mg Q4H PRN PO 06/11/17 17:15 06/11/17 18:23 (Zofran Inj) 4 mg Q6H PRN IVP 06/11/17 17:15 (Reglan Inj) 5 mg Q6H PRN IV PUSH 06/11/17 17:15 (Lovenox Inj) 40 mg Q24H SQ 06/11/17 18:00 06/12/17 16:39 (Tylenol) 650 mg Q6H PRN PO 06/11/17 17:15 (Percocet 5-325 Mg) 1 tab Q6H PRN PO 06/11/17 17:15 06/11/17 22:14 (Percocet 10-325 Mg) 1 tab Q6H PRN PO 06/11/17 17:15 06/12/17 16:38 (Dilaudid Pf Inj) 0.5 mg Q3H PRN IV PUSH 06/11/17 17:45 (Dilaudid Pf Inj) 1 mg Q3H PRN IV PUSH 06/11/17 17:45 06/12/17 02:36 (Narcan Inj) 0.4 mg UNSCH PRN IV PUSH 06/11/17 17:15 (Amanda-Colace) 1 tab BID PO 06/11/17 21:00 06/12/17 08:54 (Milk Of Magnesia Liq) 30 ml Q12H PRN PO 06/11/17 17:15 (Senokot) 17.2 mg Q12H PRN PO 06/11/17 17:15 (Dulcolax Supp) 10 mg DAILY PRN RECTAL 06/11/17 17:15 (Lactulose Liq) 30 ml DAILY PRN PO 06/11/17 17:15 Azithromycin 500 mg/Sodium Chloride 250 ml @ 250 mls/hr Q24H IV 06/12/17 16:00 06/12/17 15:00 Aztreonam 2000 mg/ Sodium Chloride 100 ml @ 200 mls/hr Q8H IV 06/11/17 23:00 06/12/17 14:17 (Tamiflu) 75 mg BID PO 06/11/17 21:00 06/16/17 20:59 06/12/17 08:54 (Duoneb Neb) 1 ampule Q4HR NEB PRN INH 06/11/17 17:15 (SoluMEDROL INJ) 40 mg Q12H IV PUSH 06/11/17 18:00 06/12/17 16:39 (Mucinex Er) 600 mg BID PO 06/11/17 21:00 06/12/17 08:54 (Zovirax 5% Cream) 1 applic 5 TIMES A DAY PRN TOPICAL 06/11/17 17:30 (Coreg) 6.25 mg Q12HR PO 06/11/17 21:00 06/12/17 08:55 (Lasix) 40 mg DAILY PO 06/12/17 09:00 06/12/17 08:55 (Prinivil) 10 mg DAILY PO 06/12/17 09:00 06/12/17 08:55 Patient Own Medication PT OWN MED: SPIR... BID INH 06/11/17 21:00 Future Hold Patient Own Medication PT OWN MED: RESTASIS (CYCLOSPOR... BID EACH EYE 06/11/17 21:00 Future Hold (Symbicort 160-4.5 Mcg Inh) 2 puff BID INH 06/11/17 21:00 06/12/17 09:05 (Protonix) 20 mg DAILY PO 06/12/17 09:00 06/12/17 08:53 A/P Assessment and Plan 1. Sepsis Present on admission with leukocytosis, fever with a MAXIMUM TEMPERATURE of 100.5 and heart rate more than 90. Likely due to influenza and pneumonia. Pneumonia possibly community-acquired versus bilateral. 2. Influenza failed outpatient therapy continue on Tamiflu twice a day 3. Community acquired pneumonia Continue Azactam and Azithromycin IV. Mucinex duo nebs and incentive spirometry home inhalers Fevers antiemetics Congestive heart failure hold off on aggressive fluid rehydration -resume home medications Influenza a and b negative. 06/12 will order walk test since patient sob and with borderline sats. 4. Hypertension resume home medications 06/12 BP stable continue home antihypertensive medications. 5. Hyperlipidemia home medications 6. Chronic UTI hold her home medications 7. COPD Continue IV steroids. Physical therapy and occupational therapy Case management for consult GI and DVT prophylaxis see orders Discharge Planning possible Dc in am pending walk test. Hero Lamb MD Jun 12, 2017 18:34
[2017-06-13] VITALS: PULSE 83
[2017-06-13 00:19] VITALS: BP 131/68; PULSE 68; RESP 18; TEMP 96.8; O2SAT 95
[2017-06-13 04:00] VITALS: BP 120/60; PULSE 80; RESP 20; TEMP 96.8; O2SAT 96
[2017-06-13] MEDS: oxyCODONE/ACETAMINOPHEN 10 MG/325 MG TAB PO PRN (05:58)
[2017-06-13] MEDS: AZTREONAM INJ 2,000 MG in SODIUM CHLORIDE 0.9% INJ 100 ML IV SCH (05:58)
[2017-06-13] MEDS: methylPREDNISolone SOD SUCC 40 MG/1 ML VIAL IV PUSH SCH (05:59)
[2017-06-13 08:00] VITALS: BP 118/58; PULSE 80; RESP 17; TEMP 95.6; O2SAT 94
[2017-06-13] MEDS: BUDESONIDE-FORMOTEROL 160/4.5 MCG INHALER INH SCH (09:00)
[2017-06-13] MEDS: SODIUM CHLORIDE 0.9% FLUSH 10 ML FLUSH IV FLUSH SCH (09:00)
[2017-06-13] MEDS: DOCUSATE SODIUM 50 MG/SENNA 8.6 MG TAB PO SCH (09:00)
[2017-06-13] MEDS: CARVEDILOL 6.25 MG TAB PO SCH (09:00)
[2017-06-13 09:04] VITALS: O2SAT 95
[2017-06-13] MEDS: OSELTAMIVIR PHOSPHATE 75 MG CAP PO SCH (11:18)
[2017-06-13] MEDS: guaiFENesin E.R. 600 MG TAB PO SCH (11:18)
[2017-06-13] MEDS: PANTOPRAZOLE SOD 20 MG DELAYED RELEASE TAB PO SCH (11:18)
[2017-06-13] MEDS: FUROSEMIDE 40 MG TAB PO SCH (11:18)
[2017-06-13] MEDS: LISINOPRIL 10 MG TAB PO SCH (11:19)
[2017-06-13] MEDS ORDERED: DOXY100C PO (13:27)
[2017-06-13] MEDS ORDERED: AZIT250T3 PO (13:27)
--- NOTE | 2017-06-13 13:29 | HHI.DCPOC ---
Discharge Care Plan Diagnosis: (1) Hyperlipidemia (2) CAP (community acquired pneumonia) (3) Sepsis (4) HTN (hypertension) (5) COPD (chronic obstructive pulmonary disease) Goals to Promote Your Health * To prevent worsening of your condition and complications * To maintain your health at the optimal level Directions to Meet Your Goals Take your medications as prescribed Follow your dietary instruction Follow activity as directed Keep your appointments as scheduled Take your immunizations and boosters as scheduled If your symptoms worsen call your PCP, if no PCP go to Urgent Care Center or Emergency Room Smoking is Dangerous to Your Health. Avoid second hand smoke Call the 24-hour hour crisis hotline for domestic abuse at Hero Lamb MD Jun 13, 2017 13:29
--- NOTE | 2017-06-13 13:40 | HHI.DS ---
Discharge Summary Admission Date Jun 11, 2017 at 13:39 Discharge Date: Jun 13, 2017 Admitting Diagnosis pneumonia, influenza (1) Sepsis ICD Code: A41.9 - Sepsis, unspecified organism Diagnosis: Principal Status: Resolved (2) Fever ICD Code: R50.9 - Fever, unspecified Status: Acute (3) COPD (chronic obstructive pulmonary disease) ICD Code: J44.9 - Chronic obstructive pulmonary disease, unspecified Diagnosis: Principal Status: Acute (4) Malaise ICD Code: R53.81 - Other malaise Diagnosis: Principal Status: Resolved (5) Cough ICD Code: R05 - Cough Diagnosis: Principal Status: Acute (6) CAP (community acquired pneumonia) ICD Code: J18.9 - Pneumonia, unspecified organism Diagnosis: Principal Status: Acute (7) HTN (hypertension) ICD Code: I10 - Essential (primary) hypertension Diagnosis: Secondary Status: Chronic (8) Hyperlipidemia ICD Code: E78.5 - Hyperlipidemia, unspecified Diagnosis: Secondary Status: Chronic Procedures none. Brief History - From Admission Patient is a 71-year-old female. He came into the hospital complaining of worsening cough, fever, and shortness of breath. She has been having this going on for at least a week probably been going on for at least 8 days. Has had some nausea and vomiting, on and off. She's been vomiting up some mucus after coughing. Questionable sputum instead of actual vomitus. Had fevers this morning temperature was 101.4 had some Tylenol prior to coming here. Saw her primary care physician last week tested positive for flu. Patient was told that she did not improve she should come to the emergency department which she did today. Patient states she is feeling worse has history of COPD. History of congestive heart failure Patient has failed outpatient therapy Will be started on Tamiflu and antibiotics CBC/BMP: 06/12/17 0526 06/12/17 0526 Significant Findings Laboratory Tests Test 06/11/17 12:10 06/12/17 05:26 White Blood Count 13.8 TH/MM3 (4.0-11.0) Red Blood Count 3.71 MIL/MM3 (4.00-5.30) 3.38 MIL/MM3 (4.00-5.30) Hemoglobin 10.9 GM/DL (11.6-15.3) 10.2 GM/DL (11.6-15.3) Hematocrit 33.1 % (35.0-46.0) 30.1 % (35.0-46.0) Neutrophils (%) (Auto) 77.1 % (16.0-70.0) 85.8 % (16.0-70.0) Monocytes (%) (Auto) 9.9 % (0.0-8.0) Neutrophils # (Auto) 10.7 TH/MM3 (1.8-7.7) 9.1 TH/MM3 (1.8-7.7) Monocytes # (Auto) 1.4 TH/MM3 (0-0.9) Creatinine 1.52 MG/DL (0.50-1.00) 1.06 MG/DL (0.50-1.00) Total Protein 8.3 GM/DL (6.4-8.2) Albumin 3.0 GM/DL (3.4-5.0) 2.6 GM/DL (3.4-5.0) Alkaline Phosphatase 122 U/L (45-117) Estimat Glomerular Filtration Rate 34 ML/MIN (>89) 51 ML/MIN (>89) Lymphocytes (%) (Auto) 8.4 % (9.0-44.0) Lymphocytes # (Auto) 0.9 TH/MM3 (1.0-4.8) Random Glucose 112 MG/DL (74-106) Imaging Last Impressions Chest X-Ray 06/11/17 0000 Signed Impressions: Service Date/Time: Sunday, June 11, 2017 11:40 - CONCLUSION: 1. No acute abnormality or significant interval change. Bernardino Dias MD PE at Discharge GENERAL: This is a well-nourished, well-developed patient, nad. SKIN: No rashes, ecchymoses or lesions. Cool and dry. HEAD: Atraumatic. Normocephalic. No temporal or scalp tenderness. EYES: Pupils equal round and reactive. Extraocular motions intact. No scleral icterus. No injection or drainage. ENT: Nose without bleeding, purulent drainage or septal hematoma. Throat without erythema, tonsillar hypertrophy or exudate. Uvula midline. Airway patent. NECK: Trachea midline. No JVD or lymphadenopathy. Supple, nontender, no meningeal signs. CARDIOVASCULAR: Regular rate and rhythm without murmurs, gallops, or rubs. S1 and S2 no S3 or S4 RESPIRATORY: Clear to auscultation. Breath sounds equal bilaterally. Few scattered rhonchi bilaterally GASTROINTESTINAL: Abdomen soft, non-tender, nondistended. No hepato-splenomegaly , or palpable masses. No guarding. MUSCULOSKELETAL: Extremities without clubbing, cyanosis, or edema. No joint tenderness, effusion, or edema noted. No calf tenderness. Negative Homans sign bilaterally. NEUROLOGICAL: Awake and alert. Cranial nerves II through XII intact. Motor and sensory grossly within normal limits. 4 out of 5 muscle strength in all muscle groups. Normal speech. Insight and judgment is good Mood and behaviors appropriate Pt update on day of discharge The patient feels much better. Denies shortness of breath, still coughing however this has improved. Patient states her appetite is improving, denies chest pain. States she wishes to go home. Patient this requesting to be discharged to outpatient pulmonary rehabilitation. Hospital Course The patient was admitted to the medical floor. Treated with IV broad-spectrum antibiotics for recommended for pneumonia. Chest x-ray report did not report any abnormality. However after being reviewed by me there was a possible left- sided infiltrate. Patient was treated with IV aztreonam and IV azithromycin. Influenza A and B were negative. Walk test was ordered and the patient fasted. Patient hypertension remained stable and patient's home antihypertensive medications were continued. The patient also has history of COPD and was started on IV Solu-Medrol. The patient will be discharge on oral doxycycline, oral azithromycin and prednisone taper. Will also prescribe Tessalon Perles for cough. Pt Condition on Discharge: Stable Discharge Disposition: Discharge Home Discharge Time: <= 30 minutes Discharge Instructions DIET: Follow Instructions for: Heart Healthy Diet Activities you can perform: Regular-No Restrictions Activities to Avoid: Strenuous Activity Follow up Referrals: PCP Follow-up - 2 Weeks New Medications: Azithromycin (Azithromycin) 250 Mg Tab 250 MG PO DAILY for Infection, #5 TAB 0 Refills Doxycycline Hyclate (Doxycycline Hyclate) 100 Mg Cap 100 MG PO BID for Infection, #20 CAP 0 Refills Continued Medications: Acyclovir Topical (Zovirax Topical) 5% Cream 1 APPLIC TOPICAL 5 TIMES A DAY PRN for discomfort, #1 TUBE Calcium Carbonate (Calcium 600) 1,500 Mg Tab 1500 MG PO, TAB Carvedilol (Coreg) 6.25 Mg Tab 6.25 MG PO Q12HR for card, #60 TAB Cyclosporine Opth (Restasis Opth) 0.05% Emul 1 DROP EACH EYE BID for Dry Eye, #1 BOX 0 Refills Fluticasone-Salmeterol Inh (Advair Diskus Inh) 500-50 Mcg/Blist Aer 1 PUFF INH BID, #1 INHALER 0 Refills Rinse mouth after use. Furosemide (Furosemide) 40 Mg Tab 40 MG PO DAILY for card, #30 TAB Hydrocodone-Acetaminophen (Hydrocodone-Acetaminophen) 5-325 mg Tab 1 TAB PO Q4H PRN for PAIN, TAB 0 Refills Lisinopril (Lisinopril) 10 Mg Tab 10 MG PO DAILY for htn, #30 TAB Nitrofurantoin Monohydrate Macrocrystals (Macrobid) 100 Mg Cap 100 MG PO HS for Infection, CAP 0 Refills Omeprazole (Omeprazole) 10 Mg Cap 15 MG PO DAILY, #30 CAP 0 Refills Probiotic Product (Acidophilus) 1 Chew Tiotropium Inh (Spiriva Handihaler) 18 Mcg Cap 18 MCG INH BID for copd, #1 CAP Hero Lamb MD Jun 13, 2017 13:40
== END 2017-06-13 15:07 | disposition home or self-care (01) | DRG 871 ==
LOC: NEPC 10:52 → NEDA 13:39 → N07A 17:31
PROVIDERS: ADMIT Hospitalist; ATTEND Hospitalist
DX: A41.9 Sepsis, unspecified organism (principal); J11.00 Influenza due to unidentified influenza virus with unspecified type of pneumonia; I11.0 Hypertensive heart disease with heart failure; J18.9 Pneumonia, unspecified organism; I50.9 Heart failure, unspecified; I42.9 Cardiomyopathy, unspecified; J44.0 Chronic obstructive pulmonary disease with (acute) lower respiratory infection; N39.0 Urinary tract infection, site not specified; J44.1 Chronic obstructive pulmonary disease with (acute) exacerbation; E78.5 Hyperlipidemia, unspecified; I25.10 Atherosclerotic heart disease of native coronary artery without angina pectoris; M19.90 Unspecified osteoarthritis, unspecified site; K21.9 Gastro-esophageal reflux disease without esophagitis; Z86.73 Personal history of transient ischemic attack (TIA), and cerebral infarction without residual deficits; Z87.01 Personal history of pneumonia (recurrent); Z87.891 Personal history of nicotine dependence
CPT/HCPCS: 71046; 80053; 83036; 83605; 83735; 84100; 84439; 84443; 85025; 87040; 87070; 87205; 87804; 94150; 94618; 96360; 96361; 96372; J0456; J1170; J1650; J2550; J2920; J7030; J7050

== ENCOUNTER → 2017-07-23 | Outpatient (CLI) | payer MEDICARE, OTHER ==
[~2017-07-23] MED LIST changes: +AZIT250T3 PO; -BUTATAB6 PO; -CARA1TAB6 PO; +DOXY100C PO
[2017-07-23 14:02] LABS: AUTOMATED NEUTROPHIL # 5.1 TH/MM3 (1.8-7.7); BASOPHIL # 0.1 TH/MM3 (0-0.2); BASOPHIL % 0.8 % (0.0-2.0); EOSINOPHIL # 0.1 TH/MM3 (0-0.4); EOSINOPHIL % 0.7 % (0.0-4.0); HEMATOCRIT 39.5 % (35.0-46.0); HEMOGLOBIN 13.2 GM/DL (11.6-15.3); LYMPH % 25.6 % (9.0-44.0); MEAN CELL VOLUME 91.9 FL (80.0-100.0); MEAN CORPUSCULAR HEMOGLOBIN 30.8 PG (27.0-34.0); MEAN CORPUSCULAR HGB CONC 33.5 % (32.0-36.0); MEAN PLATELET VOLUME 9.5 FL (7.0-11.0); MONOCYTE # 0.5 TH/MM3 (0-0.9); NEUT % 65.9 % (16.0-70.0); PLATELET COUNT 186 TH/MM3 (150-450); RED CELL DISTRIBUTION WIDTH 15.9 % (11.6-17.2); WHITE BLOOD COUNT 7.7 TH/MM3 (4.0-11.0)
[2017-07-23 14:17] LABS: AST (GOT) 19 U/L (15-37); BICARBONATE 28.4 MEQ/L (21.0-32.0); BLOOD UREA NITROGEN 23 MG/DL (7-18); CALCIUM 9.3 MG/DL (8.5-10.1); CHLORIDE 107 MEQ/L (98-107); CHOLESTEROL 224 MG/DL (120-200); CREATININE 1.25 MG/DL (0.50-1.00); GLOMERULAR FILTRATION RATE 42 ML/MIN (>89); GLUCOSE,FASTING 87 MG/DL (74-99); SODIUM (NA) 141 MEQ/L (136-145)
[2017-07-23 14:21] LABS: ALKALINE PHOSPHATASE 122 U/L (45-117); ALT (GPT) 27 U/L (10-53); CHOLESTEROL/ HDL RATIO 5.02 RATIO; HDL CHOLESTEROL 44.6 MG/DL (40.0-60.0); LDL CHOLESTEROL 109 MG/DL (0-99); TOTAL BILIRUBIN ADULT 0.4 MG/DL (0.2-1.0); TOTAL PROTEIN 7.8 GM/DL (6.4-8.2); TRIGLYCERIDES 354 MG/DL (42-150)
== END ==
LOC: CLAB 13:29
PROVIDERS: ATTEND Family Medicine
DX: I13.0 Hypertensive heart and chronic kidney disease with heart failure and stage 1 through stage 4 chronic kidney disease, or unspecified chronic kidney disease (principal); N18.3 Chronic kidney disease, stage 3 (moderate); I50.9 Heart failure, unspecified; E78.5 Hyperlipidemia, unspecified
CPT/HCPCS: 36415; 80053; 80061; 85025

== ENCOUNTER → 2017-09-27 | Outpatient (CLI) | DX: G93.3 Postviral and related fatigue syndromes (principal); R53.1 Weakness; R53.81 Other malaise; R53.83 Other fatigue; M31.6 Other giant cell arteritis; E78.4 Other hyperlipidemia; E78.5 Hyperlipidemia, unspecified; E53.1 Pyridoxine deficiency; E53.8 Deficiency of other specified B group vitamins ==